=== PATIENT | male | born 1945 | race Caucasian/White ===

== ENCOUNTER 2016-11-18 01:36 | Inpatient (IN) | payer MEDICARE, MEDICAID ==
[2016-11-18] VITALS (8 sets, daily range): BP systolic 120–143; BP diastolic 58–76; PULSE 62–101; RESP 16–22; TEMP 95.9–97.6; O2SAT 93–98
[~2016-11-18] VITALS: Ht 177.8 cm; Wt 195.4 kg
[~2016-11-18 01:36] MED LIST: ASPI325T PO; COZA50TA PO; FLUO20SO3 PO; FURO1TAB93 PO; LANTUSP SQ; METO100T PO; NOVO7030P2 SQ; NYST15T TOP; PRIL40CA PO; PROT40TA PO; SULF1TAB47 PO
[2016-11-18] MEDS ORDERED: CARV25TA PO (01:46)
[2016-11-18] MEDS ORDERED: CLON0.2T PO (01:46)
[2016-11-18] MEDS ORDERED: AMLO5TAB2 PO (01:46)
[2016-11-18] MEDS ORDERED: APIX5TAB PO (01:46)
[2016-11-18] MEDS ORDERED: HYDR50TA15 PO (01:46)
[2016-11-18] MEDS ORDERED: LISI-515 PO (01:46)
[2016-11-18] MEDS ORDERED: GLIP10TA6 PO (01:46)
--- NOTE | 2016-11-18 02:01 | PD ---
HPI Chief Complaint: Fall Time Seen by Provider: 02:01 Travel History International Travel<30 days: No Contact w/Intl Traveler<30days: No Traveled to known affect area: No History of Present Illness HPI 71-year-old male was brought in by EMS with history of a fall and unable to get up and ambulate. Patient says that he was trying to go to the bathroom and his legs gave out. Normally he is not ambulatory. He had gone to [facility] with issues of leg weakness but they have discharged him home. Patient says that he used to have a healthcare aide who has abandoned him. Currently he is unable to take care of himself. Both his lower extremities look to be in terrible shape. Patient has history of lymphedema among other medical comorbidities. [facility] Past Medical History Narrative Medical List of his past medical, surgical, social and family history was reviewed from the nursing note. Arthritis: No Asthma: No Autoimmune Disease: No Blood Disorders: No Anxiety: No Depression: No Heart Rhythm Problems: No Cancer: No Cardiovascular Problems: Yes High Cholesterol: No Chemotherapy: No Chest Pain: No Congestive Heart Failure: Yes COPD: No Cerebrovascular Accident: No Diabetes: Yes Patient Takes Glucophage: Yes Diminished Hearing: No Endocrine: No Gastrointestinal Disorders: No GERD: Yes Glaucoma: No Genitourinary: No Headaches: No Hepatitis: No Hiatal Hernia: No Heparin Induced Thrombocytopen: No Hypertension: Yes Immune Disorder: No Implanted Vascular Access Dvce: No Kidney Stones: No Musculoskeletal: No Neurologic: No Psychiatric: No Reproductive: No Respiratory: No Integumentary: Yes (CELLULITIS LLE) Immunizations Current: Yes Migraines: No Myocardial Infarction: No Radiation Therapy: No Renal Failure: Yes (CHRONIC RENAL INSUFFICIENCY) Seizures: No Sickle Cell Disease: No Sleep Apnea: No Thyroid Disease: No Ulcer: No Tetanus Vaccination: > 5 Years Influenza Vaccination: Yes Past Surgical History Abdominal Surgery: No AICD: No Appendectomy: No Arteriovenous Shunt: No Cardiac Surgery: No Cholecystectomy: No Ear Surgery: No Endocrine Surgery: No Eye Surgery: No Genitourinary Surgery: No Gynecologic Surgery: No Insulin Pump: No Joint Replacement: No Neurologic Surgery: No Oral Surgery: No Pacemaker: No Thoracic Surgery: No Tonsillectomy: Yes Other Surgery: No Social History Alcohol Use: No Tobacco Use: No Substance Use: No Allergies-Medications (Allergen,Severity, Reaction): 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 MRSA Screen POSITIVE-11/19/16 Comments No known drug allergies. Reported Meds & Prescriptions Reported Meds & Active Scripts Active Reported Lasix (Furosemide) 40 Mg Tab 40 Mg PO DAILY Fluoxetine (Fluoxetine HCl) 20 Mg Cap 20 Mg PO DAILY Aspirin 325 Mg Tab 325 Mg PO DAILY Eliquis (Apixaban) 5 Mg Tab 5 Mg PO BID Amlodipine (Amlodipine Besylate) 5 Mg Tab 5 Mg PO BID Hydralazine (Hydralazine HCl) 50 Mg Tab 50 Mg PO BID Take with a meal Glipizide 10 Mg Tab 10 Mg PO BIDAC Take 30 minutes before a meal Lisinopril 20 Mg Tab 20 Mg PO BID Clonidine (Clonidine HCl) 0.2 Mg Tab 0.2 Mg PO BID Carvedilol 25 Mg Tab 25 Mg PO BID Narrative Medication List of his home medications reviewed from the nursing note. Review of Systems Except as stated in HPI: all other systems reviewed are Neg Physical Exam Narrative GENERAL: Awake, alert, morbidly obese, moderate distress SKIN: Focused skin assessment warm/dry. Pale. Disheveled, bilateral lower extremity lymphedema/elephantiasis. Bilateral feet and toes are in poor condition. The left great toe distally show signs of necrosis. Right great toe dorsally has a blood blister HEAD: Atraumatic. Normocephalic. EYES: Pupils equal and round. No scleral icterus. No injection or drainage. ENT: No nasal bleeding or discharge. Mucous membranes pink and moist. NECK: Trachea midline. No JVD. CARDIOVASCULAR: Regular rate and rhythm. No murmur appreciated. RESPIRATORY: No accessory muscle use. Clear to auscultation. Breath sounds equal bilaterally. GASTROINTESTINAL: Abdomen soft, non-tender, nondistended. Hepatic and splenic margins not palpable. MUSCULOSKELETAL: No obvious deformities. No clubbing. No cyanosis. No edema. NEUROLOGICAL: Awake and alert. No obvious cranial nerve deficits. Motor grossly within normal limits. Normal speech. PSYCHIATRIC: Appropriate mood and affect; insight and judgment normal. Data Data Last Documented VS Vital Signs Date Time Temp Pulse Resp B/P Pulse Ox O2 Delivery O2 Flow Rate FiO2 11/18/16 04:49 82 20 120/76 96 Nasal Cannula 2 11/18/16 01:46 97.5 Orders Complete Blood Count With Diff (11/18/16 02:07) Comprehensive Metabolic Panel (11/18/16 02:07) Lactic Acid Sepsis Protocol (11/18/16 02:07) Magnesium (Mg) (11/18/16 02:07) Troponin I (11/18/16 02:07) Urinalysis - C+S If Indicated (11/18/16 02:07) Blood Culture (11/18/16 02:07) Chest, Single Ap (11/18/16 02:07) Blood Glucose (11/18/16 02:07) Ecg Monitoring (11/18/16 02:07) Iv Access Insert/Monitor (11/18/16 02:07) Oximetry (11/18/16 02:07) Oxygen Administration (11/18/16 02:07) Vancomycin Inj (Vancomycin Inj) (11/18/16 02:07) Piperacil-Tazo 4.5 Gm Premix (Zosyn 4.5 (11/18/16 02:07) Urinary Catheter Insert/Apply (11/18/16 05:11) Urine Culture (11/18/16 05:35) Admit Order (Ed Use Only) (11/18/16 06:11) Labs Laboratory Tests Test 11/18/16 11/18/16 11/18/16 11/18/16 01:50 01:55 03:14 05:35 White Blood Count 8.4 TH/MM3 Red Blood Count 3.35 MIL/MM3 Hemoglobin 9.7 GM/DL Hematocrit 28.6 % Mean Corpuscular Volume 85.1 FL Mean Corpuscular Hemoglobin 29.1 PG Mean Corpuscular Hemoglobin 34.1 % Concent Red Cell Distribution Width 16.0 % Platelet Count 226 TH/MM3 Mean Platelet Volume 9.6 FL Neutrophils (%) (Auto) 77.0 % Lymphocytes (%) (Auto) 6.5 % Monocytes (%) (Auto) 10.8 % Eosinophils (%) (Auto) 4.6 % Basophils (%) (Auto) 1.1 % Neutrophils # (Auto) 6.4 TH/MM3 Lymphocytes # (Auto) 0.5 TH/MM3 Monocytes # (Auto) 0.9 TH/MM3 Eosinophils # (Auto) 0.4 TH/MM3 Basophils # (Auto) 0.1 TH/MM3 CBC Comment DIFF FINAL Differential Comment Lactic Acid Level 1.3 mmol/L Sodium Level 143 MEQ/L Potassium Level 4.5 MEQ/L Chloride Level 110 MEQ/L Carbon Dioxide Level 23.9 MEQ/L Anion Gap 9 MEQ/L Blood Urea Nitrogen 57 MG/DL Creatinine 2.93 MG/DL Estimat Glomerular Filtration 21 ML/MIN Rate Random Glucose 164 MG/DL Calcium Level 8.7 MG/DL Magnesium Level 1.9 MG/DL Total Bilirubin 0.7 MG/DL Aspartate Amino Transf 25 U/L (AST/SGOT) Alanine Aminotransferase 28 U/L (ALT/SGPT) Alkaline Phosphatase 68 U/L Troponin I LESS THAN 0.02 NG/ML Total Protein 6.9 GM/DL Albumin 2.7 GM/DL Urine Color YELLOW Urine Turbidity HAZY Urine pH 5.0 Urine Specific [place] 1.015 Urine Protein 30 mg/dL Urine Glucose (UA) NEG mg/dL Urine Ketones NEG mg/dL Urine Occult Blood NEG Urine Nitrite NEG Urine Bilirubin NEG Urine Urobilinogen LESS THAN 2.0 MG/DL Urine Leukocyte Esterase NEG Urine RBC 3 /hpf Urine WBC 1 /hpf Urine Squamous Epithelial 2 /hpf Cells Urine Bacteria FEW /hpf Urine Hyaline Casts 6 /lpf Microscopic Urinalysis Comment CATH-CULTURE IND MDM Medical Decision Making Medical Screen Exam Complete: Yes Emergency Medical Condition: Yes Medical Record Reviewed: Yes Differential Diagnosis Electrolyte abnormalities, UTI Narrative Course 2:43 AM awaiting for the blood test results to come back. CBC is back which shows mild anemia. Chest x-ray report is back which show significant cardiomegaly. 6:10 AM chemistry shows significantly elevated BUN/creatinine. This is the worst it has been compared to his past. Patient will need to be admitted to get a renal consultation since he does have cardiomegaly as well. He will also requires podiatry consultation for his diabetic foot. Procedures EKG Prior to Arrival: No Diagnosis Primary Impression: Acute renal failure Qualified Code: N17.9 - Acute renal failure, unspecified acute renal failure type Additional Impressions: Diabetic foot Inability to ambulate due to multiple joints Admitting Information Admitting Physician Requests: Admit Meaghan Foster MD Nov 18, 2016 02:01
[2016-11-18] MEDS ORDERED: PIPERACIL-TAZO 4.5 GM PREMIX 100 ML IV STA (02:07)
[2016-11-18] MEDS ORDERED: VANCOMYCIN INJ 1,000 MG in SODIUM CHLOR 0.9% 250 ML INJ 250 ML IV STA (02:07)
[2016-11-18 02:37] LABS: AUTOMATED NEUTROPHIL # 6.4 TH/MM3 (1.8-7.7); BASOPHIL # 0.1 TH/MM3 (0-0.2); BASOPHIL % 1.1 % (0.0-2.0); EOSINOPHIL # 0.4 TH/MM3 (0-0.4); EOSINOPHIL % 4.6 % (0.0-4.0); HEMATOCRIT 28.6 % (39.0-51.0); HEMO FLAGS DIFF FINAL; LYMPH % 6.5 % (9.0-44.0); LYMPHOCYTE # 0.5 TH/MM3 (1.0-4.8); MEAN CELL VOLUME 85.1 FL (80.0-100.0); MEAN CORPUSCULAR HEMOGLOBIN 29.1 PG (27.0-34.0); MEAN CORPUSCULAR HGB CONC 34.1 % (32.0-36.0); MONO % 10.8 % (0.0-8.0); PLATELET COUNT 226 TH/MM3 (150-450); RED BLOOD COUNT 3.35 MIL/MM3 (4.50-5.90); WHITE BLOOD COUNT 8.4 TH/MM3 (4.0-11.0)
--- NOTE | 2016-11-18 02:39 | RADRPT ---
EXAM DATE/TIME: 11/18/2016 02:15 [facility] COMPARISON: No previous studies available for comparison. INDICATIONS : Shortness of breath. MEDICAL HISTORY : None. SURGICAL HISTORY : None. ENCOUNTER: Initial ACUITY: 1 day PAIN SCORE: 7/10 LOCATION: Bilateral chest FINDINGS: A single view of the chest demonstrates prominence of pulmonary vasculature suggestive of pulmonary v enous congestion. The heart size is diffusely enlarged. No definite pleural effusions. No focal areas of parenchymal consolidation. The bony structures are grossly intact.. CONCLUSION: Pulmonary venous congestion with moderate diffuse cardiomegaly. Gustavo Grider MD on November 18, 2016 at 2:36 Board Certified Radiologist. This report was verified electronically.
[2016-11-18 04:46] LABS: ALT (GPT) 28 U/L (12-78); ANION GAP 9 MEQ/L (5-15); AST (GOT) 25 U/L (15-37); BICARBONATE 23.9 MEQ/L (21.0-32.0); BLOOD UREA NITROGEN 57 MG/DL (7-18); CHLORIDE 110 MEQ/L (98-107); GLOMERULAR FILTRATION RATE 21 ML/MIN (>89); MAGNESIUM 1.9 MG/DL (1.5-2.5); POTASSIUM 4.5 MEQ/L (3.5-5.1); SODIUM (NA) 143 MEQ/L (136-145)
[2016-11-18 04:50] LABS: ALKALINE PHOSPHATASE 68 U/L (45-117); TOTAL BILIRUBIN ADULT 0.7 MG/DL (0.2-1.0)
[2016-11-18 05:47] LABS: BACTERIA, URINE FEW /hpf; BLOOD, URINE NEG (NEG); COMMENT (UR) CATH-CULTURE IND; CULTURE IF INDICATED CATH CULTURE IND; GLUCOSE,URINE NEG (NEG); HYALINE CAST, URINE 6 /lpf (RARE); KETONE, URINE NEG (NEG); NITRITE,URINE NEG (NEG); SQUAMOUS EPITHELIAL CELL URINE 2 /hpf (0-5); URINE COLOR YELLOW (YELLW/STRAW)
[2016-11-18] MEDS ORDERED: SENNOSIDES 8.6 MG TAB PO PRN (07:00)
[2016-11-18] MEDS ORDERED: BISACODYL 10 MG SUPP RECTAL PRN (07:00)
[2016-11-18] MEDS ORDERED: MORPHINE SULFATE 4 MG/ML INJ IV PUSH ONE (07:00)
[2016-11-18] MEDS ORDERED: ONDANSETRON HCL 4 MG/2 ML VIAL IVP PRN (07:00)
[2016-11-18] MEDS ORDERED: NALOXONE HCL 0.4 MG/ML AMP IV PRN (07:00)
[2016-11-18] MEDS ORDERED: ACETAMINOPHEN 325 MG TAB PO PRN (07:00)
[2016-11-18] MEDS ORDERED: SODIUM CHLORIDE 0.9% FLUSH 10 ML FLUSH IV FLUSH PRN (07:00)
[2016-11-18] MEDS: SODIUM CHLORIDE 0.9% FLUSH 10 ML FLUSH IV FLUSH SCH ×2 (10:30→21:43)
[2016-11-18] MEDS: HEPARIN SODIUM - SQ 10,000 UNITS/ML VIAL SQ SCH ×2 (10:30→21:43)
--- NOTE | 2016-11-18 10:44 | MH ---
cc: RANJEET ADAM MD DATE OF ADMISSION: 11/18/2016 DATE OF 1945 CHIEF COMPLAINT Fall TRAVEL IN THE LAST 30 DAYS None HISTORY OF PRESENT ILLNESS This is an unfortunate 71-year-old white male who is morbidly obese. According to the record, the last time he was weighed, he was a 190 kg which averages out to be around 418 pounds. I am sure this weight waxes and wanes with his fluid overload. The patient has been living in the [facility] with some assistance from home health and a health health care manager, but according to the record, the health health care manager has not showed up to help him in an undisclosed amount of time. The patient is non-ambulatory for the most part. He is unable to care for himself. He fell in his home sometime yesterday and went to [facility] in [facility] with generalized bilateral leg weakness. According to the record and the nurse caring for the patient, the patient had an x-ray on his coccyx area yesterday which showed no fracture. The patient is back here in [facility] due to his overall weakness, lymphedema and unable to care for himself. He is complaining of coccyx pain. He is grunting and moaning with his eyes even at rest with discomfort. He has been seen by the wound care folks and states that his dressings have not been done in three days. The patient has 3+ to 4+ scrotal edema which he is unable to manage. States that he has been urinating okay before this admission and had a bowel movement yesterday. The patient currently has a Downs catheter in place to monitor I's and O's. The patient states that he has no family to assist him. His general hygiene has not been taken care of in an undisclosed amount of time. The patient has a history of lymphedema in his legs bilaterally. MEDICAL HISTORY 1. Cardiovascular disease 2. Lymphedema 3. Lower extremity wounds 4. Congestive heart failure 5. Diabetes type 2 uncontrolled. The patient takes Glucophage. 6. Gastroesophageal reflux disease 7. Hypertension 8. Cellulitis left lower extremities 9. Chronic renal insufficiency Most this is being obtained from the record. PAST MEDICAL HISTORY Tonsillectomy ALLERGIES No known MEDICATIONS Reported: 1. Eliquis 2. Amlodipine 3. Hydralazine 4. Glipizide 5. Lisinopril 6. Clonidine 7. Carvedilol 8. Aspirin 9. Prozac 10. Lasix SOCIAL HISTORY Denies any alcohol, tobacco or illicit drug use. He denies any family and lives alone in some type of apartment. REVIEW OF SYSTEMS A 12-point review was obtained. Limited information due to the patient's pain level. According to the HPI, the patient has a positive note of a recent fall on his coccyx. He has bilateral lymphedema with multiple wounds. The legs are wrapped. Feet and toes are exposed with bruise, cuts and edema, severe debility, genital swelling, morbid obesity, noncompliance. Other systems are negative or unremarkable for now. PHYSICAL EXAM VITAL SIGNS: Temperature is 97.5, pulse is labile between 62 and 96, respirations 20, blood pressure 125/58, O2 sat 96-98 on two liters nasal cannula. PHYSICAL EXAMINATION GENERAL: A morbidly obese white male who looks to be his stated age, awake, alert, in moderate pain. SKIN: Michael, dry, unkempt. Lower extremity lymphedema. Pale mucous membranes. Blisters his lower feet and toes. Left great toe shows some possible necrosis. He does have some opened areas with some serous bloody serous drainage. HEENT: Atraumatic, normocephalic. GRACE. No scleral icterus. No drainage. Mucous membranes are pink and moist. NECK: Obese, short, supple. Trachea is midline. CARDIOVASCULAR: Regular rate and rhythm within normal parameters. Distant heart sounds. RESPIRATORY: Low volumes, some grunting respirations which is labile. Breath sounds are equal bilateral. ABDOMEN: Obtunded, morbidly obese, nontender, nondistended. Bowel sounds are soft, but active. MUSCULOSKELETAL: Lymphedema lower extremities, limited mobility but he can move his toes on command. NEUROLOGIC: He is alert, awake, a fair historian. Speech is weak, but clear. PSYCHIATRIC: Mood and affect show anxiety, judgment is normal. DIAGNOSTIC DATA WBC count 8.4, RBC 3.35, hemoglobin 9.7, hematocrit 28.6, abnormal show neutrophil auto count 77, lymphocytes 6.5, monocytes 10.8, eosinophils 4.6. Chemistry sodium 143, potassium 4.5, chloride 110, carbon dioxide 23.9, amnion gap 9, BUN 57, creatinine 2.93, GFR 21, random glucose 164, lactic acid 1.3, troponin is less than 0.02, albumin is 2.7. Urine is yellow, hazy, pH is 5, specific gravity 1.015, protein 30, glucose ketones, occult blood, nitrites, bilirubin and leukocyte esterase are negative. A few urine bacteria and hyaline cast 6. Cath culture is indicated. IMAGING STUDIES Show a chest x-ray to have pulmonary venous congestion with moderate diffuse cardiomegaly. ASSESSMENT/PLAN 1. Recent fall with possible coccyx injury. 2. Morbid obesity 3. Cellulitis with bilateral lymphedema 4. Severe debility and unable to ambulate. 5. Acute renal failure with chronic kidney disease 6. Diabetes mellitus type 2 uncontrolled. 7. Cardiomegaly 8. History of cardiovascular disease. 9. History of congestive heart failure. 10. Gastroesophageal reflux disease 11. Peripheral vascular disease PLAN Admit inpatient. In the emergency room, the patient received a dose of IV vancomycin and Zosyn. His heart is monitored. ECG monitoring with O2 administration. He received initial labs. Downs catheter was inserted for accurate I&O. Urine culture is pending. DVT prophylaxis with heparin, PUD prophylaxis with Pepcid will be added. P.r.n. medications for bowel regimen. We will consult wound care physician and nurse team for their expert opinion. The patient has uncontrolled lymphedema with bilateral foot wounds. Possible further evaluation of lower extremities from the expert opinion of the wound care team. Pain management with IV morphine. We will get PT to eval and treat and give recommendations. Case management consult for discharge early discharge planning. Currently the patient is a full code, full aggressive care. Briefly discuss his wishes and goals of care with special attention to ventilator management. The patient stated that he did not wish to have any type of ventilator management. This will need to be discussed further with possible palliative care team and treating physicians. We will follow. Dictated by ELOISE Gabriel MD WALTER Mckeon/JENS /9:17 AM /10:43 AM pt is seen & Examined very unkempt/dishevelled morbidly obese WM hx of fall coccygeal fx HTN CKD Ch venous insufficiency/ stasis dermatitis, lymphedema b/l Lower ext Multiple reynolds wounds b/l w possible infection suspected sleep apnea on Eliquis, will change dose d/t CKD d/w leonor see orders will f/u Ranjeet Adam MD Nov 18, 2016 12:14 MTDD
[2016-11-18] MEDS ORDERED: FURO1TAB60 PO (11:50)
[2016-11-18] MEDS ORDERED: FLUO20CA4 PO (11:50)
[2016-11-18] MEDS ORDERED: ASPI325T PO (11:50)
--- NOTE | 2016-11-18 12:14 | HHI.PR ---
Objective Objective Results - Vital Signs Date Time Temp Pulse Resp B/P Pulse Ox O2 Delivery O2 Flow Rate FiO2 11/18/16 07:47 93 Nasal Cannula 2.00 11/18/16 07:01 96 20 125/58 98 Nasal Cannula 2 11/18/16 04:49 82 20 120/76 96 Nasal Cannula 2 11/18/16 02:15 96 Nasal Cannula 2 11/18/16 02:15 20 11/18/16 01:49 16 11/18/16 01:46 97.5 62 18 135/63 96 Result Diagram: 11/18/16 0150 11/18/16 0314 Other Results Laboratory Tests Test 11/18/16 11/18/16 11/18/16 11/18/16 01:50 01:55 03:14 05:35 White Blood Count 8.4 Red Blood Count 3.35 Hemoglobin 9.7 Hematocrit 28.6 Mean Corpuscular Volume 85.1 Mean Corpuscular Hemoglobin 29.1 Mean Corpuscular Hemoglobin 34.1 Concent Red Cell Distribution Width 16.0 Platelet Count 226 Mean Platelet Volume 9.6 Neutrophils (%) (Auto) 77.0 Lymphocytes (%) (Auto) 6.5 Monocytes (%) (Auto) 10.8 Eosinophils (%) (Auto) 4.6 Basophils (%) (Auto) 1.1 Neutrophils # (Auto) 6.4 Lymphocytes # (Auto) 0.5 Monocytes # (Auto) 0.9 Eosinophils # (Auto) 0.4 Basophils # (Auto) 0.1 CBC Comment DIFF FINAL Differential Comment Lactic Acid Level 1.3 Sodium Level 143 Potassium Level 4.5 Chloride Level 110 Carbon Dioxide Level 23.9 Anion Gap 9 Blood Urea Nitrogen 57 Creatinine 2.93 Estimat Glomerular Filtration 21 Rate Random Glucose 164 Calcium Level 8.7 Magnesium Level 1.9 Total Bilirubin 0.7 Aspartate Amino Transf 25 (AST/SGOT) Alanine Aminotransferase 28 (ALT/SGPT) Alkaline Phosphatase 68 Troponin I LESS THAN 0.02 Total Protein 6.9 Albumin 2.7 Urine Color YELLOW Urine Turbidity HAZY Urine pH 5.0 Urine Specific [place] 1.015 Urine Protein 30 Urine Glucose (UA) NEG Urine Ketones NEG Urine Occult Blood NEG Urine Nitrite NEG Urine Bilirubin NEG Urine Urobilinogen LESS THAN 2.0 Urine Leukocyte Esterase NEG Urine RBC 3 Urine WBC 1 Urine Squamous Epithelial 2 Cells Urine Bacteria FEW Urine Hyaline Casts 6 Microscopic Urinalysis Comment CATH-CULTURE IND Date/Time Procedure Status Source Growth 11/18/16 05:35 Urine Culture Received Urine Catheterized Urine Pending 11/18/16 01:55 Aerobic Blood Culture Received Blood Peripheral Pending 11/18/16 01:55 Anaerobic Blood Culture Received Blood Peripheral Pending Physical Exam Physical Exam pt is seen & Examined very unkempt/dishevelled morbidly obese WM hx of fall coccygeal fx HTN CKD Ch venous insufficiency/ stasis dermatitis, lymphedema b/l Lower ext Multiple reynolds wounds b/l w possible infection suspected sleep apnea on Eliquis, will change dose d/t CKD d/w leonor see orders will f/u Marie Adam MD Nov 18, 2016 12:14
--- NOTE | 2016-11-18 12:34 | PD.CONS ---
Consult Service Palliative Care Consult Requested By moon Primary Care Physician Unknown Reason for Consultation a. To assist with evaluation and management of symptoms including:pain b. To assist medical decision maker(s) with: better understanding of current medical conditions; weighing benefits/burdens of medical treatment options; making medical treatment decisions. HPI History of Present Illness 71 year old with a past medical history of morbid obesity, CAD, Lymphedema, lower ext wounds, CHF, DM, GERD, HTN, cellulitis and renal insufficiency. Pt was brought to the ER, after pt fell and unable to get up and ambulate. Pt state he has been trying to get to the bathroom, but legs gave out. He has previous hospitalization for leg weakness. Pt fell yesterday and went to [facility], with generalized bilateral leg weakness, where he had xray on his coccyx done and showed no fracture. In the ER: * T 97.5 Pulse 62; r 18; BP 135/63; pulse ox 96. * Na 143; K 4.5; Cl 110; CO2 23.9; BUN 57; Cr 2.93 * Ua show few urine bacteria, no Nitrite or leukocyte esterase. Culture was indicated and pending. * blood culture pending. * Chest X ray show pulmonary venous congestion and moderate diffuse cardiomegaly. On my visit pt was sleeping, but awaken easily. He knows where he is, oriented to place, person, year, month. He stated that he has pain, all over. He denies dyspnea, or other complaints. He stated he did not really wanted to talk now, but rest. He is amenable for me to come back tomorrow. He did state he wants to be a DNR, no intubation, no cpr/no shock/ compression. He also state "I have no living will" and that he has no one to designate as Health care surrogate. He wants to rest. Function/Cognitive Trajectory Normally is not ambulatory. Use to healthcare aide, but has not been seen. Review of Systems ROS Limitations: Clinical Condition, Uncooperative Constitutional: COMPLAINS OF: Fatigue Cardiovascular: COMPLAINS OF: Lower Extremity Edema Musculoskeletal: COMPLAINS OF: Muscle aches, Stiffness, Back pain Past Family Social History Coded Allergies: No Known Allergies (Verified , 11/18/16) Past Medical History morbid obesity, CAD, Lymphedema, lower ext wounds, CHF, DM, GERD, HTN, cellulitis and renal insufficiency Reported Medications Eliquis amlodipine hydralazine glipizide lisinopril clonidine carvedilol aspirn prozac lasix. Current Medications Medications (Trade) Dose Ordered Sig/Darling Route Start Time Stop Time Status Last Admin (NS Flush) 2 ml UNSCH PRN IV FLUSH 11/18/16 07:00 (NS Flush) 2 ml BID IV FLUSH 11/18/16 09:00 11/18/16 10:30 (Tylenol) 650 mg Q4H PRN PO 11/18/16 07:00 (Zofran Inj) 4 mg Q6H PRN IVP 11/18/16 07:00 (Dulcolax Supp) 10 mg DAILY PRN RECTAL 11/18/16 07:00 (Senokot) 17.2 mg Q12H PRN PO 11/18/16 07:00 (Heparin Inj) 5,000 units Q12HR SQ 11/18/16 09:00 11/18/16 10:30 (Narcan Inj) 0.4 mg UNSCH PRN IV 11/18/16 07:00 (Norvasc) 5 mg BID PO 11/18/16 21:00 UNV (Aspirin) 325 mg DAILY PO 11/19/16 09:00 (Coreg) 25 mg BID PO 11/18/16 21:00 UNV (Catapres) 0.2 mg BID PO 11/18/16 21:00 (PROzac) 20 mg DAILY PO 11/19/16 09:00 UNV (Lasix) 40 mg DAILY PO 11/19/16 09:00 UNV (Glucotrol) 10 mg BIDAC PO 11/18/16 16:00 UNV (Apresoline) 50 mg BID PO 11/18/16 21:00 Substance Use Tobacco:no Alcohol:no Prescription med abuse:no Illicits:no Living Will: Never completed Health Care Surrogate: Never completed Durable Power of Drywall Professional: Never completed Physical Exam Vital Signs Date Time Temp Pulse Resp B/P Pulse Ox O2 Delivery O2 Flow Rate FiO2 11/18/16 07:47 93 Nasal Cannula 2.00 11/18/16 07:01 96 20 125/58 98 Nasal Cannula 2 11/18/16 04:49 82 20 120/76 96 Nasal Cannula 2 11/18/16 02:15 96 Nasal Cannula 2 4/25/17 02:15 20 11/18/16 01:49 16 11/18/16 01:46 97.5 62 18 135/63 96 Exam CONSTITUTIONAL/GENERAL: Obese gentlemen, looks fatiged SKIN: No jaundice. lower ext edema and wounds. HEAD: Atraumatic. Normocephalic. EYES: Pupils equal and round and reactive. Extraocular motions intact. No scleral icterus. No injection or drainage. Fundi not examined. ENT: Hearing grossly normal. Nose without bleeding or purulent drainage. Throat without visible erythema, exudates, masses, or lesions. NECK: Trachea midline. Supple, nontender. No palpable thyroid enlargement or nodularity. CARDIOVASCULAR: Regular rate and rhythm without murmurs, gallops, or rubs. No JVD. Peripheral pulses symmetric. RESPIRATORY/CHEST: Symmetric, unlabored respirations. Clear to auscultation. Breath sounds equal bilaterally. No wheezes, rales, or rhonchi. GASTROINTESTINAL: Abdomen soft, non-tender, distended. No hepato-splenomegaly, or palpable masses. No guarding. Bowel sounds present. GENITOURINARY: Without palpable bladder distension. Downs catheter in place. MUSCULOSKELETAL: Extremities with lymphedema and wounds. LYMPHATICS: lymphedema NEUROLOGICAL: Awake and alert. . Follows commands. Awaken easily.. Moves all extremities. PSYCHIATRIC: No obvious anxiety/depression. no apparent hallucinations or other psychotic thought process. Diagnostic Tests Laboratory Laboratory Tests Test 11/18/16 11/18/16 11/18/16 11/18/16 01:50 01:55 03:14 05:35 White Blood Count 8.4 TH/MM3 (4.0-11.0) Red Blood Count 3.35 MIL/MM3 (4.50-5.90) Hemoglobin 9.7 GM/DL (13.0-17.0) Hematocrit 28.6 % (39.0-51.0) Mean Corpuscular Volume 85.1 FL (80.0-100.0) Mean Corpuscular Hemoglobin 29.1 PG (27.0-34.0) Mean Corpuscular Hemoglobin 34.1 % Concent (32.0-36.0) Red Cell Distribution Width 16.0 % (11.6-17.2) Platelet Count 226 TH/MM3 (150-450) Mean Platelet Volume 9.6 FL (7.0-11.0) Neutrophils (%) (Auto) 77.0 % (16.0-70.0) Lymphocytes (%) (Auto) 6.5 % (9.0-44.0) Monocytes (%) (Auto) 10.8 % (0.0-8.0) Eosinophils (%) (Auto) 4.6 % (0.0-4.0) Basophils (%) (Auto) 1.1 % (0.0-2.0) Neutrophils # (Auto) 6.4 TH/MM3 (1.8-7.7) Lymphocytes # (Auto) 0.5 TH/MM3 (1.0-4.8) Monocytes # (Auto) 0.9 TH/MM3 (0-0.9) Eosinophils # (Auto) 0.4 TH/MM3 (0-0.4) Basophils # (Auto) 0.1 TH/MM3 (0-0.2) CBC Comment DIFF FINAL Differential Comment Lactic Acid Level 1.3 mmol/L (0.4-2.0) Sodium Level 143 MEQ/L (136-145) Potassium Level 4.5 MEQ/L (3.5-5.1) Chloride Level 110 MEQ/L (98-107) Carbon Dioxide Level 23.9 MEQ/L (21.0-32.0) Anion Gap 9 MEQ/L (5-15) Blood Urea Nitrogen 57 MG/DL (7-18) Creatinine 2.93 MG/DL (0.60-1.30) Estimat Glomerular Filtration 21 ML/MIN (>89) Rate Random Glucose 164 MG/DL (74-106) Calcium Level 8.7 MG/DL (8.5-10.1) Magnesium Level 1.9 MG/DL (1.5-2.5) Total Bilirubin 0.7 MG/DL (0.2-1.0) Aspartate Amino Transf 25 U/L (15-37) (AST/SGOT) Alanine Aminotransferase 28 U/L (12-78) (ALT/SGPT) Alkaline Phosphatase 68 U/L (45-117) Troponin I LESS THAN 0.02 NG/ML (0.02-0.05) Total Protein 6.9 GM/DL (6.4-8.2) Albumin 2.7 GM/DL (3.4-5.0) Urine Color YELLOW (YELLW/STRAW) Urine Turbidity HAZY (CLEAR) Urine pH 5.0 (5.0-8.5) Urine Specific [place] 1.015 (1.002-1.035) Urine Protein 30 mg/dL (NEG-TRACE) Urine Glucose (UA) NEG mg/dL (NEG) Urine Ketones NEG mg/dL (NEG) Urine Occult Blood NEG (NEG) Urine Nitrite NEG (NEG) Urine Bilirubin NEG (NEG) Urine Urobilinogen LESS THAN 2.0 MG/DL (LESS THAN 2.0) Urine Leukocyte Esterase NEG (NEG) Urine RBC 3 /hpf (0-3) Urine WBC 1 /hpf (0-5) Urine Squamous Epithelial 2 /hpf (0-5) Cells Urine Bacteria FEW /hpf (NONE) Urine Hyaline Casts 6 /lpf (RARE) Microscopic Urinalysis Comment CATH-CULTURE IND Result Diagram: 11/18/16 0150 11/18/16 0314 Microbiology Microbiology Date/Time Procedure Status Source Growth 11/18/16 01:50 Aerobic Blood Culture Received Blood Peripheral Pending 11/18/16 01:50 Anaerobic Blood Culture Received Blood Peripheral Pending 11/18/16 01:55 Aerobic Blood Culture Received Blood Peripheral Pending 11/18/16 01:55 Anaerobic Blood Culture Received Blood Peripheral Pending 11/18/16 05:35 Urine Culture Received Urine Catheterized Urine Pending Imaging Last Impressions Chest X-Ray 11/18/16 0207 Signed Impressions: Service Date/Time: Friday, November 18, 2016 02:15 - CONCLUSION: Pulmonary venous congestion with moderate diffuse cardiomegaly. Gustavo Grider MD Patient/Family Conference Present at Family Conference: patient Family Conference Time (mins): 20 Family Conference Location: Bedside Issues Discussed: * Palliative care role, purpose, approach * Additional medical, psychosocial, and spiritual history * Patients general health, functional status, and cognitive changes in the months leading up to the current hospitalization * Patient/family understanding of the current medical problems * Patient/family understanding of prognosis * Patients goals of care as best understood from advance directives and/or conversations and/or values * Current medical treatment options and benefits/burdens of those options * Likely scenarios comparing ongoing aggressive care with a transition to comfort measures only * Questions answered to the best of my ability * Palliative care contact information provided Assessment and Plan Disease Oriented Problem List: (1) Inability to ambulate due to multiple joints (2) Acute renal failure (3) Diabetic foot Symptom Scale: (1) Pain 0-10 Scale: Unable to quantify Comment: he wanted to rest Pertinent Non-Medical Issues Psychosocial: Spiritual: Legal: Ethical issues impacting care: Important Contacts Orquidea Joyce (sister [phone]) Prognosis 71. Nilay Joyce. morbid obesity, chronic wound, renal insufficiency, chf, mostly in bed. None of the current diagnosis with records at hand indicate end stage.( not O2 dependent in terms of cardiac, Cr is 2.93). The biggest issue is pt's debility, and lack of ability to care for self, with multiple wounds. If pt social situation is better, this would definitely affect prognosis. Prognosis is guarded, and likely greater than 6 months if social situation improves. Code Status: No Code Plan == code: DNR == capacity- appears to have capacity to make medical decision. == goals: could not review extensivly, pt wanted to rest. On my visit pt was sleeping, but awaken easily. He knows where he is, oriented to place, person, year, month. He stated that he has pain, all over. He denies dyspnea, or other complaints. He stated he did not really wanted to talk now, but rest. He is amenable for me to come back tomorrow. He did state he wants to be a DNR , no intubation, no cpr/no shock/ compression. He also state "I have no living will" and that he has no one to designate as Health care surrogate. He wants to rest. ==pain -multiple wounds. no new med rec. == palliative will f/u hopefully work with pt on health care surrogate, living will. Thank you for the opportunity to participate in the care of Mr. Joyce. Attestation To help prompt me to consider important information that might be impacting today's encounter and assessment, information from prior notes written by myself or my colleagues may have been "brought forward" into today's note. My signature on this note, however, is an attestation that I personally performed the exam, history, and/or decision-making noted today, and, unless otherwise indicated, the interactions with patient, family, and staff as well as the review of records all occurred today. I also attest that the listed assessment and stated plan reflect my best clinical judgment today based on the combination of historical information, prior notes, and today's exam/ interactions. When time spent is documented, it refers only to time spent today by the signer, or if indicated, combined time spent today by collaborating physician/nurse practitioner. Obi Pereyra MD Nov 18, 2016 12:34
[2016-11-18] MEDS: glipiZIDE 10 MG TAB PO SCH (15:58)
[2016-11-18] MEDS: cloNIDine HCL 0.2 MG TAB PO SCH (21:42)
[2016-11-18] MEDS: amLODIPine BESYLATE 5 MG TAB PO SCH (21:42)
[2016-11-18] MEDS: CARVEDILOL 12.5 MG TAB PO SCH (21:42)
[2016-11-18] MEDS: APIXABAN 2.5 MG TABLET PO SCH (21:42)
[2016-11-18] MEDS: hydrALAZINE HCL 50 MG TAB PO SCH (21:42)
[2016-11-19] VITALS (8 sets, daily range): BP systolic 101–130; BP diastolic 53–60; PULSE 78–85; RESP 18–22; TEMP 96.5–98.1; O2SAT 90–95
[2016-11-19] MEDS: glipiZIDE 10 MG TAB PO SCH ×2 (08:46→17:31)
[2016-11-19] MEDS: SODIUM CHLORIDE 0.9% FLUSH 10 ML FLUSH IV FLUSH SCH ×2 (08:47→21:21)
[2016-11-19] MEDS: FLUoxetine HCL 20 MG CAP PO SCH (08:48)
[2016-11-19] MEDS: FUROSEMIDE 40 MG TAB PO SCH (08:48)
[2016-11-19] MEDS: ASPIRIN 325 MG TAB PO SCH (08:48)
[2016-11-19] MEDS: APIXABAN 2.5 MG TABLET PO SCH ×2 (08:48→21:23)
[2016-11-19] MEDS: amLODIPine BESYLATE 5 MG TAB PO SCH ×2 (08:48→21:00)
[2016-11-19] MEDS: cloNIDine HCL 0.2 MG TAB PO SCH ×2 (08:49→21:00)
[2016-11-19] MEDS: hydrALAZINE HCL 50 MG TAB PO SCH ×2 (08:49→21:00)
[2016-11-19] MEDS: CARVEDILOL 12.5 MG TAB PO SCH ×2 (08:49→21:23)
[2016-11-19] MEDS: HEPARIN SODIUM - SQ 10,000 UNITS/ML VIAL SQ SCH ×2 (08:59→21:21)
--- NOTE | 2016-11-19 10:05 | HHI.PR ---
Subjective Remarks Resting in bed Eyes closed No facial grimace Responds to verbal stimuli with short quick answers Objective Objective Results - Vital Signs Date Time Temp Pulse Resp B/P Pulse Ox O2 Delivery O2 Flow Rate FiO2 11/19/16 07:07 96.5 85 22 130/60 95 11/19/16 04:02 96.6 78 18 107/57 93 11/19/16 00:00 97.9 82 22 124/59 92 11/18/16 21:29 96.5 93 22 122/67 95 11/18/16 15:28 95.9 101 18 143/70 94 11/18/16 14:00 97.6 79 16 137/65 96 Nasal Cannula 2 I/O 11/18/16 11/18/16 11/18/16 11/19/16 11/19/16 11/19/16 07:00 15:00 23:00 07:00 15:00 23:00 Intake Total 480 ml Output Total 350 ml 150 ml Balance 130 ml -150 ml Intake Oral 480 ml Output Urine Total 350 ml 150 ml # Bowel Movements 0 0 Result Diagram: 11/18/16 0150 11/18/16 0314 ROS General: Weakness (generalized especially with lower extremities), Other (10 point ROS done, positives noted lymph edema, lower extremities and scrotum, generalized weakness, thirst and also SOB, the systems negative or unremarkable) Pulmonary: SOB (exertional) Skin: Other (lymphedema bilateral lower legs, massive scrotal edema, morbid obesity) Physical Exam Physical Exam PHYSICAL EXAMINATION GENERAL: This is a morbidly obese male who appears to be in no acute distress for now He is drowsy but is responding to verbal stimuli HEAD: Normocephalic without any lesion or mass noted. Facial features appear symmetric. OROPHARYNGEAL: Oropharynx without erythema or edema., Dry NECK: Supple obese. No nuchal rigidity or lymphadenopathy. Trachea midline without deviation. CARDIAC: Regular rhythm, regular rate, S1 and S2 are heard. Distant LUNGS: Diminished to auscultation bilaterally. no wheeze, no rhonchi No use of accessory muscles on inspiration or expiration. ABDOMEN: Morbidly obese, Soft, nontender, Bowel sounds are heard in all four quadrants, soft sounds EXTREMITIES: 4+ edema lower extremities with multiple sores on toes. Skin is thick, johnie, warm lower extremities, small blackened area on great toe NEUROLOGICAL: Patient mood and affect appropriate, speech is clear appears more comfortable today SKIN:Warm, dry, Objective Remarks I'm feeling better today A/P Assessment and Plan 1. Recent fall with possible coccyx injury xray at previous facility stated no fx 2. Morbid obesity got amee bed with specialty actress for his wounds and edema. Much more comfortable. In the emergency room patient expressed the wishes of no Ventilator, and no heroics if he progresses to get worse. Palliative care consult done. Patient denies having any family or friends that could be his decision maker in the event that he cannot make decisions for himself. Blood work in room but again today patient states no friends no family, no confucianism family Patient did make himself a DO NOT RESUSCITATE. Appreciate palliative care's input and assistance. 3. Cellulitis with bilateral lymphedema Wound care consult is still pending. Nurse is calling them this morning. Patient needs evaluation and wrapping for his lymphedema bilateral lower Extremities and scrotal support for his edema. IV antibiotics 4. Severe debility and unable to ambulate Patient is too weak to ambulate, and hasn't walked in some time. Specialty bed and mattress is assisting with his comfort. We'll order physical therapy To eval for any special mobility needs, Downs catheter in to protect skin, accurate I&O 5. Acute renal failure with chronic kidney disease Labs are pending this morning, patient has cardiomegaly and edema, but still requires by mouth Lasix. We'll continue to monitor his chronic disease. 6. Diabetes mellitus type 2 uncontrolled. Accu-Cheks before meals and at bedtime with sliding scale, much improved with controlled dietary habits 7. Cardiomegaly Patient is on by mouth Lasix, no shortness of breath noted today. Conservative treatment 8. History of cardiovascular disease Medical management 9. History of congestive heart failure. Stable for now medical management 10. Gastroesophageal reflux disease Medical management 11. Peripheral vascular disease 12. Debility, severe, Patient has not been ambulated in quite some time. PTT eval for any special mobility treatment needs for patient John management consult done on admission for placement. Currently patient has been unable to care for himself 13. Morbid obesity Encouraged dietary caloric control, heart healthy diet. Patient has good appetite DVT prophylaxis PUD prophylaxis Discharge Planning SNF Discussed With: Nurse, Family (patient), Other (Dr. zambrano, patient seen on his behalf) Racheal Wheeler Nov 19, 2016 10:05
[2016-11-19 10:08] LABS: AUTOMATED NEUTROPHIL # 3.6 TH/MM3 (1.8-7.7); BASOPHIL % 0.6 % (0.0-2.0); EOSINOPHIL # 0.2 TH/MM3 (0-0.4); EOSINOPHIL % 4.8 % (0.0-4.0); HEMATOCRIT 22.3 % (39.0-51.0); HEMO FLAGS DIFF FINAL; LYMPH % 9.6 % (9.0-44.0); LYMPHOCYTE # 0.5 TH/MM3 (1.0-4.8); MEAN CELL VOLUME 86.9 FL (80.0-100.0); MEAN CORPUSCULAR HEMOGLOBIN 28.7 PG (27.0-34.0); PLATELET COUNT 137 TH/MM3 (150-450); RED BLOOD COUNT 2.56 MIL/MM3 (4.50-5.90)
[2016-11-19 10:41] LABS: BICARBONATE 23.8 MEQ/L (21.0-32.0); POTASSIUM 4.6 MEQ/L (3.5-5.1)
--- NOTE | 2016-11-19 12:25 | PD.WOU.CON ---
Patient Intake Chief Complaint Lower extremity venous stasis ulcerations Consult Requested by Dr. Cam Reason for Consult Evaluation and treat venous stasis ulceration of the lower extremity Primary Care Physician Unknown History of Present Illness Patient is a 71-year-old morbidly obese male with chronic lymphedema who is unable to ambulate and fell at home. When he was brought to the hospital as noted he has severe bilateral lower extremity edema and superficial ulcerations of the right leg. 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 Preferred Language to Discuss: Bangladeshi Barriers to Learning: Physical Teaching Method: Audiovisual Vital Signs Date Time Temp Pulse Resp B/P Pulse Ox O2 Delivery O2 Flow Rate FiO2 11/19/16 11:55 97.8 82 22 101/53 90 11/19/16 07:07 96.5 85 22 130/60 95 11/19/16 04:02 96.6 78 18 107/57 93 11/19/16 00:00 97.9 82 22 124/59 92 11/18/16 21:29 96.5 93 22 122/67 95 11/18/16 15:28 95.9 101 18 143/70 94 11/18/16 14:00 97.6 79 16 137/65 96 Nasal Cannula 2 Pain scale used: 0-10 numeric scale Pain score: 1 Medications Current Medications Vancomycin HCl 1000 mg/Sodium Chloride 250 ml @ 250 mls/hr ONCE STAT IV Last administered on 11/18/16 03:05; Start 11/18/16 at 02:07; Stop 11/18/16 at 03:06 ; Status DC Piperacillin Sod/ Tazobactam Sod (Zosyn 4.5 Gm Premix) 100 ml @ 200 mls/hr ONCE STAT IV Last administered on 11/18/16 02:30; Start 11/18/16 at 02:07; Stop 11/18/16 at 02:36; Status DC Sodium Chloride (NS Flush) 2 ml UNSCH PRN IV FLUSH FLUSH AFTER USING IV ACCESS ; Start 11/18/16 at 07:00 Sodium Chloride (NS Flush) 2 ml BID IV FLUSH Last administered on 11/19/16 08: 47; Start 11/18/16 at 09:00 Acetaminophen (Tylenol) 650 mg Q4H PRN PO TEMP > 100.4; Start 11/18/16 at 07:00 Ondansetron HCl (Zofran Inj) 4 mg Q6H PRN IVP NAUSEA OR VOMITING; Start at 07:00 Bisacodyl (Dulcolax Supp) 10 mg DAILY PRN RECTAL CONSTIPATION; Start 11/18/16 at 07:00 Sennosides (Senokot) 17.2 mg Q12H PRN PO CONSTIPATION; Start 11/18/16 at 07:00 Heparin Sodium (Porcine) (Heparin Inj) 5,000 units Q12HR SQ Last administered on 11/19/16 08:59; Start 11/18/16 at 09:00 Naloxone HCl (Narcan Inj) 0.4 mg UNSCH PRN IV SEE LABEL COMMENTS; Start at 07:00 Morphine Sulfate (Morphine Inj) 4 mg ONCE ONCE IV PUSH Last administered on 07:00; Start 11/18/16 at 07:00; Stop 11/18/16 at 07:01; Status DC Amlodipine Besylate (Norvasc) 5 mg BID PO Last administered on 11/19/16 08:48 ; Start 11/18/16 at 21:00 Aspirin (Aspirin) 325 mg DAILY PO Last administered on 11/19/16 08:48; Start 11/19/16 at 09:00 Carvedilol (Coreg) 25 mg BID PO Last administered on 11/19/16 08:49; Start at 21:00 Clonidine (Catapres) 0.2 mg BID PO Last administered on 11/19/16 08:49; Start 11/18/16 at 21:00 Fluoxetine HCl (PROzac) 20 mg DAILY PO Last administered on 11/19/16 08:48; Start 11/19/16 at 09:00 Furosemide (Lasix) 40 mg DAILY PO Last administered on 11/19/16 08:48; Start 11/19/16 at 09:00 Glipizide (Glucotrol) 10 mg BIDAC PO Last administered on 11/19/16 08:46; Start 11/18/16 at 16:00 Hydralazine HCl (Apresoline) 50 mg BID PO Last administered on 11/19/16 08:49 ; Start 11/18/16 at 21:00 Apixaban 2.5 mg 2.5 mg BID PO Last administered on 11/19/16t 08:48; Start 11/18 at 21:00 Ampicillin Sodium/ Sulbactam Sodium 1500 mg/Sodium Chloride 100 ml @ 200 mls/ hr Q6H IV ; Start 11/19/16 at 11:45; Status UNV Vancomycin HCl/ Sodium Chloride (Vancomycin Inj/ NS 250 ml Inj) 265 ml @ 250 mls/hr ONCE ONCE IV ; Start 11/19/16 at 11:45; Stop 11/19/16 at 12:48; Status UNV Past, Family & Social History Past Medical History PFS Reviewed: Yes HEENT: DENIES HX OF: Cataracts, Glaucoma, Recurrent ear infections, Recurrent sinusitis, Other HEENT history Endocrine: REPORTS HX OF: Diabetes mellitus Respiratory: DENIES HX OF: Allergies/hay fever, Asthma, COPD, CPAP use, Sleep apnea, Other respiratory history Cardiovascular: REPORTS HX OF: Coronary artery disease, Heart failure, Hypertension, DENIES HX OF: Abdominal aortic aneurysm, Angina, Atrial fibrillation, Cardiac arrhythmias, Deep venous thrombosis, Heart valve disease, Hyperlipidemia, Myocardial infarction, Peripheral vascular dz, Other CV history Gastrointestinal: REPORTS HX OF: GERD Genitourinary: DENIES HX OF: Chlamydia, Gonorrhea, Hemodialysis, Herpes genitalis, Human papillomavirus, Kidney disease, Kidney failure, Kidney stones, Past UTI, Peritoneal dialysis, Urinary incontinence, Other history Genitourinary - male: DENIES HX OF: Benign prost. hyperplasia, Erectile dysfunction, Prostatitis, Testicular problems, Undescended testicle Musculoskeletal: DENIES HX OF: Fibromyalgia, Fractures, Gout, Osteoarthritis, Osteoporosis, Rheumatoid arthritis, Other musculoskeletal hx Cancer/Hematology: DENIES HX OF: Anemia, Bladder Cancer, Blood cancer, Brain cancer, Breast cancer, Colorectal cancer, Endocrine cancer, Eye cancer, GI cancer, cancer, Kidney cancer, Leukemia, Liver cancer, Lung cancer, Lymphoma , Musculoskeletal cancer, Neurologic cancer, Oral cancer, Skin cancer, Stomach cancer, Thyroid cancer, Other cancer/hematology Cancer - male: DENIES HX OF: Prostate cancer, Testicular cancer Infectious disease: DENIES HX OF: AIDS, Chickenpox, Hepatitis, HIV, Measles, MRSA, Mumps, Polio, Positive PPD, Rheumatic fever, Rubella, Syphilis, Tuberculosis, Vanc-resistant enterococc, Other inf disease history Integumentary: DENIES HX OF: Acne, Eczema, Psoriasis, Other integumentary hx Neurologic: DENIES HX OF: ADHD, Autism, Dementia, Developmental delay, Headaches, Multiple sclerosis, Parkinson disease, Peripheral neuropathy, Restless leg syndrome, Seizures, Stroke, Transient ischemic attack, Other neurologic history Psychiatric: REPORTS HX OF: Depression, DENIES HX OF: Anorexia nervosa, Anxiety, Bipolar disorder, Bulimia, Schizophrenia, Other psychiatric history Genetic/metabolic: DENIES HX OF: Cystic fibrosis, Down syndrome, Other genetic history, Other metabolic history Events: DENIES HX OF: Anaphylaxis, Gunshot wound, Motor vehicle accident, Other events Disabilities: REPORTS HX OF: Other disabilities, DENIES HX OF: Hearing deficit , Vision deficit, Hemiparesis, Paraplegia, Quadriplegia Past Surgical History HEENT: REPORTS HX OF: Tonsillectomy Review of Systems Constitutional: COMPLAINS OF: Recent weight change, Fatigue Cardiovascular: COMPLAINS OF: Heart Disease, Hx CHF / chest pain, Hx hypertension, Swelling legs / ankles Respiratory: DENIES: Frequent colds, Difficulty breathing, Cough (productive?) , Asthma / hay fever, Emphysema, TB Gastrointestinal: COMPLAINS OF: Heartburn, DENIES: Vomiting, Constipation, Diarrhea, Black Stools, Blood in stools, Peptic ulcer, Abdominal pain Genitourinary: COMPLAINS OF: Renal disease Musculoskeletal: COMPLAINS OF: Leg pain (rest or walk), Joint pain/swell/ dysarthr, Deformaties Integumentary: COMPLAINS OF: Rash Neurological: DENIES: CVA/Stroke, Spinal Cord Injury, Seizures, Tremors, Numbness/tingling, Changes in sensation, Difficulty with balance Psychiatric: COMPLAINS OF: Depression/anxiety, DENIES: Change in memory, Insomnia Endocrine: DENIES: Thyroid disease, Thyroid disease, Heat/cold intolerance, Excessive thirst Hematologic/Lymphatic: DENIES: Blood borne disease, Anemia, Blood abnormalities Allergic/Immunologic: DENIES: Rheumatoid Arthritis, Skin/Food/Drug reaction, Lupus, Sickle Cell disease, Scleroderma, Vasculitis Other: DENIES: Chemotherapy, Radiation treatments, Evidence of abuse/neglect Wound Assessment Arrived: N/A Vascular Assessment R Dorsails Pedis: Palpable L Dorsails Pedis: Palpable R Posterior Tibial: Palpable L Posterior Tibial: Palpable Extremities Evaluation: Edema Right, Edema Left Wound Information - Wound One Wound Location: right anterior leg are multiple superficial ulcerations Wound Type: Venous Disease Classification: FT- full thickness Exudate: Moderate Exudate Type: Serosanguineous, Yellow, Purulent Debridement: No Fibrin Amount: Mild Granulation Tissue Color: None Granulation Tissue Texture: N/A Exposed: No exposed bone, muscle, tendon Eschar: No Odor: Yes Periwound Appearance: FINDINGS: Induration Dressings: Maxorb Extra AG Physical Exam General appearance: chronically ill Nutritional status: overweight (morbidly obese) Skin: FINDINGS: induration Hair: normal Chest appearance: normal Respiratory effort: FINDINGS: labored Abdomen: FINDINGS: distention exam deferred: Yes Rectal exam deferred: Yes Edema: Left lower extremity: 4+, pitting, foot, ankle, leg Right lower extremity: 4+, pitting, foot, ankle, leg Cranial nerves II-XII intact: Yes Mental status: other Affect: flat Judgment: normal Lab and Radiology Results Laboratory Laboratory Tests Test 11/18/16 11/19/16 01:50 08:37 White Blood Count 8.4 TH/MM3 5.0 TH/MM3 Red Blood Count 3.35 MIL/MM3 2.56 MIL/MM3 Hemoglobin 9.7 GM/DL 7.3 GM/DL Hematocrit 28.6 % 22.3 % Mean Corpuscular Volume 85.1 FL 86.9 FL Mean Corpuscular Hemoglobin 29.1 PG 28.7 PG Mean Corpuscular Hemoglobin 34.1 % 33.0 % Concent Red Cell Distribution Width 16.0 % 16.0 % Platelet Count 226 TH/MM3 137 TH/MM3 Mean Platelet Volume 9.6 FL 9.5 FL Neutrophils (%) (Auto) 77.0 % 73.0 % Lymphocytes (%) (Auto) 6.5 % 9.6 % Monocytes (%) (Auto) 10.8 % 12.0 % Eosinophils (%) (Auto) 4.6 % 4.8 % Basophils (%) (Auto) 1.1 % 0.6 % Neutrophils # (Auto) 6.4 TH/MM3 3.6 TH/MM3 Lymphocytes # (Auto) 0.5 TH/MM3 0.5 TH/MM3 Monocytes # (Auto) 0.9 TH/MM3 0.6 TH/MM3 Eosinophils # (Auto) 0.4 TH/MM3 0.2 TH/MM3 Basophils # (Auto) 0.1 TH/MM3 0.0 TH/MM3 CBC Comment DIFF FINAL DIFF FINAL Differential Comment Laboratory Tests Test 11/18/16 11/18/16 11/19/16 01:55 03:14 08:37 Lactic Acid Level 1.3 mmol/L Sodium Level 143 MEQ/L 144 MEQ/L Potassium Level 4.5 MEQ/L 4.6 MEQ/L Chloride Level 110 MEQ/L 112 MEQ/L Carbon Dioxide Level 23.9 MEQ/L 23.8 MEQ/L Anion Gap 9 MEQ/L 8 MEQ/L Blood Urea Nitrogen 57 MG/DL 58 MG/DL Creatinine 2.93 MG/DL 2.81 MG/DL Estimat Glomerular Filtration 21 ML/MIN 22 ML/MIN Rate Random Glucose 164 MG/DL 58 MG/DL Calcium Level 8.7 MG/DL 8.1 MG/DL Magnesium Level 1.9 MG/DL Total Bilirubin 0.7 MG/DL Aspartate Amino Transf 25 U/L (AST/SGOT) Alanine Aminotransferase 28 U/L (ALT/SGPT) Alkaline Phosphatase 68 U/L Troponin I LESS THAN 0.02 NG/ML Total Protein 6.9 GM/DL Albumin 2.7 GM/DL Microbiology Date/Time Procedure Status Source Growth 11/18/16 01:50 Aerobic Blood Culture - Preliminary Resulted Blood Peripheral NO GROWTH IN 1 DAY 11/18/16 01:50 Anaerobic Blood Culture - Preliminary Resulted Blood Peripheral NO GROWTH IN 1 DAY 11/18/16 01:55 Aerobic Blood Culture - Preliminary Resulted Blood Peripheral Staph Sp Coagulase Negative 11/18/16 01:55 Anaerobic Blood Culture - Preliminary Resulted Blood Peripheral NO GROWTH IN 1 DAY 11/18/16 05:35 Urine Culture - Preliminary Resulted Urine Catheterized Urine NO GROWTH IN 24 HOURS. Radiology Last Impressions Chest X-Ray 11/18/16 0207 Signed Impressions: Service Date/Time: Friday, November 18, 2016 02:15 - CONCLUSION: Pulmonary venous congestion with moderate diffuse cardiomegaly. Gustavo Grider MD Assessment/Plan Problem List: (1) Acute renal failure Status: Acute (2) Diabetic foot Status: Acute (3) Inability to ambulate due to multiple joints Status: Acute (4) Chronic acquired lymphedema Status: Acute (5) Morbid obesity Status: Acute (6) Chronic venous hypertension w ulceration Status: Acute Additional Plans & Procedures PLAN: Ordered compressive John bandages from toes to knee. Maxorb extra AG dressings to right leg wounds. Change dressings every other day. We'll follow as needed. Problem Qualifiers (1) Acute renal failure: Qualified Code: N17.9 - Acute renal failure, unspecified acute renal failure type (2) Morbid obesity: Qualified Code: E66.01 - Morbid obesity, unspecified obesity type (3) Chronic venous hypertension w ulceration: Qualified Code: I87.313 - Chronic venous hypertension w ulceration, bilateral Zak Bee DPM Nov 19, 2016 12:25
[2016-11-19] MEDS ORDERED: VANCOMYCIN INJ 1,500 MG in SODIUM CHLORID 0.9% 500 ML INJ 500 ML IV ONE (13:00)
[2016-11-19] MEDS: AMPICILLIN-SULBACTAM INJ 1,500 MG in SODIUM CHLORIDE 0.9% INJ 100 ML IV SCH ×2 (13:39→21:19)
--- NOTE | 2016-11-19 14:50 | HHI.HCSW ---
Spring Tester Visit Cognitive Functioning Met with Mr. Joyce, dual visit with Dr. Pereyra. Appropriate in conversation. Able to make needs known. Verbalizes he feels confused at times but able to recall events leading up to hospitalization. . Significant Family/Friend No friends/family at bedside. . Pertinent Social History Parents . 2 sisters locally: Tania Joyce and Orquidea JMehrdad Joyce. Estranged relationship. Denies any other family. . Quality of Life Values/Goals Desires continued aggressive care short of DNR. . Advance Directive Completed community DNR and living will today, 11-19-16. Appointed either one of his sisters as HCS verbalizing he wishes for them to know they do not have to serve in this role but it is ok for them to be contacted should he become incapacitated and unable to make his own medical decisions. Living will is a typical one stating should his attending and a consulting physician agree he has a terminal condition, end-stage condition, or is in a persistent vegetative state, he wishes for life-prolonging measures to be withheld or withdrawn. HCS: Tania Joyce, [facility] known [facility], no contact information-- poss number in google search: [phone]; address [address]. HCS: Orquidea Joyce, last known living in the [facility], no contact information-- poss. number in google search: [phone]; address [address] Mr. Joyce does not want family contacted at this time. . Follow Up Visit Palliative care will continue to follow throughout hospitalization. SW will follow as needed for emotional and social support. Maritza Lord CLUB CAR ATTENDANT, ASSOCIATE QUALITY ENGINEER Nov 19, 2016 14:50
[2016-11-19 15:06] LABS: HEMATOCRIT 23.3 % (39.0-51.0); RETIC % 1.9 % (0.4-3.0); REVIEW FLAG FINAL
[2016-11-19 15:19] LABS: TRANSFERRIN IRON PROFILE 189 MG/DL (200-360)
--- NOTE | 2016-11-19 15:21 | HHI.HCPN ---
Reason for visit a. To assist with evaluation and management of symptoms including:pain b. To assist medical decision maker(s) with: better understanding of current medical conditions; weighing benefits/burdens of medical treatment options; making medical treatment decisions. Subjective/Interval History Pt is alert, guarded at 1st but open to talking. He remembers why he was in the hospital, that he fell. He recall being in [place] hospital last time. He denies dyspnea or pain on my visit. He denies home O2 use. He states he is debilitated and his tourist home keeper, just left and "found a better opportunity." Long discussion about his condition, and goals of care. Palliative Senior Talent Acquisition Specialist Pop present. Pt endorse a DNR, and signed a community DNR. He states he is not at the point where he would not want further hospitalization for his wounds any more. He states he is amenable to placement. He agree to complete a living will. Family/friend interactions none at bedside. Advance Directives Living Will: Copy in medical record Durable Power of Supervisor Gear Repair: Never completed Objective Vital Signs Date Time Temp Pulse Resp B/P Pulse Ox O2 Delivery O2 Flow Rate FiO2 11/19/16 14:50 92 Nasal Cannula 3.00 11/19/16 11:55 97.8 82 22 101/53 90 11/19/16 07:07 96.5 85 22 130/60 95 11/19/16 04:02 96.6 78 18 107/57 93 11/19/16 00:00 97.9 82 22 124/59 92 11/18/16 21:29 96.5 93 22 122/67 95 11/18/16 15:28 95.9 101 18 143/70 94 Intake & Output 11/19/16 11/19/16 07:00 19:00 Intake Total 480 ml Output Total 500 ml Balance -20 ml Intake Oral 480 ml Output Urine Total 500 ml # Bowel Movements 0 Physical Exam CONSTITUTIONAL/GENERAL: Obese gentlemen, looks fatigued, talkative, alert. SKIN: No jaundice. lower ext edema and wounds. HEAD: Atraumatic. Normocephalic. EYES: Pupils equal and round and reactive. Extraocular motions intact. No scleral icterus. No injection or drainage. Fundi not examined. ENT: Hearing grossly normal. Nose without bleeding or purulent drainage. Throat without visible erythema, exudates, masses, or lesions. NECK: Trachea midline. Supple, nontender. No palpable thyroid enlargement or nodularity. CARDIOVASCULAR: Regular rate and rhythm without murmurs, gallops, or rubs. No JVD. Peripheral pulses symmetric. RESPIRATORY/CHEST: Symmetric, unlabored respirations. Clear to auscultation. Breath sounds equal bilaterally. No wheezes, rales, or rhonchi. GASTROINTESTINAL: Abdomen soft, non-tender, distended. No hepato-splenomegaly, or palpable masses. No guarding. Bowel sounds present. Obese abdomen. GENITOURINARY: Without palpable bladder distension. Downs catheter in place. MUSCULOSKELETAL: Extremities with lymphedema and wounds. LYMPHATICS: lymphedema NEUROLOGICAL: Awake and alert. . Follows commands. Awaken easily.. Moves all extremities. PSYCHIATRIC: No obvious anxiety/depression. no apparent hallucinations or other psychotic thought process. Diagnostic Tests Laboratory Laboratory Tests Test 11/18/16 11/18/16 11/18/16 11/18/16 01:50 01:55 03:14 05:35 White Blood Count 8.4 TH/MM3 (4.0-11.0) Red Blood Count 3.35 MIL/MM3 (4.50-5.90) Hemoglobin 9.7 GM/DL (13.0-17.0) Hematocrit 28.6 % (39.0-51.0) Mean Corpuscular Volume 85.1 FL (80.0-100.0) Mean Corpuscular Hemoglobin 29.1 PG (27.0-34.0) Mean Corpuscular Hemoglobin 34.1 % Concent (32.0-36.0) Red Cell Distribution Width 16.0 % (11.6-17.2) Platelet Count 226 TH/MM3 (150-450) Mean Platelet Volume 9.6 FL (7.0-11.0) Neutrophils (%) (Auto) 77.0 % (16.0-70.0) Lymphocytes (%) (Auto) 6.5 % (9.0-44.0) Monocytes (%) (Auto) 10.8 % (0.0-8.0) Eosinophils (%) (Auto) 4.6 % (0.0-4.0) Basophils (%) (Auto) 1.1 % (0.0-2.0) Neutrophils # (Auto) 6.4 TH/MM3 (1.8-7.7) Lymphocytes # (Auto) 0.5 TH/MM3 (1.0-4.8) Monocytes # (Auto) 0.9 TH/MM3 (0-0.9) Eosinophils # (Auto) 0.4 TH/MM3 (0-0.4) Basophils # (Auto) 0.1 TH/MM3 (0-0.2) CBC Comment DIFF FINAL Differential Comment Lactic Acid Level 1.3 mmol/L (0.4-2.0) Sodium Level 143 MEQ/L (136-145) Potassium Level 4.5 MEQ/L (3.5-5.1) Chloride Level 110 MEQ/L (98-107) Carbon Dioxide Level 23.9 MEQ/L (21.0-32.0) Anion Gap 9 MEQ/L (5-15) Blood Urea Nitrogen 57 MG/DL (7-18) Creatinine 2.93 MG/DL (0.60-1.30) Estimat Glomerular Filtration 21 ML/MIN (>89) Rate Random Glucose 164 MG/DL (74-106) Calcium Level 8.7 MG/DL (8.5-10.1) Magnesium Level 1.9 MG/DL (1.5-2.5) Total Bilirubin 0.7 MG/DL (0.2-1.0) Aspartate Amino Transf 25 U/L (15-37) (AST/SGOT) Alanine Aminotransferase 28 U/L (12-78) (ALT/SGPT) Alkaline Phosphatase 68 U/L (45-117) Troponin I LESS THAN 0.02 NG/ML (0.02-0.05) Total Protein 6.9 GM/DL (6.4-8.2) Albumin 2.7 GM/DL (3.4-5.0) Urine Color YELLOW (YELLW/STRAW) Urine Turbidity HAZY (CLEAR) Urine pH 5.0 (5.0-8.5) Urine Specific Raphine 1.015 (1.002-1.035) Urine Protein 30 mg/dL (NEG-TRACE) Urine Glucose (UA) NEG mg/dL (NEG) Urine Ketones NEG mg/dL (NEG) Urine Occult Blood NEG (NEG) Urine Nitrite NEG (NEG) Urine Bilirubin NEG (NEG) Urine Urobilinogen LESS THAN 2.0 MG/DL (LESS THAN 2.0) Urine Leukocyte Esterase NEG (NEG) Urine RBC 3 /hpf (0-3) Urine WBC 1 /hpf (0-5) Urine Squamous Epithelial 2 /hpf (0-5) Cells Urine Bacteria FEW /hpf (NONE) Urine Hyaline Casts 6 /lpf (RARE) Microscopic Urinalysis Comment CATH-CULTURE IND Test 11/19/16 11/19/16 11/19/16 08:37 09:00 14:36 White Blood Count 5.0 TH/MM3 (4.0-11.0) Red Blood Count 2.56 MIL/MM3 (4.50-5.90) Hemoglobin 7.3 GM/DL 7.4 GM/DL (13.0-17.0) (13.0-17.0) Hematocrit 22.3 % 23.3 % (39.0-51.0) (39.0-51.0) Mean Corpuscular Volume 86.9 FL (80.0-100.0) Mean Corpuscular Hemoglobin 28.7 PG (27.0-34.0) Mean Corpuscular Hemoglobin 33.0 % Concent (32.0-36.0) Red Cell Distribution Width 16.0 % (11.6-17.2) Platelet Count 137 TH/MM3 (150-450) Mean Platelet Volume 9.5 FL (7.0-11.0) Neutrophils (%) (Auto) 73.0 % (16.0-70.0) Lymphocytes (%) (Auto) 9.6 % (9.0-44.0) Monocytes (%) (Auto) 12.0 % (0.0-8.0) Eosinophils (%) (Auto) 4.8 % (0.0-4.0) Basophils (%) (Auto) 0.6 % (0.0-2.0) Neutrophils # (Auto) 3.6 TH/MM3 (1.8-7.7) Lymphocytes # (Auto) 0.5 TH/MM3 (1.0-4.8) Monocytes # (Auto) 0.6 TH/MM3 (0-0.9) Eosinophils # (Auto) 0.2 TH/MM3 (0-0.4) Basophils # (Auto) 0.0 TH/MM3 (0-0.2) CBC Comment DIFF FINAL Differential Comment Sodium Level 144 MEQ/L (136-145) Potassium Level 4.6 MEQ/L (3.5-5.1) Chloride Level 112 MEQ/L (98-107) Carbon Dioxide Level 23.8 MEQ/L (21.0-32.0) Anion Gap 8 MEQ/L (5-15) Blood Urea Nitrogen 58 MG/DL (7-18) Creatinine 2.81 MG/DL (0.60-1.30) Estimat Glomerular Filtration 22 ML/MIN (>89) Rate Random Glucose 58 MG/DL (74-106) Calcium Level 8.1 MG/DL (8.5-10.1) Nasal Screen MRSA (PCR) MRSA DETECTED (NOT DETECT) Reticulocyte Count 1.9 % (0.4-3.0) Absolute Reticulocyte Count 51.0 MIL/L (20.0-150.0) Result Diagram: 11/19/16 1436 11/19/16 0837 Microbiology Microbiology Date/Time Procedure Status Source Growth 11/18/16 01:50 Aerobic Blood Culture - Preliminary Resulted Blood Peripheral NO GROWTH IN 1 DAY 11/18/16 01:50 Anaerobic Blood Culture - Preliminary Resulted Blood Peripheral NO GROWTH IN 1 DAY 11/18/16 01:55 Aerobic Blood Culture - Preliminary Resulted Blood Peripheral Staph Sp Coagulase Negative 11/18/16 01:55 Anaerobic Blood Culture - Preliminary Resulted Blood Peripheral NO GROWTH IN 1 DAY 11/18/16 05:35 Urine Culture - Preliminary Resulted Urine Catheterized Urine NO GROWTH IN 24 HOURS. Imaging Last Impressions Chest X-Ray 11/18/16 0207 Signed Impressions: Service Date/Time: Friday, November 18, 2016 02:15 - CONCLUSION: Pulmonary venous congestion with moderate diffuse cardiomegaly. Gustavo Grider MD Assessment and Plan Disease Oriented Problem List: (1) Inability to ambulate due to multiple joints (2) Acute renal failure (3) Diabetic foot Symptom Scale: (1) Pain 0-10 Scale: Unable to quantify Comment: he wanted to rest Pertinent Non-Medical Issues Psychosocial: Spiritual: Legal: Ethical issues impacting care: Important Contacts Orquidea Joyce (sister [phone]) Prognosis 69. Nilay Joyce. morbid obesity, chronic wound, renal insufficiency, chf, mostly in bed. None of the current diagnosis with records at hand indicate end stage.( not O2 dependent in terms of cardiac, Cr is 2.93). The biggest issue is pt's debility, and lack of ability to care for self, with multiple wounds. If pt social situation is better, this would definitely affect prognosis. Prognosis is guarded, and may be greater than 6 months if social situation improves. Code Status: No Code Plan == code: DNR == capacity- appears to have capacity to make medical decision. == goals: Aside from his criteria and prognosis: Long discussion about his condition, and goals of care. Palliative Senior Talent Acquisition Specialist Green present. Pt endorse a DNR, and signed a community DNR. He states he is not at the point where he would not want further hospitalization for his wounds any more, or for his other conditions. Just no ventilator. He states he is amenable to placement. Living will is completed. == palliative will f/u hopefully work with pt on health care surrogate, living will. Time Spent Total Floor Time (mins): 60 Face to Face Time (mins): 45 >50% Counseling/Coord of Care: Yes Attestation To help prompt me to consider important information that might be impacting today's encounter and assessment, information from prior notes written by myself or my colleagues may have been "brought forward" into today's note. My signature on this note, however, is an attestation that I personally performed the exam, history, and/or decision-making noted today, and, unless otherwise indicated, the interactions with patient, family, and staff as well as the review of records all occurred today. I also attest that the listed assessment and stated plan reflect my best clinical judgment today based on the combination of historical information, prior notes, and today's exam/ interactions. When time spent is documented, it refers only to time spent today by the signer, or if indicated, combined time spent today by collaborating physician/nurse practitioner. Obi Pereyra MD Nov 19, 2016 15:21
[2016-11-19 15:22] LABS: FERRITIN 88 NG/ML (26-388)
[2016-11-20] VITALS (7 sets, daily range): BP systolic 102–132; BP diastolic 52–86; PULSE 74–89; RESP 18–24; TEMP 95.3–98.4; O2SAT 90–96
[2016-11-20] MEDS: AMPICILLIN-SULBACTAM INJ 1,500 MG in SODIUM CHLORIDE 0.9% INJ 100 ML IV SCH ×4 (02:32→22:24)
[2016-11-20] MEDS: glipiZIDE 10 MG TAB PO SCH ×2 (05:43→16:00)
[2016-11-20] MEDS: amLODIPine BESYLATE 5 MG TAB PO SCH ×2 (08:16→22:25)
[2016-11-20] MEDS: FUROSEMIDE 40 MG TAB PO SCH (08:16)
[2016-11-20] MEDS: cloNIDine HCL 0.2 MG TAB PO SCH ×2 (08:16→22:25)
[2016-11-20] MEDS: APIXABAN 2.5 MG TABLET PO SCH ×2 (08:16→22:25)
[2016-11-20] MEDS: hydrALAZINE HCL 50 MG TAB PO SCH ×2 (08:16→22:32)
[2016-11-20] MEDS: SODIUM CHLORIDE 0.9% FLUSH 10 ML FLUSH IV FLUSH SCH ×2 (08:17→22:24)
[2016-11-20] MEDS: CARVEDILOL 12.5 MG TAB PO SCH ×2 (08:17→22:25)
[2016-11-20] MEDS: FLUoxetine HCL 20 MG CAP PO SCH (08:17)
[2016-11-20] MEDS: ASPIRIN 325 MG TAB PO SCH (08:17)
[2016-11-20] MEDS: HEPARIN SODIUM - SQ 10,000 UNITS/ML VIAL SQ SCH ×2 (08:18→22:25)
--- NOTE | 2016-11-20 14:25 | HHI.PR ---
Subjective Subjective Remarks has no complaints sleeping okay no cp no sob no fever Review of Systems Constitutional Constitutional Remarks 12 point ROS completed, negative except as noted above Vitals/Results Intake & Output 11/19/16 11/19/16 11/20/16 15:00 23:00 07:00 Intake Total 620 ml Output Total 400 ml Balance 220 ml Intake Oral 620 ml Output Urine Total 400 ml # Bowel Movements 0 Vital Signs Vital Signs Date Time Temp Pulse Resp B/P Pulse Ox O2 Delivery O2 Flow Rate FiO2 11/20/16 12:02 95.3 74 24 110/52 91 11/20/16 09:33 Nasal Cannula 3.00 11/20/16 08:02 96.5 85 22 115/56 90 11/20/16 05:13 98.4 74 20 102/65 92 11/20/16 00:45 97.4 88 20 112/86 96 11/19/16 21:41 94 Nasal Cannula 3.00 11/19/16 20:32 98.1 82 22 102/56 94 11/19/16 15:41 96.8 79 22 105/56 93 11/19/16 14:50 92 Nasal Cannula 3.00 CBC/BMP: 11/19/16 1436 11/19/16 0837 Lab Results Laboratory Tests Test 11/19/16 14:36 Hemoglobin 7.4 GM/DL Hematocrit 23.3 % Reticulocyte Count 1.9 % Absolute Reticulocyte Count 51.0 MIL/L Iron Level 18 MCG/DL Total Iron Binding Capacity 265 MCG/DL Percent Iron Saturation 6.8 % Ferritin 88 NG/ML Physical Exam General General Appearance: No Acute Distress, Sleeping, Obese Eyes Eye Exam: Pupils Equal, Pupils Reactive Ears & Nose Ears & Nose Exam: Nasal Mucosa [place] Throat Throat Exam: Oral Mucosa [place] & Moist Neck Neck Exam: Neck Supple, Trachea Midline Pulmonary Resp Exam: Decreased Bases, Poor Inspiratory Effort Cardiology CV Exam: Regular Gastrointestinal/Abdomen GI Exam: Soft, Non-Tender, Bowel Sounds Present, Non-Distended Genitourinary Remarks NOLEN with clovis urine Musculoskeletal MS Exam: Unable to Ambulate Integumentary Skin Exam: Lesion(s) Extremeties Extremities Exam: Pitting Edema, Dependent Edema Neurologic Neuro Exam: Awake, Oriented, Speech Clear, It Risk And Assurance Senior Manager Equal Psychiatric Psych Exam: Appropriate Responses Assessment/Plan Assessment/Plan Recent fall with possible coccyx injury -xray at previous facility stated no fx -PT for mobility Morbid obesity -on bariatric bed -portion control Cellulitis with bilateral lymphedema, hx PVD -wound care input appreciated -evaluated per Dr. Bee, compressive John bandages from toes to knee and Maxorb extra AG dressings to right leg wounds. Change dressings every other day. -continue antibiotics, follow cultures -continue diuretics -elevate legs Severe debility and unable to ambulate -continue with nolen -PT -assist with mobility -will need placement Acute renal failure with chronic kidney disease -renal function improving slowly -continue with PO Lasix for now, he needs it for leg edema Anemia, HH trending down, no active bleeding -Stool for OB pending -Low iron stores, start PO iron -may need blood transfusion Diabetes mellitus type 2 uncontrolled. -will order Accu-Cheks before meals and at bedtime with sliding scale Cardiomegaly, stable -CXR reviewed -Continue Lasix -Monitor closely CAD, stable -continue home medications Heparin for DVT prophylaxis repeat labs in am CM for dc planning, will need SNF appreciate palliative care input, pt. made himself DNR. He has very little social support continue with supportive care D/W Dr. Adam D/W pt This patient was seen by myself and Dr. Adam, this note is written on his behalf. Patricia Dickens Nov 20, 2016 14:25
[2016-11-20] MEDS ORDERED: GLUCAGON 1 MG/ML VIAL OTHER PRN (14:30)
[2016-11-20] MEDS ORDERED: DEXTROSE 50% IN WATER 50 ML VIAL(D50) IV PUSH PRN (14:30)
[2016-11-20] MEDS: INSULIN ASPART SUPPLEMENTAL SCALE SQ SCH ×2 (16:00→22:25)
[2016-11-20] MEDS: FERROUS FUMARATE 325 MG TAB (106 MG ELEMENTAL IRON) PO SCH (22:25)
[2016-11-21] VITALS (9 sets, daily range): BP systolic 102–147; BP diastolic 55–70; PULSE 76–118; RESP 18–22; TEMP 95.4–97.8; O2SAT 93–95
[2016-11-21] MEDS: AMPICILLIN-SULBACTAM INJ 1,500 MG in SODIUM CHLORIDE 0.9% INJ 100 ML IV SCH ×2 (01:12→05:31)
[2016-11-21] MEDS: glipiZIDE 10 MG TAB PO SCH ×2 (05:30→16:47)
[2016-11-21] MEDS: INSULIN ASPART SUPPLEMENTAL SCALE SQ SCH ×4 (05:34→21:00)
[2016-11-21 07:44] LABS: MEAN CELL VOLUME 87.9 FL (80.0-100.0); MEAN CORPUSCULAR HEMOGLOBIN 28.3 PG (27.0-34.0); MEAN CORPUSCULAR HGB CONC 32.2 % (32.0-36.0); PLATELET COUNT 164 TH/MM3 (150-450); RED BLOOD COUNT 2.62 MIL/MM3 (4.50-5.90); RED CELL DISTRIBUTION WIDTH 15.9 % (11.6-17.2); REVIEW FLAG FINAL
[2016-11-21 08:07] LABS: BICARBONATE 26.4 MEQ/L (21.0-32.0); POTASSIUM 4.7 MEQ/L (3.5-5.1)
[2016-11-21] MEDS: hydrALAZINE HCL 50 MG TAB PO SCH ×2 (08:33→21:01)
[2016-11-21] MEDS: FERROUS FUMARATE 325 MG TAB (106 MG ELEMENTAL IRON) PO SCH ×2 (08:33→21:01)
[2016-11-21] MEDS: FUROSEMIDE 40 MG TAB PO SCH (08:33)
[2016-11-21] MEDS: ASPIRIN 325 MG TAB PO SCH (08:34)
[2016-11-21] MEDS: FLUoxetine HCL 20 MG CAP PO SCH (08:34)
[2016-11-21] MEDS: APIXABAN 2.5 MG TABLET PO SCH ×2 (08:34→21:01)
[2016-11-21] MEDS: amLODIPine BESYLATE 5 MG TAB PO SCH ×2 (08:34→21:01)
[2016-11-21] MEDS: cloNIDine HCL 0.2 MG TAB PO SCH ×2 (08:34→21:01)
[2016-11-21] MEDS: CARVEDILOL 12.5 MG TAB PO SCH ×2 (08:34→21:01)
[2016-11-21] MEDS: HEPARIN SODIUM - SQ 10,000 UNITS/ML VIAL SQ SCH ×2 (08:34→21:00)
[2016-11-21] MEDS: SODIUM CHLORIDE 0.9% FLUSH 10 ML FLUSH IV FLUSH SCH ×2 (08:36→21:02)
[2016-11-21] MEDS ORDERED: AMPICILLIN-SULBACTAM INJ 1,500 MG in SODIUM CHLORIDE 0.9% INJ 100 ML IV SCH (13:00)
[2016-11-21] MEDS ORDERED: MAGNESIUM HYDROXIDE SUSP 30 ML CUP PO PRN (13:15)
--- NOTE | 2016-11-21 13:15 | HHI.PR ---
Subjective Subjective Remarks has no complaints sleeping okay no cp no sob no fever worried that he doesn't have access to checkbook to pay for apartment. DCF agent is supposed to obtain for him has not considered SNFs yet Review of Systems Constitutional Constitutional Remarks 12 point ROS completed, negative except as noted above Vitals/Results Intake & Output 11/20/16 11/20/16 11/21/16 15:00 23:00 07:00 Intake Total 240 ml Output Total 400 ml 400 ml 350 ml Balance -160 ml -400 ml -350 ml Intake Oral 240 ml Output Urine Total 400 ml 400 ml 350 ml # Bowel Movements 0 0 0 Vital Signs Vital Signs Date Time Temp Pulse Resp B/P Pulse Ox O2 Delivery O2 Flow Rate FiO2 11/21/16 11:51 96.6 76 20 102/55 94 11/21/16 08:52 93 Nasal Cannula 4.00 11/21/16 07:45 97.5 77 22 125/59 93 11/21/16 04:00 97.8 85 18 122/68 94 11/21/16 01:15 93 11/21/16 00:29 90 Nasal Cannula 4.00 11/21/16 00:22 97.3 118 18 115/58 94 11/20/16 22:16 94 Nasal Cannula 3.00 11/20/16 19:57 97.1 89 18 132/67 90 11/20/16 15:53 96.2 78 22 108/60 92 CBC/BMP: 11/21/16 0613 11/21/16 0613 Lab Results Laboratory Tests Test 11/21/16 06:13 White Blood Count 4.0 TH/MM3 Red Blood Count 2.62 MIL/MM3 Hemoglobin 7.4 GM/DL Hematocrit 23.0 % Mean Corpuscular Volume 87.9 FL Mean Corpuscular Hemoglobin 28.3 PG Mean Corpuscular Hemoglobin 32.2 % Concent Red Cell Distribution Width 15.9 % Platelet Count 164 TH/MM3 Mean Platelet Volume 9.6 FL Sodium Level 144 MEQ/L Potassium Level 4.7 MEQ/L Chloride Level 112 MEQ/L Carbon Dioxide Level 26.4 MEQ/L Anion Gap 6 MEQ/L Blood Urea Nitrogen 62 MG/DL Creatinine 2.95 MG/DL Estimat Glomerular Filtration 21 ML/MIN Rate Random Glucose 81 MG/DL Calcium Level 8.1 MG/DL Physical Exam General General Appearance: No Acute Distress, Obese Eyes Eye Exam: Pupils Equal, Pupils Reactive Ears & Nose Ears & Nose Exam: Nasal Mucosa [place] Throat Throat Exam: Oral Mucosa [place] & Moist Neck Neck Exam: Neck Supple, Trachea Midline Pulmonary Resp Exam: Decreased Bases, Poor Inspiratory Effort Cardiology CV Exam: Regular Gastrointestinal/Abdomen GI Exam: Soft, Non-Tender, Bowel Sounds Present, Non-Distended Genitourinary Remarks NOLEN with clovis urine Musculoskeletal MS Exam: Unable to Ambulate Integumentary Skin Exam: Lesion(s) Extremeties Extremities Exam: Pitting Edema, Dependent Edema Neurologic Neuro Exam: Awake, Oriented, Speech Clear, Knock Up Assembler Equal Psychiatric Psych Exam: Appropriate Responses Assessment/Plan Assessment/Plan Recent fall with possible coccyx injury -xray at previous facility stated no fx -PT for mobility Morbid obesity -on bariatric bed -portion control Cellulitis with bilateral lymphedema, hx PVD -wound care input appreciated -evaluated per Dr. Bee, compressive John bandages from toes to knee and Maxorb extra AG dressings to right leg wounds. Change dressings every other day. -continue antibiotics, follow cultures -continue diuretics -elevate legs Severe debility and unable to ambulate -continue with nolen -PT -assist with mobility -will need placement-CM to arrange SNF -was able to stand with assist today, per PT did relatively well. Acute renal failure with chronic kidney disease -renal function improving slowly -continue with PO Lasix for now, he needs it for leg edema Anemia, HH trending down, no active bleeding -Stool for OB pending -Low iron stores, continue with PO iron -may need blood transfusion Diabetes mellitus type 2, hypoglycemic down to 62 -Dec. Glyburide to 5 mg po bid -continue with Accu-Cheks before meals and at bedtime with sliding scale Cardiomegaly, stable -CXR reviewed -Continue Lasix -Monitor closely CAD, stable -continue home medications Heparin for DVT prophylaxis CM for dc planning, SNF placement. appreciate palliative care input, pt. made himself DNR. He has very little social support Labs in am D/W Dr. Adam D/W pt This patient was seen by myself and Dr. Adam, this note is written on his behalf. Patricia Dickens Nov 21, 2016 13:15
[2016-11-21] MEDS ORDERED: EPOETIN ALFA 10,000 UNITS/ML VIAL SQ ONE (15:00)
[2016-11-21] MEDS: AMOXICILLIN/CLAVULANATE K 250 MG TAB PO SCH ×2 (15:42→21:01)
[2016-11-21] MEDS: FERROUS SULFATE 325 MG (65 MG ELEMENTAL IRON) TAB PO SCH ×2 (15:42→21:01)
[2016-11-21] MEDS ORDERED: AMOX250T PO (16:04)
[2016-11-21] MEDS ORDERED: HEMO324T PO (16:04)
[2016-11-21] MEDS ORDERED: DOXY100C PO (16:04)
[2016-11-21] MEDS ORDERED: APIX2.5T PO (16:04)
[2016-11-21] MEDS: DOXYCYCLINE HYCLATE 100 MG CAP PO SCH (21:01)
[2016-11-22] VITALS (8 sets, daily range): BP systolic 111–137; BP diastolic 59–70; PULSE 68–89; RESP 20; TEMP 95.3–97.4; O2SAT 91–96
[2016-11-22] MEDS: AMOXICILLIN/CLAVULANATE K 250 MG TAB PO SCH ×3 (05:26→20:54)
[2016-11-22] MEDS: INSULIN ASPART SUPPLEMENTAL SCALE SQ SCH ×4 (06:26→20:48)
[2016-11-22 08:11] LABS: HEMATOCRIT 24.3 % (39.0-51.0); MEAN CELL VOLUME 87.5 FL (80.0-100.0); MEAN CORPUSCULAR HEMOGLOBIN 28.6 PG (27.0-34.0); MEAN CORPUSCULAR HGB CONC 32.7 % (32.0-36.0); PLATELET COUNT 175 TH/MM3 (150-450); RED BLOOD COUNT 2.78 MIL/MM3 (4.50-5.90); RED CELL DISTRIBUTION WIDTH 16.2 % (11.6-17.2); REVIEW FLAG FINAL; WHITE BLOOD COUNT 4.3 TH/MM3 (4.0-11.0)
[2016-11-22 08:30] LABS: BICARBONATE 24.5 MEQ/L (21.0-32.0); POTASSIUM 4.8 MEQ/L (3.5-5.1)
[2016-11-22] MEDS: glipiZIDE 10 MG TAB PO SCH ×2 (08:50→17:25)
[2016-11-22] MEDS: FLUoxetine HCL 20 MG CAP PO SCH (08:51)
[2016-11-22] MEDS: SODIUM CHLORIDE 0.9% FLUSH 10 ML FLUSH IV FLUSH SCH ×2 (08:51→20:44)
[2016-11-22] MEDS: amLODIPine BESYLATE 5 MG TAB PO SCH ×2 (08:51→20:44)
[2016-11-22] MEDS: FUROSEMIDE 40 MG TAB PO SCH (08:51)
[2016-11-22] MEDS: hydrALAZINE HCL 50 MG TAB PO SCH ×2 (08:51→20:43)
[2016-11-22] MEDS: DOXYCYCLINE HYCLATE 100 MG CAP PO SCH ×2 (08:51→20:43)
[2016-11-22] MEDS: CARVEDILOL 12.5 MG TAB PO SCH ×2 (08:52→20:43)
[2016-11-22] MEDS: HEPARIN SODIUM - SQ 10,000 UNITS/ML VIAL SQ SCH ×2 (08:52→20:43)
[2016-11-22] MEDS: ASPIRIN 325 MG TAB PO SCH (08:52)
[2016-11-22] MEDS: cloNIDine HCL 0.2 MG TAB PO SCH ×2 (08:52→20:44)
[2016-11-22] MEDS: FERROUS FUMARATE 325 MG TAB (106 MG ELEMENTAL IRON) PO SCH ×2 (08:52→20:44)
[2016-11-22] MEDS: APIXABAN 2.5 MG TABLET PO SCH ×2 (08:52→20:43)
[2016-11-22] MEDS: FERROUS SULFATE 325 MG (65 MG ELEMENTAL IRON) TAB PO SCH ×2 (08:59→20:43)
--- NOTE | 2016-11-22 12:41 | HHI.PR ---
Subjective Remarks 71yr old male seen and examined today. has no complaints sleeping okay no cp no sob no fever has not considered SNFs yet Objective Objective Results - Vital Signs Date Time Temp Pulse Resp B/P Pulse Ox O2 Delivery O2 Flow Rate FiO2 11/22/16 11:57 96.3 68 20 114/59 11/22/16 11:32 95 Nasal Cannula 3.00 11/22/16 07:32 96.7 76 20 134/66 96 11/22/16 04:00 95.3 78 20 123/65 93 11/22/16 00:00 96.1 78 20 129/66 93 11/21/16 20:00 94 Nasal Cannula 3.00 11/21/16 20:00 95.4 96 20 147/70 94 11/21/16 18:06 94 Nasal Cannula 3.00 11/21/16 16:02 95.6 77 22 118/56 94 I/O 11/21/16 11/21/16 11/21/16 11/22/16 11/22/16 11/22/16 07:00 15:00 23:00 07:00 15:00 23:00 Intake Total 360 ml 240 ml Output Total 350 ml 300 ml 500 ml 0 ml Balance -350 ml 60 ml -260 ml 0 ml Intake Oral 360 ml 240 ml IV Total 0 ml Output Urine Total 350 ml 300 ml 500 ml 0 ml # Bowel Movements 0 0 1 Result Diagram: 11/22/16 0707 11/22/16 0707 Other Results Laboratory Tests Test 11/22/16 07:07 White Blood Count 4.3 Red Blood Count 2.78 Hemoglobin 8.0 Hematocrit 24.3 Mean Corpuscular Volume 87.5 Mean Corpuscular Hemoglobin 28.6 Mean Corpuscular Hemoglobin 32.7 Concent Red Cell Distribution Width 16.2 Platelet Count 175 Mean Platelet Volume 9.3 Sodium Level 143 Potassium Level 4.8 Chloride Level 111 Carbon Dioxide Level 24.5 Anion Gap 8 Blood Urea Nitrogen 61 Creatinine 2.75 Estimat Glomerular Filtration 23 Rate Random Glucose 119 Calcium Level 8.7 Date/Time Procedure Status Source Growth 11/18/16 05:35 Urine Culture - Final Complete Urine Catheterized Urine NO GROWTH IN 48 HOURS. 11/18/16 01:55 Aerobic Blood Culture - Final Resulted Blood Peripheral Staphylococcus Hominis-Hominis 11/18/16 01:55 Anaerobic Blood Culture - Preliminary Resulted Blood Peripheral NO GROWTH IN 4 DAYS 11/18/16 01:50 Aerobic Blood Culture - Preliminary Resulted Blood Peripheral NO GROWTH IN 4 DAYS 11/18/16 01:50 Anaerobic Blood Culture - Preliminary Resulted Blood Peripheral NO GROWTH IN 4 DAYS ROS General: No: Fatigue, Weakness, Other HEENT: No: Sore Throat, Dysphagia, Other Cardiac: No: Chest Pain, Edema, Palpitations, Other Pulmonary: No: Cough, SOB, Wheezing, Other GI: No: Abdominal Pain, BM, Diarrhea, N/V, Other /STRIPPER CUTTER MACHINE: No: Dysuria, Urgency, Other Neuro/MS: No: Lightheaded, Confusion, Other Psych: No: Anxiety, Depression, Other Skin: No: Itching, Rash, Other Physical Exam Physical Exam PHYSICAL EXAMINATION GENERAL: This is a well-developed, well-nourished male who appears to be in no acute distress. He is alert and awake. HEAD: Normocephalic without any lesion or mass noted. . EYES: Perrla. OROPHARYNGEAL: Oropharynx without erythema or edema. MOUTH/THROAT: Tongue midline NECK: Supple. Trachea midline without deviation. CARDIAC: Regular rhythm, regular rate, S1 and S2 are heard. LUNGS: Decreassed bs jayy due to poor inspiratory effort. ABDOMEN: Soft, nontender, no organomegaly or masses. Bowel sounds are heard in all four quadrants. No rebound. No guarding. EXTREMITIES: Pitting edema jayy LE. NEUROLOGICAL: Patient mood and affect appropriate. Cranial nerves II through XII grossly intact. SKIN:Warm and moist PSYCH: Mood and affect appropriate A/P Assessment and Plan Assessment/Plan Recent fall with possible coccyx injury -xray at previous facility stated no fx -PT for mobility Morbid obesity -on bariatric bed -portion control Cellulitis with bilateral lymphedema, hx PVD -wound care input appreciated -evaluated per Dr. Bee, compressive John bandages from toes to knee and Maxorb extra AG dressings to right leg wounds. Change dressings every other day. -continue antibiotics, follow cultures -continue diuretics -elevate legs Severe debility and unable to ambulate -continue with guadalupe -PT -assist with mobility -will need placement- to arrange SNF -was able to stand with assist today, per PT did relatively well. Acute renal failure with chronic kidney disease -renal function improving slowly -continue with PO Lasix for now, he needs it for leg edema Anemia, HH trending down, no active bleeding -Stool for OB pending -Low iron stores, continue with PO iron -may need blood transfusion Diabetes mellitus type 2, hypoglycemic down to 62 -Dec. Glyburide to 5 mg po bid -continue with Accu-Cheks before meals and at bedtime with sliding scale Cardiomegaly, stable -CXR reviewed -Continue Lasix -Monitor closely CAD, stable -continue home medications Heparin for DVT prophylaxis CM for dc planning, SNF placement. appreciate palliative care input, pt. made himself DNR. He has very little social support Labs in am Discussed With: Nurse Daron Ruiz MD Nov 22, 2016 12:41 Daron Ruiz MD Nov 22, 2016 12:41
[2016-11-23] VITALS (10 sets, daily range): BP systolic 140–164; BP diastolic 65–78; PULSE 70–94; RESP 18–20; TEMP 96.7–98.5; O2SAT 91–96
[2016-11-23] MEDS: RESP: ALBUTEROL 2.5 MG/IPRATROPIUM 0.5 MG NEB (PRN) NEB ×2 (04:02→08:43)
[2016-11-23] MEDS: glipiZIDE 10 MG TAB PO SCH ×2 (06:24→17:24)
[2016-11-23] MEDS: AMOXICILLIN/CLAVULANATE K 250 MG TAB PO SCH ×3 (06:24→21:15)
[2016-11-23] MEDS: INSULIN ASPART SUPPLEMENTAL SCALE SQ SCH ×4 (06:25→21:21)
[2016-11-23 07:32] LABS: AUTOMATED NEUTROPHIL # 4.6 TH/MM3 (1.8-7.7); BASOPHIL # 0.1 TH/MM3 (0-0.2); EOSINOPHIL # 0.2 TH/MM3 (0-0.4); EOSINOPHIL % 3.4 % (0.0-4.0); HEMATOCRIT 24.5 % (39.0-51.0); HEMO FLAGS DIFF FINAL; LYMPH % 4.5 % (9.0-44.0); LYMPHOCYTE # 0.3 TH/MM3 (1.0-4.8); MEAN CELL VOLUME 87.7 FL (80.0-100.0); MONO % 9.2 % (0.0-8.0); NEUT % 81.9 % (16.0-70.0); PLATELET COUNT 157 TH/MM3 (150-450); RED BLOOD COUNT 2.79 MIL/MM3 (4.50-5.90); RED CELL DISTRIBUTION WIDTH 16.2 % (11.6-17.2); WHITE BLOOD COUNT 5.6 TH/MM3 (4.0-11.0)
[2016-11-23 07:55] LABS: BICARBONATE 23.2 MEQ/L (21.0-32.0)
--- NOTE | 2016-11-23 08:34 | RADRPT ---
EXAM DATE/TIME: 11/23/2016 07:33 [facility] COMPARISON: CHEST SINGLE AP, November 18, 2016, 2:15. INDICATIONS : Shortness of breath. MEDICAL HISTORY : None. SURGICAL HISTORY : None. ENCOUNTER: Initial ACUITY: 1 day PAIN SCORE: Non-responsive. LOCATION: Bilateral chest FINDINGS: Single AP view of the chest. Prominent central pulmonary vasculature. Symmetric hazy bilateral lower lung zone opacity with obscuration of the right hemidiaphragm. Moderate cardiac silhouette enlargemen t unchanged. No evidence of pneumothorax. No definite pleural effusion. CONCLUSION: Central pulmonary vasculature enlargement and bilateral lower lung opacity suggesting pulmonary edema .. Cardiac silhouette enlargement. Dominik Jimenez MD on November 23, 2016 at 8:31 Board Certified Radiologist. This report was verified electronically.
[2016-11-23] MEDS: cloNIDine HCL 0.2 MG TAB PO SCH ×2 (10:02→21:15)
[2016-11-23] MEDS: DOXYCYCLINE HYCLATE 100 MG CAP PO SCH ×2 (10:02→21:15)
[2016-11-23] MEDS: FERROUS FUMARATE 325 MG TAB (106 MG ELEMENTAL IRON) PO SCH ×2 (10:02→21:16)
[2016-11-23] MEDS: hydrALAZINE HCL 50 MG TAB PO SCH ×2 (10:02→21:15)
[2016-11-23] MEDS: FERROUS SULFATE 325 MG (65 MG ELEMENTAL IRON) TAB PO SCH ×2 (10:02→21:16)
[2016-11-23] MEDS: APIXABAN 2.5 MG TABLET PO SCH ×2 (10:02→21:15)
[2016-11-23] MEDS: SODIUM CHLORIDE 0.9% FLUSH 10 ML FLUSH IV FLUSH SCH ×2 (10:02→21:17)
[2016-11-23] MEDS: FUROSEMIDE 40 MG TAB PO SCH (10:03)
[2016-11-23] MEDS: HEPARIN SODIUM - SQ 10,000 UNITS/ML VIAL SQ SCH ×2 (10:03→21:17)
[2016-11-23] MEDS: CARVEDILOL 12.5 MG TAB PO SCH ×2 (10:03→21:16)
[2016-11-23] MEDS: ASPIRIN 325 MG TAB PO SCH (10:03)
[2016-11-23] MEDS: FLUoxetine HCL 20 MG CAP PO SCH (10:03)
[2016-11-23] MEDS: amLODIPine BESYLATE 5 MG TAB PO SCH ×2 (10:03→21:15)
--- NOTE | 2016-11-23 14:12 | HHI.PR ---
Subjective Remarks 71yr old male seen and examined today. has no complaints sleeping okay no cp no sob no fever has not considered SNFs yet Objective Objective Results - Vital Signs Date Time Temp Pulse Resp B/P Pulse Ox O2 Delivery O2 Flow Rate FiO2 11/23/16 12:11 98.0 86 20 143/71 95 11/23/16 08:44 94 Simple Mask 7.00 11/23/16 07:36 98.5 92 18 146/72 91 11/23/16 04:06 92 Nasal Cannula 5.00 11/23/16 04:00 96.9 94 20 164/78 92 11/23/16 03:46 91 Nasal Cannula 5.00 11/23/16 03:45 91 Nasal Cannula 5.00 Humidified 11/23/16 00:00 98.5 88 20 155/65 93 11/22/16 20:00 97.4 89 20 137/60 94 11/22/16 20:00 Nasal Cannula 3.00 11/22/16 17:58 96 Nasal Cannula 3.00 11/22/16 16:02 95.7 72 20 126/59 91 I/O 11/22/16 11/22/16 11/22/16 11/23/16 11/23/16 11/23/16 07:00 15:00 23:00 07:00 15:00 23:00 Intake Total 240 ml 480 ml 480 ml 360 ml Output Total 500 ml 450 ml 700 ml 1000 ml Balance -260 ml 30 ml -220 ml -640 ml Intake Oral 240 ml 480 ml 480 ml 360 ml IV Total 0 ml Output Urine Total 500 ml 450 ml 700 ml 1000 ml # Bowel Movements 1 0 0 0 Result Diagram: 11/23/1636 11/23/16 0636 Other Results Laboratory Tests Test 11/23/16 06:36 White Blood Count 5.6 Red Blood Count 2.79 Hemoglobin 7.8 Hematocrit 24.5 Mean Corpuscular Volume 87.7 Mean Corpuscular Hemoglobin 28.0 Mean Corpuscular Hemoglobin 32.0 Concent Red Cell Distribution Width 16.2 Platelet Count 157 Mean Platelet Volume 9.3 Neutrophils (%) (Auto) 81.9 Lymphocytes (%) (Auto) 4.5 Monocytes (%) (Auto) 9.2 Eosinophils (%) (Auto) 3.4 Basophils (%) (Auto) 1.0 Neutrophils # (Auto) 4.6 Lymphocytes # (Auto) 0.3 Monocytes # (Auto) 0.5 Eosinophils # (Auto) 0.2 Basophils # (Auto) 0.1 CBC Comment DIFF FINAL Differential Comment Sodium Level 143 Potassium Level 5.0 Chloride Level 113 Carbon Dioxide Level 23.2 Anion Gap 7 Blood Urea Nitrogen 58 Creatinine 2.49 Estimat Glomerular Filtration 26 Rate Random Glucose 172 Calcium Level 8.7 ROS General: No: Fatigue, Weakness, Other HEENT: No: Sore Throat, Dysphagia, Other Cardiac: No: Chest Pain, Edema, Palpitations, Other Pulmonary: No: Cough, SOB, Wheezing, Other GI: No: Abdominal Pain, BM, Diarrhea, N/V, Other /SINGING WAITER OR WAITRESS: No: Dysuria, Urgency, Other Neuro/MS: Other ([place] edema.), No: Lightheaded, Confusion Psych: No: Anxiety, Depression, Other Skin: No: Itching, Rash, Other Physical Exam Physical Exam PHYSICAL EXAMINATION GENERAL: This is a well-developed, well-nourished male who appears to be in no acute distress. He is alert and awake. HEAD: Normocephalic without any lesion or mass noted. . EYES: Perrla. OROPHARYNGEAL: Oropharynx without erythema or edema. MOUTH/THROAT: Tongue midline NECK: Supple. Trachea midline without deviation. CARDIAC: Regular rhythm, regular rate, S1 and S2 are heard. LUNGS: Decreassed bs [place] due to poor inspiratory effort. ABDOMEN: Soft, nontender, no organomegaly or masses. Bowel sounds are heard in all four quadrants. No rebound. No guarding. EXTREMITIES: Pitting edema noble LE. NEUROLOGICAL: Patient mood and affect appropriate. Cranial nerves II through XII grossly intact. SKIN:Warm and moist PSYCH: Mood and affect appropriate A/P Assessment and Plan Assessment/Plan Recent fall with possible coccyx injury -xray at previous facility stated no fx -PT for mobility Morbid obesity -on bariatric bed -portion control Cellulitis with bilateral lymphedema, hx PVD -wound care input appreciated -evaluated per Dr. Bee, compressive John bandages from toes to knee and Maxorb extra AG dressings to right leg wounds. Change dressings every other day. -continue antibiotics, follow cultures -continue diuretics -elevate legs Severe debility and unable to ambulate -continue with guadalupe -PT -assist with mobility -will need placement- to arrange SNF -was able to stand with assist today, per PT did relatively well. Acute renal failure with chronic kidney disease -renal function improving slowly -continue with PO Lasix for now, he needs it for leg edema Anemia, HH trending down, no active bleeding -Stool for OB pending -Low iron stores, continue with PO iron -may need blood transfusion Diabetes mellitus type 2, hypoglycemic down to 62 -Dec. Glyburide to 5 mg po bid -continue with Accu-Cheks before meals and at bedtime with sliding scale Cardiomegaly, stable -CXR reviewed -Continue Lasix -Monitor closely CAD, stable -continue home medications Heparin for DVT prophylaxis CM for dc planning, SNF placement. appreciate palliative care input, pt. made himself DNR. He has very little social support Labs in am Discussed With: Daron Milian MD Nov 23, 2016 14:12
[2016-11-24] VITALS (8 sets, daily range): BP systolic 123–144; BP diastolic 62–80; PULSE 74–84; RESP 20–22; TEMP 95.5–98.3; O2SAT 91–97
[2016-11-24] MEDS: INSULIN ASPART SUPPLEMENTAL SCALE SQ SCH ×4 (06:33→23:07)
[2016-11-24] MEDS: AMOXICILLIN/CLAVULANATE K 250 MG TAB PO SCH ×3 (06:35→23:05)
[2016-11-24] MEDS: SODIUM CHLORIDE 0.9% FLUSH 10 ML FLUSH IV FLUSH SCH ×2 (09:00→23:10)
[2016-11-24] MEDS: DOXYCYCLINE HYCLATE 100 MG CAP PO SCH ×2 (10:06→23:05)
[2016-11-24] MEDS: HEPARIN SODIUM - SQ 10,000 UNITS/ML VIAL SQ SCH ×2 (10:06→23:04)
[2016-11-24] MEDS: ASPIRIN 325 MG TAB PO SCH (10:06)
[2016-11-24] MEDS: FERROUS SULFATE 325 MG (65 MG ELEMENTAL IRON) TAB PO SCH ×2 (10:06→23:06)
[2016-11-24] MEDS: cloNIDine HCL 0.2 MG TAB PO SCH ×2 (10:07→23:06)
[2016-11-24] MEDS: FERROUS FUMARATE 325 MG TAB (106 MG ELEMENTAL IRON) PO SCH ×2 (10:07→23:06)
[2016-11-24] MEDS: amLODIPine BESYLATE 5 MG TAB PO SCH ×2 (10:07→23:05)
[2016-11-24] MEDS: CARVEDILOL 12.5 MG TAB PO SCH ×2 (10:07→23:06)
[2016-11-24] MEDS: FLUoxetine HCL 20 MG CAP PO SCH (10:07)
[2016-11-24] MEDS: FUROSEMIDE 40 MG TAB PO SCH (10:07)
[2016-11-24] MEDS: APIXABAN 2.5 MG TABLET PO SCH ×2 (10:07→23:06)
[2016-11-24] MEDS: hydrALAZINE HCL 50 MG TAB PO SCH ×2 (10:08→23:06)
--- NOTE | 2016-11-24 10:16 | HHI.PR ---
Subjective Remarks Resting in bed responds verbally with brief answers. skin pink edema improving gradual (Racheal Wheeler) Objective Objective Results - Vital Signs Date Time Temp Pulse Resp B/P Pulse Ox O2 Delivery O2 Flow Rate FiO2 11/24/16 08:24 97 Simple Mask 6.00 11/24/16 07:59 96.3 83 22 144/80 95 11/24/16 04:00 96.8 74 20 142/77 95 11/24/16 00:00 96.5 78 20 144/72 96 11/23/16 20:00 96.7 79 20 143/69 96 11/23/16 20:00 Venturi Mask 5.00 11/23/16 18:55 94 Simple Mask 7.00 11/23/16 15:09 97.1 70 20 140/76 94 11/23/16 12:11 98.0 86 20 143/71 95 I/O 11/23/16 11/23/16 11/23/16 11/24/16 11/24/16 11/24/16 07:00 15:00 23:00 07:00 15:00 23:00 Intake Total 360 ml 480 ml 360 ml Output Total 1000 ml 1925 ml 900 ml Balance -640 ml -1445 ml -540 ml Intake Oral 360 ml 480 ml 360 ml Output Urine Total 1000 ml 1925 ml 900 ml # Bowel Movements 0 1 0 (Racheal Wheeler) Result Diagram: 11/23/16 0636 11/23/16 0636 ROS General: Fatigue (2 to morbid obesity), Weakness (improved minimally with PT) Cardiac: Edema Pulmonary: SOB (exertional;) Skin: Other ([facility]) (Racheal Wheeler) Physical Exam Physical Exam PHYSICAL EXAMINATION GENERAL: This is a morbid obese male who appears to be in no acute distress. He is awake, HEAD: Normocephalic without any lesion or mass noted. Facial features appear symmetric. OROPHARYNGEAL: Oropharynx without erythema or edema. NECK: Supple. No nuchal rigidity or lymphadenopathy. Trachea midline without deviation. CARDIAC: Regular rhythm, regular rate, S1 and S2 are heard. distant HS LUNGS: diminished to auscultation bilaterally. ABDOMEN: round obese, nontender, no organomegaly or masses. Bowel sounds active EXTREMITIES: lower extremity edema. extremity warm NEUROLOGICAL: Patient mood and affect appropriate. No focal deficit SKIN:Warm, dry, turgor johnie Objective Remarks Im ok I guess (Racheal Wheeler) A/P Assessment and Plan Recent fall with possible coccyx injury -PT for mobility, debility Morbid obesity -on bariatric bed encouraged diet control as OP Cellulitis with bilateral lymphedema, hx PVD -wound care input appreciated -evaluated per Dr. Bee, compressive John bandages from toes to knee and Maxorb extra AG dressings to right leg wounds. Change dressings every other day. -elevate legs guadalupe -PT -assist with mobility -will need placement-CM working on placement -was able to stand with assist today, per PT Acute renal failure with chronic kidney disease monitor PO Lasix Anemia, probable secondary to chronic disease -Stool for OB pending -Low iron stores, continue with PO iron -may need blood transfusion Diabetes mellitus type 2, continue with Accu-Cheks before meals and at bedtime with sliding scale Cardiomegaly, stable CAD, stable -continue home medications Heparin for DVT prophylaxis CM for dc planning, SNF placement. Stable for transition appreciate palliative care input, pt. made himself DNR. no family according to patient. Discharge Planning SNF Discussed With: Nurse, Family (pt.), Other (dr. adma, seen on his behalf) ( Racheal Wheeler) Assessment and Plan pt is seen & examined d/w PT d/w Racheal d/w PIETER young, pt is turned down by multiple SNFs d/t his morbid obesity , they are not equipped w tools to take care of him Analisa is going to evaluate him today. also suggested Adi to evaluate him cont current tx will f/u (Marie Adam MD) Racheal Wheeler November 24, 2016 10:16 Marie Adam MD November 24, 2016 11:58
[2016-11-24 13:13] LABS: HEMATOCRIT 23.8 % (39.0-51.0); MEAN CELL VOLUME 86.9 FL (80.0-100.0); MEAN CORPUSCULAR HEMOGLOBIN 28.4 PG (27.0-34.0); MEAN CORPUSCULAR HGB CONC 32.7 % (32.0-36.0); PLATELET COUNT 161 TH/MM3 (150-450); RED BLOOD COUNT 2.74 MIL/MM3 (4.50-5.90); RED CELL DISTRIBUTION WIDTH 15.6 % (11.6-17.2); REVIEW FLAG FINAL; WHITE BLOOD COUNT 5.2 TH/MM3 (4.0-11.0)
[2016-11-24 13:32] LABS: BICARBONATE 23.8 MEQ/L (21.0-32.0); POTASSIUM 4.9 MEQ/L (3.5-5.1)
[2016-11-24] MEDS: glipiZIDE 10 MG TAB PO SCH (17:39)
[2016-11-25] VITALS: BP 128/72; PULSE 81; RESP 18; TEMP 96.8; O2SAT 95
[2016-11-25] MEDS: AMOXICILLIN/CLAVULANATE K 250 MG TAB PO SCH ×2 (06:18→12:59)
[2016-11-25] MEDS: glipiZIDE 10 MG TAB PO SCH ×2 (06:19→16:00)
[2016-11-25] MEDS: INSULIN ASPART SUPPLEMENTAL SCALE SQ SCH ×3 (06:21→16:00)
[2016-11-25 06:51] VITALS: BP 173/86; PULSE 80; RESP 20; TEMP 98.3; O2SAT 93
[2016-11-25 08:00] VITALS: BP 140/66; PULSE 74; RESP 18; TEMP 97.5; O2SAT 93
[2016-11-25] MEDS: amLODIPine BESYLATE 5 MG TAB PO SCH (09:00)
[2016-11-25] MEDS: SODIUM CHLORIDE 0.9% FLUSH 10 ML FLUSH IV FLUSH SCH (09:00)
[2016-11-25] MEDS: FERROUS FUMARATE 325 MG TAB (106 MG ELEMENTAL IRON) PO SCH (09:00)
[2016-11-25 10:00] VITALS: O2SAT 94
[2016-11-25] MEDS: FUROSEMIDE 40 MG TAB PO SCH (10:20)
[2016-11-25] MEDS: FERROUS SULFATE 325 MG (65 MG ELEMENTAL IRON) TAB PO SCH (10:20)
[2016-11-25] MEDS: APIXABAN 2.5 MG TABLET PO SCH (10:20)
[2016-11-25] MEDS: DOXYCYCLINE HYCLATE 100 MG CAP PO SCH (10:21)
[2016-11-25] MEDS: ASPIRIN 325 MG TAB PO SCH (10:21)
[2016-11-25] MEDS: hydrALAZINE HCL 50 MG TAB PO SCH (10:21)
[2016-11-25] MEDS: HEPARIN SODIUM - SQ 10,000 UNITS/ML VIAL SQ SCH (10:22)
[2016-11-25] MEDS: FLUoxetine HCL 20 MG CAP PO SCH (10:22)
[2016-11-25] MEDS: CARVEDILOL 12.5 MG TAB PO SCH (10:22)
[2016-11-25] MEDS: cloNIDine HCL 0.2 MG TAB PO SCH (10:22)
[2016-11-25 11:20] LABS: BICARBONATE 28.8 MEQ/L (21.0-32.0); POTASSIUM 4.9 MEQ/L (3.5-5.1)
[2016-11-25 12:07] VITALS: BP 119/66; PULSE 76; RESP 22; TEMP 97.6; O2SAT 92
--- NOTE | 2016-11-25 12:51 | HHI.PR ---
Subjective Remarks Resting in bed 's responds to questions and answers appropriately Lower extremity edema improved Bariatric bed and equipment to assist patient No shortness of breath (Racheal Wheeler) Objective Objective Results - Vital Signs Date Time Temp Pulse Resp B/P Pulse Ox O2 Delivery O2 Flow Rate FiO2 11/25/16 12:07 97.6 76 22 119/66 92 11/25/16 10:00 94 Nasal Cannula 4.00 11/25/16 08:00 97.5 74 18 140/66 93 11/25/16 06:51 98.3 80 20 173/86 93 11/25/16 00:00 96.8 81 18 128/72 95 11/24/16 20:58 94 Simple Mask 6.00 11/24/16 19:30 95.5 84 20 138/62 91 11/24/16 19:00 94 Simple Mask 6.00 11/24/16 15:48 98.3 77 22 123/76 95 I/O 11/24/16 11/24/16 11/24/16 11/25/16 11/25/16 11/25/16 07:00 15:00 23:00 07:00 15:00 23:00 Intake Total 360 ml 720 ml Output Total 900 ml 1200 ml 850 ml Balance -540 ml -480 ml -850 ml Intake Oral 360 ml 720 ml Output Urine Total 900 ml 1200 ml 850 ml # Bowel Movements 0 0 0 (Racheal Wheeler) Result Diagram: 11/24/16 1205 11/25/16 1019 ROS General: Fatigue, Weakness (secondary to comorbidities and weight), Other (10 point ROS done positives noted other systems unremarkable or negative) Cardiac: Edema (lower extremities and trunk) Pulmonary: Cough (occasional), SOB (exertional) Skin: Other (wound care lower extremities) (Racheal Wheeler) Physical Exam Physical Exam PHYSICAL EXAMINATION GENERAL: This is a morbidly obese male who appears to be in no acute distress. He is alert and awake, doses periodically HEAD: Normocephalic without any lesion or mass noted. Facial features appear symmetric. OROPHARYNGEAL: Oropharynx without erythema or edema. NECK: Supple. Obese Trachea midline without shortness of breath CARDIAC: Regular rhythm, regular rate, S1 and S2 are heard. Sounds distant LUNGS: Diminished to auscultation bilaterally. ABDOMEN: Obese Soft, nontender, no organomegaly or masses. Bowel sounds present EXTREMITIES: 2+ edema lower extremities wrapped with John bandages clean dry and intact. NEUROLOGICAL: Speech clear, follows commands, oriented 4 SKIN:Warm and moist, dry thick skin turgor especially on extremities Objective Remarks I'm breathing much better. I'm waiting on physical therapy (Racheal Wheeler) A/P Assessment and Plan Recent fall with possible coccyx injury -PT for mobility, debility, slow but gradual improvement noted in mobility Morbid obesity -on bariatric bed Cellulitis with bilateral lymphedema, hx PVD -wound care input appreciated -evaluated per Dr. Bee, compressive John bandages from toes to knee and Maxorb extra AG dressings to right leg wounds. Change dressings every other day. -elevate legs, improvement with edema, continue plan of care guadalupe, UA culture is pending but no growth. Doubt UTI -PT -assist with mobility -will need placement-CM working on placement, Juni is following patient, case management to follow up today Acute renal failure with chronic kidney disease monitor PO Lasix Anemia, probable secondary to chronic disease Unchanged 7.8 Diabetes mellitus type 2, continue with Accu-Cheks before meals and at bedtime with sliding scale Cardiomegaly, stable CAD, stable -continue home medications Heparin for DVT prophylaxis CM for dc planning, SNF placement. Stable for transition appreciate palliative care input, pt. made himself DNR. no family according to patient. Discharge Planning SNF Discussed With: Nurse, Family (pt.), Other (dr. adam, seen on his behalf) ( Racheal Wheeler) Assessment and Plan pt is seen & examined d/w PT d/w Racheal d/w RN Art d/w SW / finally a local facility is willing to accept him cont current tx medically stable for dc d/c to SNF loose weight see orders see [facility] f/u pcp (Marie Adam MD) Racheal Wheeler November 25, 2016 12:51 Marie Adam MD November 25, 2016 14:28
[2016-11-25] MEDS ORDERED: EPOETIN ALFA 10,000 UNITS/ML VIAL SQ ONE (14:45)
[2016-11-25 15:58] VITALS: BP 125/60; PULSE 80; RESP 22; TEMP 98.1; O2SAT 97
--- NOTE | 2016-11-25 17:05 | HHI.DS ---
Discharge Summary Admission Date Nov 18, 2016 at 06:13 Discharge Date: November 25, 2016 Admitting Diagnosis Acute renal failure, inability to ambulate, diabetic foot Procedures wound care Brief History This was an unfortunate 71-year-old white male who is morbidly obese. According to the record, the last time he was weighed, he was a 190 kg which averages out to be around 418 pounds. The patient had been living in the [facility] with some assistance from home health and a health home health care worker, but according to the record, the health home health care worker had not showed up to help him in an undisclosed amount of time. The patient was non-ambulatory for the most part. He was unable to care for himself. He fell in his home sometime yesterday and went to [facility] in [facility] with generalized bilateral leg weakness. According to the record and the nurse caring for the patient, the patient had an x-ray on his coccyx area yesterday which showed no fracture. The patient was back here in [facility] due to his overall weakness, lymphedema and unable to care for himself. He is complaining of coccyx pain. He is grunting and moaning with his eyes even at rest with discomfort. He had been seen by the wound care folks and stated that his dressings have not been done in three days. The patient has 3+ to 4+ scrotal edema which he is unable to manage. States that he has been urinating okay before this admission and had a bowel movement yesterday. The patient currently had a Nolen catheter in place to monitor I's and O's. The patient stated that he has no family to assist him. His general hygiene has not been taken care of in an undisclosed amount of time. The patient had a history of lymphedema in his legs bilaterally. CBC/BMP: 11/24/16 1205 11/25/16 1019 Significant Findings Laboratory Tests Test 11/23/16 11/24/16 11/25/16 06:36 12:05 10:19 Red Blood Count 2.79 MIL/MM3 2.74 MIL/MM3 (4.50-5.90) (4.50-5.90) Hemoglobin 7.8 GM/DL 7.8 GM/DL (13.0-17.0) (13.0-17.0) Hematocrit 24.5 % 23.8 % (39.0-51.0) (39.0-51.0) Neutrophils (%) (Auto) 81.9 % (16.0-70.0) Lymphocytes (%) (Auto) 4.5 % (9.0-44.0) Monocytes (%) (Auto) 9.2 % (0.0-8.0) Lymphocytes # (Auto) 0.3 TH/MM3 (1.0-4.8) Chloride Level 113 MEQ/L 111 MEQ/L 111 MEQ/L (98-107) (98-107) (98-107) Blood Urea Nitrogen 58 MG/DL (7-18) 53 MG/DL (7-18) 54 MG/DL (7-18) Creatinine 2.49 MG/DL 2.15 MG/DL 2.18 MG/DL (0.60-1.30) (0.60-1.30) (0.60-1.30) Estimat Glomerular Filtration 26 ML/MIN (>89) 31 ML/MIN (>89) 30 ML/MIN (>89) Rate Random Glucose 172 MG/DL 134 MG/DL (74-106) (74-106) Anion Gap 4 MEQ/L (5-15) Imaging Last Impressions Chest X-Ray 11/23/16 0000 Signed Impressions: Service Date/Time: Wednesday, November 23, 2016 07:33 - CONCLUSION: Central pulmonary vasculature enlargement and bilateral lower lung opacity suggesting pulmonary edema.. Cardiac silhouette enlargement. Dominik Jimenez MD PE at Discharge Eye Exam: Pupils Equal, Pupils Reactive Ears & Nose Ears & Nose Exam: Nasal Mucosa [place] Throat Throat Exam: Oral Mucosa [place] & Moist Neck Neck Exam: Neck Supple, Trachea Midline Pulmonary Resp Exam: Decreased Bases, Poor Inspiratory Effort Cardiology CV Exam: Regular Gastrointestinal/Abdomen GI Exam: Soft, Non-Tender, Bowel Sounds Present, Non-Distended Genitourinary Remarks NOLEN with clovis urine Musculoskeletal MS Exam: Unable to Ambulate Integumentary Skin Exam: Lesion(s) Extremeties Extremities Exam: Pitting Edema, Dependent Edema Neurologic Neuro Exam: Awake, Oriented, Speech Clear, Dispensing Operator Equal Psychiatric Psych Exam: Appropriate Responses Hospital Course These diagnosis and assessments were used to treat this patient and his hospital course Recent fall with possible coccyx injury -xray at previous facility stated no fx -PT for mobility, initially started working with patient in the bed to strengthen Morbid obesity -on bariatric bed, during the first 24 hours of his admission. This was the ann to patient becoming comfortable, and controlling the edema and wounds on his body -portion control was educated to patient to give him a possibility for mobility and quality of life. He agreed with the attempt Cellulitis with bilateral lymphedema, hx PVD -wound care input appreciated -evaluated per Dr. Bee, compressive John bandages from toes to knee and Maxorb extra AG dressings to right leg wounds. Change dressings every other day. Patient responded to this treatment regimen very well. Edema was 1-2+ with healing wounds on discharge. -continue antibiotics, follow cultures which were negative -continue diuretics -elevate legs, edema had progressively gotten better throughout the course of his stay Severe debility and unable to ambulate -continue with nolen catheter to protect his skin and lower extremity and scrotal edema. -PT worked with patient threw out hospital course -assist with mobility -will need placement-CM to arrange SNF -was able to stand with assist today, per PT did relatively well. Acute renal failure with chronic kidney disease -renal function improving slowly -continue with PO Lasix for now, he needs it for leg edema Anemia, probably due to chronic disease. Labs were monitored including his hemoglobin and hematocrit throughout the course of stay. patient received no transfusions , HH trending down, no active bleeding -Stool for OB pending -Low iron stores, continue with PO iron Diabetes mellitus type 2, hypoglycemic down to 62 -Dec. Glyburide to 5 mg po bid -continue with Accu-Cheks before meals and at bedtime with sliding scale Cardiomegaly, stable -CXR reviewed, essentially unchanged throughout hospital course -Continue Lasix -Monitor closely CAD, stable -continue home medications Heparin for DVT prophylaxis CM for dc planning, SNF placement. appreciate palliative care input, pt. made himself DNR. He has very little social support Labs were monitored throughout course of stay and abnormals were treated. Discharge planning was initiated on admission, as patient was monitored and treated for his multi comorbidities. It was known that he would need support in the outpatient setting Patient was also followed by Dr. zambrano, pt is seen & examined d/w pt d/w Patricia medically stable for d./c , d/c to SNF when arrangement are made\ d/w SW Pt Condition on Discharge: Stable Discharge Disposition: Discharge to SNF Discharge Instructions DIET: Follow Instructions for: Heart Healthy Diet, Renal Failure Diet Fluid Restrictions: 1600CC/DAY Activities you can perform: Weight Bearing as Sergey Other Activity Instructions: FALL PRECAUTIONS Follow up Referrals: PCP Follow-up - 1 Week Podiatry - 3 Weeks New Medications: Amoxicillin-Clavulanate (Amoxicillin-Clavulanate) 250-125 mg Tab 250 MG PO Q8HR infection #14 TAB Apixaban (Eliquis) 2.5 Mg Tab 2.5 MG PO BID blood thinner #60 TAB Doxycycline Hyclate (Doxycycline Hyclate) 100 Mg Cap 100 MG PO BID infection #14 CAP Ferrous Fumarate (Hemocyte) 324 Mg Tab 325 MG PO Q12HR anemia #60 TAB Continued Medications: Amlodipine (Amlodipine) 5 Mg Tab 5 MG PO BID Blood Pressure Management #30 Ref 0 TAB Aspirin (Aspirin) 325 Mg Tab 325 MG PO DAILY #30 Ref 0 TAB Carvedilol (Carvedilol) 25 Mg Tab 25 MG PO BID #60 Ref 0 TAB Clonidine (Clonidine) 0.2 Mg Tab 0.2 MG PO BID Blood Pressure Management #60 Ref 0 TAB Fluoxetine (Fluoxetine) 20 Mg Cap 20 MG PO DAILY #30 Ref 0 CAP Furosemide (Lasix) 40 Mg Tab 40 MG PO DAILY #30 Ref 0 TAB Glipizide (Glipizide) 10 Mg Tab 10 MG PO BIDAC Take 30 minutes before a meal Blood Sugar Management #60 Ref 0 TAB Hydralazine (Hydralazine) 50 Mg Tab 50 MG PO BID Take with a meal Blood Pressure Management Ref 0 TAB Lisinopril (Lisinopril) 20 Mg Tab 20 MG PO BID #30 Ref 0 TAB Discontinued Medications: Apixaban (Eliquis) 5 Mg Tab 5 MG PO BID Blood Clot Prevention #60 Ref 0 TAB Racheal Wheeler November 25, 2016 17:05
== END 2016-11-25 19:02 | DRG 603 ==
LOC: NEPE 01:36 → NEDA 06:13 → NEDH 11:24 → NEDA 12:37 → N05B 14:54
PROVIDERS: ADMIT Specialist; ATTEND Specialist
DX: L03.115 Cellulitis of right lower limb (principal); N17.9 Acute kidney failure, unspecified; E11.22 Type 2 diabetes mellitus with diabetic chronic kidney disease; I13.0 Hypertensive heart and chronic kidney disease with heart failure and stage 1 through stage 4 chronic kidney disease, or unspecified chronic kidney disease; I50.9 Heart failure, unspecified; E11.65 Type 2 diabetes mellitus with hyperglycemia; E66.01 Morbid (severe) obesity due to excess calories; D63.8 Anemia in other chronic diseases classified elsewhere; S81.801A Unspecified open wound, right lower leg, initial encounter; I25.10 Atherosclerotic heart disease of native coronary artery without angina pectoris; I89.0 Lymphedema, not elsewhere classified; L03.116 Cellulitis of left lower limb; N18.9 Chronic kidney disease, unspecified; I73.9 Peripheral vascular disease, unspecified; I87.2 Venous insufficiency (chronic) (peripheral); K21.9 Gastro-esophageal reflux disease without esophagitis; M53.3 Sacrococcygeal disorders, not elsewhere classified; N50.89 Other specified disorders of the male genital organs; Z66 Do not resuscitate; W19.XXXA Unspecified fall, initial encounter; Y92.009 Unspecified place in unspecified non-institutional (private) residence as the place of occurrence of the external cause
CPT/HCPCS: 51702; 71010; 80048; 80053; 81001; 82728; 82948; 83540; 83550; 83605; 83735; 84484; 85014; 85018; 85025; 85027; 85044; 87040; 87086; 87205; 87641; 94640; 94664; 96365; 96367; J0295; J1644; J1815; J2270; J2543; J3370; J7040; J7050; Q4081

== ENCOUNTER 2017-01-23 17:01 | Inpatient (IN) | payer MEDICARE, MEDICAID ==
[2017-01-23] VITALS (10 sets, daily range): BP systolic 120–128; BP diastolic 58–83; PULSE 70–85; RESP 16–18; TEMP 98.5; O2SAT 92–100
[~2017-01-23] VITALS: Ht 167.6 cm; Wt 183.6 kg
[~2017-01-23 17:01] MED LIST changes: +AMLO5TAB2 PO; +AMOX250T PO; +APIX2.5T PO; +CARV25TA PO; +CLON0.2T PO; -COZA50TA PO; +DOXY100C PO; +FLUO20CA4 PO; -FLUO20SO3 PO; +FURO1TAB60 PO; -FURO1TAB93 PO; +GLIP10TA6 PO; +HEMO324T PO; +HYDR50TA15 PO; -LANTUSP SQ; +LISI-515 PO; -METO100T PO; -NOVO7030P2 SQ; -NYST15T TOP; -PRIL40CA PO; -PROT40TA PO; -SULF1TAB47 PO
--- NOTE | 2017-01-23 17:37 | PD ---
HPI Chief Complaint: Edema Time Seen by Provider: 17:36 Travel History International Travel<30 days: No Contact w/Intl Traveler<30days: No Traveled to known affect area: No History of Present Illness HPI 71-year-old male presents from nursing facility for evaluation of worsening BUN and creatinine. He apparently is being treated for CHF exacerbation at the facility. Nephrology was consulted, but has not been able to see the patient. BUN and creatinine were worse on today's labs and the patient was brought to the hospital. The patient reports shortness of breath that is been ongoing. He denies any new shortness of breath. He states that he will have hip and groin pain, but has not at this time. Patient states that he is also being treated for bilateral lower leg cellulitis. He denies any fevers or chills. He denies any chest pain. No abdominal pain. No nausea, vomiting. He does report intermittent diarrhea and constipation. PFSH Past Medical History Arthritis: No Asthma: No Atrial Fibrillation: Yes Autoimmune Disease: No Blood Disorders: No Anxiety: No Depression: Yes Heart Rhythm Problems: No Cancer: No Cardiovascular Problems: Yes High Cholesterol: No Chemotherapy: No Chest Pain: No Congestive Heart Failure: Yes COPD: No Cerebrovascular Accident: No Diabetes: Yes Patient Takes Glucophage: Yes Diminished Hearing: No Endocrine: No Gastrointestinal Disorders: No GERD: Yes Glaucoma: No Genitourinary: No Headaches: No Hepatitis: No Hiatal Hernia: No Heparin Induced Thrombocytopen: No Hypertension: Yes Immune Disorder: No Implanted Vascular Access Dvce: No Kidney Stones: No Musculoskeletal: No Neurologic: No Psychiatric: No Reproductive: No Respiratory: No Integumentary: Yes (CELLULITIS LLE) Immunizations Current: Yes Migraines: No Myocardial Infarction: No Radiation Therapy: No Renal Failure: Yes (CHRONIC RENAL INSUFFICIENCY) Seizures: No Sickle Cell Disease: No Sleep Apnea: No Thyroid Disease: No Triglycerides - High: Yes Ulcer: No ?: Not Past Surgical History Abdominal Surgery: No AICD: No Appendectomy: No Arteriovenous Shunt: No Cardiac Surgery: No Cholecystectomy: No Ear Surgery: No Endocrine Surgery: No Eye Surgery: No Genitourinary Surgery: No Gynecologic Surgery: No Insulin Pump: No Joint Replacement: No Neurologic Surgery: No Oral Surgery: No Pacemaker: No Thoracic Surgery: No Tonsillectomy: Yes Other Surgery: No Social History Alcohol Use: No Tobacco Use: No Substance Use: No Allergies-Medications (Allergen,Severity, Reaction): 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 - 11/19/16 Reported Meds & Prescriptions Reported Meds & Active Scripts Active Eliquis (Apixaban) 2.5 Mg Tab 2.5 Mg PO BID Reported Nystatin Topical (Nystatin) 1 Powd 1 Appl TOPICAL DIRECTED Tylenol (Acetaminophen) 325 Mg Tab 650 Mg PO Q4H PRN Iron (Ferrous Sulfate) 325 Mg Capsule.er Lidoderm (Lidocaine) 5 % Adh..patch Allergy (Loratadine) 10 Mg Tab Bailey (Hydrocodone-Acetaminophen) 5-325 mg Tab 1 Tab PO Q6H PRN Ambien (Zolpidem Tartrate) 5 Mg Tab 5 Mg PO HS PRN Hydralazine HCl 50 Mg Tablet BID Fluoxetine HCl (Fluoxetine HCl (Pmdd)) 20 Mg Tab Aspirin 325 Mg Tab 325 Mg PO DAILY Amlodipine (Amlodipine Besylate) 5 Mg Tab 5 Mg PO BID Glipizide 10 Mg Tab 10 Mg PO BIDAC Take 30 minutes before a meal Lisinopril 20 Mg Tab 20 Mg PO BID Clonidine (Clonidine HCl) 0.2 Mg Tab 0.2 Mg PO BID Carvedilol 25 Mg Tab 25 Mg PO BID Review of Systems Except as stated in HPI: all other systems reviewed are Neg Physical Exam Narrative GENERAL: Well-nourished, well-developed morbidly obese male patient, afebrile. SKIN: Focused skin assessment warm/dry. HEAD: Normocephalic. Atraumatic. EYES: No scleral icterus. No injection or drainage. NECK: Supple, trachea midline. No JVD or lymphadenopathy. CARDIOVASCULAR: Regular rate and rhythm without murmurs, gallops, or rubs. RESPIRATORY: Breath sounds equal bilaterally. No accessory muscle use. Lungs sounds are diminished throughout. Patient has large body habitus. GASTROINTESTINAL: Abdomen soft, non-tender, nondistended. MUSCULOSKELETAL: No cyanosis, or edema. BACK: Nontender without obvious deformity. No CVA tenderness. Data Data Last Documented VS Vital Signs Date Time Temp Pulse Resp B/P Pulse Ox O2 Delivery O2 Flow Rate FiO2 01/23/17 19:16 83 16 122/59 94 Venturi Mask 6 6/30/17 17:28 98.5 Orders Electrocardiogram (01/23/17 17:33) Complete Blood Count With Diff (01/23/17 17:33) Comprehensive Metabolic Panel (01/23/17 17:33) Magnesium (Mg) (01/23/17 17:33) Ckmb (Isoenzyme) Profile (01/23/17 17:33) Troponin I (01/23/17 17:33) Act Partial Throm Time (Ptt) (01/23/17 17:33) Prothrombin Time / Inr (Pt) (01/23/17 17:33) Urinalysis - C+S If Indicated (01/23/17 17:33) Chest, Single Ap (01/23/17 17:33) Ecg Monitoring (01/23/17 17:33) Iv Access Insert/Monitor (01/23/17 17:33) Oximetry (01/23/17 17:33) Sodium Chloride 0.9% Flush (Ns Flush) (01/23/17 17:45) B-Type Natriuretic Peptide (01/23/17 17:35) Urinary Catheter Insert/Apply (01/23/17 17:37) Furosemide Inj (Lasix Inj) (01/23/17 20:00) Arterial Blood Gas (Abg) (01/23/17 ) Labs Laboratory Tests Test 01/23/17 01/23/17 17:55 18:24 Urine Color YELLOW Urine Turbidity CLEAR Urine pH 5.0 Urine Specific [place] 1.014 Urine Protein TRACE mg/dL Urine Glucose (UA) NEG mg/dL Urine Ketones NEG mg/dL Urine Occult Blood NEG Urine Nitrite NEG Urine Bilirubin NEG Urine Urobilinogen LESS THAN 2.0 MG/DL Urine Leukocyte Esterase NEG Urine Squamous Epithelial 1 /hpf Cells Urine Hyaline Casts 7 /lpf Urine Mucus FEW /lpf Microscopic Urinalysis Comment CULT NOT INDICATED White Blood Count 4.6 TH/MM3 Red Blood Count 2.58 MIL/MM3 Hemoglobin 7.4 GM/DL Hematocrit 23.7 % Mean Corpuscular Volume 91.6 FL Mean Corpuscular Hemoglobin 28.7 PG Mean Corpuscular Hemoglobin 31.3 % Concent Red Cell Distribution Width 16.5 % Platelet Count 135 TH/MM3 Mean Platelet Volume 9.8 FL Neutrophils (%) (Auto) 70.6 % Lymphocytes (%) (Auto) 8.1 % Monocytes (%) (Auto) 11.7 % Eosinophils (%) (Auto) 8.9 % Basophils (%) (Auto) 0.7 % Neutrophils # (Auto) 3.3 TH/MM3 Lymphocytes # (Auto) 0.4 TH/MM3 Monocytes # (Auto) 0.5 TH/MM3 Eosinophils # (Auto) 0.4 TH/MM3 Basophils # (Auto) 0.0 TH/MM3 CBC Comment DIFF FINAL Differential Comment Prothrombin Time 12.6 SEC Prothromb Time International 1.1 RATIO Ratio Activated Partial 33.1 SEC Thromboplast Time Sodium Level 142 MEQ/L Potassium Level 5.3 MEQ/L Chloride Level 113 MEQ/L Carbon Dioxide Level 22.7 MEQ/L Anion Gap 6 MEQ/L Blood Urea Nitrogen 81 MG/DL Creatinine 3.06 MG/DL Estimat Glomerular Filtration 20 ML/MIN Rate Random Glucose 84 MG/DL Calcium Level 8.8 MG/DL Magnesium Level 2.1 MG/DL Total Bilirubin 0.4 MG/DL Aspartate Amino Transf 23 U/L (AST/SGOT) Alanine Aminotransferase 18 U/L (ALT/SGPT) Alkaline Phosphatase 86 U/L Total Creatine Kinase 42 U/L Troponin I LESS THAN 0.02 NG/ML B-Type Natriuretic Peptide 263 PG/ML Total Protein 6.8 GM/DL Albumin 2.9 GM/DL [facility] Medical Decision Making Medical Screen Exam Complete: Yes Emergency Medical Condition: Yes Medical Record Reviewed: Yes Interpretation(s) chest x-ray - CONCLUSION: Probable CHF Differential Diagnosis Chronic renal insufficiency versus acute renal failure versus electrolyte abnormality versus CHF versus CHF exacerbation versus ACS Narrative Course 71-year-old male presents to the emergency department for worsening BUN and creatinine from nursing facility. EKG shows atrial ablation, heart rate 70, no acute ST changes. Patient is on Eliquis with according to report. He states he is unsure if he has history of A. fib and states the retirement is "trying to figure it out". CBC, CMP, magnesium, CK, troponin, BNP, PTT, PTT/INR, UA are ordered and pending. Chest x-ray is ordered and pending. CBC shows anemia with hemoglobin of 7.4, hematocrit 23.7. Last hemoglobin was 7.8 on November 24, 2016. CMP shows hyperkalemia 5.3, BUN 81, creatinine 3.06. Magnesium is 2.1. CK is 42. Troponin is less than 0.02. BNP [-]. PT is 12.6 , INR 1.1, PTT 33.1. UA is negative for infection. Chest x-ray shows probable CHF. Patient was placed on 50% Venturi mask. Patient is given Lasix 40 mg IV. Patient will be placed on bipap and Dr. Lomax, mechanical engineering coop, accepted admission. Diagnosis Primary Impression: Acute renal failure Qualified Code: N17.9 - Acute renal failure, unspecified acute renal failure type Additional Impression: CHF exacerbation Qualified Code: I50.9 - Acute on chronic congestive heart failure, unspecified congestive heart failure type Admitting Information Admitting Physician Requests: Admit Carla Houston Jan 23, 2017 17:37
[2017-01-23] MEDS ORDERED: SODIUM CHLORIDE 0.9% FLUSH 10 ML FLUSH IVF PRN (17:45)
--- NOTE | 2017-01-23 18:12 | RADRPT ---
EXAM DATE/TIME: 01/23/2017 17:55 [facility] COMPARISON: CHEST SINGLE AP, November 18, 2016, 2:15. CHEST SINGLE AP, November 23, 2016, 7:33. INDICATIONS : Shortness of breath. MEDICAL HISTORY : None. SURGICAL HISTORY : None. ENCOUNTER: Initial ACUITY: 1 day PAIN SCORE: 10/10 LOCATION: Bilateral chest FINDINGS: Cardiomegaly with vascular congestion and bilateral perihilar and basilar alveolar opacities, similar to prior. CONCLUSION: Probable CHF Navneet Cevallos MD on January 23, 2017 at 18:08 Board Certified Radiologist. This report was verified electronically.
[2017-01-23 18:40] LABS: AUTOMATED NEUTROPHIL # 3.3 TH/MM3 (1.8-7.7); BASOPHIL % 0.7 % (0.0-2.0); EOSINOPHIL # 0.4 TH/MM3 (0-0.4); EOSINOPHIL % 8.9 % (0.0-4.0); HEMATOCRIT 23.7 % (39.0-51.0); HEMO FLAGS DIFF FINAL; LYMPH % 8.1 % (9.0-44.0); LYMPHOCYTE # 0.4 TH/MM3 (1.0-4.8); MEAN CELL VOLUME 91.6 FL (80.0-100.0); MEAN CORPUSCULAR HEMOGLOBIN 28.7 PG (27.0-34.0); MEAN CORPUSCULAR HGB CONC 31.3 % (32.0-36.0); MONO % 11.7 % (0.0-8.0); NEUT % 70.6 % (16.0-70.0); PLATELET COUNT 135 TH/MM3 (150-450); RED BLOOD COUNT 2.58 MIL/MM3 (4.50-5.90); RED CELL DISTRIBUTION WIDTH 16.5 % (11.6-17.2); WHITE BLOOD COUNT 4.6 TH/MM3 (4.0-11.0)
[2017-01-23 18:48] LABS: APTT (PATIENT) 33.1 SEC (24.3-30.1); INTERNATIONAL NORMALIZED RATIO 1.1 RATIO; PROTHROMBIN TIME - PATIENT 12.6 SEC (9.8-11.6)
[2017-01-23 18:49] LABS: BLOOD, URINE NEG (NEG); COMMENT (UR) CULT NOT INDICATED; CULTURE IF INDICATED CULT NOT INDICATED; GLUCOSE,URINE NEG (NEG); HYALINE CAST, URINE 7 /lpf (RARE); KETONE, URINE NEG (NEG); MUCUS URINE FEW /lpf (OCC); NITRITE,URINE NEG (NEG); SQUAMOUS EPITHELIAL CELL URINE 1 /hpf (0-5); URINE COLOR YELLOW (YELLW/STRAW)
[2017-01-23 19:13] LABS: ANION GAP 6 MEQ/L (5-15); AST (GOT) 23 U/L (15-37); BICARBONATE 22.7 MEQ/L (21.0-32.0); BLOOD UREA NITROGEN 81 MG/DL (7-18); CHLORIDE 113 MEQ/L (98-107); GLOMERULAR FILTRATION RATE 20 ML/MIN (>89); MAGNESIUM 2.1 MG/DL (1.5-2.5); POTASSIUM 5.3 MEQ/L (3.5-5.1); SODIUM (NA) 142 MEQ/L (136-145)
[2017-01-23 19:18] LABS: ALKALINE PHOSPHATASE 86 U/L (45-117); ALT (GPT) 18 U/L (12-78); TOTAL BILIRUBIN ADULT 0.4 MG/DL (0.2-1.0)
[2017-01-23 19:28] LABS: CREATINE KINASE 42 U/L (39-308)
[2017-01-23] MEDS ORDERED: FUROSEMIDE 40 MG/4 ML VIAL IV PUSH ONE (20:00)
[2017-01-23] MEDS ORDERED: TYLE325T PO (20:17)
[2017-01-23] MEDS ORDERED: NYSTPOW TOPICAL (20:17)
[2017-01-23] MEDS ORDERED: NORC5TAB PO (20:17)
[2017-01-23] MEDS ORDERED: FLUO1TAB17 (20:17)
[2017-01-23] MEDS ORDERED: FERR325C (20:17)
[2017-01-23] MEDS ORDERED: HYDR-3800 (20:17)
[2017-01-23] MEDS ORDERED: LIDO5DIS5 (20:17)
[2017-01-23] MEDS ORDERED: AMBI5TAB PO (20:17)
[2017-01-23] MEDS ORDERED: LORA-520 (20:17)
[2017-01-23 20:41] LABS: BLOOD GAS BASE EXCESS -4.5 mmol/L (-2-2); BLOOD GAS CARBOXYHEMOGLOBIN 1.6 % (0-4); BLOOD GAS HCO3 21 mmol/L (22-26); BLOOD GAS METHEMOGLOBIN 0.9 % (0-2); BLOOD GAS O2 HGB SATURATION 88 % (90-100); BLOOD GAS OXYGEN CONTENT 9.2 Vol % (12.0-20.0); BLOOD GAS PCO2 46 mmHg (38-42); BLOOD GAS PO2 63 mmHG (61-120); BLOOD GAS TOTAL HGB 7.4 G/DL (12.0-16.0); TEMP CORR TO 98.6
[2017-01-23 20:42] LABS: CRITICAL VALUE YES; DRAW SITE RT RADIAL; FIO2 50 %; NUMBER OF ARTERIAL PUNCTURES 1; OXYGEN DEVICE Venti Mask; STAT YES; ULNAR PULSE PRESENT
[2017-01-23] MEDS: CARVEDILOL 12.5 MG TAB PO SCH (21:00)
[2017-01-23] MEDS ORDERED: ZOLPIDEM TARTRATE 5 MG TAB PO PRN ×2 (21:00→21:15)
[2017-01-23] MEDS: amLODIPine BESYLATE 5 MG TAB PO SCH (21:00)
[2017-01-23] MEDS: cloNIDine HCL 0.2 MG TAB PO SCH (21:00)
[2017-01-23] MEDS ORDERED: NYSTATIN APPL TOPICAL SCH (21:00)
[2017-01-23] MEDS ORDERED: RESP: ALBUTEROL 2.5 MG/IPRATROPIUM 0.5 MG NEB (PRN) INH (21:15)
[2017-01-23] MEDS ORDERED: MISCELLANEOUS NURSING INFORMATION XX SCH (21:15)
[2017-01-23] MEDS ORDERED: HEPARIN SODIUM - SQ 10,000 UNITS/ML VIAL SQ SCH (21:15)
[2017-01-23] MEDS ORDERED: MAGNESIUM HYDROXIDE SUSP 30 ML CUP PO PRN (21:15)
[2017-01-23] MEDS ORDERED: ONDANSETRON HCL 4 MG/2 ML VIAL IV PRN (21:15)
[2017-01-23] MEDS ORDERED: SODIUM CHLORIDE 0.9% FLUSH 10 ML FLUSH PRN (21:15)
[2017-01-23] MEDS ORDERED: CHLORHEXIDINE GLUCONATE 2 % 1 PACK (2 CLOTHS) TOP PRN (21:15)
[2017-01-23] MEDS ORDERED: LORazepam 2 MG/ML VIAL IV PRN (21:15)
[2017-01-23] MEDS ORDERED: BISACODYL 10 MG SUPP RECTAL PRN (21:15)
[2017-01-23] MEDS ORDERED: SENNOSIDES 8.6 MG TAB PO PRN (21:15)
[2017-01-23] MEDS ORDERED: ACETAMINOPHEN 325 MG TAB PO PRN (21:15)
[2017-01-23] MEDS ORDERED: LACTULOSE SYRUP 20 GM/30 ML CUP PO PRN (21:15)
--- NOTE | 2017-01-23 22:15 | HHI.HP ---
[facility] Service Critical Care Medicine Primary Care Physician Carlos Morse M.D. Admission Diagnosis CHF exacerbation; renal failure Diagnosis: Travel History International Travel<30 Days: No Contact w/Intl Traveler <30 Da: No Traveled to Known Affected Are: No History of Present Illness 71-year-old male and of nursing facility present for an evaluation of worsening BUN and creatinine. He has been treated for CHF exacerbation at the facility. Nephrology was consulted, but has not been able to see the patient. BUN and creatinine were worse on today's labs and the patient was brought to the hospital. The patient reports shortness of breath that is been ongoing for last couple days, he denies any worsening or new onset of shortness of breath, and he is also being treated for bilateral lower leg cellulitis. He denies any fevers or chills. He denies any chest pain. No abdominal pain. No nausea, vomiting. He does report intermittent diarrhea and constipation. The emergency department he was tachypneic an ache and hypoxemia so he was placed on a BiPAP. 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 Past Surgical History Tonsillectomy Reported Medications Reported Meds & Active Scripts Active Eliquis (Apixaban) 2.5 Mg Tab 2.5 Mg PO BID Reported Nystatin Topical (Nystatin) 1 Powd 1 Appl TOPICAL DIRECTED Tylenol (Acetaminophen) 325 Mg Tab 650 Mg PO Q4H PRN Iron (Ferrous Sulfate) 325 Mg Capsule.er Lidoderm (Lidocaine) 5 % Adh..patch Allergy (Loratadine) 10 Mg Tab Malone (Hydrocodone-Acetaminophen) 5-325 mg Tab 1 Tab PO Q6H PRN Ambien (Zolpidem Tartrate) 5 Mg Tab 5 Mg PO HS PRN Hydralazine HCl 50 Mg Tablet BID Fluoxetine HCl (Fluoxetine HCl (Pmdd)) 20 Mg Tab Aspirin 325 Mg Tab 325 Mg PO DAILY Amlodipine (Amlodipine Besylate) 5 Mg Tab 5 Mg PO BID Glipizide 10 Mg Tab 10 Mg PO BIDAC Take 30 minutes before a meal Lisinopril 20 Mg Tab 20 Mg PO BID Clonidine (Clonidine HCl) 0.2 Mg Tab 0.2 Mg PO BID Carvedilol 25 Mg Tab 25 Mg PO BID Active Ordered Medications Current Medications Medications (Trade) Dose Ordered Sig/Darling Route PRN Reason Start Time Stop Time Status Last Admin Dose Admin Sodium Bicarbonate/ Dextrose (Sodium Bicarbonate 8.4% Inj/D5W 1000 ml Inj) 1,150 ml @ 75 mls/hr [id number] IV 01/23/17 22:00 Amlodipine Besylate (Norvasc) 5 mg BID PO 01/23/17 21:00 Apixaban (Eliquis) 2.5 mg BID PO 01/23/17 21:00 Aspirin (Aspirin) 325 mg DAILY PO 01/24/17 09:00 Carvedilol (Coreg) 25 mg BID PO 01/23/17 21:00 Clonidine (Catapres) 0.2 mg BID PO 01/23/17 21:00 Acetaminophen/ Hydrocodone Bitart (Malone 5-325 Mg) 1 tab Q6H PRN PO PAIN 1-5 01/23/17 21:00 Sodium Chloride (NS Flush) 2 ml UNSCH PRN .XX FLUSH AFTER USING IV ACCESS 01/23/17 21:15 Sodium Chloride (NS Flush) 2 ml BID .XX 01/24/17 09:00 Acetaminophen (Tylenol) 650 mg Q6H PRN PO FEVER >101F 01/23/17 21:15 Morphine Sulfate (Morphine Inj) 2 mg Q2H PRN IV PAIN SCALE 6 TO 10 01/23/17 21:15 Famotidine (Pepcid Inj) 10 mg Q12HR IV PUSH 01/24/17 09:00 Lorazepam (Ativan Inj) 2 mg Q4H PRN IV Agitation/Sedation 01/23/17 21:15 Artificial Tears (Tears Naturale Opth Soln) 1 drop TID EACH EYE 01/24/17 09:00 Ondansetron HCl (Zofran Inj) 4 mg Q6H PRN IV NAUSEA OR VOMITING 01/23/17 21:15 Zolpidem Tartrate (Ambien) 5 mg HS PRN PO INSOMNIA 01/23/17 21:15 Miscellaneous Information 1 Q361D XX 01/23/17 21:15 Chlorhexidine Gluconate (Chlorhexidine 2% Cloth) 3 pack Taper DAILY@04 TOP 01/24/17 04:00 01/20/18 03:59 Chlorhexidine Gluconate (Chlorhexidine 2% Cloth) 3 pack UNSCH PRN TOP HYGIENIC CARE 01/23/17 21:15 Senna/Docusate Sodium (Audelia-Colace) 1 tab BID PO 01/24/17 09:00 Magnesium Hydroxide (Milk Of Magnesia Liq) 30 ml Q12H PRN PO MILD - MODERATE CONSTIPATION 01/23/17 21:15 Sennosides (Senokot) 17.2 mg Q12H PRN PO MODERATE - SEVERE CONSTIPATION 01/23/17 21:15 Bisacodyl (Dulcolax Supp) 10 mg DAILY PRN RECTAL SEVERE CONSITIPATION 01/23/17 21:15 Lactulose (Lactulose Liq) 30 ml DAILY PRN PO SEVERE CONSITIPATION 01/23/17 21:15 Family History No history of cancer or premature cardiovascular disease Social History Negative 3 Physical Exam Vital Signs Vital Signs Date Time Temp Pulse Resp B/P Pulse Ox O2 Delivery O2 Flow Rate FiO2 01/23/17 21:41 70 16 120/58 95 BiPAP 01/23/17 20:30 98 BiPAP 01/23/17 20:30 85 18 126/83 98 BiPAP 01/23/17 20:15 97 50 01/23/17 19:20 92 Venturi Mask 50 01/23/17 19:16 83 16 122/59 94 Venturi Mask 6 01/23/17 19:15 94 Venturi Mask 6 01/23/17 19:00 100 Non-Rebreather 15.00 01/23/17 17:36 18 94 Nasal Cannula 5 01/23/17 17:30 77 24 93 Nasal Cannula 5 01/23/17 17:28 98.5 79 18 128/60 93 Room Air Physical Exam GENERAL: Morbidly obese elderly man on facemask BiPAP SKIN: Warm and dry. HEAD: Normocephalic. EYES: No scleral icterus. No injection or drainage. NECK: Supple, trachea midline. No JVD or lymphadenopathy. CARDIOVASCULAR: Regular rate and rhythm without murmurs, gallops, or rubs. RESPIRATORY: Breath sounds equal bilaterally. No accessory muscle use. GASTROINTESTINAL: Abdomen soft, non-tender, nondistended. MUSCULOSKELETAL: No cyanosis, or edema. BACK: Nontender without obvious deformity. No CVA tenderness. EXTREMITIES: Chronic venous static changes on lower extremities chronic lymphedema Laboratory Laboratory Tests Test 01/23/17 01/23/17 01/23/17 17:55 18:24 20:08 Urine Color YELLOW Urine Turbidity CLEAR Urine pH 5.0 Urine Specific [place] 1.014 Urine Protein TRACE Urine Glucose (UA) NEG Urine Ketones NEG Urine Occult Blood NEG Urine Nitrite NEG Urine Bilirubin NEG Urine Urobilinogen LESS THAN 2.0 Urine Leukocyte Esterase NEG Urine Squamous Epithelial 1 Cells Urine Hyaline Casts 7 Urine Mucus FEW Microscopic Urinalysis Comment CULT NOT INDICATED White Blood Count 4.6 Red Blood Count 2.58 Hemoglobin 7.4 Hematocrit 23.7 Mean Corpuscular Volume 91.6 Mean Corpuscular Hemoglobin 28.7 Mean Corpuscular Hemoglobin 31.3 Concent Red Cell Distribution Width 16.5 Platelet Count 135 Mean Platelet Volume 9.8 Neutrophils (%) (Auto) 70.6 Lymphocytes (%) (Auto) 8.1 Monocytes (%) (Auto) 11.7 Eosinophils (%) (Auto) 8.9 Basophils (%) (Auto) 0.7 Neutrophils # (Auto) 3.3 Lymphocytes # (Auto) 0.4 Monocytes # (Auto) 0.5 Eosinophils # (Auto) 0.4 Basophils # (Auto) 0.0 CBC Comment DIFF FINAL Differential Comment Prothrombin Time 12.6 Prothromb Time International 1.1 Ratio Activated Partial 33.1 Thromboplast Time Sodium Level 142 Potassium Level 5.3 Chloride Level 113 Carbon Dioxide Level 22.7 Anion Gap 6 Blood Urea Nitrogen 81 Creatinine 3.06 Estimat Glomerular Filtration 20 Rate Random Glucose 84 Calcium Level 8.8 Magnesium Level 2.1 Total Bilirubin 0.4 Aspartate Amino Transf 23 (AST/SGOT) Alanine Aminotransferase 18 (ALT/SGPT) Alkaline Phosphatase 86 Total Creatine Kinase 42 Troponin I LESS THAN 0.02 B-Type Natriuretic Peptide 263 Total Protein 6.8 Albumin 2.9 Blood Gas Puncture Site RT RADIAL Blood Gas Patient Temperature 98.6 Blood Gas HCO3 21 Blood Gas Base Excess -4.5 Blood Gas Oxygen Saturation 88 Arterial Blood pH 7.28 Arterial Blood Partial 46 Pressure CO2 Arterial Blood Partial 63 Pressure O2 Arterial Blood Oxygen Content 9.2 Arterial Blood 1.6 Carboxyhemoglobin Arterial Blood Methemoglobin 0.9 Blood Gas Hemoglobin 7.4 Oxygen Delivery Device Venti Mask Blood Gas Inspired Oxygen 50 Result Diagram: 01/23/17 1824 01/23/17 1824 Imaging Last 24 hours Impressions Chest X-Ray 01/23/17 1733 Signed Impressions: Service Date/Time: Monday, January 23, 2017 17:55 - CONCLUSION: Probable CHF Navneet Cevallos MD Assessment and Plan Assessment and Plan Acute on chronic kidney injury - overdiuresed??? - Volume depleted - Nephrology consult - Ultrasound of kidneys Metabolic acidosis - Due to above - Sodium bicarbonate IV fluids Congestive heart failure - Coreg - Eliquis? - A. fib??/ - Repeat 2-D echo Respiratory failure - CHF - Obesity hypoventilation syndrome - BiPAP Diabetes mellitus - Hold by mouth meds while in the ICU - Insulin sliding scale Hypertension - Norvasc/Coreg DVT GI prophylaxis - Eliquis/Pepcid Critical Care: The total critical care time was 35 minutes. Time to perform other separately billable procedures was not included in the critical care time. Steve Lomax MD Jan 23, 2017 22:15
[2017-01-23] MEDS: SODIUM BICARBONATE 8.4% INJ 150 MEQ in DEXTROSE 5% IN WATE 1000ML INJ 1,000 ML IV SCH ×2 (22:32)
[2017-01-23] MEDS: MORPHINE SULFATE 4 MG/ML INJ IV PRN (22:58)
[2017-01-23] MEDS ORDERED: GLUCAGON 1 MG/ML VIAL OTHER PRN (23:00)
[2017-01-23] MEDS ORDERED: DEXTROSE 50% IN WATER 50 ML VIAL(D50) IV PRN (23:00)
[2017-01-24] VITALS (19 sets, daily range): BP systolic 111–158; BP diastolic 61–87; PULSE 66–90; RESP 16–25; TEMP 97.7–97.8; O2SAT 96–100
[2017-01-24] MEDS: CHLORHEXIDINE GLUCONATE 2 % 1 PACK (2 CLOTHS) TOP SCH (04:00)
[2017-01-24 06:03] LABS: ANION GAP 8 MEQ/L (5-15); AST (GOT) 16 U/L (15-37); BLOOD UREA NITROGEN 89 MG/DL (7-18); CHLORIDE 113 MEQ/L (98-107); GLOMERULAR FILTRATION RATE 22 ML/MIN (>89); POTASSIUM 5.1 MEQ/L (3.5-5.1); SODIUM (NA) 144 MEQ/L (136-145)
[2017-01-24 06:04] LABS: ALT (GPT) 17 U/L (12-78)
[2017-01-24 06:06] LABS: ALKALINE PHOSPHATASE 75 U/L (45-117); TOTAL BILIRUBIN ADULT 0.4 MG/DL (0.2-1.0)
[2017-01-24 06:07] LABS: AUTOMATED NEUTROPHIL # 2.6 TH/MM3 (1.8-7.7); BASOPHIL % 0.7 % (0.0-2.0); EOSINOPHIL # 0.4 TH/MM3 (0-0.4); EOSINOPHIL % 9.5 % (0.0-4.0); LYMPH % 9.6 % (9.0-44.0); LYMPHOCYTE # 0.4 TH/MM3 (1.0-4.8); MEAN CELL VOLUME 91.4 FL (80.0-100.0); MEAN CORPUSCULAR HEMOGLOBIN 28.5 PG (27.0-34.0); MEAN CORPUSCULAR HGB CONC 31.2 % (32.0-36.0); MONO % 12.5 % (0.0-8.0); NEUT % 67.7 % (16.0-70.0); PLATELET COUNT 122 TH/MM3 (150-450); RED CELL DISTRIBUTION WIDTH 16.4 % (11.6-17.2); WHITE BLOOD COUNT 3.8 TH/MM3 (4.0-11.0)
[2017-01-24] MEDS: INSULIN ASPART SUPPLEMENTAL SCALE SQ SCH ×4 (06:33→20:42)
--- NOTE | 2017-01-24 07:05 | EKG ---
Date Performed: 01/23/2017 Time Performed: 17:29:00 PTAGE: 71 years EKG: ATRIAL FIBRILLATION LOW QRS VOLTAGE IN PRECORDIAL LEADS MODERATE INTRAVENTRICULAR CONDUCTIO N DELAY MINIMAL ST DEPRESSION ABNORMAL RHYTHM ECG NO PREVIOUS TRACING DOCTOR: Jacky Nieves Interpretating Date/Time 01/24/2017 07:03:40
[2017-01-24 07:55] LABS: HEMO FLAGS DIFF FINAL
[2017-01-24 08:00] LABS: HEMATOCRIT 21.9 % (39.0-51.0)
[2017-01-24] MEDS: DOCUSATE SODIUM 50 MG/SENNA 8.6 MG TAB PO SCH ×2 (08:21→20:41)
[2017-01-24] MEDS: ASPIRIN 325 MG TAB PO SCH (08:21)
[2017-01-24] MEDS: FAMOTIDINE 20 MG/2 ML VIAL IV PUSH SCH ×2 (08:22→20:41)
[2017-01-24] MEDS: APIXABAN 2.5 MG TABLET PO SCH ×2 (08:22→20:41)
[2017-01-24] MEDS: ARTIFICIAL TEARS OPTH SOLN 15 ML BTL EACH EYE SCH ×3 (08:23→17:59)
[2017-01-24] MEDS: amLODIPine BESYLATE 5 MG TAB PO SCH ×3 (08:23→20:41)
[2017-01-24] MEDS: CARVEDILOL 12.5 MG TAB PO SCH ×3 (08:23→20:41)
[2017-01-24] MEDS: SODIUM CHLORIDE 0.9% FLUSH 10 ML FLUSH SCH ×2 (08:23→20:41)
[2017-01-24] MEDS: cloNIDine HCL 0.2 MG TAB PO SCH ×3 (08:23→20:41)
[2017-01-24 10:51] LABS: HEMATOCRIT 22.1 % (39.0-51.0); REVIEW FLAG FINAL
--- NOTE | 2017-01-24 13:18 | MB ---
cc: JULIO CUELLO MD DATE OF CONSULTATION: 01/24/2017. REASON FOR CONSULTATION: Acute on chronic renal failure management. HISTORY OF PRESENT ILLNESS: This is a 71-year-old male who lives in a nursing facility. Apparently he was admitted here for worsening creatinine. The patient was previously here in October of this year. At that time he had a creatinine that ranged between 2.1-2.9 corresponding to chronic kidney disease stage IV with a GFR in the 20s. He was not seen with a gasfitter on that visit and the patient was treated for cellulitis and congestive heart failure at that time. He apparently had been discharged with p.o. Lasix dosing. It is unclear what the circumstances were at the skilled nursing; however, potentially the patient was treated for possible dyspnea with diuretics. Per review of the notes here, the patient apparently had shortness of breath for several days as well as being treated for bilateral lower extremity cellulitis. The patient apparently was tachypneic in the emergency room and was initiated on BiPAP. Overnight he was monitored in the ICU on BiPAP, and BiPAP was just taken off. the patient is however unable to give a history at this point as he is extremely somnolent and lethargic and unable to comply with the medical history. His creatinine actually is slightly improved from a level 3.06 on admission down to a level of 2.8. Overnight the patient was treated with IV fluids. He was given D5W with 150 milliequivalents of sodium bicarbonate at 75 cc/hour. He also was given a dose of Lasix 40 mg IV x1 in the emergency room. Over the last 24 hours, he has had 1.4 liters of urine output. The patient is otherwise resting comfortably with no signs of distress; however, he is extremely somnolent and a review of systems cannot be elicited. REVIEW OF SYSTEMS: A review of systems is unable to be obtained as the patient is extremely lethargic at this time. PAST MEDICAL HISTORY: His past medical history includes: 1. Chronic kidney disease, apparently stage IV with baseline creatinine between 2.1 and 2.9 in October of this year corresponding to chronic kidney disease stage IV. The patient reports he has not seen a gasfitter before. 2. History of hypertension. 3. Obesity. 4. Hypoventilation syndrome. 5. Diabetes. 6. Congestive heart failure. 7. Chronic lower extremity lymphedema. 8. Chronic venous stasis dermatitis. 9. Morbid obesity. PAST SURGICAL HISTORY: Includes tonsillectomy MEDICATIONS AT HOME: 1. Eliquis. 2. Nystatin. 3. Tylenol. 4. Iron. 5. Lidoderm. 6. [place]. 7. Ambien. 8. Hydralazine. 9. Fluoxetine. 10. Aspirin. 11. Amlodipine. 12. Glipizide. 13. Lisinopril. 14. Clonidine. 15. Coreg. It is unclear what his diuretic dosing was; however, he had been discharged on Lasix during a previous admission in October. ALLERGIES: NO KNOWN DRUG ALLERGIES. FAMILY HISTORY: Noncontributory. SOCIAL HISTORY: Unknown. PHYSICAL EXAMINATION: VITAL SIGNS: At the time of evaluation, temperature 97.7, pulse 76, blood pressure 135/63, respiratory rate 16, pulse oximetry 96% on 30% FIO2 with BiPAP. GENERAL: Lethargic, obese and in no apparent distress. HEAD, EYES, EARS, NOSE, THROAT: Neck soft supple. CARDIAC: Regular rate and rhythm. PULMONARY: Decreased breath sounds. ABDOMEN: The abdomen is obese, soft. EXTREMITIES: Chronic lymphedema bilaterally with 2 to 3+ edema. LABORATORY FINDINGS: White count of 3.8, hemoglobin 7.2, hematocrit 22.1, platelet count 122,000. Sodium 144, potassium 5.1, chloride 113, bicarb 23, BUN 89, creatinine 2.8, glucose of 92, phosphorus 4.2, magnesium 2.0, albumin 2.5. ASSESSMENT AND PLAN: 1. Acute kidney injury on chronic kidney disease stage IV: The patient has had apparent baseline creatinine between 2.1 and 2.90 in October of this year corresponding to chronic kidney disease stage IV. His creatinine was 3.0 at time of presentation and improved slightly to 2.8. There is a questionable history of possible diuretics given at the nursing facility for possible congestive heart failure. Upon presentation here, the patient was given Lasix in the emergency room and also was ordered on IV fluids overnight with D5W with 150 milliequivalents of sodium bicarbonate at 75 cc/hour. His urinalysis showed hyaline casts, which is suggestive of volume depletion. At this point, it is challenging to ascertain the patient's clinical volume status. He has significant lower extremity edema suggestive of chronic lymphedema changes and I am unclear if there is any significant change in his baseline. He did present with dyspnea and did receive a dose of Lasix with good urine output with 1.4 liters of urine output. However, there is a questionable history of possible over-diuresis prior to his presentation. In addition to this, the patient did receive IV fluids overnight and his creatinine did improve from 3.0 to 2.8. At this point, I believe the patient is near his baseline creatinine level at a level of 2.8. Between the question of over-diuresis versus volume depletion, his lab findings and urine hyaline casts are suggestive of possible volume depletion. Agree with IV fluids as ordered at this point and the patient continues on IV fluids at 75 cc/hour. He is off BiPAP now. I will go ahead and order a chest CT to ascertain for any findings of pulmonary edema. This is likely a challenging balance between adequate diuresis in the setting of congestive heart failure versus over-diuresis causing renal failure; and there may be a cardiorenal component here as well. At this point, continue with gentle IV fluids and continue to monitor clinical status as well as urine output and renal function. Should his creatinine further stabilize tomorrow, may consider to stop IV fluids and may consider re-administering p.o. Lasix; however, continue to monitor volume status and electrolytes at this point. 2. Dyspnea. The patient presented with dyspnea, and was initially on BiPAP overnight, which has been stopped now. He does have a previous history of obesity, hypoventilation syndrome as well as congestive heart failure. He was given a dose of Lasix 40 milligrams IV in the emergency room. At this point, continue to hold further diuretics. Continue with gentle IV fluids and monitor the patient's respiratory status closely. Should he develop any worsening dyspnea, then we can hold the IV fluids and give some diuretics; however, continue with gentle volume repletion at this point and continue to monitor in the intensive care unit. 3. Somnolence. The patient was on BiPAP overnight, possibly somnolent after that. Continue to clinically monitor. 4. Acidosis. The patient was given IV fluids with bicarbonate. His bicarbonate is improving to 23 now. Continue with IV fluids at this point. If his bicarbonate level increases tomorrow, may consider to stop bicarbonate with fluids. 5. Congestive heart failure. The patient has a history of congestive heart failure. A 2-D echocardiogram was ordered. Continue with cardiac medications. 6. Diabetes. Continue to monitor glucose. Glucose is stable at 92 at this time. 7. Hypertension. Blood pressure is stable. Continue to monitor blood pressure. 8. Anemia. The patient has a hemoglobin of 7.2. May consider for transfusion as needed. This may help with further oxygen delivery and perfusion. Continue to monitor with the critical care team. MD LEVI Jamil/CORINNA /12:00 PM /12:55 PM [email or web address]
[2017-01-24] MEDS: SODIUM BICARBONATE 8.4% INJ 150 MEQ in DEXTROSE 5% IN WATE 1000ML INJ 1,000 ML IV SCH ×2 (13:20)
--- NOTE | 2017-01-24 13:47 | ECHRPT ---
Indication: heart failure CONCLUSIONS The left ventricle is not well visualized. The left ventricular systolic function is low normal with an estimated ejection fraction in the rang e of 50- 55%. There was limited left ventricular wall motion assessment due to poor endocardial visualization. The right ventricle was not well visualized. The left atrium was not well visualized. The right atrium is not well visualized. The interatrial septum not well visualized. The aortic root and proximal ascending aorta are not well visualized. The mitral valve is not well visualized. The aortic valve is not well visualized. The tricuspid valve is not well visualized. The pulmonary valve is not well visualized. The inferior vena cava was not well visualized. BP: / HR: Rhythm: MEASUREMENTS (Male / Female) Normal Values Technical Quality:Very technically difficult study ., Poor 2D ECHO LV Diastolic Diameter PLAX 5.2 cm 4.2 - 5.9 / 3.9 - 5.3 cm LV Systolic Diameter PLAX 4.2 cm IVS Diastolic Thickness 1.3 cm 0.6 - 1.0 / 0.6 - 0.9 cm LVPW Diastolic Thickness 1.3 cm 0.6 - 1.0 / 0.6 - 0.9 cm LV Relative Wall Thickness 0.5 RV Internal Dim ED PLAX 3.8 cm M-MODE Aortic Root Diameter MM 3.5 cm LA Systolic Diameter MM 3.6 cm LA Ao Ratio MM 1.0 AV Cusp Separation MM 2.4 cm FINDINGS LEFT VENTRICLE The left ventricle is not well visualized. The left ventricular systolic function is low normal with an estimated ejection fraction in the rang e of 50- 55%. There was limited left ventricular wall motion assessment due to poor endocardial visualization. RIGHT VENTRICLE The right ventricle was not well visualized. LEFT ATRIUM The left atrium was not well visualized. RIGHT ATRIUM The right atrium is not well visualized. ATRIAL SEPTUM The interatrial septum not well visualized. AORTA The aortic root and proximal ascending aorta are not well visualized. MITRAL VALVE The mitral valve is not well visualized. AORTIC VALVE The aortic valve is not well visualized. TRICUSPID VALVE The tricuspid valve is not well visualized. PULMONARY VALVE The pulmonary valve is not well visualized. VESSELS The inferior vena cava was not well visualized. PERICARDIUM No pericardial effusion. Jacky Neives MD (Electronically Signed) Final Date:24 January 2017 13:46
--- NOTE | 2017-01-24 14:41 | HHI.CCPN ---
Subjective Remarks/Hospital Course 71-year-old male and of nursing facility present for an evaluation of worsening BUN and creatinine. He has been treated for CHF exacerbation at the facility. Nephrology was consulted, but has not been able to see the patient. BUN and creatinine were worse on today's labs and the patient was brought to the hospital. The patient reports shortness of breath that is been ongoing for last couple days, he denies any worsening or new onset of shortness of breath, and he is also being treated for bilateral lower leg cellulitis. He denies any fevers or chills. He denies any chest pain. No abdominal pain. No nausea, vomiting. He does report intermittent diarrhea and constipation. The emergency department he was tachypneic an ache and hypoxemia so he was placed on a BiPAP. Subjective: 01/24:The patient continues on BiPAP, O2 sat ranging 95%. No dyspnea noted. ABG pending. Objective Vital Signs Date Time Temp Pulse Resp B/P Pulse Ox O2 Delivery O2 Flow Rate FiO2 01/24/17 13:55 96 45 01/24/17 12:00 71 01/24/17 12:00 97.7 18 137/61 01/24/17 08:17 BiPAP 01/23/17 19:16 6 Intake and Output 01/23/17 01/23/17 01/24/17 08:00 16:00 00:00 Output Total 900 ml Balance -900 ml Result Diagram: 01/24/17 0900 01/24/17 0500 Other Results Laboratory Tests Test 01/23/17 20:08 Blood Gas Puncture Site RT RADIAL Blood Gas Patient Temperature 98.6 Blood Gas HCO3 21 mmol/L (22-26) Blood Gas Base Excess -4.5 mmol/L (-2-2) Blood Gas Oxygen Saturation 88 % (90-100) Arterial Blood pH 7.28 (7.380-7.420) Arterial Blood Partial 46 mmHg (38-42) Pressure CO2 Arterial Blood Partial 63 mmHG Pressure O2 (61-120) Arterial Blood Oxygen Content 9.2 Vol % (12.0-20.0) Arterial Blood 1.6 % (0-4) Carboxyhemoglobin Arterial Blood Methemoglobin 0.9 % (0-2) Blood Gas Hemoglobin 7.4 G/DL (12.0-16.0) Oxygen Delivery Device Venti Mask Blood Gas Inspired Oxygen 50 % Imaging Last 24 hours Impressions Chest X-Ray 01/23/17 7163 Signed Impressions: Service Date/Time: Monday, January 23, 2017 17:55 - CONCLUSION: Probable CHF Navneet Cevallos MD Objective Remarks GENERAL: Morbidly obese elderly man on facemask BiPAP SKIN: Warm and dry. HEAD: Normocephalic. EYES: No scleral icterus. No injection or drainage. NECK: Supple, trachea midline. No JVD or lymphadenopathy. CARDIOVASCULAR: Regular rate and rhythm without murmurs, gallops, or rubs. RESPIRATORY: Breath sounds equal bilaterally. No accessory muscle use. GASTROINTESTINAL: Abdomen soft, non-tender, nondistended. MUSCULOSKELETAL: No cyanosis, or edema. Legs multiple volodymyr wrap and bandages BACK: Nontender without obvious deformity. No CVA tenderness. EXTREMITIES: Chronic venous static changes on lower extremities chronic lymphedema A/P Assessment and Plan Acute on chronic kidney injury - overdiuresed??? - Volume depleted - Nephrology consult - Ultrasound of kidneys Metabolic acidosis - Due to above - Sodium bicarbonate IV fluids Congestive heart failure - Coreg - Eliquis? - A. fib??/ - 01/24 Repeat 2-D echo-EF 5055%, or visualization of windows secondary to body habitus Respiratory failure - CHF - Obesity hypoventilation syndrome - BiPAP Diabetes mellitus - Hold by mouth meds while in the ICU - Insulin sliding scale Hypertension - Norvasc/Coreg DVT GI prophylaxis - Eliquis/Pepcid Critical Care: Level 3 Physician Tiffanie Leon MD Jan 24, 2017 14:41
[2017-01-24 15:09] LABS: BLOOD GAS BASE EXCESS -2.6 mmol/L (-2-2); BLOOD GAS HCO3 23 mmol/L (22-26); BLOOD GAS METHEMOGLOBIN 1.6 % (0-2); BLOOD GAS O2 HGB SATURATION 90 % (90-100); BLOOD GAS OXYGEN CONTENT 8.1 Vol % (12.0-20.0); BLOOD GAS PCO2 44 mmHg (38-42); BLOOD GAS PO2 72 mmHg (61-120); BLOOD GAS TOTAL HGB 6.3 G/DL (12.0-16.0); CRITICAL VALUE YES; OXYGEN DEVICE BIPAP; TEMP CORR TO 98.6
[2017-01-24 15:10] LABS: DRAW SITE LT RADIAL; FIO2 45 %; NUMBER OF ARTERIAL PUNCTURES 1; STAT NO; ULNAR PULSE PRESENT; VENT SETTINGS IPAP15/EPAP8
--- NOTE | 2017-01-24 16:50 | RADRPT ---
EXAM DATE/TIME: 01/24/2017 16:13 [place] COMPARISON: CHEST SINGLE AP, January 23, 2017, 17:55. INDICATIONS : Shortness of breath. RADIATION DOSE: 9.89 CTDIvol (mGy) MEDICAL HISTORY : Gastroesophageal reflux disease. Renal failure. SURGICAL HISTORY : None. ENCOUNTER: Initial ACUITY: 1 day PAIN SCALE: 0/10 LOCATION: Bilateral chest TECHNIQUE: Volumetric scanning of the chest was performed. Using automated exposure control and adjustment of t he mA and/or kV according to patient size, radiation dose was kept as low as reasonably achievable to obtain optimal diagnostic quality images. DICOM format image data is available electronically for r eview and comparison. FINDINGS: There are small bilateral pleural effusions and dependent atelectasis and consolidation in both lungs . Findings appear similar to recent chest radiographs. Heart size is mildly enlarged. No pericardial effusion. No pneumothorax. No acute bony abnormality. No acute findings in the upper abdomen. CONCLUSION: 1. Small bilateral pleural effusions and dependent atelectasis and consolidation in both lungs. No pe ricardial effusion. No pneumothorax. Vishal Woodward MD on January 24, 2017 at 16:44 Board Certified Radiologist. This report was verified electronically.
[2017-01-25] VITALS (17 sets, daily range): BP systolic 138–179; BP diastolic 61–115; PULSE 76–109; RESP 14–25; TEMP 98–98.5; O2SAT 91–98
[2017-01-25] MEDS: CHLORHEXIDINE GLUCONATE 2 % 1 PACK (2 CLOTHS) TOP SCH (04:00)
[2017-01-25] MEDS: SODIUM BICARBONATE 8.4% INJ 150 MEQ in DEXTROSE 5% IN WATE 1000ML INJ 1,000 ML IV SCH ×2 (04:02)
--- NOTE | 2017-01-25 04:47 | RADRPT ---
EXAM DATE/TIME: 01/25/2017 03:50 [place] COMPARISON: CHEST SINGLE AP, January 23, 2017, 17:55. INDICATIONS : Shortness of breath. MEDICAL HISTORY : Gastroesophageal reflux disease. Renal failure, chronic. SURGICAL HISTORY : None. ENCOUNTER: Subsequent ACUITY: 2 days PAIN SCORE: 8/10 LOCATION: Bilateral chest FINDINGS: A single view of the chest demonstrates a cardiac/pericardial silhouette remains enlarged. There is s ome consolidation in the right lower lobe. Upper lungs are relatively clear. Osseous structures are intact. CONCLUSION: Following infiltrate in the right lung base. Heart remains enlarged. Elieser Brush MD on January 25, 2017 at 4:45 Board Certified Radiologist. This report was verified electronically.
[2017-01-25 05:38] LABS: BLOOD GAS BASE EXCESS -1.2 mmol/L (-2-2); BLOOD GAS CARBOXYHEMOGLOBIN 2.2 % (0-4); BLOOD GAS HCO3 23 mmol/L (22-26); BLOOD GAS METHEMOGLOBIN 1.4 % (0-2); BLOOD GAS OXYGEN CONTENT 9.1 Vol % (12.0-20.0); BLOOD GAS PCO2 42 mmHg (38-42); BLOOD GAS PO2 92 mmHg (61-120); BLOOD GAS TOTAL HGB 6.7 G/DL (12.0-16.0); TEMP CORR TO 98.6
[2017-01-25 05:41] LABS: CRITICAL VALUE YES; OXYGEN DEVICE BiPAP; VENT SETTINGS IPAP 15/EPAP 8
[2017-01-25 05:42] LABS: BLOOD GAS O2 HGB SATURATION 94 % (90-100); DRAW SITE RT RADIAL; FIO2 45 %; NUMBER OF ARTERIAL PUNCTURES 1; STAT NO; ULNAR PULSE PRESENT
[2017-01-25] MEDS: INSULIN ASPART SUPPLEMENTAL SCALE SQ SCH ×4 (06:10→20:17)
[2017-01-25 08:42] LABS: BLOOD GAS BASE EXCESS -1.4 mmol/L (-2-2); BLOOD GAS CARBOXYHEMOGLOBIN 1.8 % (0-4); BLOOD GAS HCO3 23 mmol/L (22-26); BLOOD GAS METHEMOGLOBIN 1.4 % (0-2); BLOOD GAS O2 HGB SATURATION 96 % (90-100); BLOOD GAS OXYGEN CONTENT 9.4 Vol % (12.0-20.0); BLOOD GAS PCO2 42 mmHg (38-42); BLOOD GAS PO2 129 mmHg (61-120); BLOOD GAS TOTAL HGB 6.8 G/DL (12.0-16.0); TEMP CORR TO 98.6
[2017-01-25 08:43] LABS: CRITICAL VALUE YES; OXYGEN DEVICE PRBR
[2017-01-25 08:44] LABS: DRAW SITE RT RADIAL; LITER FLOW 10 L/M; NUMBER OF ARTERIAL PUNCTURES 1; STAT NO; ULNAR PULSE PRESENT
[2017-01-25] MEDS: DOCUSATE SODIUM 50 MG/SENNA 8.6 MG TAB PO SCH ×2 (09:00→20:32)
[2017-01-25] MEDS: ARTIFICIAL TEARS OPTH SOLN 15 ML BTL EACH EYE SCH ×3 (09:00→18:00)
[2017-01-25] MEDS ORDERED: LORazepam 2 MG/ML VIAL IV PUSH ONE (09:15)
[2017-01-25 09:47] LABS: MEAN CELL VOLUME 90.6 FL (80.0-100.0); MEAN CORPUSCULAR HEMOGLOBIN 28.8 PG (27.0-34.0); MEAN CORPUSCULAR HGB CONC 31.8 % (32.0-36.0); PLATELET COUNT 140 TH/MM3 (150-450); RED CELL DISTRIBUTION WIDTH 16.1 % (11.6-17.2); WHITE BLOOD COUNT 5.9 TH/MM3 (4.0-11.0)
[2017-01-25 09:54] LABS: HEMATOCRIT 19.9 % (39.0-51.0)
[2017-01-25 09:56] LABS: REVIEW FLAG FINAL
[2017-01-25 10:16] LABS: BICARBONATE 26.2 MEQ/L (21.0-32.0); POTASSIUM 5.1 MEQ/L (3.5-5.1)
[2017-01-25] MEDS: SODIUM CHLORIDE 0.9% FLUSH 10 ML FLUSH SCH ×2 (10:30→20:17)
[2017-01-25] MEDS: CARVEDILOL 12.5 MG TAB PO SCH ×2 (10:31→20:10)
[2017-01-25] MEDS: ASPIRIN 325 MG TAB PO SCH (10:31)
[2017-01-25] MEDS: FAMOTIDINE 20 MG/2 ML VIAL IV PUSH SCH ×2 (10:31→20:17)
[2017-01-25] MEDS: amLODIPine BESYLATE 5 MG TAB PO SCH ×2 (10:31→20:10)
[2017-01-25] MEDS: APIXABAN 2.5 MG TABLET PO SCH ×2 (10:31→20:16)
[2017-01-25] MEDS: cloNIDine HCL 0.2 MG TAB PO SCH ×2 (10:31→20:16)
--- NOTE | 2017-01-25 10:43 | HHI.NPPN ---
Subjective Additional Remarks Awake, on facemask oxygen. Some confusion, but more awake today. Objective Data Data 01/24/17 01/25/17 19:00 07:00 Intake Total 683 ml 1467 ml Output Total 1400 ml 2400 ml Balance -717 ml -933 ml Intake Oral 50 ml 440 ml IV Total 633 ml 1027 ml Output Urine Total 1400 ml 2400 ml # Bowel Movements 0 Vital Signs Date Time Temp Pulse Resp B/P Pulse Ox O2 Delivery O2 Flow Rate FiO2 01/25/17 08:03 92 Partial Rebreather 15.00 01/25/17 07:00 98 Bi-Pap 45 01/25/17 06:00 85 01/25/17 04:22 98 45 01/25/17 04:00 98.2 86 14 179/77 98 01/25/17 04:00 86 01/25/17 02:00 76 01/25/17 01:36 97 45 01/25/17 00:00 98.1 76 25 149/61 93 01/25/17 00:00 76 01/24/17 23:46 96 45 01/24/17 22:17 98 Partial Rebreather 15.00 01/24/17 22:00 79 01/24/17 21:48 98 Non-Rebreather 01/24/17 20:00 97.8 90 23 111/87 98 01/24/17 20:00 90 01/24/17 18:00 89 01/24/17 16:00 77 01/24/17 16:00 97.7 77 25 158/72 97 01/24/17 15:00 66 01/24/17 14:00 70 01/24/17 13:55 96 45 01/24/17 12:00 71 01/24/17 12:00 97.7 71 18 137/61 100 -: 01/25/17 0844 01/25/17 0844 Physical Exam General Appearance: Well Developed, Obese Throat Throat Exam: Oral Mucosa Paint & Moist Neck Neck Exam: Neck Supple Pulmonary Resp Exam: Decreased Bases, Diminished Breath Sounds Cardiology CV Exam: Regular Gastrointestinal/Abdomen GI Exam: Soft, Non-Tender Genitourinary Exam: Clear Urine Integumentary Skin Remarks bilateral chronic lower extremity lymphedema Extremeties Extremities Exam: Moderate Edema Neurologic Neuro Exam: Stuporous Assessment/Plan Problem List: (1) Acute renal failure Plan: 1. Acute kidney injury on chronic kidney disease stage IV: The patient has had apparent baseline creatinine between 2.1 and 2.9 in October of this year corresponding to chronic kidney disease stage IV. Creatinine 3 ->2.8 -> 2.4 on IVFs. JOÃO due to possible overdiuresis at nursing facility for CHF. His urinalysis showed hyaline casts, which is suggestive of volume depletion. Chronic lymphedema and obesity makes volume assessment challenging. CT chest did reveal some small pleural effusions; however no overt CHF. With the history of CHF, there may be a cardiorenal component here as well. It appears that the patient may be near his baseline creatinine. Patient was initially on Bipap, now on facemask oxygen. Good response to IVFs, and respiratory status has remained stable. Will decreased IVFs to 50cc/hour and continue to monitor. If renal function stable tomorrow, may consider to hold IVFs and start gentle diuresis to assist with respiratory status. If any respiratory deterioration later today, may need to give PRN diuretics - discussed with critical care. (2) Obesity hypoventilation syndrome Plan: Continue to follow with critical care, on facemask Oxygen now. Continue to monitor, consider for gentle diuresis once renal function further stabilizes. 5. Congestive heart failure. The patient has a history of congestive heart failure. A 2-D echocardiogram was ordered. Continue with cardiac medications. 6. Diabetes. Continue to monitor glucose. Glucose is stable at 92 at this time. 7. Hypertension. Blood pressure is stable. Continue to monitor blood pressure. 8. Anemia. The patient has a hemoglobin of 7.2. May consider for transfusion as needed. This may help with further oxygen delivery and perfusion. Continue to monitor with the critical care team. (3) CHF exacerbation Plan: Continue cardiac medications, continue to monitor. 55% EF on echo (4) DM (diabetes mellitus) Plan: Continue to monitor glucose. Glucose is stable at this time. (5) Anemia Plan: Plan for transfusion today. Follow with critical care (6) HTN (hypertension) Plan: continue to monitor (7) Acidosis, metabolic Plan: resolved, will stop HCO3 in IVFs Problem Qualifiers (1) Acute renal failure: Qualified Code: N17.9 - Acute renal failure, unspecified acute renal failure type (2) CHF exacerbation: Qualified Code: I50.9 - Acute on chronic congestive heart failure, unspecified congestive heart failure type (3) DM (diabetes mellitus): Qualified Code: E08.22 - Diabetes mellitus due to underlying condition with diabetic chronic kidney disease, unspecified CKD stage, unspecified chcf insulin use status (4) Anemia: Qualified Code: N18.9 - Anemia in chronic kidney disease, unspecified CKD stage Kody Morse MD Jan 25, 2017 10:43
[2017-01-25] MEDS: SODIUM CHLOR 0.9% 1000 ML INJ 1,000 ML IV SCH (11:08)
[2017-01-25 12:08] LABS: AUTOMATED NEUTROPHIL # 4.4 TH/MM3 (1.8-7.7); BASOPHIL # 0.1 TH/MM3 (0-0.2); EOSINOPHIL # 0.4 TH/MM3 (0-0.4); LYMPH % 5.5 % (9.0-44.0); LYMPHOCYTE # 0.3 TH/MM3 (1.0-4.8); MEAN CORPUSCULAR HEMOGLOBIN 28.7 PG (27.0-34.0); MEAN CORPUSCULAR HGB CONC 31.6 % (32.0-36.0); MONO % 8.6 % (0.0-8.0); NEUT % 77.9 % (16.0-70.0); PLATELET COUNT 126 TH/MM3 (150-450); RED BLOOD COUNT 2.06 MIL/MM3 (4.50-5.90); RED CELL DISTRIBUTION WIDTH 16.1 % (11.6-17.2); WHITE BLOOD COUNT 5.6 TH/MM3 (4.0-11.0)
[2017-01-25 12:09] LABS: HEMO FLAGS DIFF FINAL
[2017-01-25 12:12] LABS: HEMATOCRIT 18.7 % (39.0-51.0)
[2017-01-25 12:37] LABS: ALKALINE PHOSPHATASE 68 U/L (45-117); ALT (GPT) 14 U/L (12-78); ANION GAP 2 MEQ/L (5-15); AST (GOT) 14 U/L (15-37); BICARBONATE 29.9 MEQ/L (21.0-32.0); BLOOD UREA NITROGEN 99 MG/DL (7-18); CHLORIDE 115 MEQ/L (98-107); GLOMERULAR FILTRATION RATE 27 ML/MIN (>89); MAGNESIUM 1.8 MG/DL (1.5-2.5); POTASSIUM 5.2 MEQ/L (3.5-5.1); SODIUM (NA) 147 MEQ/L (136-145); TOTAL BILIRUBIN ADULT 0.4 MG/DL (0.2-1.0)
--- NOTE | 2017-01-25 19:39 | HHI.CCPN ---
Subjective Remarks/Hospital Course 71-year-old male and of nursing facility present for an evaluation of worsening BUN and creatinine. He has been treated for CHF exacerbation at the facility. Nephrology was consulted, but has not been able to see the patient. BUN and creatinine were worse on today's labs and the patient was brought to the hospital. The patient reports shortness of breath that is been ongoing for last couple days, he denies any worsening or new onset of shortness of breath, and he is also being treated for bilateral lower leg cellulitis. He denies any fevers or chills. He denies any chest pain. No abdominal pain. No nausea, vomiting. He does report intermittent diarrhea and constipation. The emergency department he was tachypneic an ache and hypoxemia so he was placed on a BiPAP. Subjective: 01/24:The patient continues on BiPAP, O2 sat ranging 95%. No dyspnea noted. ABG pending. 01/25: The patient continues on sodium bicarbonate infusion. Hemoglobin was noted to be 6.3, patient to be transfused today 2 units packed red blood cells. Hemoccult ordered, black tarry stools. Objective Vital Signs Date Time Temp Pulse Resp B/P Pulse Ox O2 Delivery O2 Flow Rate FiO2 01/25/17 16:00 98 01/25/17 16:00 98.2 20 161/77 93 01/25/17 08:03 Partial Rebreather 15.00 01/25/17 07:00 45 Intake and Output 01/24/17 01/24/17 01/25/17 08:00 16:00 00:00 Intake Total 1100 ml 683 ml 774 ml Output Total 545 ml 1400 ml 850 ml Balance 555 ml -717 ml -76 ml Result Diagram: 01/25/17 1154 01/25/17 1154 Other Results Laboratory Tests Test 01/25/17 01/25/17 05:24 08:30 Blood Gas Puncture Site RT RADIAL RT RADIAL Blood Gas Patient Temperature 98.6 98.6 Blood Gas HCO3 23 mmol/L 23 mmol/L (22-26) (22-26) Blood Gas Base Excess -1.2 mmol/L -1.4 mmol/L (-2-2) (-2-2) Blood Gas Oxygen Saturation 94 % (90-100) 96 % (90-100) Arterial Blood pH 7.36 7.36 (7.380-7.420) (7.380-7.420) Arterial Blood Partial 42 mmHg (38-42) 42 mmHg (38-42) Pressure CO2 Arterial Blood Partial 92 mmHg 129 mmHg Pressure O2 (61-120) (61-120) Arterial Blood Oxygen Content 9.1 Vol % 9.4 Vol % (12.0-20.0) (12.0-20.0) Arterial Blood 2.2 % (0-4) 1.8 % (0-4) Carboxyhemoglobin Arterial Blood Methemoglobin 1.4 % (0-2) 1.4 % (0-2) Blood Gas Hemoglobin 6.7 G/DL 6.8 G/DL (12.0-16.0) (12.0-16.0) Oxygen Delivery Device BiPAP PRBR Blood Gas Ventilator Setting IPAP 15/EPAP 8 Blood Gas Inspired Oxygen 45 % Blood Gas Liter Flow 10 L/M Imaging Last 24 hours Impressions Chest X-Ray 01/23/17 0603 Signed Impressions: Service Date/Time: Monday, January 23, 2017 17:55 - CONCLUSION: Probable CHF Navneet Cevallos MD Objective Remarks GENERAL: Morbidly obese elderly man on facemask BiPAP SKIN: Warm and dry. HEAD: Normocephalic. EYES: No scleral icterus. No injection or drainage. NECK: Supple, trachea midline. No JVD or lymphadenopathy. CARDIOVASCULAR: Regular rate and rhythm without murmurs, gallops, or rubs. RESPIRATORY: Breath sounds equal bilaterally. No accessory muscle use. GASTROINTESTINAL: Abdomen soft, non-tender, nondistended. MUSCULOSKELETAL: No cyanosis, or edema. Legs multiple volodymyr wrap and bandages BACK: Nontender without obvious deformity. No CVA tenderness. EXTREMITIES: Chronic venous static changes on lower extremities chronic lymphedema A/P Assessment and Plan Acute on chronic kidney injury - overdiuresed??? - Volume depleted - Nephrology consult - Ultrasound of kidneys Metabolic acidosis - Due to above - Sodium bicarbonate IV fluids @ 50cc/hr Congestive heart failure - Coreg - Eliquis? - A. fib??/ - 01/24 Repeat 2-D echo-EF 5055%, or visualization of windows secondary to body habitus Respiratory failure - CHF - Obesity hypoventilation syndrome - BiPAP Diabetes mellitus - Begin clear liquid diet advance as tolerated - Insulin sliding scale Hypertension - Norvasc/Coreg Anemia -Hemoglobin 6.3, and transfuse 2 units packed red blood cell, obtain posttransfusion CBC DVT GI prophylaxis - Eliquis/Pepcid Critical Care: Level 3 Plan to consult palliative care. Patient states he does not want to be intubate, and an alternate CODE STATUS is at his nursing facility. We will maintain his O2 sat 88-92%. Follow-up with skilled nursing facility and/or/family regarding goals of care and CODE STATUS. Physician Tiffanie Leon MD Jan 25, 2017 19:39
[2017-01-25] MEDS: MORPHINE SULFATE 4 MG/ML INJ IV PRN (20:17)
[2017-01-26] VITALS (22 sets, daily range): BP systolic 132–159; BP diastolic 61–75; PULSE 76–87; RESP 10–22; TEMP 97.6–98.7; O2SAT 90–98
[2017-01-26 01:51] LABS: MEAN CELL VOLUME 90.6 FL (80.0-100.0); MEAN CORPUSCULAR HEMOGLOBIN 29.4 PG (27.0-34.0); MEAN CORPUSCULAR HGB CONC 32.5 % (32.0-36.0); PLATELET COUNT 117 TH/MM3 (150-450); RED CELL DISTRIBUTION WIDTH 15.7 % (11.6-17.2)
[2017-01-26 01:59] LABS: REVIEW FLAG FINAL
[2017-01-26 02:02] LABS: HEMATOCRIT 18.1 % (39.0-51.0)
[2017-01-26] MEDS ORDERED: SODIUM CHLOR 0.9% 250 ML INJ 250 ML IV ONE ×2 (02:45→11:00)
[2017-01-26] MEDS ORDERED: FUROSEMIDE 40 MG/4 ML VIAL IV PUSH ONE ×2 (02:45→11:00)
[2017-01-26] MEDS: CHLORHEXIDINE GLUCONATE 2 % 1 PACK (2 CLOTHS) TOP SCH (03:32)
[2017-01-26] MEDS: INSULIN ASPART SUPPLEMENTAL SCALE SQ SCH ×4 (06:35→20:47)
[2017-01-26] MEDS: SODIUM CHLOR 0.9% 1000 ML INJ 1,000 ML IV SCH (06:35)
[2017-01-26] MEDS: APIXABAN 2.5 MG TABLET PO SCH (08:36)
[2017-01-26] MEDS: ARTIFICIAL TEARS OPTH SOLN 15 ML BTL EACH EYE SCH ×3 (08:37→18:00)
[2017-01-26] MEDS: SODIUM CHLORIDE 0.9% FLUSH 10 ML FLUSH SCH ×2 (08:37→20:15)
[2017-01-26] MEDS: ASPIRIN 325 MG TAB PO SCH (08:37)
[2017-01-26] MEDS: DOCUSATE SODIUM 50 MG/SENNA 8.6 MG TAB PO SCH ×2 (08:37→20:15)
[2017-01-26] MEDS: amLODIPine BESYLATE 5 MG TAB PO SCH ×2 (08:37→20:15)
[2017-01-26] MEDS: FAMOTIDINE 20 MG/2 ML VIAL IV PUSH SCH ×2 (08:37→20:15)
[2017-01-26] MEDS: CARVEDILOL 12.5 MG TAB PO SCH ×2 (08:38→20:15)
[2017-01-26] MEDS: cloNIDine HCL 0.2 MG TAB PO SCH ×2 (08:38→20:15)
--- NOTE | 2017-01-26 10:17 | PD.CONS ---
Consult Service Palliative Care . Consult Requested By Dr. Carrera . Primary Care Physician Carlos Morse M.D. . Reason for Consultation a. To assist with evaluation and management of symptoms including: dyspnea, pain, weakness. b. To assist medical decision maker(s) with: better understanding of current medical conditions; weighing benefits/burdens of medical treatment options; making medical treatment decisions. . HPI History of Present Illness Mr. Joyce is a 71 year old male with past medical history of CHF, diabetes, chronic renal insufficiency, bilateral LE lymphedema and cellulitis, GERD. Patient presented to [facility] emergency department on 01/23/17 for evaluation of worsening shortness of breath with worsening BUN and creatinine. Patient presented to ER tachy Initial evaluation revealed: * WBC 4.6, hemoglobin 7.4, hematocrit 23.7, platelet 135, neutrophil 70.6% * sodium 142, potassium 5.3, chloride 113, carbon dioxide 22.7, BUN 81, creatinine 3.06, GFR 20, glucose 84, magnesium 2.1 * total bilirubin 0.4, AST 23, ALT 18, alkaline phosphatase 86 * total creatine kinase 42, troponin less than 0.02 * BNP 263 * total protein 6.8, albumin 2.9 * PT 12.6, INR 1.1, PTT 33.1 * urinalysis negative * nasal screen MRSA detected * chest x-ray - probable CHF Patient was admitted to ICU on BiPAP. Nephrology, Dr. Morse was consulted for acute on chronic renal failure (Stage IV) management with recommendation to continue medical management and transfusion as needed. Baseline creatinine between 2.1 and 2.[address] chest small bilateral pleural effusions independent atelectasis and consolidation both lungs, no pericardial effusion, no pneumothorax. Echocardiogram EF 50 55%, Limited visualization of ventricles, valves and atria. 01/25/17 Hemoglobin 6.3, 2 units packed red blood cells ordered. Hemoccult positive. GI consult pending. On prior admission patient elected NO CODE, signed [place] do not resuscitate order. Notes indicate patient revoked DNR, coil assembler notes 01/25/17 indicate alternate code status, patient does not want to be intubated. Having difficulty getting patient to definitively answer wishes regarding CODE STATUS will therefore keep FULL CODE status, unless patient clearly answers, will attempt to have discussion again. Palliative care is consulted to assist with further clarification of treatment goals. . Function/Cognitive Trajectory Patient was admitted to [facility] on 11/29/16 after he had frequent falls, prior to falls he was ambulating with walker. On 6 liters oxygen prior to admission. Incontinent. Requires assistance with all ADLs. . Review of Systems Constitutional: COMPLAINS OF: Fatigue, Pain, Generalized weakness Respiratory: COMPLAINS OF: Cough, Shortness of breath Cardiovascular: COMPLAINS OF: Dyspnea on Exertion, Lower Extremity Edema, Orthopnea Gastrointestinal: COMPLAINS OF: Abdominal pain, Bloody stools, Constipation Genitourinary: COMPLAINS OF: Urinary incontinence Musculoskeletal: COMPLAINS OF: Joint pain, Back pain, Decreased range of motion Integumentary: COMPLAINS OF: Abnormal pigmentation (bilateral LE ), Non- healing sores (bilateral LE cellulitis) Hematologic/Lymphatics: COMPLAINS OF: Bruising Neurologic: COMPLAINS OF: Poor Balance Past Family Social History 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 - 11/19/16 Past Medical History Elevated BMI 70.4 CAD Lymphedema LEs Lower ext wounds Cellulitis CHF DM GERD HTN Chronic renal insufficiency Asthma Hiatal hernia Hepatitis . Past Surgical History Tonsillectomy . Reported Medications Reported Meds & Active Scripts Active Eliquis (Apixaban) 2.5 Mg Tab 2.5 Mg PO BID Reported Nystatin Topical (Nystatin) 1 Powd 1 Appl TOPICAL DIRECTED Tylenol (Acetaminophen) 325 Mg Tab 650 Mg PO Q4H PRN Iron (Ferrous Sulfate) 325 Mg Capsule.er Lidoderm (Lidocaine) 5 % Adh..patch Allergy (Loratadine) 10 Mg Tab [place] (Hydrocodone-Acetaminophen) 5-325 mg Tab 1 Tab PO Q6H PRN Ambien (Zolpidem Tartrate) 5 Mg Tab 5 Mg PO HS PRN Hydralazine HCl 50 Mg Tablet BID Fluoxetine HCl (Fluoxetine HCl (Pmdd)) 20 Mg Tab Aspirin 325 Mg Tab 325 Mg PO DAILY Amlodipine (Amlodipine Besylate) 5 Mg Tab 5 Mg PO BID Glipizide 10 Mg Tab 10 Mg PO BIDAC Take 30 minutes before a meal Lisinopril 20 Mg Tab 20 Mg PO BID Clonidine (Clonidine HCl) 0.2 Mg Tab 0.2 Mg PO BID Carvedilol 25 Mg Tab 25 Mg PO BID . Current Medications Medications (Trade) Dose Ordered Sig/Darling Route Start Time Stop Time Status Last Admin (Norvasc) 5 mg BID PO 01/23/17 21:00 01/26/17 08:37 (Eliquis) 2.5 mg BID PO 01/23/17 21:00 01/26/17 08:36 (Aspirin) 325 mg DAILY PO 01/24/17 09:00 01/26/17 08:37 (Coreg) 25 mg BID PO 01/23/17 21:00 01/26/17 08:38 (Catapres) 0.2 mg BID PO 01/23/17 21:00 01/26/17 08:38 ([place] 5-325 Mg) 1 tab Q6H PRN PO 01/23/17 21:00 (NS Flush) 2 ml UNSCH PRN .XX 01/23/17 21:15 (NS Flush) 2 ml BID .XX 01/24/17 09:00 01/26/17 08:37 (Tylenol) 650 mg Q6H PRN PO 01/23/17 21:15 (Morphine Inj) 2 mg Q2H PRN IV 01/23/17 21:15 01/25/17 20:17 (Pepcid Inj) 10 mg Q12HR IV PUSH 01/24/17 09:00 01/26/17 08:37 (Ativan Inj) 2 mg Q4H PRN IV 01/23/17 21:15 (Tears Naturale Opth Soln) 1 drop TID EACH EYE 01/24/17 09:00 01/24/17 13:20 (Zofran Inj) 4 mg Q6H PRN IV 01/23/17 21:15 (Ambien) 5 mg HS PRN PO 01/23/17 21:15 Miscellaneous Information 1 Q361D XX 01/23/17 21:15 (Chlorhexidine 2% Cloth) 3 pack Taper DAILY@04 TOP 01/24/17 04:00 01/20/18 03:59 01/26/17 03:32 (Chlorhexidine 2% Cloth) 3 pack UNSCH PRN TOP 01/23/17 21:15 (Audelia-Colace) 1 tab BID PO 01/24/17 09:00 01/26/17 08:37 (Milk Of Magnesia Liq) 30 ml Q12H PRN PO 01/23/17 21:15 (Senokot) 17.2 mg Q12H PRN PO 01/23/17 21:15 (Dulcolax Supp) 10 mg DAILY PRN RECTAL 01/23/17 21:15 (Lactulose Liq) 30 ml DAILY PRN PO 01/23/17 21:15 (D50w (Vial) Inj) 50 ml UNSCH PRN IV 01/23/17 23:00 Glucagon 1 mg 1 mg UNSCH PRN OTHER 01/23/17 23:00 Sodium Chloride 1,000 ml @ 50 mls/hr Q20H IV 01/25/17 11:00 01/26/17 06:35 (NS 250 ml Inj) 250 ml @ 15 mls/hr ONCE ONCE IV 01/26/17 02:45 01/26/17 19:24 01/26/17 02:45 . Family History Parents . . Substance Use Tobacco: Never smoked. Alcohol: none. Prescription med abuse:none. Illicits:none. . Psychosocial History Single. Disabled. . Spiritual/Cultural Factors Scientologist hlaima. . Living Will: Copy in medical record Health Care Surrogate: Copy in medical record Date completed: 11/19/16 . Health Care Surrogate(s): Designated HCS: Tania Joyce or Orquidea Joyce, sisters. . Documented care wishes: Completed community DNR and living will on 11-19-16. Appointed either one of his sisters as HCS verbalizing he wishes for them to know they do not have to serve in this role but it is ok for them to be contacted should he become incapacitated and unable to make his own medical decisions. Living will is a typical one stating should his attending and a consulting physician agree he has a terminal condition, end-stage condition, or is in a persistent vegetative state, he wishes for life-prolonging measures to be withheld or withdrawn. . Today's verbally stated goals: Desires aggressive care for now, verbalizes he does not want to be just kept alive if in a vegetative state or if he will not improve. Doesn't want to be the "6 million dollar man." . Ethical and Legal Issues Patient appears capacitated, though has some behavioral tendencies, non- committal and difficult to keep engaged in conversations. He has designated Health Care surrogates Tania Joyce OR Orquidea Joyce (sisters). He does not want HCS called until he is unable to make his own decisions. . Physical Exam Vital Signs Date Time Temp Pulse Resp B/P Pulse Ox O2 Delivery O2 Flow Rate FiO2 01/26/17 08:15 96 45 01/26/17 08:00 81 01/26/17 08:00 98.7 81 20 147/63 98 01/26/17 07:00 98 Bi-Pap 45 01/26/17 06:00 87 01/26/17 04:04 98 45 01/26/17 04:00 85 01/26/17 04:00 98.1 85 18 132/63 98 01/26/17 02:00 76 01/26/17 01:09 94 45 01/26/17 00:00 98.6 84 10 136/70 98 01/26/17 00:00 84 01/25/17 22:26 97 45 01/25/17 22:00 91 01/25/17 20:36 19 01/25/17 20:01 94 Nasal Cannula 6.00 01/25/17 20:00 98.5 98 18 169/72 91 01/25/17 20:00 98 01/25/17 19:00 93 Nasal Cannula 6.00 01/25/17 18:00 100 01/25/17 16:00 98 01/25/17 16:00 98.2 98 20 161/77 93 01/25/17 14:00 87 01/25/17 12:00 89 01/25/17 12:00 98.0 89 24 138/61 92 01/25/17 10:00 109 01/25/17 01/26/17 19:00 07:00 Intake Total 720 ml 2120 ml Output Total 1750 ml 3400 ml Balance -1030 ml -1280 ml Intake Oral 720 ml 250 ml IV Total 892 ml Packed Cells 978 ml Output Urine Total 1750 ml 3400 ml # Bowel Movements 3 0 Exam CONSTITUTIONAL/GENERAL: This is an obese patient, in no apparent distress. TUBES/LINES/DRAINS: oxygen via NC, PIV, Downs, specialty air mattress. SKIN: No jaundice, rashes, or lesions. Ecchymoses on upper extremities. Bilateral LE dressings from knees to toes. Skin temperature warm. Not diaphoretic. HEAD: Atraumatic. Normocephalic. EYES: Pupils equal and round and reactive. Extraocular motions intact. No scleral icterus. No injection or drainage. Fundi not examined. ENT: Hearing grossly normal. Nose without bleeding or purulent drainage. Throat without visible erythema, exudates, masses, or lesions. NECK: Trachea midline. CARDIOVASCULAR: Regular rate and rhythm without murmurs, gallops, or rubs. RESPIRATORY/CHEST: Symmetric, unlabored respirations. Clear to auscultation. Breath sounds equal bilaterally. No wheezes, rales, or rhonchi. GASTROINTESTINAL: Abdomen soft, non-tender, nondistended. No guarding. GENITOURINARY: Without palpable bladder distension. Downs catheter in place. MUSCULOSKELETAL: Bilateral LE with edema. Chronic venous stasis changes bilateral LEs. LYMPHATICS: No palpable cervical or supraclavicular adenopathy. NEUROLOGICAL: Awake and alert. Follows commands. Generalized weakness. PSYCHIATRIC: Difficult to keep engaged in conversation. Often speaks with his eyes closed. . Diagnostic Tests Laboratory Laboratory Tests Test 01/23/17 01/23/17 01/23/17 01/24/17 17:55 18:24 20:08 05:00 Urine Color YELLOW (YELLW/STRAW) Urine Turbidity CLEAR (CLEAR) Urine pH 5.0 (5.0-8.5) Urine Specific [place] 1.014 (1.002-1.035) Urine Protein TRACE mg/dL (NEG-TRACE) Urine Glucose (UA) NEG mg/dL (NEG) Urine Ketones NEG mg/dL (NEG) Urine Occult Blood NEG (NEG) Urine Nitrite NEG (NEG) Urine Bilirubin NEG (NEG) Urine Urobilinogen LESS THAN 2.0 MG/DL (LESS THAN 2.0) Urine Leukocyte Esterase NEG (NEG) Urine Squamous Epithelial 1 /hpf (0-5) Cells Urine Hyaline Casts 7 /lpf (RARE) Urine Mucus FEW /lpf (OCC) Microscopic Urinalysis Comment CULT NOT INDICATED White Blood Count 4.6 TH/MM3 3.8 TH/MM3 (4.0-11.0) (4.0-11.0) Red Blood Count 2.58 MIL/MM3 2.40 MIL/MM3 (4.50-5.90) (4.50-5.90) Hemoglobin 7.4 GM/DL 6.8 GM/DL (13.0-17.0) (13.0-17.0) Hematocrit 23.7 % 21.9 % (39.0-51.0) (39.0-51.0) Mean Corpuscular Volume 91.6 FL 91.4 FL (80.0-100.0) (80.0-100.0) Mean Corpuscular Hemoglobin 28.7 PG 28.5 PG (27.0-34.0) (27.0-34.0) Mean Corpuscular Hemoglobin 31.3 % 31.2 % Concent (32.0-36.0) (32.0-36.0) Red Cell Distribution Width 16.5 % 16.4 % (11.6-17.2) (11.6-17.2) Platelet Count 135 TH/MM3 122 TH/MM3 (150-450) (150-450) Mean Platelet Volume 9.8 FL 9.8 FL (7.0-11.0) (7.0-11.0) Neutrophils (%) (Auto) 70.6 % 67.7 % (16.0-70.0) (16.0-70.0) Lymphocytes (%) (Auto) 8.1 % 9.6 % (9.0-44.0) (9.0-44.0) Monocytes (%) (Auto) 11.7 % 12.5 % (0.0-8.0) (0.0-8.0) Eosinophils (%) (Auto) 8.9 % (0.0-4.0) 9.5 % (0.0-4.0) Basophils (%) (Auto) 0.7 % (0.0-2.0) 0.7 % (0.0-2.0) Neutrophils # (Auto) 3.3 TH/MM3 2.6 TH/MM3 (1.8-7.7) (1.8-7.7) Lymphocytes # (Auto) 0.4 TH/MM3 0.4 TH/MM3 (1.0-4.8) (1.0-4.8) Monocytes # (Auto) 0.5 TH/MM3 0.5 TH/MM3 (0-0.9) (0-0.9) Eosinophils # (Auto) 0.4 TH/MM3 0.4 TH/MM3 (0-0.4) (0-0.4) Basophils # (Auto) 0.0 TH/MM3 0.0 TH/MM3 (0-0.2) (0-0.2) CBC Comment DIFF FINAL DIFF FINAL Differential Comment Prothrombin Time 12.6 SEC (9.8-11.6) Prothromb Time International 1.1 RATIO Ratio Activated Partial 33.1 SEC Thromboplast Time (24.3-30.1) Sodium Level 142 MEQ/L 144 MEQ/L (136-145) (136-145) Potassium Level 5.3 MEQ/L 5.1 MEQ/L (3.5-5.1) (3.5-5.1) Chloride Level 113 MEQ/L 113 MEQ/L (98-107) (98-107) Carbon Dioxide Level 22.7 MEQ/L 23.0 MEQ/L (21.0-32.0) (21.0-32.0) Anion Gap 6 MEQ/L (5-15) 8 MEQ/L (5-15) Blood Urea Nitrogen 81 MG/DL (7-18) 89 MG/DL (7-18) Creatinine 3.06 MG/DL 2.85 MG/DL (0.60-1.30) (0.60-1.30) Estimat Glomerular Filtration 20 ML/MIN (>89) 22 ML/MIN (>89) Rate Random Glucose 84 MG/DL 92 MG/DL (74-106) (74-106) Calcium Level 8.8 MG/DL 8.6 MG/DL (8.5-10.1) (8.5-10.1) Magnesium Level 2.1 MG/DL 2.0 MG/DL (1.5-2.5) (1.5-2.5) Total Bilirubin 0.4 MG/DL 0.4 MG/DL (0.2-1.0) (0.2-1.0) Aspartate Amino Transf 23 U/L (15-37) 16 U/L (15-37) (AST/SGOT) Alanine Aminotransferase 18 U/L (12-78) 17 U/L (12-78) (ALT/SGPT) Alkaline Phosphatase 86 U/L (45-117) 75 U/L (45-117) Total Creatine Kinase 42 U/L (39-308) Troponin I LESS THAN 0.02 NG/ML (0.02-0.05) B-Type Natriuretic Peptide 263 PG/ML (0-100) Total Protein 6.8 GM/DL 6.3 GM/DL (6.4-8.2) (6.4-8.2) Albumin 2.9 GM/DL 2.5 GM/DL (3.4-5.0) (3.4-5.0) Blood Gas Puncture Site RT RADIAL Blood Gas Patient Temperature 98.6 Blood Gas HCO3 21 mmol/L (22-26) Blood Gas Base Excess -4.5 mmol/L (-2-2) Blood Gas Oxygen Saturation 88 % (90-100) Arterial Blood pH 7.28 (7.380-7.420) Arterial Blood Partial 46 mmHg (38-42) Pressure CO2 Arterial Blood Partial 63 mmHG Pressure O2 (61-120) Arterial Blood Oxygen Content 9.2 Vol % (12.0-20.0) Arterial Blood 1.6 % (0-4) Carboxyhemoglobin Arterial Blood Methemoglobin 0.9 % (0-2) Blood Gas Hemoglobin 7.4 G/DL (12.0-16.0) Oxygen Delivery Device Venti Mask Blood Gas Inspired Oxygen 50 % Phosphorus Level 4.2 MG/DL (2.5-4.9) Test 01/24/17 01/24/17 01/24/17 01/24/17 08:40 09:00 11:35 15:00 Blood Type A POSITIVE Antibody Screen NEGATIVE Blood Bank Comment Hemoglobin 7.2 GM/DL (13.0-17.0) Hematocrit 22.1 % (39.0-51.0) Nasal Screen MRSA (PCR) MRSA DETECTED (NOT DETECT) Blood Gas Puncture Site LT RADIAL Blood Gas Patient Temperature 98.6 Blood Gas HCO3 23 mmol/L (22-26) Blood Gas Base Excess -2.6 mmol/L (-2-2) Blood Gas Oxygen Saturation 90 % (90-100) Arterial Blood pH 7.33 (7.380-7.420) Arterial Blood Partial 44 mmHg (38-42) Pressure CO2 Arterial Blood Partial 72 mmHg Pressure O2 (61-120) Arterial Blood Oxygen Content 8.1 Vol % (12.0-20.0) Arterial Blood 2.0 % (0-4) Carboxyhemoglobin Arterial Blood Methemoglobin 1.6 % (0-2) Blood Gas Hemoglobin 6.3 G/DL (12.0-16.0) Oxygen Delivery Device BIPAP Blood Gas Ventilator Setting [id number]/[id number] Blood Gas Inspired Oxygen 45 % Test 01/25/17 01/25/17 01/25/17 01/25/17 05:24 08:30 08:44 11:54 Blood Gas Puncture Site RT RADIAL RT RADIAL Blood Gas Patient Temperature 98.6 98.6 Blood Gas HCO3 23 mmol/L 23 mmol/L (22-26) (22-26) Blood Gas Base Excess -1.2 mmol/L -1.4 mmol/L (-2-2) (-2-2) Blood Gas Oxygen Saturation 94 % (90-100) 96 % (90-100) Arterial Blood pH 7.36 7.36 (7.380-7.420) (7.380-7.420) Arterial Blood Partial 42 mmHg (38-42) 42 mmHg (38-42) Pressure CO2 Arterial Blood Partial 92 mmHg 129 mmHg Pressure O2 (61-120) (61-120) Arterial Blood Oxygen Content 9.1 Vol % 9.4 Vol % (12.0-20.0) (12.0-20.0) Arterial Blood 2.2 % (0-4) 1.8 % (0-4) Carboxyhemoglobin Arterial Blood Methemoglobin 1.4 % (0-2) 1.4 % (0-2) Blood Gas Hemoglobin 6.7 G/DL 6.8 G/DL (12.0-16.0) (12.0-16.0) Oxygen Delivery Device BiPAP PRBR Blood Gas Ventilator Setting IPAP 15/EPAP 8 Blood Gas Inspired Oxygen 45 % Blood Gas Liter Flow 10 L/M White Blood Count 5.9 TH/MM3 5.6 TH/MM3 (4.0-11.0) (4.0-11.0) Red Blood Count 2.20 MIL/MM3 2.06 MIL/MM3 (4.50-5.90) (4.50-5.90) Hemoglobin 6.3 GM/DL 5.9 GM/DL (13.0-17.0) (13.0-17.0) Hematocrit 19.9 % 18.7 % (39.0-51.0) (39.0-51.0) Mean Corpuscular Volume 90.6 FL 91.0 FL (80.0-100.0) (80.0-100.0) Mean Corpuscular Hemoglobin 28.8 PG 28.7 PG (27.0-34.0) (27.0-34.0) Mean Corpuscular Hemoglobin 31.8 % 31.6 % Concent (32.0-36.0) (32.0-36.0) Red Cell Distribution Width 16.1 % 16.1 % (11.6-17.2) (11.6-17.2) Platelet Count 140 TH/MM3 126 TH/MM3 (150-450) (150-450) Mean Platelet Volume 9.7 FL 9.5 FL (7.0-11.0) (7.0-11.0) Sodium Level 145 MEQ/L 147 MEQ/L (136-145) (136-145) Potassium Level 5.1 MEQ/L 5.2 MEQ/L (3.5-5.1) (3.5-5.1) Chloride Level 114 MEQ/L 115 MEQ/L (98-107) (98-107) Carbon Dioxide Level 26.2 MEQ/L 29.9 MEQ/L (21.0-32.0) (21.0-32.0) Anion Gap 5 MEQ/L (5-15) 2 MEQ/L (5-15) Blood Urea Nitrogen 104 MG/DL 99 MG/DL (7-18) (7-18) Creatinine 2.41 MG/DL 2.38 MG/DL (0.60-1.30) (0.60-1.30) Estimat Glomerular Filtration 27 ML/MIN (>89) 27 ML/MIN (>89) Rate Random Glucose 135 MG/DL 165 MG/DL (74-106) (74-106) Calcium Level 8.4 MG/DL 8.0 MG/DL (8.5-10.1) (8.5-10.1) Neutrophils (%) (Auto) 77.9 % (16.0-70.0) Lymphocytes (%) (Auto) 5.5 % (9.0-44.0) Monocytes (%) (Auto) 8.6 % (0.0-8.0) Eosinophils (%) (Auto) 7.0 % (0.0-4.0) Basophils (%) (Auto) 1.0 % (0.0-2.0) Neutrophils # (Auto) 4.4 TH/MM3 (1.8-7.7) Lymphocytes # (Auto) 0.3 TH/MM3 (1.0-4.8) Monocytes # (Auto) 0.5 TH/MM3 (0-0.9) Eosinophils # (Auto) 0.4 TH/MM3 (0-0.4) Basophils # (Auto) 0.1 TH/MM3 (0-0.2) CBC Comment DIFF FINAL Differential Comment Phosphorus Level 3.0 MG/DL (2.5-4.9) Magnesium Level 1.8 MG/DL (1.5-2.5) Total Bilirubin 0.4 MG/DL (0.2-1.0) Aspartate Amino Transf 14 U/L (15-37) (AST/SGOT) Alanine Aminotransferase 14 U/L (12-78) (ALT/SGPT) Alkaline Phosphatase 68 U/L (45-117) Total Protein 5.9 GM/DL (6.4-8.2) Albumin 2.3 GM/DL (3.4-5.0) Test 01/25/17 01/25/17 01/26/17 01/26/17 15:08 16:59 01:10 02:47 Blood Type A POSITIVE A POSITIVE A POSITIVE Crossmatch Leukocyte-Reduced Leukocyte-Reduced Red Blood Red Blood Cells Cells Blood Bank Comment White Blood Count 5.0 TH/MM3 (4.0-11.0) Red Blood Count 2.00 MIL/MM3 (4.50-5.90) Hemoglobin 5.9 GM/DL (13.0-17.0) Hematocrit 18.1 % (39.0-51.0) Mean Corpuscular Volume 90.6 FL (80.0-100.0) Mean Corpuscular Hemoglobin 29.4 PG (27.0-34.0) Mean Corpuscular Hemoglobin 32.5 % Concent (32.0-36.0) Red Cell Distribution Width 15.7 % (11.6-17.2) Platelet Count 117 TH/MM3 (150-450) Mean Platelet Volume 9.7 FL (7.0-11.0) Result Diagram: 01/26/17 0110 01/25/17 1154 Microbiology Microbiology Date/Time Procedure Status Source Growth 01/25/17 10:00 Stool Occult Blood ([facility]) - Final Complete Stool Stool HEMOCCULT POSITIVE . Imaging Last Impressions Chest X-Ray 01/25/17 0600 Signed Impressions: Service Date/Time: Wednesday, January 25, 2017 03:50 - CONCLUSION: Following infiltrate in the right lung base. Heart remains enlarged. Elieser Brush MD Chest CT 01/24/17 0000 Signed Impressions: Service Date/Time: Tuesday, January 24, 2017 16:13 - CONCLUSION: 1. Small bilateral pleural effusions and dependent atelectasis and consolidation in both lungs. No pericardial effusion. No pneumothorax. Vishal Woodward MD . Patient/Family Conference Present at Family Conference: Met with patient at bedside. Also present Maritza Bailey LCSW. . Family Conference Time (mins): 45 Family Conference Location: Bedside Issues Discussed: * Palliative care role, purpose, approach * Additional medical, psychosocial, and spiritual history * Patients general health, functional status, and cognitive changes in the months leading up to the current hospitalization * Patient/family understanding of the current medical problems * Patient/family understanding of prognosis * Patients goals of care as best understood from advance directives and/or conversations and/or values * Current medical treatment options and benefits/burdens of those options * Likely scenarios comparing ongoing aggressive care with a transition to comfort measures only * Questions answered to the best of my ability * Palliative care contact information provided Assessment and Plan Disease Oriented Problem List: (1) Obesity hypoventilation syndrome (2) CHF exacerbation (3) DM (diabetes mellitus) (4) Acidosis, metabolic (5) HTN (hypertension) (6) Anemia (7) Acute renal failure (8) Chronic venous hypertension w ulceration (9) Morbid obesity (10) Chronic acquired lymphedema Symptom Scale: (1) Pain (2) Weakness (3) Dyspnea Pertinent Non-Medical Issues Psychosocial: Has 2 sisters. Spiritual:Scientologist Halima. Legal: Patient appears capacitated, though has some behavioral tendencies, non- committal and difficult to keep engaged in conversations. He has designated Health Care surrogates Tania Joyce OR Orquidea Joyce (sisters). He does not want HCS called until he is unable to make his own decisions. Ethical issues impacting care: No known concerns at this time. . Important Contacts * HCS: Orquidea Joyce: [phone] * HCS: Tania Joyce, last known [facility] [address], no contact information-- poss number in google search: [phone]; address [address] [facility]. . Prognosis Patient is a 71 year old male admitted with respiratory failure requiring intermittent BiPAP, active GI bleed - Eliquis on hold, acute on chronic renal failure and overall general debility, his overall prognosis is poor. He is high risk for further decline or setbacks given multiple comorbidities. . Code Status: Full Code Plan * Patient appears capacitated, though has some behavioral tendencies, non- committal and difficult to keep engaged in conversations. He has designated Health Care surrogates Tania Joyce OR Orquidea Isiah (sisters). He does not want HCS called until he is unable to make his own decisions. * FULL CODE * Palliative care met with patient/ family: He verbalizes frustration regarding hospitalization and decline. He does not remember signing DNR. He is difficult to keep engaged in conversation regarding goals of care and CODE status. He does not want me to call his sisters to give update unless he is unable to speak for himself. Desires aggressive care for now, verbalizes he does not want to be just kept alive if in a vegetative state or if he will not improve. Doesn' t want to be the "6 million dollar man." He agrees to continued palliative care visits. Hopefully, I can continue to build trust in an effort to clearly clarify goals. * Discussed with Dr. Bailey. * SYMPTOMS: Pain: reports generalized discomfort all over, mostly in his left toes due to LE cellulitis and lymphedema. Has PRN Morphine available. Dyspnea: currently on oxygen via NC, intermittently on BiPAP. * Palliative care number provided. * Palliative care will continue to follow throughout hospital course to assist with symptom management and clarification of goals as needed. . Thank you for the opportunity to participate in the care of Mr. Joyce. Attestation To help prompt me to consider important information that might be impacting today's encounter and assessment, information from prior notes written by myself or my colleagues may have been "brought forward" into today's note. My signature on this note, however, is an attestation that I personally performed the exam, history, and/or decision-making noted today, and, unless otherwise indicated, the interactions with patient, family, and staff as well as the review of records all occurred today. I also attest that the listed assessment and stated plan reflect my best clinical judgment today based on the combination of historical information, prior notes, and today's exam/ interactions. When time spent is documented, it refers only to time spent today by the signer, or if indicated, combined time spent today by collaborating physician/nurse practitioner. Estela Diallo Jan 26, 2017 10:17
[2017-01-26 10:41] LABS: AUTOMATED NEUTROPHIL # 4.6 TH/MM3 (1.8-7.7); BASOPHIL % 0.7 % (0.0-2.0); EOSINOPHIL # 0.4 TH/MM3 (0-0.4); EOSINOPHIL % 6.7 % (0.0-4.0); LYMPH % 7.2 % (9.0-44.0); LYMPHOCYTE # 0.4 TH/MM3 (1.0-4.8); MEAN CELL VOLUME 87.8 FL (80.0-100.0); MEAN CORPUSCULAR HEMOGLOBIN 28.6 PG (27.0-34.0); MEAN CORPUSCULAR HGB CONC 32.5 % (32.0-36.0); MONO % 8.4 % (0.0-8.0); PLATELET COUNT 112 TH/MM3 (150-450); RED CELL DISTRIBUTION WIDTH 17.9 % (11.6-17.2); WHITE BLOOD COUNT 5.9 TH/MM3 (4.0-11.0)
[2017-01-26 10:47] LABS: HEMO FLAGS DIFF FINAL
[2017-01-26] MEDS: PANTOPRAZOLE SODIUM 40 MG VIAL IV PUSH SCH ×2 (11:16→22:33)
--- NOTE | 2017-01-26 11:34 | HHI.CCPN ---
Subjective Remarks/Hospital Course 71-year-old male and of nursing facility present for an evaluation of worsening BUN and creatinine. He has been treated for CHF exacerbation at the facility. Nephrology was consulted, but has not been able to see the patient. BUN and creatinine were worse on today's labs and the patient was brought to the hospital. The patient reports shortness of breath that is been ongoing for last couple days, he denies any worsening or new onset of shortness of breath, and he is also being treated for bilateral lower leg cellulitis. He denies any fevers or chills. He denies any chest pain. No abdominal pain. No nausea, vomiting. He does report intermittent diarrhea and constipation. The emergency department he was tachypneic an ache and hypoxemia so he was placed on a BiPAP. Subjective: 01/24:The patient continues on BiPAP, O2 sat ranging 95%. No dyspnea noted. ABG pending. 01/25: The patient continues on sodium bicarbonate infusion. Hemoglobin was noted to be 6.3, patient to be transfused today 2 units packed red blood cells. Hemoccult ordered, black tarry stools. 01/26: required 4 units prbc overnight. still with multiple melanotic stools overnight. palliative consulted today. Objective Vital Signs Date Time Temp Pulse Resp B/P Pulse Ox O2 Delivery O2 Flow Rate FiO2 01/26/17 10:00 79 01/26/17 08:15 96 45 01/26/17 08:00 98.7 20 147/63 01/26/17 07:00 Bi-Pap 01/25/17 20:01 6.00 Intake and Output 01/25/17 01/25/17 01/26/17 08:00 16:00 00:00 Intake Total 693 ml 360 ml 1746 ml Output Total 1550 ml 1750 ml 1650 ml Balance -857 ml -1390 ml 96 ml Result Diagram: 01/26/17 1029 01/25/17 1154 Other Results Microbiology Date/Time Procedure Status Source Growth 01/25/17 10:00 Stool Occult Blood ([facility]) - Final Complete Stool Stool HEMOCCULT POSITIVE Imaging Last 24 hours Impressions Chest X-Ray 01/23/17 1733 Signed Impressions: Service Date/Time: Monday, January 23, 2017 17:55 - CONCLUSION: Probable CHF Navneet Cevallos MD Objective Remarks GENERAL: Morbidly obese elderly man on nc o2. SKIN: Warm and dry. HEAD: Normocephalic. EYES: No scleral icterus. No injection or drainage. NECK: trachea midline. JVD unable to be assessed due to body habitus. CARDIOVASCULAR: normal rate, regular rhythm. RESPIRATORY: unlabored. equal chest rise. No accessory muscle use. GASTROINTESTINAL: Abdomen soft, non-tender, nondistended. MUSCULOSKELETAL: No cyanosis, or edema. Legs multiple volodymyr wrap and bandages EXTREMITIES: Chronic venous static changes on lower extremities chronic lymphedema A/P Assessment and Plan Assessment: 71yM with multiple acute on chronic medical problems. not doing well at baseline, and unlikely to overall improve in his functional status. agree with palliative care consult. will actively address GI bleed today. Active GI bleed - hold Eliquis. - start iv bid ppi - consult GI - hemoccult + - trend H&H Acute on chronic kidney injury - Nephrology consult - Ultrasound of kidneys- no hydro - improving. - likely getting volume overloaded with high volume transfusion requirements. lasix 40mg iv x 1. Metabolic acidosis- improved. - Due to above - s/p bicarb infusion. Congestive heart failure with preserved EF - Coreg - hold eliquis given gi bleeding. - 01/24 Repeat 2-D echo-EF 5055%, or visualization of windows secondary to body habitus Acute hypercarbic and hypoxic respiratory failure- slowly improving - CHF - Obesity hypoventilation syndrome - BiPAP Diabetes mellitus - Begin clear liquid diet advance as tolerated - Insulin sliding scale Hypertension - Norvasc/Coreg Anemia secondary to acute blood loss from GI bleeding- worsening. -s/p 4 units prbc overnight. still not > 7 gm/dL today. 1 unit prbc. trend H&H. DVT GI prophylaxis - hold Eliquis/Pepcid dispo: remain in the ICU. agree with palliative. Uriel Bailey MD Jan 26, 2017 11:34
--- NOTE | 2017-01-26 13:40 | PD.CONS ---
HPI History of Present Illness This is a 71 year old male with a history of chronic kidney diesease, who was sent from a local nursing facility for evaluation of worsening BUN and creatinine. In the ER, he was found to have tachypneic and required BIPAP. He was admitted to the ICU unit for acute on chronic kidney disease, metabolic acidosis, respiratory failure, congestive heart failure, anemia, diabetes, bilateral lower leg chronic venous stasis dermatitis, and hypertension. He as also found to have anemia on admission with 6.3/19.9. He was transfused 4 units of PRBC and his HH remained low at 6.8/21.0. The nurse reports that he had 3 melanotic stools overnight. GI has been consulted for further evaluation of anemia with melanotic stools. The patient is on Eliquis and this was discontinued this morning. He is not sure why he was started on this, but believes that his health worker told him that he had an irregular heartbeat. He denies any nausea, vomiting, reflux, heartburn (does have a history of GERD in the chart), diarrhea, or hematochezia. He does have a long history of constipation, stating that he is constipated probably 3-4 days out of the week. He does not take anything for this and then will eventually move his bowels on his own. Sometimes he will have a few loose stools after passing hard bowel movements. He has not noticed any blood in his stool or having dark bowel movements. The nurse reports that she was told overnight that he had 3 black tarry stools, but that he has not had any this shift. The patient denies any hx of prior GI bleeding or peptic ulcer disease. He does not recall if he has ever had an EGD. He did have a colonoscopy 15-20 years ago and reports that he does not plan on having another one. PFSH Past Medical History CAD Lymphedema bilateral lower extremities Cellulitis BLE CHF DM GERD HTN Chronic renal insufficiency Asthma Hiatal hernia Constipation ? Atrial fibrillation Past Surgical History Tonsillectomy Colonoscopy 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 - 11/19/16 Medications Allergies Coded Allergies Type Severity Reaction Last Updated Verified *MDRO Multi-Drug Resistant Organism Adverse Reaction Unknown 11/20/16 Yes Active Scripts Medications Dose Route/Sig Days Date Category Dose Instructions Nystatin Topical (Nystatin) 1 Powd 1 Appl TOPICAL DIRECTED 01/23/17 Reported Tylenol (Acetaminophen) 325 Mg Tab 650 Mg PO Q4H PRN 01/23/17 Reported Iron (Ferrous Sulfate) 325 Mg Capsule.er 01/23/17 Reported Lidoderm (Lidocaine) 5 % Adh..patch 01/23/17 Reported Allergy (Loratadine) 10 Mg Tab 01/23/17 Reported [place] (Hydrocodone-Acetaminophen) 5-325 mg Tab 1 Tab PO Q6H PRN 01/23/17 Reported Ambien (Zolpidem Tartrate) 5 Mg Tab 5 Mg PO HS PRN 01/23/17 Reported Hydralazine HCl 50 Mg Tablet BID 01/23/17 Reported Fluoxetine HCl (Fluoxetine HCl (Pmdd)) 20 Mg Tab 01/23/17 Reported Eliquis (Apixaban) 2.5 Mg Tab 2.5 Mg PO BID 11/21/16 Rx Aspirin 325 Mg Tab 325 Mg PO DAILY 11/18/16 Reported Amlodipine (Amlodipine Besylate) 5 Mg Tab 5 Mg PO BID 11/18/16 Reported Glipizide 10 Mg Tab 10 Mg PO BIDAC 11/18/16 Reported Take 30 minutes before a meal Lisinopril 20 Mg Tab 20 Mg PO BID 11/18/16 Reported Clonidine (Clonidine HCl) 0.2 Mg Tab 0.2 Mg PO BID 11/18/16 Reported Carvedilol 25 Mg Tab 25 Mg PO BID 11/18/16 Reported Family History Mom from bone cancer Father from bladder cancer Social History No tobacco use. No ETOH use. No illicit drug use. Review of Systems Constitutional: COMPLAINS OF: Fatigue, DENIES: Fever, Chills Respiratory: COMPLAINS OF: Cough, Wheezing, Shortness of breath Cardiovascular: COMPLAINS OF: Lower Extremity Edema, DENIES: Chest pain Gastrointestinal: COMPLAINS OF: Black stools, Constipation, DENIES: Abdominal pain, Bloody stools, Diarrhea, Nausea, Vomiting, Swelling of Abdomen, Heartburn , Hematemesis Musculoskeletal: COMPLAINS OF: Joint pain Integumentary: COMPLAINS OF: Abnormal pigmentation Hematologic/lymphatic: DENIES: Bruising Neurologic: DENIES: Headache Psychiatric: DENIES: Confusion GI Exam Vitals I&O Vital Signs Date Time Temp Pulse Resp B/P Pulse Ox O2 Delivery O2 Flow Rate FiO2 01/26/17 12:00 78 01/26/17 12:00 97.6 78 16 140/67 94 01/26/17 11:43 97.7 76 16 143/63 94 01/26/17 11:25 98.0 78 17 137/61 95 01/26/17 10:00 79 01/26/17 08:15 96 45 01/26/17 08:00 81 01/26/17 08:00 98.7 81 20 147/63 98 01/26/17 07:00 98 Bi-Pap 45 01/26/17 06:00 87 01/26/17 04:04 98 45 01/26/17 04:00 85 01/26/17 04:00 98.1 85 18 132/63 98 01/26/17 02:00 76 01/26/17 01:09 94 45 01/26/17 00:00 98.6 84 10 136/70 98 01/26/17 00:00 84 01/25/17 22:26 97 45 01/25/17 22:00 91 01/25/17 20:36 19 01/25/17 20:01 94 Nasal Cannula 6.00 01/25/17 20:00 98.5 98 18 169/72 91 01/25/17 20:00 98 01/25/17 19:00 93 Nasal Cannula 6.00 01/25/17 18:00 100 01/25/17 16:00 98 01/25/17 16:00 98.2 98 20 161/77 93 01/25/17 14:00 87 I/O 01/25/17 01/25/17 01/25/17 01/26/17 01/26/17 01/26/17 07:00 15:00 23:00 07:00 15:00 23:00 Intake Total 693 ml 360 ml 1746 ml 734 ml Output Total 1550 ml 1750 ml 1650 ml 1750 ml Balance -857 ml -1390 ml 96 ml -1016 ml Intake Oral 200 ml 360 ml 560 ml 50 ml IV Total 493 ml 578 ml 314 ml Packed Cells 608 ml 370 ml Output Urine Total 1550 ml 1750 ml 1650 ml 1750 ml # Bowel Movements 0 2 1 0 Imaging Last Impressions Chest X-Ray 01/25/17 0600 Signed Impressions: Service Date/Time: Wednesday, January 25, 2017 03:50 - CONCLUSION: Following infiltrate in the right lung base. Heart remains enlarged. Elieser Brush MD Chest CT 01/24/17 0000 Signed Impressions: Service Date/Time: Tuesday, January 24, 2017 16:13 - CONCLUSION: 1. Small bilateral pleural effusions and dependent atelectasis and consolidation in both lungs. No pericardial effusion. No pneumothorax. Vishal Woodward MD Laboratory Test 01/25/17 01/25/17 01/26/17 01/26/17 15:08 16:59 01:10 02:47 Blood Type A POSITIVE A POSITIVE A POSITIVE Crossmatch Leukocyte-Reduced Leukocyte-Reduced Red Blood Red Blood Cells Cells Blood Bank Comment White Blood Count 5.0 TH/MM3 Red Blood Count 2.00 MIL/MM3 Hemoglobin 5.9 GM/DL Hematocrit 18.1 % Mean Corpuscular Volume 90.6 FL Mean Corpuscular Hemoglobin 29.4 PG Mean Corpuscular Hemoglobin 32.5 % Concent Red Cell Distribution Width 15.7 % Platelet Count 117 TH/MM3 Mean Platelet Volume 9.7 FL Test 01/26/17 01/26/17 10:29 10:48 White Blood Count 5.9 TH/MM3 Red Blood Count 2.40 MIL/MM3 Hemoglobin 6.8 GM/DL Hematocrit 21.0 % Mean Corpuscular Volume 87.8 FL Mean Corpuscular Hemoglobin 28.6 PG Mean Corpuscular Hemoglobin 32.5 % Concent Red Cell Distribution Width 17.9 % Platelet Count 112 TH/MM3 Mean Platelet Volume 9.4 FL Neutrophils (%) (Auto) 77.0 % Lymphocytes (%) (Auto) 7.2 % Monocytes (%) (Auto) 8.4 % Eosinophils (%) (Auto) 6.7 % Basophils (%) (Auto) 0.7 % Neutrophils # (Auto) 4.6 TH/MM3 Lymphocytes # (Auto) 0.4 TH/MM3 Monocytes # (Auto) 0.5 TH/MM3 Eosinophils # (Auto) 0.4 TH/MM3 Basophils # (Auto) 0.0 TH/MM3 CBC Comment DIFF FINAL Differential Comment Blood Type A POSITIVE Crossmatch Leukocyte-Reduced Red Blood Cells Blood Bank Comment Date/Time Procedure Status Source Growth 01/25/17 10:00 Stool Occult Blood ([facility]) - Final Complete Stool Stool HEMOCCULT POSITIVE Physical Examination HEENT: Normocephalic; atraumatic CHEST: Resp. even/unlabored, diminished bases CARDIAC: RRR ABDOMEN: Soft, obese, nondistended, nontender; no hepatosplenomegaly; bowel sounds are present in all four quadrants. EXTREMITIES: BLE edema. SKIN: Drsg to BLE STREET AND BUILDING DECORATOR: No focal deficits; lethargic and oriented times three. Assessment and Plan Plan ASSESSMENT: - Upper GIB with melena. - Acute anemia secondary to blood loss, likely on underlying chronic anemia secondary to CKD. - Acute on chronic kidney disease with electrolyte abnormalities. - Respiratory failure secondary to CHF, hyperventilation. - DM, HTN, BLE chronic venous stasis dermatitis per primary. PLAN: - Heart healthy diet - Cont. Protonix 40mg IV BID - Agree with blood transfusion - Monitor HH - Transfuse as necessary - Hold Eliquis - EGD when medically stable. D/W CCM, was on Bipap earlier today, not stable at this time for endoscopy - Notify GI of active bleeding - Supportive care - Further recommendations to follow based on results of above - Pt seen and examined by Dr. Hale and myself and this note is written on his behalf Lexi Reddy Jan 26, 2017 13:40
[2017-01-26 16:03] LABS: HEMATOCRIT 21.3 % (39.0-51.0); REVIEW FLAG FINAL
--- NOTE | 2017-01-26 16:18 | HHI.NPPN ---
Subjective Additional Remarks Awake, on face mask oxygen. Objective Data Data 01/25/17 01/26/17 19:00 07:00 Intake Total 720 ml 2120 ml Output Total 1750 ml 3400 ml Balance -1030 ml -1280 ml Intake Oral 720 ml 250 ml IV Total 892 ml Packed Cells 978 ml Output Urine Total 1750 ml 3400 ml # Bowel Movements 3 0 Vital Signs Date Time Temp Pulse Resp B/P Pulse Ox O2 Delivery O2 Flow Rate FiO2 01/26/17 16:00 80 01/26/17 16:00 97.9 80 20 153/68 94 01/26/17 14:00 97.9 79 20 150/63 96 01/26/17 14:00 79 01/26/17 12:00 78 01/26/17 12:00 97.6 78 16 140/67 94 01/26/17 11:43 97.7 76 16 143/63 94 01/26/17 11:25 98.0 78 17 137/61 95 01/26/17 10:00 79 01/26/17 08:15 96 45 01/26/17 08:00 81 01/26/17 08:00 98.7 81 20 147/63 98 01/26/17 07:00 98 Bi-Pap 45 01/26/17 06:00 87 01/26/17 04:04 98 45 01/26/17 04:00 85 01/26/17 04:00 98.1 85 18 132/63 98 01/26/17 02:00 76 01/26/17 01:09 94 45 01/26/17 00:00 98.6 84 10 136/70 98 01/26/17 00:00 84 01/25/17 22:26 97 45 01/25/17 22:00 91 01/25/17 20:36 19 01/25/17 20:01 94 Nasal Cannula 6.00 01/25/17 20:00 98.5 98 18 169/72 91 01/25/17 20:00 98 01/25/17 19:00 93 Nasal Cannula 6.00 01/25/17 18:00 100 -: 01/26/17 1529 01/25/17 1154 Physical Exam General Appearance: Well Developed, Obese Throat Throat Exam: Oral Mucosa [place] & Moist Neck Neck Exam: Neck Supple Pulmonary Resp Exam: Decreased Bases, Diminished Breath Sounds Cardiology CV Exam: Regular Gastrointestinal/Abdomen GI Exam: Soft, Non-Tender Genitourinary Exam: Clear Urine Extremeties Extremities Exam: Moderate Edema Neurologic Neuro Exam: Stuporous Assessment/Plan Problem List: (1) Acute renal failure Plan: 1. Acute kidney injury on chronic kidney disease stage IV: The patient has had apparent baseline creatinine between 2.1 and 2.9 in October of this year corresponding to chronic kidney disease stage IV. Creatinine 3 ->2.8 -> 2.4 -> 2.3 on IVFs. JOÃO due to possible overdiuresis at nursing facility for CHF. His urinalysis showed hyaline casts, which is suggestive of volume depletion. Chronic lymphedema and obesity makes volume assessment challenging. CT chest did reveal some small pleural effusions; however no overt CHF. With the history of CHF, there may be a cardiorenal component here as well. Received Lasix and follow BMP (2) Obesity hypoventilation syndrome Plan: Continue to follow with critical care, on facemask Oxygen now. Continue to monitor, consider for gentle diuresis once renal function further stabilizes. 5. Congestive heart failure. The patient has a history of congestive heart failure. A 2-D echocardiogram was ordered. Continue with cardiac medications. 6. Diabetes. Continue to monitor glucose. Glucose is stable at 92 at this time. 7. Hypertension. Blood pressure is stable. Continue to monitor blood pressure. 8. Anemia. The patient has a hemoglobin of 7.2. May consider for transfusion as needed. This may help with further oxygen delivery and perfusion. Continue to monitor with the critical care team. (3) CHF exacerbation Plan: Continue cardiac medications, continue to monitor. 55% EF on echo (4) DM (diabetes mellitus) Plan: Continue to monitor glucose. Glucose is stable at this time. (5) Anemia Plan: Plan for transfusion today. Follow with critical care (6) HTN (hypertension) Plan: continue to monitor (7) Acidosis, metabolic Plan: resolved, will stop HCO3 in IVFs Problem Qualifiers (1) Acute renal failure: Qualified Code: N17.9 - Acute renal failure, unspecified acute renal failure type (2) CHF exacerbation: Qualified Code: I50.9 - Acute on chronic congestive heart failure, unspecified congestive heart failure type (3) DM (diabetes mellitus): Qualified Code: E08.22 - Diabetes mellitus due to underlying condition with diabetic chronic kidney disease, unspecified CKD stage, unspecified senior care insulin use status (4) Anemia: Qualified Code: N18.9 - Anemia in chronic kidney disease, unspecified CKD stage Tara Jones MD Jan 26, 2017 16:18
[2017-01-26] MEDS: OXYBUTYNIN CHLORIDE 5 MG TAB PO SCH (20:15)
[2017-01-26 22:17] LABS: HEMATOCRIT 24.7 % (39.0-51.0); REVIEW FLAG FINAL
[2017-01-27] VITALS (26 sets, daily range): BP systolic 111–161; BP diastolic 56–69; PULSE 71–82; RESP 13–26; TEMP 94.5–98; O2SAT 90–97
[2017-01-27] MEDS: MORPHINE SULFATE 4 MG/ML INJ IV PRN ×2 (01:17→20:43)
[2017-01-27] MEDS: CHLORHEXIDINE GLUCONATE 2 % 1 PACK (2 CLOTHS) TOP SCH (04:00)
[2017-01-27 06:21] LABS: MEAN CELL VOLUME 87.8 FL (80.0-100.0); MEAN CORPUSCULAR HEMOGLOBIN 28.5 PG (27.0-34.0); MEAN CORPUSCULAR HGB CONC 32.5 % (32.0-36.0); PLATELET COUNT 110 TH/MM3 (150-450); RED BLOOD COUNT 2.38 MIL/MM3 (4.50-5.90); RED CELL DISTRIBUTION WIDTH 17.4 % (11.6-17.2); WHITE BLOOD COUNT 5.2 TH/MM3 (4.0-11.0)
[2017-01-27 06:28] LABS: REVIEW FLAG FINAL
[2017-01-27 06:32] LABS: HEMATOCRIT 20.9 % (39.0-51.0)
[2017-01-27 06:47] LABS: BICARBONATE 29.6 MEQ/L (21.0-32.0); POTASSIUM 4.9 MEQ/L (3.5-5.1)
[2017-01-27] MEDS: OXYBUTYNIN CHLORIDE 5 MG TAB PO SCH ×3 (06:53→21:47)
[2017-01-27] MEDS: INSULIN ASPART SUPPLEMENTAL SCALE SQ SCH ×5 (06:54→21:48)
[2017-01-27] MEDS: SODIUM CHLORIDE 0.9% FLUSH 10 ML FLUSH SCH ×2 (08:45→21:39)
[2017-01-27] MEDS: FAMOTIDINE 20 MG/2 ML VIAL IV PUSH SCH (08:45)
[2017-01-27] MEDS: ARTIFICIAL TEARS OPTH SOLN 15 ML BTL EACH EYE SCH ×3 (08:45→18:00)
[2017-01-27] MEDS: cloNIDine HCL 0.2 MG TAB PO SCH ×2 (08:46→21:38)
[2017-01-27] MEDS: amLODIPine BESYLATE 5 MG TAB PO SCH ×2 (08:46→21:40)
[2017-01-27] MEDS: CARVEDILOL 12.5 MG TAB PO SCH ×2 (08:46→21:39)
[2017-01-27] MEDS: ASPIRIN 325 MG TAB PO SCH (08:46)
[2017-01-27] MEDS: DOCUSATE SODIUM 50 MG/SENNA 8.6 MG TAB PO SCH ×2 (08:47→21:40)
--- NOTE | 2017-01-27 10:20 | HHI.GIFU ---
Subjective Remarks Resting in bed. No nausea/vomiting/abdominal pain. Per nurse, no melanotic stools yesterday or today. Had drop in Hgb. When I saw him, he had just had 1/ 2 bagel at 0900. Objective Vitals I&O Vital Signs Date Time Temp Pulse Resp B/P Pulse Ox O2 Delivery O2 Flow Rate FiO2 01/27/17 09:56 98.0 78 22 150/56 90 01/27/17 07:49 95 Nasal Cannula 6.00 01/27/17 07:30 95 Nasal Cannula 6.00 01/27/17 07:00 96 Bi-Pap 45 01/27/17 06:00 79 01/27/17 04:40 94 45 01/27/17 04:00 97.4 78 22 120/58 95 01/27/17 04:00 78 01/27/17 02:00 78 01/27/17 01:52 97 45 01/27/17 01:22 24 01/27/17 00:00 97.2 81 24 150/68 96 01/27/17 00:00 81 01/26/17 23:12 95 45 01/26/17 22:00 83 01/26/17 20:00 98.0 78 22 145/63 90 01/26/17 20:00 78 01/26/17 19:36 95 Nasal Cannula 6.00 01/26/17 19:00 97 Nasal Cannula 6.00 01/26/17 18:00 87 01/26/17 17:46 98.3 85 22 159/73 97 01/26/17 17:42 98.0 84 22 149/75 96 01/26/17 16:00 80 01/26/17 16:00 97.9 80 20 153/68 94 01/26/17 14:00 97.9 79 20 150/63 96 01/26/17 14:00 79 01/26/17 12:00 78 01/26/17 12:00 97.6 78 16 140/67 94 01/26/17 11:43 97.7 76 16 143/63 94 01/26/17 11:25 98.0 78 17 137/61 95 I/O 01/26/17 01/26/17 01/26/17 01/27/17 01/27/17 01/27/17 07:00 15:00 23:00 07:00 15:00 23:00 Intake Total 734 ml 1308 ml 1383 ml 100 ml Output Total 1750 ml 2905 ml 950 ml Balance -1016 ml -1597 ml 433 ml 100 ml Intake Oral 50 ml 480 ml 100 ml 100 ml IV Total 314 ml 225 ml 1283 ml 0 ml Packed Cells 370 ml 603 ml Output Urine Total 1750 ml 2905 ml 950 ml # Voids 5 2 # Bowel Movements 0 0 0 Laboratory Laboratory Tests Test 01/26/17 01/26/17 01/26/17 01/26/17 10:29 10:48 15:29 16:57 White Blood Count 5.9 Red Blood Count 2.40 Hemoglobin 6.8 7.2 Hematocrit 21.0 21.3 Mean Corpuscular Volume 87.8 Mean Corpuscular Hemoglobin 28.6 Mean Corpuscular Hemoglobin 32.5 Concent Red Cell Distribution Width 17.9 Platelet Count 112 Mean Platelet Volume 9.4 Neutrophils (%) (Auto) 77.0 Lymphocytes (%) (Auto) 7.2 Monocytes (%) (Auto) 8.4 Eosinophils (%) (Auto) 6.7 Basophils (%) (Auto) 0.7 Neutrophils # (Auto) 4.6 Lymphocytes # (Auto) 0.4 Monocytes # (Auto) 0.5 Eosinophils # (Auto) 0.4 Basophils # (Auto) 0.0 CBC Comment DIFF FINAL Differential Comment Blood Type A POSITIVE A POSITIVE Crossmatch Leukocyte-Reduced Leukocyte-Reduced Red Blood Red Blood Cells Cells Blood Bank Comment Test 01/26/17 01/27/17 01/27/17 21:43 05:54 08:16 Hemoglobin 8.0 6.8 Hematocrit 24.7 20.9 White Blood Count 5.2 Red Blood Count 2.38 Mean Corpuscular Volume 87.8 Mean Corpuscular Hemoglobin 28.5 Mean Corpuscular Hemoglobin 32.5 Concent Red Cell Distribution Width 17.4 Platelet Count 110 Mean Platelet Volume 9.5 Sodium Level 151 Potassium Level 4.9 Chloride Level 117 Carbon Dioxide Level 29.6 Anion Gap 4 Blood Urea Nitrogen 104 Creatinine 2.30 Estimat Glomerular Filtration 28 Rate Random Glucose 142 Calcium Level 8.1 Blood Type A POSITIVE Antibody Screen NEGATIVE Crossmatch Leukocyte-Reduced Red Blood Cells Blood Bank Comment Date/Time Procedure Status Source Growth 01/25/17 10:00 Stool Occult Blood ([facility]) - Final Complete Stool Stool HEMOCCULT POSITIVE Imaging Last Impressions Chest X-Ray 01/25/17 0600 Signed Impressions: Service Date/Time: Wednesday, January 25, 2017 03:50 - CONCLUSION: Following infiltrate in the right lung base. Heart remains enlarged. Elieser Brush MD Chest CT 01/24/17 0000 Signed Impressions: Service Date/Time: Tuesday, January 24, 2017 16:13 - CONCLUSION: 1. Small bilateral pleural effusions and dependent atelectasis and consolidation in both lungs. No pericardial effusion. No pneumothorax. Vishal Woodward MD Physical Exam HEENT: Normocephalic; atraumatic; no jaundice. CHEST: Resp even/unlabored on 2L via n/c. Diminished breath sounds. CARDIAC: RRR ABDOMEN: Soft, morbidly obesity, nondistended, nontender; no hepatosplenomegaly ; bowel sounds are present in all four quadrants. EXTREMITIES: Generlized edema. SKIN: BLE volodymyr wrap drsg d/i BOARD CERTIFIED FAMILY PHYSICIAN: No focal deficits; lethargic and oriented times three. Assessment and Plan Plan ASSESSMENT: - Upper GIB with melena. Pt had melanotic stool early 01/26 (shift superintendent caustic cresylate reported 3 episodes) but has not had any further bleeding. HH was 7.4/23.7 on admission and dropped 6.8/21.9 on 01/24. S/P 7 units of PRBC. HH 6.8/ 20.9. Getting transfused today. Now on N/C. When I saw him at 9am, he had just had 1/2 bagel. He was made NPO. He will need EGD, timing to be determined. If active bleeding or significant drop in Hgb, this will be done later in the day. If it remains stable and no active bleeding, this can be planned for tomorrow. PPI with BID dosing. Check HH one hour after transfusion and instructed nurse to call with results. - Acute anemia secondary to blood loss, likely on underlying chronic anemia secondary to CKD. S/P 7 units of PRBC. HH 6.8/20.9. Getting transfused today. Check HH one hour after transfusion and instructed nurse to call with results. - Acute on chronic kidney disease with electrolyte abnormalities. Creat. 2.30. - Respiratory failure secondary to CHF, hyperventilation. Now on N/C. - Hyponatremia, DM, HTN, BLE chronic venous stasis dermatitis per primary. PLAN: - NPO - Agree with transfusion - H/H one hour after transfusion- call with results - Protonix 40mg IV BID - Hold Eliquis - Notify GI of active bleeding - Supportive care - He will need EGD, timing to be determined. If active bleeding or significant drop in Hgb, this will be done later in the day. If it remains stable and no active bleeding, this can be planned for tomorrow. - Further recommendations to follow based on results of above - Pt seen and examined by Dr. Hale and myself and this note is written on his behalf Lexi Reddy Jan 27, 2017 10:20
--- NOTE | 2017-01-27 11:21 | HHI.CCPN ---
Subjective Remarks/Hospital Course 71-year-old male and of nursing facility present for an evaluation of worsening BUN and creatinine. He has been treated for CHF exacerbation at the facility. Nephrology was consulted, but has not been able to see the patient. BUN and creatinine were worse on today's labs and the patient was brought to the hospital. The patient reports shortness of breath that is been ongoing for last couple days, he denies any worsening or new onset of shortness of breath, and he is also being treated for bilateral lower leg cellulitis. He denies any fevers or chills. He denies any chest pain. No abdominal pain. No nausea, vomiting. He does report intermittent diarrhea and constipation. The emergency department he was tachypneic an ache and hypoxemia so he was placed on a BiPAP. Subjective: 01/24:The patient continues on BiPAP, O2 sat ranging 95%. No dyspnea noted. ABG pending. 01/25: The patient continues on sodium bicarbonate infusion. Hemoglobin was noted to be 6.3, patient to be transfused today 2 units packed red blood cells. Hemoccult ordered, black tarry stools. 01/26: required 4 units prbc overnight. still with multiple melanotic stools overnight. palliative consulted today. 01/27: continues to have ongoing GI bleeding and transfusion requirement. GI consulted yesterday. patient currently NPO and possible EGD today. Objective Vital Signs Date Time Temp Pulse Resp B/P Pulse Ox O2 Delivery O2 Flow Rate FiO2 01/27/17 10:10 97.6 77 21 139/61 92 01/27/17 07:49 Nasal Cannula 6.00 01/27/17 07:00 45 Intake and Output 01/26/17 01/26/17 01/27/17 08:00 16:00 00:00 Intake Total 734 ml 1308 ml 1383 ml Output Total 1750 ml 3455 ml 400 ml Balance -1016 ml -2147 ml 983 ml Result Diagram: 01/27/17 0554 01/27/17 0554 Other Results Microbiology Date/Time Procedure Status Source Growth 01/25/17 10:00 Stool Occult Blood ([facility]) - Final Complete Stool Stool HEMOCCULT POSITIVE Imaging Last 24 hours Impressions Chest X-Ray 01/23/17 9543 Signed Impressions: Service Date/Time: Monday, January 23, 2017 17:55 - CONCLUSION: Probable CHF Navneet Cevallos MD Objective Remarks GENERAL: Morbidly obese elderly man on nc o2. SKIN: Warm and dry. HEAD: Normocephalic. EYES: No scleral icterus. No injection or drainage. NECK: trachea midline. JVD unable to be assessed due to body habitus. CARDIOVASCULAR: normal rate, regular rhythm. RESPIRATORY: unlabored. equal chest rise. No accessory muscle use. GASTROINTESTINAL: Abdomen soft, non-tender, nondistended. MUSCULOSKELETAL: No cyanosis, or edema. Legs multiple volodymyr wrap and bandages EXTREMITIES: Chronic venous static changes on lower extremities chronic lymphedema A/P Assessment and Plan Assessment: 71yM with multiple acute on chronic medical problems. not doing well at baseline, and unlikely to overall improve in his functional status. agree with palliative care consult. GI bleeding is ongoing. will continue transfusion today. will hold on diuresis. possible EGD today. Active GI bleed - hold Eliquis. - continue iv bid ppi - GI following - hemoccult + - trend H&H Acute on chronic kidney injury - Nephrology consult - Ultrasound of kidneys- no hydro - improving. - hold off on further diuresis for now. Metabolic acidosis- improved. - Due to above - s/p bicarb infusion. Congestive heart failure with preserved EF - Coreg - hold eliquis given gi bleeding. - 01/24 Repeat 2-D echo-EF 5055%, or visualization of windows secondary to body habitus Acute hypercarbic and hypoxic respiratory failure- slowly improving - CHF - Obesity hypoventilation syndrome - BiPAP Diabetes mellitus - Begin clear liquid diet advance as tolerated - Insulin sliding scale Hypertension - Norvasc/Coreg Anemia secondary to acute blood loss from GI bleeding- worsening. -continue to transfuse for goal hgb > 7. trend H&H. DVT GI prophylaxis - hold Eliquis/iv bid ppi. dispo: remain in the ICU. agree with palliative. Uriel Bailey MD Jan 27, 2017 11:21
[2017-01-27] MEDS: PANTOPRAZOLE SODIUM 40 MG VIAL IV PUSH SCH (12:16)
--- NOTE | 2017-01-27 13:37 | HHI.NPPN ---
Subjective Additional Remarks Awake, on oxygen. Objective Data Data 01/26/17 01/27/17 19:00 07:00 Intake Total 1308 ml 1483 ml Output Total 3455 ml 400 ml Balance -2147 ml 1083 ml Intake Oral 480 ml 200 ml IV Total 225 ml 1283 ml Packed Cells 603 ml Output Urine Total 3455 ml 400 ml # Voids 3 4 # Bowel Movements 0 Vital Signs Date Time Temp Pulse Resp B/P Pulse Ox O2 Delivery O2 Flow Rate FiO2 01/27/17 12:05 97.6 71 17 111/56 93 01/27/17 12:00 97.6 71 17 111/56 93 01/27/17 12:00 71 01/27/17 10:10 97.6 77 21 139/61 92 01/27/17 10:00 79 01/27/17 09:56 98.0 78 22 150/56 90 01/27/17 08:00 79 01/27/17 08:00 97.6 79 20 128/60 94 01/27/17 07:49 95 Nasal Cannula 6.00 01/27/17 07:30 95 Nasal Cannula 6.00 01/27/17 07:00 96 Bi-Pap 45 01/27/17 06:00 79 01/27/17 04:40 94 45 01/27/17 04:00 97.4 78 22 120/58 95 01/27/17 04:00 78 01/27/17 02:00 78 01/27/17 01:52 97 45 01/27/17 01:22 24 01/27/17 00:00 97.2 81 24 150/68 96 01/27/17 00:00 81 01/26/17 23:12 95 45 01/26/17 22:00 83 01/26/17 20:00 98.0 78 22 145/63 90 01/26/17 20:00 78 01/26/17 19:36 95 Nasal Cannula 6.00 01/26/17 19:00 97 Nasal Cannula 6.00 01/26/17 18:00 87 01/26/17 17:46 98.3 85 22 159/73 97 01/26/17 17:42 98.0 84 22 149/75 96 01/26/17 16:00 80 01/26/17 16:00 97.9 80 20 153/68 94 01/26/17 14:00 97.9 79 20 150/63 96 01/26/17 14:00 79 -: 01/27/17 0554 01/27/17 0554 Physical Exam General Appearance: Well Developed, Obese Throat Throat Exam: Oral Mucosa Ages & Moist Neck Neck Exam: Neck Supple Pulmonary Resp Exam: Decreased Bases, Diminished Breath Sounds Cardiology CV Exam: Regular Gastrointestinal/Abdomen GI Exam: Soft, Non-Tender Genitourinary Exam: Clear Urine Extremeties Extremities Exam: Moderate Edema Neurologic Neuro Exam: Stuporous Assessment/Plan Problem List: (1) Acute renal failure Plan: 1. Acute kidney injury on chronic kidney disease stage IV: The patient has had apparent baseline creatinine between 2.1 and 2.9 in October of this year corresponding to chronic kidney disease stage IV. Creatinine 3 ->2.8 -> 2.4 -> 2.3 --. 2.3 received PRBC Na [address] Vicente to follow JOÃO due to possible Diuresis GI bleeding GI eval EGD planned (2) Obesity hypoventilation syndrome Plan: Continue to follow with critical care, on facemask Oxygen now. Continue to monitor, consider for gentle diuresis once renal function further stabilizes. 5. Congestive heart failure. The patient has a history of congestive heart failure. A 2-D echocardiogram was ordered. Continue with cardiac medications. 6. Diabetes. Continue to monitor glucose. Glucose is stable at 92 at this time. 7. Hypertension. Blood pressure is stable. Continue to monitor blood pressure. 8. Anemia. The patient has a hemoglobin of 7.2. May consider for transfusion as needed. This may help with further oxygen delivery and perfusion. Continue to monitor with the critical care team. (3) CHF exacerbation Plan: Continue cardiac medications, continue to monitor. 55% EF on echo (4) DM (diabetes mellitus) Plan: Continue to monitor glucose. Glucose is stable at this time. (5) HTN (hypertension) Plan: continue to monitor Problem Qualifiers (1) Acute renal failure: Qualified Code: N17.9 - Acute renal failure, unspecified acute renal failure type (2) CHF exacerbation: Qualified Code: I50.9 - Acute on chronic congestive heart failure, unspecified congestive heart failure type (3) DM (diabetes mellitus): Qualified Code: E08.22 - Diabetes mellitus due to underlying condition with diabetic chronic kidney disease, unspecified CKD stage, unspecified buttermilk drier operator insulin use status Robert,Sajid MD Jan 27, 2017 13:37
[2017-01-27 13:49] LABS: INTERNATIONAL NORMALIZED RATIO 1.1 RATIO; PROTHROMBIN TIME - PATIENT 12.2 SEC (9.8-11.6)
--- NOTE | 2017-01-27 14:19 | HHI.HCPN ---
Reason for visit a. To assist with evaluation and management of symptoms including: dyspnea, pain, weakness. b. To assist medical decision maker(s) with: better understanding of current medical conditions; weighing benefits/burdens of medical treatment options; making medical treatment decisions. . Subjective/Interval History Patient seen and examined in ICU. Discussed with nurse. Patient awakens easily to voice. He denies pain or shortness of breath today. He is anxious to have EGD so he can eat and drink again, remains NPO for procedure at this time. Attempted to provide medical update, he seems preoccupied with wanting to know when he will have EGD. He also wants me to empty his perineal drainage bag, requested nurse to assist. Patient does not want to engage in goals of care discussion today. Afebrile. Vital signs stable today. Hemoglobin 6.8, hematocrit 20.9. Creatinine stable at 2.30. . Family/friend interactions Does not want his family called until he is unable to communicate/ speak for himself. . Advance Directives Living Will: Copy in medical record Health Care Surrogate: Copy in medical record Advance Directive Specifics Date completed: 11/19/16 . Health Care Surrogate(s): Designated HCS: Tania Joyce or Orquidea Joyce, sisters. . Documented care wishes: Completed community DNR and living will on 11-19-16. Appointed either one of his sisters as HCS verbalizing he wishes for them to know they do not have to serve in this role but it is ok for them to be contacted should he become incapacitated and unable to make his own medical decisions. Living will is a typical one stating should his attending and a consulting physician agree he has a terminal condition, end-stage condition, or is in a persistent vegetative state, he wishes for life-prolonging measures to be withheld or withdrawn. . Significant change in goals: FULL CODE. Goals remain aggressive at this time. . Objective Vital Signs Date Time Temp Pulse Resp B/P Pulse Ox O2 Delivery O2 Flow Rate FiO2 01/27/17 12:05 97.6 71 17 111/56 93 01/27/17 12:00 97.6 71 17 111/56 93 01/27/17 12:00 71 01/27/17 10:10 97.6 77 21 139/61 92 01/27/17 10:00 79 01/27/17 09:56 98.0 78 22 150/56 90 01/27/17 08:00 79 01/27/17 08:00 97.6 79 20 128/60 94 01/27/17 07:49 95 Nasal Cannula 6.00 01/27/17 07:30 95 Nasal Cannula 6.00 01/27/17 07:00 96 Bi-Pap 45 01/27/17 06:00 79 01/27/17 04:40 94 45 01/27/17 04:00 97.4 78 22 120/58 95 01/27/17 04:00 78 01/27/17 02:00 78 01/27/17 01:52 97 45 01/27/17 01:22 24 01/27/17 00:00 97.2 81 24 150/68 96 01/27/17 00:00 81 01/26/17 23:12 95 45 01/26/17 22:00 83 01/26/17 20:00 98.0 78 22 145/63 90 01/26/17 20:00 78 01/26/17 19:36 95 Nasal Cannula 6.00 01/26/17 19:00 97 Nasal Cannula 6.00 01/26/17 18:00 87 01/26/17 17:46 98.3 85 22 159/73 97 01/26/17 17:42 98.0 84 22 149/75 96 01/26/17 16:00 80 01/26/17 16:00 97.9 80 20 153/68 94 Intake & Output 01/27/17 01/27/17 07:00 19:00 Intake Total 1483 ml Output Total 400 ml Balance 1083 ml Intake Oral 200 ml IV Total 1283 ml Output Urine Total 400 ml # Voids 4 # Bowel Movements 0 Physical Exam CONSTITUTIONAL/GENERAL: This is an obese patient, in no apparent distress. TUBES/LINES/DRAINS: oxygen via NC, PIV, perineal drainage collection bag, specialty air mattress. SKIN: No jaundice, rashes, or lesions. Ecchymoses on upper extremities. Bilateral LE dressings from knees to toes. Skin temperature warm. Not diaphoretic. EYES: Pupils equal and round and reactive. Extraocular motions intact. No scleral icterus. No injection or drainage. Fundi not examined. CARDIOVASCULAR: Regular rate and rhythm without murmurs, gallops, or rubs. RESPIRATORY/CHEST: Symmetric, unlabored respirations. Clear to auscultation. Distant breath sounds. GASTROINTESTINAL: Abdomen soft, non-tender, nondistended, protuberant. GENITOURINARY: Without palpable bladder distension. perineal drainage collection bag. MUSCULOSKELETAL: Bilateral LE with edema. Chronic venous stasis changes bilateral LEs. NEUROLOGICAL: Awake and alert. Follows commands. Generalized weakness. PSYCHIATRIC: Difficult to keep engaged in conversation. Often speaks with his eyes closed. . Diagnostic Tests Laboratory Laboratory Tests Test 01/24/17 01/25/17 01/25/17 01/25/17 15:00 05:24 08:30 08:44 Blood Gas Puncture Site LT RADIAL RT RADIAL RT RADIAL Blood Gas Patient Temperature 98.6 98.6 98.6 Blood Gas HCO3 23 mmol/L 23 mmol/L 23 mmol/L (22-26) (22-26) (22-26) Blood Gas Base Excess -2.6 mmol/L -1.2 mmol/L -1.4 mmol/L (-2-2) (-2-2) (-2-2) Blood Gas Oxygen Saturation 90 % (90-100) 94 % (90-100) 96 % (90-100) Arterial Blood pH 7.33 7.36 7.36 (7.380-7.420) (7.380-7.420) (7.380-7.420) Arterial Blood Partial 44 mmHg (38-42) 42 mmHg (38-42) 42 mmHg (38-42) Pressure CO2 Arterial Blood Partial 72 mmHg 92 mmHg 129 mmHg Pressure O2 (61-120) (61-120) (61-120) Arterial Blood Oxygen Content 8.1 Vol % 9.1 Vol % 9.4 Vol % (12.0-20.0) (12.0-20.0) (12.0-20.0) Arterial Blood 2.0 % (0-4) 2.2 % (0-4) 1.8 % (0-4) Carboxyhemoglobin Arterial Blood Methemoglobin 1.6 % (0-2) 1.4 % (0-2) 1.4 % (0-2) Blood Gas Hemoglobin 6.3 G/DL 6.7 G/DL 6.8 G/DL (12.0-16.0) (12.0-16.0) (12.0-16.0) Oxygen Delivery Device BIPAP BiPAP PRBR Blood Gas Ventilator Setting [id number]/[id number] IPAP 15/EPAP 8 Blood Gas Inspired Oxygen 45 % 45 % Blood Gas Liter Flow 10 L/M White Blood Count 5.9 TH/MM3 (4.0-11.0) Red Blood Count 2.20 MIL/MM3 (4.50-5.90) Hemoglobin 6.3 GM/DL (13.0-17.0) Hematocrit 19.9 % (39.0-51.0) Mean Corpuscular Volume 90.6 FL (80.0-100.0) Mean Corpuscular Hemoglobin 28.8 PG (27.0-34.0) Mean Corpuscular Hemoglobin 31.8 % Concent (32.0-36.0) Red Cell Distribution Width 16.1 % (11.6-17.2) Platelet Count 140 TH/MM3 (150-450) Mean Platelet Volume 9.7 FL (7.0-11.0) Sodium Level 145 MEQ/L (136-145) Potassium Level 5.1 MEQ/L (3.5-5.1) Chloride Level 114 MEQ/L (98-107) Carbon Dioxide Level 26.2 MEQ/L (21.0-32.0) Anion Gap 5 MEQ/L (5-15) Blood Urea Nitrogen 104 MG/DL (7-18) Creatinine 2.41 MG/DL (0.60-1.30) Estimat Glomerular Filtration 27 ML/MIN (>89) Rate Random Glucose 135 MG/DL (74-106) Calcium Level 8.4 MG/DL (8.5-10.1) Test 01/25/17 01/25/17 01/25/17 01/26/17 11:54 15:08 16:59 01:10 White Blood Count 5.6 TH/MM3 5.0 TH/MM3 (4.0-11.0) (4.0-11.0) Red Blood Count 2.06 MIL/MM3 2.00 MIL/MM3 (4.50-5.90) (4.50-5.90) Hemoglobin 5.9 GM/DL 5.9 GM/DL (13.0-17.0) (13.0-17.0) Hematocrit 18.7 % 18.1 % (39.0-51.0) (39.0-51.0) Mean Corpuscular Volume 91.0 FL 90.6 FL (80.0-100.0) (80.0-100.0) Mean Corpuscular Hemoglobin 28.7 PG 29.4 PG (27.0-34.0) (27.0-34.0) Mean Corpuscular Hemoglobin 31.6 % 32.5 % Concent (32.0-36.0) (32.0-36.0) Red Cell Distribution Width 16.1 % 15.7 % (11.6-17.2) (11.6-17.2) Platelet Count 126 TH/MM3 117 TH/MM3 (150-450) (150-450) Mean Platelet Volume 9.5 FL 9.7 FL (7.0-11.0) (7.0-11.0) Neutrophils (%) (Auto) 77.9 % (16.0-70.0) Lymphocytes (%) (Auto) 5.5 % (9.0-44.0) Monocytes (%) (Auto) 8.6 % (0.0-8.0) Eosinophils (%) (Auto) 7.0 % (0.0-4.0) Basophils (%) (Auto) 1.0 % (0.0-2.0) Neutrophils # (Auto) 4.4 TH/MM3 (1.8-7.7) Lymphocytes # (Auto) 0.3 TH/MM3 (1.0-4.8) Monocytes # (Auto) 0.5 TH/MM3 (0-0.9) Eosinophils # (Auto) 0.4 TH/MM3 (0-0.4) Basophils # (Auto) 0.1 TH/MM3 (0-0.2) CBC Comment DIFF FINAL Differential Comment Sodium Level 147 MEQ/L (136-145) Potassium Level 5.2 MEQ/L (3.5-5.1) Chloride Level 115 MEQ/L (98-107) Carbon Dioxide Level 29.9 MEQ/L (21.0-32.0) Anion Gap 2 MEQ/L (5-15) Blood Urea Nitrogen 99 MG/DL (7-18) Creatinine 2.38 MG/DL (0.60-1.30) Estimat Glomerular Filtration 27 ML/MIN (>89) Rate Random Glucose 165 MG/DL (74-106) Calcium Level 8.0 MG/DL (8.5-10.1) Phosphorus Level 3.0 MG/DL (2.5-4.9) Magnesium Level 1.8 MG/DL (1.5-2.5) Total Bilirubin 0.4 MG/DL (0.2-1.0) Aspartate Amino Transf 14 U/L (15-37) (AST/SGOT) Alanine Aminotransferase 14 U/L (12-78) (ALT/SGPT) Alkaline Phosphatase 68 U/L (45-117) Total Protein 5.9 GM/DL (6.4-8.2) Albumin 2.3 GM/DL (3.4-5.0) Blood Type A POSITIVE A POSITIVE Crossmatch Leukocyte-Reduced Red Blood Cells Blood Bank Comment Test 01/26/17 01/26/17 01/26/17 01/26/17 02:47 10:29 10:48 15:29 Blood Type A POSITIVE A POSITIVE Crossmatch Leukocyte-Reduced Leukocyte-Reduced Red Blood Red Blood Cells Cells Blood Bank Comment White Blood Count 5.9 TH/MM3 (4.0-11.0) Red Blood Count 2.40 MIL/MM3 (4.50-5.90) Hemoglobin 6.8 GM/DL 7.2 GM/DL (13.0-17.0) (13.0-17.0) Hematocrit 21.0 % 21.3 % (39.0-51.0) (39.0-51.0) Mean Corpuscular Volume 87.8 FL (80.0-100.0) Mean Corpuscular Hemoglobin 28.6 PG (27.0-34.0) Mean Corpuscular Hemoglobin 32.5 % Concent (32.0-36.0) Red Cell Distribution Width 17.9 % (11.6-17.2) Platelet Count 112 TH/MM3 (150-450) Mean Platelet Volume 9.4 FL (7.0-11.0) Neutrophils (%) (Auto) 77.0 % (16.0-70.0) Lymphocytes (%) (Auto) 7.2 % (9.0-44.0) Monocytes (%) (Auto) 8.4 % (0.0-8.0) Eosinophils (%) (Auto) 6.7 % (0.0-4.0) Basophils (%) (Auto) 0.7 % (0.0-2.0) Neutrophils # (Auto) 4.6 TH/MM3 (1.8-7.7) Lymphocytes # (Auto) 0.4 TH/MM3 (1.0-4.8) Monocytes # (Auto) 0.5 TH/MM3 (0-0.9) Eosinophils # (Auto) 0.4 TH/MM3 (0-0.4) Basophils # (Auto) 0.0 TH/MM3 (0-0.2) CBC Comment DIFF FINAL Differential Comment Test 01/26/17 01/26/17 01/27/17 01/27/17 16:57 21:43 05:54 08:16 Blood Type A POSITIVE A POSITIVE Crossmatch Leukocyte-Reduced Leukocyte-Reduced Red Blood Red Blood Cells Cells Blood Bank Comment Hemoglobin 8.0 GM/DL 6.8 GM/DL (13.0-17.0) (13.0-17.0) Hematocrit 24.7 % 20.9 % (39.0-51.0) (39.0-51.0) White Blood Count 5.2 TH/MM3 (4.0-11.0) Red Blood Count 2.38 MIL/MM3 (4.50-5.90) Mean Corpuscular Volume 87.8 FL (80.0-100.0) Mean Corpuscular Hemoglobin 28.5 PG (27.0-34.0) Mean Corpuscular Hemoglobin 32.5 % Concent (32.0-36.0) Red Cell Distribution Width 17.4 % (11.6-17.2) Platelet Count 110 TH/MM3 (150-450) Mean Platelet Volume 9.5 FL (7.0-11.0) Sodium Level 151 MEQ/L (136-145) Potassium Level 4.9 MEQ/L (3.5-5.1) Chloride Level 117 MEQ/L (98-107) Carbon Dioxide Level 29.6 MEQ/L (21.0-32.0) Anion Gap 4 MEQ/L (5-15) Blood Urea Nitrogen 104 MG/DL (7-18) Creatinine 2.30 MG/DL (0.60-1.30) Estimat Glomerular Filtration 28 ML/MIN (>89) Rate Random Glucose 142 MG/DL (74-106) Calcium Level 8.1 MG/DL (8.5-10.1) Antibody Screen NEGATIVE Test 01/27/17 13:18 Prothrombin Time 12.2 SEC (9.8-11.6) Prothromb Time International 1.1 RATIO Ratio Activated Partial 30.0 SEC Thromboplast Time (24.3-30.1) Result Diagram: 01/27/17 0554 01/27/17 0554 Microbiology Microbiology Date/Time Procedure Status Source Growth 01/25/17 10:00 Stool Occult Blood ([facility]) - Final Complete Stool Stool HEMOCCULT POSITIVE . Imaging Last Impressions Chest X-Ray 01/25/17 0600 Signed Impressions: Service Date/Time: Wednesday, January 25, 2017 03:50 - CONCLUSION: Following infiltrate in the right lung base. Heart remains enlarged. Elieser Brush MD Chest CT 01/24/17 0000 Signed Impressions: Service Date/Time: Tuesday, January 24, 2017 16:13 - CONCLUSION: 1. Small bilateral pleural effusions and dependent atelectasis and consolidation in both lungs. No pericardial effusion. No pneumothorax. Vishal Woodward MD . Assessment and Plan Disease Oriented Problem List: (1) Obesity hypoventilation syndrome (2) CHF exacerbation (3) DM (diabetes mellitus) (4) Acidosis, metabolic (5) HTN (hypertension) (6) Anemia (7) Acute renal failure (8) Chronic venous hypertension w ulceration (9) Morbid obesity (10) Chronic acquired lymphedema Symptom Scale: (1) Pain 0-10 Scale: 0 (2) Weakness 0-10 Scale: Unable to quantify (3) Dyspnea 0-10 Scale: 0 Pertinent Non-Medical Issues Psychosocial: Has 2 sisters. Spiritual:M[employer]on [employer]. Legal: Patient appears capacitated, though has some behavioral tendencies, non- committal and difficult to keep engaged in conversations. He has designated Health Care surrogates Tania Joyce OR Orquidea Joyce (sisters). He does not want HCS called until he is unable to make his own decisions. Ethical issues impacting care: No known concerns at this time. . Important Contacts * HCS: Orquidea Joyce: [phone] * HCS: Tania Joyce, last known living at [facility], no contact information-- poss number in google search: [phone]; address [address] [facility]. . Prognosis Patient is a 71 year old male admitted with respiratory failure requiring intermittent BiPAP, active GI bleed - Eliquis on hold, acute on chronic renal failure and overall general debility, his overall prognosis is poor. He is high risk for further decline or setbacks given multiple comorbidities. . Code Status: Full Code Plan * Patient appears capacitated, though has some behavioral tendencies, non- committal and difficult to keep engaged in conversations. He has designated Health Care surrogates Tania Bentonff OR Orquidea Joyce (sisters). He does not want HCS called until he is unable to make his own decisions. * FULL CODE * 01/26/17 - Palliative care met with patient/ family: He verbalizes frustration regarding hospitalization and decline. He does not remember signing DNR. He is difficult to keep engaged in conversation regarding goals of care and CODE status. He does not want me to call his sisters to give update unless he is unable to speak for himself. Desires aggressive care for now, verbalizes he does not want to be just kept alive if in a vegetative state or if he will not improve. Doesn't want to be the "6 million dollar man." He agrees to continued palliative care visits. Hopefully, I can continue to build trust in an effort to clearly clarify goals. * 01/27/17 - Patient does not want to engage in goals of care discussion today. * SYMPTOMS: Pain: reports generalized discomfort all over, mostly in his left toes due to LE cellulitis and lymphedema. Has PRN Morphine available. Dyspnea: currently on oxygen via NC, intermittently on BiPAP. No new medication recommendations at this time. * Palliative care will continue to follow throughout hospital course to assist with symptom management and clarification of goals as needed. . Attestation To help prompt me to consider important information that might be impacting today's encounter and assessment, information from prior notes written by myself or my colleagues may have been "brought forward" into today's note. My signature on this note, however, is an attestation that I personally performed the exam, history, and/or decision-making noted today, and, unless otherwise indicated, the interactions with patient, family, and staff as well as the review of records all occurred today. I also attest that the listed assessment and stated plan reflect my best clinical judgment today based on the combination of historical information, prior notes, and today's exam/ interactions. When time spent is documented, it refers only to time spent today by the signer, or if indicated, combined time spent today by collaborating physician/nurse practitioner. Estela Diallo Jan 27, 2017 14:19
[2017-01-27 14:37] LABS: REVIEW FLAG FINAL
[2017-01-27 14:40] LABS: HEMATOCRIT 20.9 % (39.0-51.0)
[2017-01-27] MEDS: PANTOPRAZOLE INJ 80 MG in SODIUM CHLORIDE 0.9% INJ 100 ML IV SCH (16:08)
[2017-01-27] MEDS ORDERED: PANTOPRAZOLE INJ 80 MG in SODIUM CHLORIDE 0.9% INJ 35 ML IV ONE (16:15)
[2017-01-27 20:24] LABS: HEMATOCRIT 24.9 % (39.0-51.0); REVIEW FLAG FINAL
[2017-01-27] MEDS ORDERED: FAMOTIDINE 20 MG TAB PO SCH (21:00)
[2017-01-27] MEDS: FAMOTIDINE 20 MG TAB PO SCH (21:38)
[2017-01-28] VITALS (24 sets, daily range): BP systolic 102–153; BP diastolic 55–79; PULSE 73–93; RESP 14–25; TEMP 97.5–98.8; O2SAT 85–100
[2017-01-28] MEDS: PANTOPRAZOLE INJ 80 MG in SODIUM CHLORIDE 0.9% INJ 100 ML IV SCH ×3 (01:52→12:30)
[2017-01-28] MEDS: CHLORHEXIDINE GLUCONATE 2 % 1 PACK (2 CLOTHS) TOP SCH (04:00)
[2017-01-28] MEDS: OXYBUTYNIN CHLORIDE 5 MG TAB PO SCH ×3 (05:44→19:48)
[2017-01-28] MEDS: INSULIN ASPART SUPPLEMENTAL SCALE SQ SCH ×4 (05:54→19:57)
[2017-01-28 06:20] LABS: HEMATOCRIT 24.1 % (39.0-51.0); MEAN CELL VOLUME 88.4 FL (80.0-100.0); MEAN CORPUSCULAR HEMOGLOBIN 29.2 PG (27.0-34.0); PLATELET COUNT 132 TH/MM3 (150-450); RED BLOOD COUNT 2.72 MIL/MM3 (4.50-5.90); RED CELL DISTRIBUTION WIDTH 16.6 % (11.6-17.2); REVIEW FLAG FINAL; WHITE BLOOD COUNT 7.2 TH/MM3 (4.0-11.0)
[2017-01-28 06:51] LABS: BICARBONATE 31.3 MEQ/L (21.0-32.0); POTASSIUM 5.2 MEQ/L (3.5-5.1)
[2017-01-28] MEDS: DOCUSATE SODIUM 50 MG/SENNA 8.6 MG TAB PO SCH ×2 (09:00→19:48)
[2017-01-28] MEDS: ARTIFICIAL TEARS OPTH SOLN 15 ML BTL EACH EYE SCH ×3 (09:23→17:37)
[2017-01-28] MEDS: CARVEDILOL 12.5 MG TAB PO SCH ×2 (09:23→19:58)
[2017-01-28] MEDS: FAMOTIDINE 20 MG TAB PO SCH ×2 (09:24→19:48)
[2017-01-28] MEDS: cloNIDine HCL 0.2 MG TAB PO SCH ×2 (09:24→19:48)
[2017-01-28] MEDS: amLODIPine BESYLATE 5 MG TAB PO SCH ×2 (09:24→19:48)
[2017-01-28] MEDS: SODIUM CHLORIDE 0.9% FLUSH 10 ML FLUSH SCH ×2 (09:25→19:49)
[2017-01-28] MEDS: SODIUM CHLOR 0.45% 1000 ML INJ 1,000 ML IV SCH (09:30)
--- NOTE | 2017-01-28 11:07 | HHI.NPPN ---
Subjective General Problems: Edema Renal Failure: Chronic, Acute Interval History He is awake. Renal function is stable. On protonix gtt. (Chetna Davis) Review of Systems General Constitutional: Fatigue (Chetna Davis) Objective Data Data 01/27/17 01/28/17 19:00 07:00 Intake Total 769 ml 768 ml Output Total 480 ml 2370 ml Balance 289 ml -1602 ml Intake Oral 120 ml 600 ml IV Total 168 ml Packed Cells 649 ml Output Urine Total 480 ml 2370 ml # Voids 3 # Bowel Movements 0 Vital Signs Date Time Temp Pulse Resp B/P Pulse Ox O2 Delivery O2 Flow Rate FiO2 01/28/17 08:47 94 Nasal Cannula 5.00 01/28/17 06:00 80 01/28/17 06:00 79 19 124/61 90 01/28/17 05:15 97 Nasal Cannula 5.00 01/28/17 05:00 80 21 130/69 90 01/28/17 04:00 98.3 74 19 131/65 96 01/28/17 04:00 74 01/28/17 04:00 74 15 131/65 96 01/28/17 03:59 94 40 01/28/17 03:00 73 18 125/66 92 01/28/17 02:00 75 01/28/17 02:00 92 40 01/28/17 02:00 75 14 125/65 91 01/28/17 01:00 76 17 129/63 93 01/28/17 00:00 79 01/28/17 00:00 79 15 153/67 100 01/28/17 00:00 97.7 79 16 153/64 100 01/28/17 00:00 79 15 153/67 100 01/27/17 23:00 77 18 116/56 92 01/27/17 22:30 92 40 01/27/17 22:30 89 Bi-Pap 40 01/27/17 22:00 82 01/27/17 22:00 82 13 138/69 96 01/27/17 21:30 Bi-Pap 35 01/27/17 21:20 94 35 01/27/17 21:00 80 15 136/66 95 01/27/17 20:48 16 01/27/17 20:29 94 Nasal Cannula 6.00 01/27/17 20:11 80 26 161/67 92 01/27/17 20:00 97.5 78 16 161/67 94 01/27/17 20:00 94 Nasal Cannula 6.00 01/27/17 20:00 78 01/27/17 20:00 78 21 94 01/27/17 18:00 74 01/27/17 16:08 97.4 75 17 134/65 97 01/27/17 16:00 73 01/27/17 16:00 97.5 73 16 119/56 96 01/27/17 15:52 97.5 74 17 131/61 95 01/27/17 14:00 72 01/27/17 12:05 97.6 71 17 111/56 93 01/27/17 12:00 97.6 71 17 111/56 93 01/27/17 12:00 71 (Chetna Davis) -: 01/28/17 0554 01/28/17 0544 Drip Comment protonix (Chetna Davis) Physical Exam General Appearance: Well Developed, Comfortable, Obese (Chetna Davis) Throat Throat Exam: Oral Mucosa [place] & Moist (Chetna Davis) Neck Neck Exam: Neck Supple (Chetna Davis) Pulmonary Resp Exam: No Distress, Decreased Bases, Diminished Breath Sounds (Chetna Davis) Cardiology CV Exam: Regular (Chetna Davis) Gastrointestinal/Abdomen GI Exam: Soft, Non-Tender, Bowel Sounds Present (Chetna Davis) Genitourinary Exam: Clear Urine (Chetna Davis) Musculoskeletal MS Exam: Normal Gait (Chetna Davis) Extremeties Extremities Exam: Pedal Pulses Palpable, Moderate Edema Extremeties Remarks lymphedema, chronic skin changes (Chetna Davis) Neurologic Neuro Exam: Alert, Awake, Moving All Extremities (Chetna Davis) Psychiatric Psych Exam: Appropriate Responses (Chetna Davis) Assessment/Plan Discussed Condition With: Patient Assessment Summary: JOÃO/Acute Renal Failure Problem List: (1) Acute renal failure Plan: Renal function is stable he has underlying CKD IV, baseline creatinine from this past October of 2.1-2.9. Disproportionate BUN may be due to GI bleed he is non oliguric, has condom catheter K 5.2, recheck tomorrow avoid nephrotoxic substances NPO for EGD today, continue IVF (1/2 NS) until diet advances (2) CHF exacerbation Plan: monitor fluid volume status, EF 55% on Echo Continue coreg resume diuretics when clinically appropriate (3) Obesity hypoventilation syndrome Plan: on nasal cannula Oxygen Continue to monitor pulmonary status consider for gentle diuresis once renal function further stabilizes. (4) DM (diabetes mellitus) Plan: Monitor blood glucose, continue insulin as needed (5) HTN (hypertension) Plan: continue present medications follow blood pressure (6) Anemia Plan: has been given multiple units PRBC Due to endoscopy, GI following on Protonix infusion (Chetna Davis) Plan patient was seen and examined. Hypernatremia is noted. On 1/2NS. Renal function is slightly better. (Lisandro Vicente MD) Problem Qualifiers (1) Acute renal failure: Qualified Code: N17.9 - Acute renal failure, unspecified acute renal failure type (2) CHF exacerbation: Qualified Code: I50.9 - Acute on chronic congestive heart failure, unspecified congestive heart failure type (3) DM (diabetes mellitus): Qualified Code: E08.22 - Diabetes mellitus due to underlying condition with diabetic chronic kidney disease, unspecified CKD stage, unspecified [facility] insulin use status (4) Anemia: Qualified Code: N18.9 - Anemia in chronic kidney disease, unspecified CKD stage Chetna Davis Jan 28, 2017 11:07 Lisandro Vicente MD Jan 28, 2017 17:31
[2017-01-28] MEDS ORDERED: ONDANSETRON HCL 4 MG/2 ML VIAL IV PUSH ONE (12:00)
[2017-01-28] MEDS ORDERED: SUGAMMADEX SODIUM 200 MG/2 ML VIAL IV PUSH ONE ×2 (12:43)
[2017-01-28] MEDS ORDERED: EPINEPHrine HCL (1:10,000) 1 MG/10 ML SYRINGE OTHER ONE (13:15)
[2017-01-28] MEDS ORDERED: PROPOFOL 200 MG/20 ML AMP IV PUSH ONE (13:38)
--- NOTE | 2017-01-28 13:41 | HHI.GIFU ---
Subjective Remarks Immediate postop note: EGD with control of bleeding with biopsy Indication: GIB with melena Meds: GET in OR position: supine Findings: Esophagus normal Stomach: chronic gastritis. Biopsy taken Duodenum: blood and clots in bulb. Active bleeding in post bulbar duodenum posteriorly. There was a clot present with active bleeding. No tumor, possible small ulcer. Injected 5cc epi 1:10,000 with reduction of bleeding. Bipolar cautery applied. OOZing continued. Single clip placed in excellent position with cessation of the bleeding. Recheck afte 3 minutes showed no further bleeding. Objective Vitals I&O Vital Signs Date Time Temp Pulse Resp B/P Pulse Ox O2 Delivery O2 Flow Rate FiO2 01/28/17 08:47 94 Nasal Cannula 5.00 01/28/17 06:00 80 01/28/17 06:00 79 19 124/61 90 01/28/17 05:15 97 Nasal Cannula 5.00 01/28/17 05:00 80 21 130/69 90 01/28/17 04:00 98.3 74 19 131/65 96 01/28/17 04:00 74 01/28/17 04:00 74 15 131/65 96 01/28/17 03:59 94 40 01/28/17 03:00 73 18 125/66 92 01/28/17 02:00 75 01/28/17 02:00 92 40 01/28/17 02:00 75 14 125/65 91 01/28/17 01:00 76 17 129/63 93 01/28/17 00:00 79 01/28/17 00:00 79 15 153/67 100 01/28/17 00:00 97.7 79 16 153/64 100 01/28/17 00:00 79 15 153/67 100 01/27/17 23:00 77 18 116/56 92 01/27/17 22:30 92 40 01/27/17 22:30 89 Bi-Pap 40 01/27/17 22:00 82 01/27/17 22:00 82 13 138/69 96 01/27/17 21:30 Bi-Pap 35 01/27/17 21:20 94 35 01/27/17 21:00 80 15 136/66 95 01/27/17 20:48 16 01/27/17 20:29 94 Nasal Cannula 6.00 01/27/17 20:11 80 26 161/67 92 01/27/17 20:00 97.5 78 16 161/67 94 01/27/17 20:00 94 Nasal Cannula 6.00 01/27/17 20:00 78 01/27/17 20:00 78 21 94 01/27/17 18:00 74 01/27/17 16:08 97.4 75 17 134/65 97 01/27/17 16:00 73 01/27/17 16:00 97.5 73 16 119/56 96 01/27/17 15:52 97.5 74 17 131/61 95 01/27/17 14:00 72 I/O 01/27/17 01/27/17 01/27/17 01/28/17 01/28/17 01/28/17 07:00 15:00 23:00 07:00 15:00 23:00 Intake Total 100 ml 444 ml 892 ml 201 ml Output Total 480 ml 1150 ml 1220 ml Balance 100 ml -36 ml -258 ml -1019 ml Intake Oral 100 ml 120 ml 480 ml 120 ml IV Total 0 ml 87 ml 81 ml Packed Cells 324 ml 325 ml Output Urine Total 480 ml 1150 ml 1220 ml # Voids 2 3 # Bowel Movements 0 0 0 Laboratory Laboratory Tests Test 01/27/17 01/27/17 01/28/17 01/28/17 15:02 19:34 05:44 05:54 Crossmatch Leukocyte-Reduced Red Blood Cells Blood Bank Comment Hemoglobin 8.4 8.0 Hematocrit 24.9 24.1 Sodium Level 153 Potassium Level 5.2 Chloride Level 118 Carbon Dioxide Level 31.3 Anion Gap 4 Blood Urea Nitrogen 101 Creatinine 2.25 Estimat Glomerular Filtration 29 Rate Random Glucose 146 Calcium Level 8.1 White Blood Count 7.2 Red Blood Count 2.72 Mean Corpuscular Volume 88.4 Mean Corpuscular Hemoglobin 29.2 Mean Corpuscular Hemoglobin 33.0 Concent Red Cell Distribution Width 16.6 Platelet Count 132 Mean Platelet Volume 10.3 Date/Time Procedure Status Source Growth 01/25/17 10:00 Stool Occult Blood (WILMAN) - Final Complete Stool Stool HEMOCCULT POSITIVE Physical Exam HEENT: Normocephalic; atraumatic; no jaundice. CHEST: Resp even/unlabored on 2L via n/c. Diminished breath sounds. CARDIAC: RRR ABDOMEN: Soft, morbidly obesity, nondistended, nontender; no hepatosplenomegaly ; bowel sounds are present in all four quadrants. EXTREMITIES: Generlized edema. SKIN: BLE volodymyr wrap drsg d/i [employer]: No focal deficits; lethargic and oriented times three. Assessment and Plan Plan ASSESSMENT: - Upper GIB with melena. 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 HH was 7.4/23.7 on admission and dropped 6.8/21.9 on 01/24. S/P 7 units of PRBC. HH 6.8/ 20.9. Getting transfused today. Now on N/C. When I saw him at 9am, he had just had 1/2 bagel. He was made NPO. He will need EGD, timing to be determined. If active bleeding or significant drop in Hgb, this will be done later in the day. If it remains stable and no active bleeding, this can be planned for tomorrow. PPI with BID dosing. Check HH one hour after transfusion and instructed nurse to call with results. - Acute anemia secondary to blood loss, likely on underlying chronic anemia secondary to CKD. S/P 7 units of PRBC. HH 6.8/20.9. Getting transfused today. Check HH one hour after transfusion and instructed nurse to call with results. - Acute on chronic kidney disease with electrolyte abnormalities. Creat. 2.30. - Respiratory failure secondary to CHF, hyperventilation. Now on N/C. - Hyponatremia, DM, HTN, BLE chronic venous stasis dermatitis per primary. - EGD with control of bleeding and biopsy taken. The bleeding was from the post bulbar duodenum posteriorly. Adherent clot actively bleeding. Injected with epi, cautery applied and clip applied. Bleeding stopped at conclusion. PLAN: - Clear liquids today. - Continue the protonix drip for 24 hours. Continue octreotide drip for 12 hours. - H/H one hour after transfusion- call with results - Continue to Hold Eliquis - If bleeding recurs, will need IR to control with angiography - Supportive care Huy Hale MD Jan 28, 2017 13:41
[2017-01-28] MEDS ORDERED: DO NOT ADM ANY ANTICOAGULANT DRUGS PRN (14:08)
[2017-01-28] MEDS ORDERED: *RESP: ALBUTEROL 2.5 MG/3 ML NEB (PRN) PERIprocedural Use ONLY NEB ONE (14:28)
--- NOTE | 2017-01-28 14:42 | HHI.CCPN ---
Subjective Remarks/Hospital Course 71-year-old male and of nursing facility present for an evaluation of worsening BUN and creatinine. He has been treated for CHF exacerbation at the facility. Nephrology was consulted, but has not been able to see the patient. BUN and creatinine were worse on today's labs and the patient was brought to the hospital. The patient reports shortness of breath that is been ongoing for last couple days, he denies any worsening or new onset of shortness of breath, and he is also being treated for bilateral lower leg cellulitis. He denies any fevers or chills. He denies any chest pain. No abdominal pain. No nausea, vomiting. He does report intermittent diarrhea and constipation. The emergency department he was tachypneic an ache and hypoxemia so he was placed on a BiPAP. Subjective: 01/24:The patient continues on BiPAP, O2 sat ranging 95%. No dyspnea noted. ABG pending. 01/25: The patient continues on sodium bicarbonate infusion. Hemoglobin was noted to be 6.3, patient to be transfused today 2 units packed red blood cells. Hemoccult ordered, black tarry stools. 01/26: required 4 units prbc overnight. still with multiple melanotic stools overnight. palliative consulted today. 01/27: continues to have ongoing GI bleeding and transfusion requirement. GI consulted yesterday. patient currently NPO and possible EGD today. 01/28: continues to have transfusion requirement. plan for EGD today. otherwise Cr stable. ongoing palliative conversations. Objective Vital Signs Date Time Temp Pulse Resp B/P Pulse Ox O2 Delivery O2 Flow Rate FiO2 01/28/17 14:30 87 19 127/58 91 Simple Mask 10 01/28/17 14:08 98.8 01/28/17 03:59 40 Intake and Output 01/27/17 01/27/17 01/27/17 07:59 15:59 23:59 Intake Total 100 ml 444 ml 892 ml Output Total 480 ml 1150 ml Balance 100 ml -36 ml -258 ml Result Diagram: 01/28/17 0554 01/28/17 0544 Imaging Last 24 hours Impressions Chest X-Ray 01/23/17 9160 Signed Impressions: Service Date/Time: Monday, January 23, 2017 17:55 - CONCLUSION: Probable CHF Navneet Cevallos MD Objective Remarks GENERAL: Morbidly obese elderly man on nc o2. SKIN: Warm and dry. HEAD: Normocephalic. EYES: No scleral icterus. No injection or drainage. NECK: trachea midline. JVD unable to be assessed due to body habitus. CARDIOVASCULAR: normal rate, regular rhythm. RESPIRATORY: unlabored. equal chest rise. No accessory muscle use. GASTROINTESTINAL: Abdomen soft, non-tender, nondistended. MUSCULOSKELETAL: No cyanosis, or edema. Legs multiple volodymyr wrap and bandages EXTREMITIES: Chronic venous static changes on lower extremities chronic lymphedema A/P Assessment and Plan Assessment: 71yM with multiple acute on chronic medical problems. not doing well at baseline, and unlikely to overall improve in his functional status. agree with palliative care consult. GI bleeding is ongoing. will continue transfusion today. will hold on diuresis. EGD today. continue to trend H&H. must remain in ICU for high risk of declining and hemodynamic instability with active GI bleed. Active GI bleed - hold Eliquis. - continue iv bid ppi - GI following - hemoccult + - trend H&H Acute on chronic kidney injury - Nephrology consult - Ultrasound of kidneys- no hydro - improving. - hold off on further diuresis for now. Metabolic acidosis- improved. - Due to above - s/p bicarb infusion. Congestive heart failure with preserved EF - Coreg - hold eliquis given gi bleeding. - 01/24 Repeat 2-D echo-EF 5055%, or visualization of windows secondary to body habitus Acute hypercarbic and hypoxic respiratory failure- slowly improving - CHF - Obesity hypoventilation syndrome - BiPAP Diabetes mellitus - Begin clear liquid diet advance as tolerated - Insulin sliding scale Hypertension - Norvasc/Coreg Anemia secondary to acute blood loss from GI bleeding- worsening. -continue to transfuse for goal hgb > 7. trend H&H. DVT GI prophylaxis - hold Eliquis/iv bid ppi. dispo: remain in the ICU. agree with palliative. Uriel Bailey MD Jan 28, 2017 14:42
[2017-01-29] VITALS (16 sets, daily range): BP systolic 97–121; BP diastolic 53–61; PULSE 74–82; RESP 16–22; TEMP 98.2–98.8; O2SAT 86–99
[2017-01-29] MEDS: CHLORHEXIDINE GLUCONATE 2 % 1 PACK (2 CLOTHS) TOP SCH (04:00)
[2017-01-29 05:17] LABS: MEAN CELL VOLUME 91.4 FL (80.0-100.0); MEAN CORPUSCULAR HEMOGLOBIN 29.4 PG (27.0-34.0); MEAN CORPUSCULAR HGB CONC 32.1 % (32.0-36.0); PLATELET COUNT 118 TH/MM3 (150-450); RED BLOOD COUNT 2.41 MIL/MM3 (4.50-5.90); RED CELL DISTRIBUTION WIDTH 16.9 % (11.6-17.2); REVIEW FLAG FINAL; WHITE BLOOD COUNT 9.1 TH/MM3 (4.0-11.0)
[2017-01-29] MEDS: OXYBUTYNIN CHLORIDE 5 MG TAB PO SCH ×3 (05:36→20:58)
[2017-01-29] MEDS: PANTOPRAZOLE INJ 80 MG in SODIUM CHLORIDE 0.9% INJ 100 ML IV SCH ×2 (05:37→18:14)
[2017-01-29] MEDS: SODIUM CHLOR 0.45% 1000 ML INJ 1,000 ML IV SCH (05:37)
[2017-01-29] MEDS: INSULIN ASPART SUPPLEMENTAL SCALE SQ SCH ×3 (05:39→22:47)
[2017-01-29 05:45] LABS: BICARBONATE 28.7 MEQ/L (21.0-32.0)
[2017-01-29] MEDS ORDERED: RESP: ALBUTEROL 2.5 MG/IPRATROPIUM 0.5 MG NEB (PRN) NEB (07:15)
--- NOTE | 2017-01-29 07:22 | HHI.CCPN ---
Subjective Remarks/Hospital Course 71-year-old male and of nursing facility present for an evaluation of worsening BUN and creatinine. He has been treated for CHF exacerbation at the facility. Nephrology was consulted, but has not been able to see the patient. BUN and creatinine were worse on today's labs and the patient was brought to the hospital. The patient reports shortness of breath that is been ongoing for last couple days, he denies any worsening or new onset of shortness of breath, and he is also being treated for bilateral lower leg cellulitis. He denies any fevers or chills. He denies any chest pain. No abdominal pain. No nausea, vomiting. He does report intermittent diarrhea and constipation. The emergency department he was tachypneic an ache and hypoxemia so he was placed on a BiPAP. Subjective: 01/24:The patient continues on BiPAP, O2 sat ranging 95%. No dyspnea noted. ABG pending. 01/25: The patient continues on sodium bicarbonate infusion. Hemoglobin was noted to be 6.3, patient to be transfused today 2 units packed red blood cells. Hemoccult ordered, black tarry stools. 01/26: required 4 units prbc overnight. still with multiple melanotic stools overnight. palliative consulted today. 01/27: continues to have ongoing GI bleeding and transfusion requirement. GI consulted yesterday. patient currently NPO and possible EGD today. 01/28: continues to have transfusion requirement. plan for EGD today. otherwise Cr stable. ongoing palliative conversations. 01/29 No events ovenright. s/p EGD yesterday which showed chronic gastritis, duodenal ulcer s/p epi injection. clipped and cauterized. Hgb 7.1 this morning. Patient is on Protonix drip. Afebrile. Objective Vital Signs Date Time Temp Pulse Resp B/P Pulse Ox O2 Delivery O2 Flow Rate FiO2 01/29/17 06:00 78 01/29/17 04:12 90 40 01/29/17 04:00 98.6 20 97/53 01/28/17 19:40 BiPAP 01/28/17 14:30 10 Intake and Output 01/28/17 01/28/17 01/29/17 08:00 16:00 00:00 Intake Total 201 ml 848 ml 751 ml Output Total 1220 ml 1810 ml 1000 ml Balance -1019 ml -962 ml -249 ml Result Diagram: 01/29/17 0446 01/29/17 0446 Other Results Laboratory Tests Test 01/29/17 04:46 White Blood Count 9.1 TH/MM3 Red Blood Count 2.41 MIL/MM3 Hemoglobin 7.1 GM/DL Hematocrit 22.0 % Mean Corpuscular Volume 91.4 FL Mean Corpuscular Hemoglobin 29.4 PG Mean Corpuscular Hemoglobin 32.1 % Concent Red Cell Distribution Width 16.9 % Platelet Count 118 TH/MM3 Mean Platelet Volume 10.3 FL Sodium Level 150 MEQ/L Potassium Level 5.0 MEQ/L Chloride Level 115 MEQ/L Carbon Dioxide Level 28.7 MEQ/L Anion Gap 6 MEQ/L Blood Urea Nitrogen 94 MG/DL Creatinine 2.40 MG/DL Estimat Glomerular Filtration 27 ML/MIN Rate Random Glucose 174 MG/DL Calcium Level 8.2 MG/DL Phosphorus Level 3.5 MG/DL Imaging Last Impressions Chest X-Ray 01/25/17 0600 Signed Impressions: Service Date/Time: Wednesday, January 25, 2017 03:50 - CONCLUSION: Following infiltrate in the right lung base. Heart remains enlarged. Elieser Brush MD Chest CT 01/24/17 0000 Signed Impressions: Service Date/Time: Tuesday, January 24, 2017 16:13 - CONCLUSION: 1. Small bilateral pleural effusions and dependent atelectasis and consolidation in both lungs. No pericardial effusion. No pneumothorax. Vishal Woodward MD Objective Remarks GENERAL: Morbidly obese elderly man lying in bed in NAD SKIN: Warm and dry. HEAD: Normocephalic. EYES: No scleral icterus. No injection or drainage. NECK: trachea midline. JVD unable to be assessed due to body habitus. CARDIOVASCULAR: normal rate, regular rhythm. RESPIRATORY: unlabored. equal chest rise. No accessory muscle use. GASTROINTESTINAL: Abdomen soft, non-tender, nondistended. MUSCULOSKELETAL: No cyanosis, or edema. Legs multiple volodymyr wrap and bandages EXTREMITIES: Chronic venous static changes on lower extremities chronic lymphedema A/P Assessment and Plan 1) Resp Insuff 2) GI bleed 3)Anemia 2nd acute blood loss 4)Acute on chronic kidney injury 5)Congestive heart failure with preserved EF 6)Obesity hypoventilation syndrome 7) DM 8)Hypertension 9)Hypernatremia Neuro: Awake and alert Pulm: Continue with oxygen keep sat >92% Bronchodilators NIPPV PRN for resp distress CV: Monitor HR and BP keep MAP>65mmHg Echo 01/24 showed EF: 50-55%. On Coreg 25mg BID, Norvasc 5mg BID, Clonidine 0.2mg BID : Monitor renal function, I/O's, avoid nephrotoxins Cr: 2.4 from 2.25, UOP: 3300ml in 24 hrs, Renal is following Check renal US. On 1/2NS@50ml/hr, monitor sodium level. GI: On Clear liquid diet, s/p EGD which showed chronic gastritis, Duodenal ulcer s/p Epi injection, clipped and cauterized. On Protonix drip. d/c Pepcid Heme: Monitor CBC, transfuse 1unit PRBC for Hgb 7.1. Check H/H post transfusion ID: Place on abx ( Zosyn) Monitor for signs of infections ( Fever, WBC) check sputum cx, CXR showed RLL consolidation, atelectasis vs mild consolidation left lung base Endo: SSI with accuchecks GI prophylaxis- On Protonix drip DVT prophylaxis- SCD, chemical AC prophylaxis contraindicated in setting of GI bleed Palliative care is following PT eval and treat Level 3 Cortney Aguilar MD Jan 29, 2017 07:22
--- NOTE | 2017-01-29 07:49 | MR ---
cc: HUY HALE MD,JEFFREY ROBERTSON DATE OF PROCEDURE 01/28/2017 PROCEDURE Esophagogastroduodenoscopy with control of bleeding with biopsy. INDICATION GI bleed with melena. REQUESTING PHYSICIAN Referred by Dr. Lomax. PROCEDURE After adequate sedation was achieved, the patient was placed in the supine position in the operating room. General endotracheal anesthesia was administered. The patient remained in the supine position for the procedure. After adequate sedation was achieved, the Pentax video gastroscope was inserted in the oropharynx and advanced down through the esophagus into the stomach. There was some blood present in the stomach; it appeared fairly fresh. The scope was advanced down through the stomach and into the duodenum. In the duodenum there was copious amount of bright red blood and a few clots. This was irrigated as well as possible and suctioned clear as possible. This revealed an adherent clot with active bleeding in the post bulbar duodenum posteriorly. This area was injected with epinephrine 1:10,000 and a total of 5 cc were injected. This resulted in a reduction in the amount of bleeding and the field was somewhat clear. The bipolar cautery device was then advanced into position and several bursts at a level of 20 were administered. The clot was removed. There was still ongoing oozing at that time and decision was made to place a clip over the bleeding vessel. This was applied and in excellent position and the bleeding stopped. The scope was then withdrawn and the other part of the exam was conducted. The scope was retroflexed in the fundus and cardia. The gastric surfaces were washed carefully and there were no other sites of bleeding. A single biopsy was taken from the gastric antrum to evaluate for H. pylori and gastritis. The scope was then reinserted to the duodenum and the site was seen to be still clear and there was no oozing or bleeding. The scope was then withdrawn out the mouth and the procedure was terminated. He tolerated the procedure well and was returned to the recovery room in serious condition. FINDINGS 1. The esophagus appeared normal. 2. In the stomach there was chronic gastritis and a biopsy was taken. Prior to irrigation and aspiration there was some fresh blood in the stomach but no ulcers or erosions were seen. 3. The duodenum had much blood and clots in the bulb and in the postbulbar duodenum. This was aspirated and irrigated to reveal an actively bleeding lesion in the postbulbar duodenum posteriorly. There was a clot present that was adherent and there was active bleeding. There was no tumor. There could be possibly a small ulceration present there or it could be a Dieulafoy lesion. This was injected with 5 cc of epinephrine 1:10,000 with a reduction of bleeding. Bipolar cautery was applied resulting in some residual bruising. A single endoscopic clip was placed in excellent position with cessation of the bleeding. A recheck after 3 minutes showed that the bleeding had stopped. IMPRESSION 1. GI bleeding from a lesion at the postbulbar duodenum in the posterior position. The bleeding appears to have been controlled. 2. Chronic gastritis, rule out H pylori. 3. Patient previously was taking Eliquis. RECOMMENDATIONS 1. The patient should not take Eliquis until the lesion has healed, probably 1 week. 2. The patient should remain on a Protonix drip for another 24 hours. 3. He should remain on octreotide drip for another 12 hours and then it may be discontinued. 4. He should remain on proton pump inhibitor for the next 3-4 months. 5. Await the biopsy result. 6. Huy Hale MD [facility]/KRISSY /3:25 PM /7:36 AM MTDD
--- NOTE | 2017-01-29 08:45 | RADRPT ---
EXAM DATE/TIME: 01/29/2017 07:30 [facility] COMPARISON: CHEST SINGLE AP, January 25, 2017, 3:50. INDICATIONS : Short of breath. MEDICAL HISTORY : Gastroesophageal reflux disease. Renal failure, chronic. SURGICAL HISTORY : None. ENCOUNTER: Subsequent ACUITY: 1 week PAIN SCORE: 3/10 LOCATION: Bilateral chest FINDINGS: Portable AP views of the chest demonstrate cardiac silhouette size at the upper limits for normal. Radha ngs are underinflated. There is patchy airspace consolidation in the right lower lung zone atelectasi s versus mild consolidation at the left lung base. No pleural effusion or pneumothorax is identified. Bones demonstrate no acute finding. CONCLUSION: Stable chest x-ray with airspace consolidation in the right lower lung zone and atelectasis versus mi ld consolidation at the left lung base. Navneet English MD on January 29, 2017 at 8:41 Board Certified Radiologist. This report was verified electronically.
[2017-01-29] MEDS: ARTIFICIAL TEARS OPTH SOLN 15 ML BTL EACH EYE SCH ×3 (09:00→18:14)
[2017-01-29] MEDS: amLODIPine BESYLATE 5 MG TAB PO SCH ×2 (09:00→20:58)
[2017-01-29] MEDS: cloNIDine HCL 0.2 MG TAB PO SCH ×2 (09:00→20:57)
[2017-01-29] MEDS: CARVEDILOL 12.5 MG TAB PO SCH ×2 (09:13→20:58)
[2017-01-29] MEDS: DOCUSATE SODIUM 50 MG/SENNA 8.6 MG TAB PO SCH ×2 (09:13→20:58)
[2017-01-29] MEDS: SODIUM CHLORIDE 0.9% FLUSH 10 ML FLUSH SCH ×2 (09:14→20:57)
--- NOTE | 2017-01-29 10:38 | RADRPT ---
EXAM DATE/TIME: 01/29/2017 09:50 [place] COMPARISON: No previous studies available for comparison. INDICATIONS : Acute renal failure. MEDICAL HISTORY : Congestive heart failure. Hypertension. Gastroesophageal reflux disease. Dizziness. Numbness. Coronar y artery disease. Hyperlipidemia. Atrial fibrillation. Dyspnea. Wheezing. Abdominal pain. Renal failu re. MRSA. Diabetes. Incontincence. SURGICAL HISTORY : Tonsillectomy. ENCOUNTER: Initial ACUITY: 1 week PAIN SCORE: 4/10 LOCATION: Bilateral flank MEASUREMENTS: RIGHT KIDNEY: 10.6 x 6.2 x 5.7 cm LEFT KIDNEY: 11.2 x 5.6 x 6.9 cm FINDINGS: RIGHT KIDNEY: Renal cortex is normal in thickness and echotexture. No hydronephrosis, stone, or mass. LEFT KIDNEY: Renal cortex is normal in thickness and echotexture. No hydronephrosis, stone, or mass. BLADDER: Not visualized and most likely decompressed. Limited visualization due anterior bandage CONCLUSION: No evidence of hydronephrosis. Gustavo Grider MD on January 29, 2017 at 10:32 Board Certified Radiologist. This report was verified electronically.
--- NOTE | 2017-01-29 11:18 | HHI.HCPN ---
Reason for visit a. To assist with evaluation and management of symptoms including: dyspnea, pain, weakness. b. To assist medical decision maker(s) with: better understanding of current medical conditions; weighing benefits/burdens of medical treatment options; making medical treatment decisions. . Subjective/Interval History Patient seen and examined in ICU. Discussed with nurse. Patient awake and alert. He underwent EGD on 01/28/17 was found to have gastritis and duodenal ulcer s/p cauterization. Patient was open to conversation today, medical update provided. He elects NO CODE, he clearly does not want to be intubated, kept alive by machines. He does not want chest compressions, shock or ACLS. He denies pain today. Oxygen saturation 80s during my visit, he denies shortness of breath. On oxygen via NC. Afebrile. BP 97/53. Hemoglobin 7.1 today , getting transfused during my visit. Creatinine increased to 2.4. Renal ultrasound no evidence of hydronephrosis. Sodium 150. Stool sent for occult blood again today, large bloody BM. Chest xray stable with airspace consolidation in the right LL and atelectasis vs mild consolidation in the left lung base. In review of GI notes, having melanotic stool with drop in Hgb, but creat 2.40. Will d/w with IR, but doubt he will be able to have angiogram/embolization with impaired kidney function. . Family/friend interactions He does not want family contacted unless he is unable to speak for himself. . Advance Directives Living Will: Copy in medical record Health Care Surrogate: Copy in medical record Advance Directive Specifics Date completed: 11/19/16 . Health Care Surrogate(s): Designated HCS: Tania Joyce or Orquidea Joyce, sisters. . Documented care wishes: Completed community DNR and living will on 11-19-16. Appointed either one of his sisters as HCS verbalizing he wishes for them to know they do not have to serve in this role but it is ok for them to be contacted should he become incapacitated and unable to make his own medical decisions. Living will is a typical one stating should his attending and a consulting physician agree he has a terminal condition, end-stage condition, or is in a persistent vegetative state, he wishes for life-prolonging measures to be withheld or withdrawn. . Significant change in goals: NO CODE (DNR/DNI). Desires continued aggressive care short of NO CODE for now. . Objective Vital Signs Date Time Temp Pulse Resp B/P Pulse Ox O2 Delivery O2 Flow Rate FiO2 01/29/17 06:00 78 01/29/17 04:12 90 40 01/29/17 04:00 79 01/29/17 04:00 98.6 79 20 97/53 89 01/29/17 02:00 78 01/29/17 01:08 91 40 01/29/17 00:00 98.7 77 16 103/54 89 01/29/17 00:00 79 01/28/17 22:29 93 40 01/28/17 22:00 76 01/28/17 20:00 98.8 79 17 113/62 96 01/28/17 20:00 79 01/28/17 19:40 94 BiPAP 40 01/28/17 19:40 94 40 01/28/17 19:00 97 Bi-Pap 65 01/28/17 18:00 82 01/28/17 17:00 80 17 102/55 97 01/28/17 16:00 97.5 80 16 102/59 95 01/28/17 16:00 80 01/28/17 15:00 82 01/28/17 15:00 86 Bi-Pap 65 01/28/17 15:00 93 85 01/28/17 14:30 98.7 87 19 127/58 91 Simple Mask 10 01/28/17 14:15 85 15 129/60 90 Simple Mask 10 01/28/17 14:08 98.8 90 16 121/61 80 Nasal Cannula 6 01/28/17 12:12 84 25 115/64 94 01/28/17 12:00 82 01/28/17 12:00 98.5 82 20 113/57 92 Intake & Output 01/29/17 01/29/17 07:00 19:00 Intake Total 2297 ml Output Total 1500 ml Balance 797 ml Intake Oral 1415 ml IV Total 882 ml Output Urine Total 1500 ml # Bowel Movements 0 Physical Exam CONSTITUTIONAL/GENERAL: This is an obese patient, in no apparent distress. TUBES/LINES/DRAINS: oxygen via NC, PIV, perineal drainage collection bag, specialty air mattress. SKIN: No jaundice, rashes, or lesions. Ecchymoses on upper extremities. Bilateral LE dressings from knees to toes. Skin temperature warm. Not diaphoretic. EYES: Pupils equal and round and reactive. Extraocular motions intact. No scleral icterus. No injection or drainage. Fundi not examined. CARDIOVASCULAR: Regular rate and rhythm without murmurs, gallops, or rubs. RESPIRATORY/CHEST: Symmetric, unlabored respirations. Clear to auscultation. Distant breath sounds. GASTROINTESTINAL: Abdomen soft, non-tender, nondistended, protuberant. GENITOURINARY: Without palpable bladder distension. perineal drainage collection bag. MUSCULOSKELETAL: Bilateral LE with edema. Chronic venous stasis changes bilateral LEs. NEUROLOGICAL: Awake and alert. Follows commands. Generalized weakness. PSYCHIATRIC: Difficult to keep engaged in conversation. Often speaks with his eyes closed. . Diagnostic Tests Laboratory Laboratory Tests Test 01/26/17 01/26/17 01/26/17 01/27/17 15:29 16:57 21:43 05:54 Hemoglobin 7.2 GM/DL 8.0 GM/DL 6.8 GM/DL (13.0-17.0) (13.0-17.0) (13.0-17.0) Hematocrit 21.3 % 24.7 % 20.9 % (39.0-51.0) (39.0-51.0) (39.0-51.0) Blood Type A POSITIVE Crossmatch Leukocyte-Reduced Red Blood Cells Blood Bank Comment White Blood Count 5.2 TH/MM3 (4.0-11.0) Red Blood Count 2.38 MIL/MM3 (4.50-5.90) Mean Corpuscular Volume 87.8 FL (80.0-100.0) Mean Corpuscular Hemoglobin 28.5 PG (27.0-34.0) Mean Corpuscular Hemoglobin 32.5 % Concent (32.0-36.0) Red Cell Distribution Width 17.4 % (11.6-17.2) Platelet Count 110 TH/MM3 (150-450) Mean Platelet Volume 9.5 FL (7.0-11.0) Sodium Level 151 MEQ/L (136-145) Potassium Level 4.9 MEQ/L (3.5-5.1) Chloride Level 117 MEQ/L (98-107) Carbon Dioxide Level 29.6 MEQ/L (21.0-32.0) Anion Gap 4 MEQ/L (5-15) Blood Urea Nitrogen 104 MG/DL (7-18) Creatinine 2.30 MG/DL (0.60-1.30) Estimat Glomerular Filtration 28 ML/MIN (>89) Rate Random Glucose 142 MG/DL (74-106) Calcium Level 8.1 MG/DL (8.5-10.1) Test 01/27/17 01/27/17 01/27/17 01/27/17 08:16 13:18 15:02 19:34 Blood Type A POSITIVE Antibody Screen NEGATIVE Crossmatch Leukocyte-Reduced Leukocyte-Reduced Red Blood Red Blood Cells Cells Blood Bank Comment Hemoglobin 7.0 GM/DL 8.4 GM/DL (13.0-17.0) (13.0-17.0) Hematocrit 20.9 % 24.9 % (39.0-51.0) (39.0-51.0) Prothrombin Time 12.2 SEC (9.8-11.6) Prothromb Time International 1.1 RATIO Ratio Activated Partial 30.0 SEC Thromboplast Time (24.3-30.1) Test 01/28/17 01/28/17 01/29/17 01/29/17 05:44 05:54 04:46 07:18 Sodium Level 153 MEQ/L 150 MEQ/L (136-145) (136-145) Potassium Level 5.2 MEQ/L 5.0 MEQ/L (3.5-5.1) (3.5-5.1) Chloride Level 118 MEQ/L 115 MEQ/L (98-107) (98-107) Carbon Dioxide Level 31.3 MEQ/L 28.7 MEQ/L (21.0-32.0) (21.0-32.0) Anion Gap 4 MEQ/L (5-15) 6 MEQ/L (5-15) Blood Urea Nitrogen 101 MG/DL 94 MG/DL (7-18) (7-18) Creatinine 2.25 MG/DL 2.40 MG/DL (0.60-1.30) (0.60-1.30) Estimat Glomerular Filtration 29 ML/MIN (>89) 27 ML/MIN (>89) Rate Random Glucose 146 MG/DL 174 MG/DL (74-106) (74-106) Calcium Level 8.1 MG/DL 8.2 MG/DL (8.5-10.1) (8.5-10.1) White Blood Count 7.2 TH/MM3 9.1 TH/MM3 (4.0-11.0) (4.0-11.0) Red Blood Count 2.72 MIL/MM3 2.41 MIL/MM3 (4.50-5.90) (4.50-5.90) Hemoglobin 8.0 GM/DL 7.1 GM/DL (13.0-17.0) (13.0-17.0) Hematocrit 24.1 % 22.0 % (39.0-51.0) (39.0-51.0) Mean Corpuscular Volume 88.4 FL 91.4 FL (80.0-100.0) (80.0-100.0) Mean Corpuscular Hemoglobin 29.2 PG 29.4 PG (27.0-34.0) (27.0-34.0) Mean Corpuscular Hemoglobin 33.0 % 32.1 % Concent (32.0-36.0) (32.0-36.0) Red Cell Distribution Width 16.6 % 16.9 % (11.6-17.2) (11.6-17.2) Platelet Count 132 TH/MM3 118 TH/MM3 (150-450) (150-450) Mean Platelet Volume 10.3 FL 10.3 FL (7.0-11.0) (7.0-11.0) Phosphorus Level 3.5 MG/DL (2.5-4.9) Blood Type A POSITIVE Crossmatch Leukocyte-Reduced Red Blood Cells Blood Bank Comment Result Diagram: 01/29/17 0446 01/29/17 0446 Microbiology Microbiology Date/Time Procedure Status Source Growth 01/29/17 11:20 Stool Occult Blood ([facility]) Received Stool Stool Pending 01/25/17 10:00 Stool Occult Blood ([facility]) - Final Complete Stool Stool HEMOCCULT POSITIVE Imaging Last Impressions Renal Ultrasound 01/29/17 0000 Signed Impressions: Service Date/Time: January 09:50 - CONCLUSION: No evidence of hydronephrosis. Gustavo Grider MD Chest X-Ray 01/29/17 0000 Signed Impressions: Service Date/Time: January 07:30 - CONCLUSION: Stable chest x-ray with airspace consolidation in the right lower lung zone and atelectasis versus mild consolidation at the left lung base. Navneet English MD Chest CT 01/24/17 0000 Signed Impressions: Service Date/Time: Tuesday, January 24, 2017 16:13 - CONCLUSION: 1. Small bilateral pleural effusions and dependent atelectasis and consolidation in both lungs. No pericardial effusion. No pneumothorax. Vishal Woodward MD Procedures * 01/28/17 - EGD - + gastritis and duodenal ulcer s/p cauterization. Pathology pending. . Assessment and Plan Disease Oriented Problem List: (1) Obesity hypoventilation syndrome (2) CHF exacerbation (3) DM (diabetes mellitus) (4) Acidosis, metabolic (5) HTN (hypertension) (6) Anemia (7) Acute renal failure (8) Chronic venous hypertension w ulceration (9) Morbid obesity (10) Chronic acquired lymphedema Symptom Scale: (1) Pain 0-10 Scale: 0 (2) Weakness 0-10 Scale: Unable to quantify (3) Dyspnea 0-10 Scale: 0 Pertinent Non-Medical Issues Psychosocial: Has 2 sisters. Spiritual:[employer]. Legal: Patient appears capacitated, though has some behavioral tendencies, non- committal and difficult to keep engaged in conversations. He has designated Health Care surrogates Tania Joyce OR Orquidea Joyce (sisters). He does not want HCS called until he is unable to make his own decisions. Ethical issues impacting care: No known concerns at this time. . Important Contacts * HCS: Orquidea Joyce: [phone] * HCS: Tania Joyce, last known [facility] [address], no contact information-- poss number in google search: [phone]; address [address] [facility]. . Prognosis Patient is a 71 year old male admitted with respiratory failure requiring intermittent BiPAP, active GI bleed - Eliquis on hold, acute on chronic renal failure and overall general debility, his overall prognosis is poor. He is high risk for further decline or setbacks given multiple comorbidities. . Code Status: No Code Plan * Patient appears capacitated, though has some behavioral tendencies, non- committal and difficult to keep engaged in conversations. He has designated Health Care surrogates Tania Joyce OR Orquidea Joyce (sisters). He does not want HCS called until he is unable to make his own decisions. * NO CODE * 01/29/17 - Patient verbalizes frustration that he is not getting better. He told nurse earlier that he does not want cardiac resuscitation or intubation. He confirms this with me today, elects NO CODE (DNR/DNI). Medical update provided. He is more open to conversation today. he agrees to talk more tomorrow about status and goals of care. * SYMPTOMS: Pain: reports generalized discomfort all over, mostly in his left toes due to LE cellulitis and lymphedema. Has PRN Morphine available. Dyspnea: currently on oxygen via NC, intermittently on BiPAP. No new medication recommendations at this time. * Palliative care will continue to follow throughout hospital course to assist with symptom management and clarification of goals as needed. . Attestation To help prompt me to consider important information that might be impacting today's encounter and assessment, information from prior notes written by myself or my colleagues may have been "brought forward" into today's note. My signature on this note, however, is an attestation that I personally performed the exam, history, and/or decision-making noted today, and, unless otherwise indicated, the interactions with patient, family, and staff as well as the review of records all occurred today. I also attest that the listed assessment and stated plan reflect my best clinical judgment today based on the combination of historical information, prior notes, and today's exam/ interactions. When time spent is documented, it refers only to time spent today by the signer, or if indicated, combined time spent today by collaborating physician/nurse practitioner. Estela Diallo Jan 29, 2017 11:18
--- NOTE | 2017-01-29 11:42 | HHI.NPPN ---
Subjective General Problems: Edema Renal Failure: Chronic, Acute Interval History He is receiving blood transfusion, having bedside US. EGD yesterday with acute bleeding that required cauterization. (Chetna Davis) Review of Systems General Constitutional: Fatigue (Chetna Davis) Objective Data Data 01/28/17 01/29/17 19:00 07:00 Intake Total 848 ml 2297 ml Output Total 1810 ml 1500 ml Balance -962 ml 797 ml Intake Oral 20 ml 1415 ml IV Total 528 ml 882 ml Other 300 ml Output Urine Total 1800 ml 1500 ml Estimated Blood Loss 10 ml # Bowel Movements 0 0 Vital Signs Date Time Temp Pulse Resp B/P Pulse Ox O2 Delivery O2 Flow Rate FiO2 01/29/17 06:00 78 01/29/17 04:12 90 40 01/29/17 04:00 79 01/29/17 04:00 98.6 79 20 97/53 89 01/29/17 02:00 78 01/29/17 01:08 91 40 01/29/17 00:00 98.7 77 16 103/54 89 01/29/17 00:00 79 01/28/17 22:29 93 40 01/28/17 22:00 76 01/28/17 20:00 98.8 79 17 113/62 96 01/28/17 20:00 79 01/28/17 19:40 94 BiPAP 40 01/28/17 19:40 94 40 01/28/17 19:00 97 Bi-Pap 65 01/28/17 18:00 82 01/28/17 17:00 80 17 102/55 97 01/28/17 16:00 97.5 80 16 102/59 95 01/28/17 16:00 80 01/28/17 15:00 82 01/28/17 15:00 86 Bi-Pap 65 01/28/17 15:00 93 85 01/28/17 14:30 98.7 87 19 127/58 91 Simple Mask 10 01/28/17 14:15 85 15 129/60 90 Simple Mask 10 01/28/17 14:08 98.8 90 16 121/61 80 Nasal Cannula 6 01/28/17 12:12 84 25 115/64 94 01/28/17 12:00 82 01/28/17 12:00 98.5 82 20 113/57 92 (Chetna Davis) -: 01/29/17 0446 01/29/17 0446 Imaging Last 72 hours Impressions Renal Ultrasound 01/29/17 0000 Signed Impressions: Service Date/Time: January 09:50 - CONCLUSION: No evidence of hydronephrosis. Gustavo Grider MD Chest X-Ray 01/29/17 0000 Signed Impressions: Service Date/Time: January 07:30 - CONCLUSION: Stable chest x-ray with airspace consolidation in the right lower lung zone and atelectasis versus mild consolidation at the left lung base. Navneet English MD Drip Comment protonix , octreotide (Chetna Davis) Physical Exam General Appearance: Well Developed, Comfortable, Obese (Chetna Davis) Throat Throat Exam: Oral Mucosa [place] & Moist (Chetna Davis) Neck Neck Exam: Neck Supple (Chetna Davis) Pulmonary Resp Exam: No Distress, Decreased Bases, Diminished Breath Sounds (Chetna Davis) Cardiology CV Exam: Regular (Chetna Davis) Gastrointestinal/Abdomen GI Exam: Soft, Non-Tender, Bowel Sounds Present (Chetna Davis) Genitourinary Exam: Clear Urine (Chetna Davis) Musculoskeletal MS Exam: Normal Gait (Chetna Davis) Extremeties Extremities Exam: Pedal Pulses Palpable, Moderate Edema Extremeties Remarks lymphedema, chronic skin changes (Chetna Davis) Neurologic Neuro Exam: Alert, Awake, Moving All Extremities (Chetna Davis) Psychiatric Psych Exam: Appropriate Responses (Chetna Davis) Assessment/Plan Discussed Condition With: Patient Assessment Summary: JOÃO/Acute Renal Failure Problem List: (1) Acute renal failure Plan: Renal function slightly worse tdoay he has underlying CKD IV, baseline creatinine from this past October of 2.1-2.9. Disproportionate BUN likely due to GI bleed he is non oliguric, has condom catheter K normalized avoid nephrotoxic substances continue IVF, 1/2 NS @ 50 (2) CHF exacerbation Plan: monitor fluid volume status, EF 55% on Echo Continue coreg resume diuretics when clinically appropriate (3) Obesity hypoventilation syndrome Plan: on nasal cannula Oxygen Continue to monitor pulmonary status consider for gentle diuresis once renal function further stabilizes. (4) DM (diabetes mellitus) Plan: Monitor blood glucose, continue insulin as needed (5) HTN (hypertension) Plan: continue present medications follow blood pressure (6) Anemia Plan: receiving PRBC today s/p cauterization of duodenal bleed yesterday GI following on Protonix infusion and octreotide resume Eliquis in one week (Chetna Davis) Plan patient was seen and examined. Agree with above assessment and plan. (Lisandro Vicente MD) Problem Qualifiers (1) Acute renal failure: Qualified Code: N17.9 - Acute renal failure, unspecified acute renal failure type (2) CHF exacerbation: Qualified Code: I50.9 - Acute on chronic congestive heart failure, unspecified congestive heart failure type (3) DM (diabetes mellitus): Qualified Code: E08.22 - Diabetes mellitus due to underlying condition with diabetic chronic kidney disease, unspecified CKD stage, unspecified exterminator helper insulin use status (4) Anemia: Qualified Code: N18.9 - Anemia in chronic kidney disease, unspecified CKD stage Chetna Davis Jan 29, 2017 11:42 Lisandro Vicente MD Jan 30, 2017 15:29
[2017-01-29] MEDS: RESP: ALBUTEROL 2.5 MG/IPRATROPIUM 0.5 MG NEB (SCH) NEB ×4 (12:00→23:45)
--- NOTE | 2017-01-29 13:06 | HHI.GIFU ---
Subjective Remarks Resting in bed. Nurse reports that he has had melanotic stool today. HH dropped to 7.1 and he is getting transfused. Palliative care is following and he is a DNR. Objective Vitals I&O Vital Signs Date Time Temp Pulse Resp B/P Pulse Ox O2 Delivery O2 Flow Rate FiO2 01/29/17 06:00 78 01/29/17 04:12 90 40 01/29/17 04:00 79 01/29/17 04:00 98.6 79 20 97/53 89 01/29/17 02:00 78 01/29/17 01:08 91 40 01/29/17 00:00 98.7 77 16 103/54 89 01/29/17 00:00 79 01/28/17 22:29 93 40 01/28/17 22:00 76 01/28/17 20:00 98.8 79 17 113/62 96 01/28/17 20:00 79 01/28/17 19:40 94 BiPAP 40 01/28/17 19:40 94 40 01/28/17 19:00 97 Bi-Pap 65 01/28/17 18:00 82 01/28/17 17:00 80 17 102/55 97 01/28/17 16:00 97.5 80 16 102/59 95 01/28/17 16:00 80 01/28/17 15:00 82 01/28/17 15:00 86 Bi-Pap 65 01/28/17 15:00 93 85 01/28/17 14:30 98.7 87 19 127/58 91 Simple Mask 10 01/28/17 14:15 85 15 129/60 90 Simple Mask 10 01/28/17 14:08 98.8 90 16 121/61 80 Nasal Cannula 6 I/O 01/28/17 01/28/17 01/28/17 01/29/17 01/29/17 01/29/17 07:00 15:00 23:00 07:00 15:00 23:00 Intake Total 201 ml 848 ml 751 ml 1546 ml Output Total 1220 ml 1810 ml 1000 ml 500 ml Balance -1019 ml -962 ml -249 ml 1046 ml Intake Oral 120 ml 20 ml 350 ml 1065 ml IV Total 81 ml 528 ml 401 ml 481 ml Other 300 ml Output Urine Total 1220 ml 1800 ml 1000 ml 500 ml Estimated Blood Loss 10 ml # Bowel Movements 0 0 0 0 Laboratory Laboratory Tests Test 01/29/17 01/29/17 04:46 07:18 White Blood Count 9.1 Red Blood Count 2.41 Hemoglobin 7.1 Hematocrit 22.0 Mean Corpuscular Volume 91.4 Mean Corpuscular Hemoglobin 29.4 Mean Corpuscular Hemoglobin 32.1 Concent Red Cell Distribution Width 16.9 Platelet Count 118 Mean Platelet Volume 10.3 Sodium Level 150 Potassium Level 5.0 Chloride Level 115 Carbon Dioxide Level 28.7 Anion Gap 6 Blood Urea Nitrogen 94 Creatinine 2.40 Estimat Glomerular Filtration 27 Rate Random Glucose 174 Calcium Level 8.2 Phosphorus Level 3.5 Blood Type A POSITIVE Crossmatch Leukocyte-Reduced Red Blood Cells Blood Bank Comment Date/Time Procedure Status Source Growth 01/29/17 11:20 Stool Occult Blood ([facility]) Received Stool Stool Pending 01/25/17 10:00 Stool Occult Blood ([facility]) - Final Complete Stool Stool HEMOCCULT POSITIVE Imaging Last Impressions Renal Ultrasound 01/29/17 0000 Signed Impressions: Service Date/Time: January 09:50 - CONCLUSION: No evidence of hydronephrosis. Gustavo Grider MD Chest X-Ray 01/29/17 0000 Signed Impressions: Service Date/Time: January 07:30 - CONCLUSION: Stable chest x-ray with airspace consolidation in the right lower lung zone and atelectasis versus mild consolidation at the left lung base. Navneet English MD Chest CT 01/24/17 0000 Signed Impressions: Service Date/Time: Tuesday, January 24, 2017 16:13 - CONCLUSION: 1. Small bilateral pleural effusions and dependent atelectasis and consolidation in both lungs. No pericardial effusion. No pneumothorax. Vishal Woodward MD Physical Exam HEENT: Normocephalic; atraumatic; no jaundice. CHEST: Resp even/unlabored on 2L via n/c. Diminished breath sounds. CARDIAC: RRR ABDOMEN: Soft, morbidly obesity, nondistended, nontender; no hepatosplenomegaly ; bowel sounds are present in all four quadrants. EXTREMITIES: Generlized edema. SKIN: BLE volodymyr wrap drsg d/i CANAL STRUCTURE OPERATOR: No focal deficits; lethargic and oriented times three. Assessment and Plan Plan ASSESSMENT: - Upper GIB with melena. S/P EGD with control of bleeding (01/28/17)-----> GI bleeding from a lesion at the postbulbar duodenum in the posterior position, s/p injection with 5 cc epinephrine 1:10,000, bipolar cautery, single endoscopic clip placed, recheck 3 minutes showed that the bleeding has stopped, chronic gastritis, r/o h. pylori. Protonix gtt, s/p octreotide gtt. Plan was to hold Eliquis one week. Pt has had several melanotic stools today and HH dropped to 7.1/22.0. Will d/w IR, but his renal function is 2.40, so I doubt he will be able to have angiogram at this time. - Acute anemia secondary to blood loss. EGD as above. S/P 9 units PRBC. Protonix gtt. - Acute on chronic kidney disease with electrolyte abnormalities. Renal Ultrasound (01/29/17)----> No evidence of hydronephrosis. Creat. 2.40. - Respiratory failure secondary to CHF, hyperventilation. Now on N/C. - Hyponatremia, DM, HTN, BLE chronic venous stasis dermatitis per primary. PLAN: - Clear liquids - Cont. Protonix Gtt - Agree with transfusion - Monitor HH q6h - Transfuse as necessary - Pt having melanotic stool with drop in Hgb, but creat 2.40. Will d/w with IR , but doubt he will be able to have angiogram/embolization with impaired kidney function. - CBC, BMP in am - Supportive care - Further recommendations to follow based on results of above - Pt seen and examined by Dr. Hale and myself and this note is written on his behalf Lexi Reddy Jan 29, 2017 13:06
[2017-01-29 15:12] LABS: HEMATOCRIT 21.6 % (39.0-51.0); REVIEW FLAG FINAL
[2017-01-29] MEDS: PIPERACIL-TAZO 4.5 GM PREMIX 100 ML IV SCH ×2 (16:25→20:57)
[2017-01-30] VITALS (22 sets, daily range): BP systolic 110–135; BP diastolic 56–72; PULSE 71–119; RESP 15–29; TEMP 97.6–99; O2SAT 85–98
[2017-01-30 00:26] LABS: HEMATOCRIT 23.8 % (39.0-51.0); REVIEW FLAG FINAL
[2017-01-30] MEDS: CHLORHEXIDINE GLUCONATE 2 % 1 PACK (2 CLOTHS) TOP SCH (02:26)
[2017-01-30] MEDS: PIPERACIL-TAZO 4.5 GM PREMIX 100 ML IV SCH ×2 (02:26→07:47)
[2017-01-30] MEDS: SODIUM CHLOR 0.45% 1000 ML INJ 1,000 ML IV SCH (02:26)
[2017-01-30] MEDS: RESP: ALBUTEROL 2.5 MG/IPRATROPIUM 0.5 MG NEB (SCH) NEB ×6 (03:25→23:50)
[2017-01-30] MEDS: INSULIN ASPART SUPPLEMENTAL SCALE SQ SCH ×4 (05:00→22:33)
[2017-01-30] MEDS: PANTOPRAZOLE INJ 80 MG in SODIUM CHLORIDE 0.9% INJ 100 ML IV SCH ×3 (05:08→22:33)
[2017-01-30 06:00] LABS: BASOPHIL % 0.2 % (0.0-2.0); EOSINOPHIL # 0.5 TH/MM3 (0-0.4); EOSINOPHIL % 7.3 % (0.0-4.0); HEMO FLAGS DIFF FINAL; LYMPH % 7.5 % (9.0-44.0); LYMPHOCYTE # 0.5 TH/MM3 (1.0-4.8); MEAN CELL VOLUME 88.7 FL (80.0-100.0); MEAN CORPUSCULAR HEMOGLOBIN 28.5 PG (27.0-34.0); MEAN CORPUSCULAR HGB CONC 32.1 % (32.0-36.0); MONO % 7.3 % (0.0-8.0); NEUT % 77.7 % (16.0-70.0); PLATELET COUNT 101 TH/MM3 (150-450); RED BLOOD COUNT 2.59 MIL/MM3 (4.50-5.90); RED CELL DISTRIBUTION WIDTH 18.6 % (11.6-17.2); WHITE BLOOD COUNT 6.5 TH/MM3 (4.0-11.0)
[2017-01-30] MEDS: OXYBUTYNIN CHLORIDE 5 MG TAB PO SCH ×3 (06:00→22:33)
[2017-01-30 06:25] LABS: BICARBONATE 28.4 MEQ/L (21.0-32.0); MAGNESIUM 1.6 MG/DL (1.5-2.5); POTASSIUM 4.6 MEQ/L (3.5-5.1)
[2017-01-30] MEDS: DOCUSATE SODIUM 50 MG/SENNA 8.6 MG TAB PO SCH ×2 (07:45→20:37)
[2017-01-30] MEDS: CARVEDILOL 12.5 MG TAB PO SCH ×2 (07:45→20:37)
[2017-01-30] MEDS: amLODIPine BESYLATE 5 MG TAB PO SCH ×2 (07:45→20:37)
[2017-01-30] MEDS: cloNIDine HCL 0.2 MG TAB PO SCH ×2 (07:45→20:37)
[2017-01-30] MEDS: SODIUM CHLORIDE 0.9% FLUSH 10 ML FLUSH SCH ×2 (07:46→20:37)
[2017-01-30] MEDS: ARTIFICIAL TEARS OPTH SOLN 15 ML BTL EACH EYE SCH ×3 (07:46→17:07)
[2017-01-30 08:43] LABS: HEMATOCRIT 23.8 % (39.0-51.0); REVIEW FLAG FINAL
[2017-01-30] MEDS ORDERED: ALBUTEROL SULFATE 90 MCG/ACT HFA 18 GM INHALER INH ONE (08:53)
--- NOTE | 2017-01-30 09:35 | HHI.GIFU ---
Subjective Remarks Immediate postop note: EGD with control of bleeding with endoscopic clips and bipolar gold probe. 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 Bipolar cautery ablation Duodenum: previous clip in place, with bright red clot/poss vessel. Two additional clips placed. Post bulbar duodenum posteriorly No active bleeding seen. Objective Vitals I&O Vital Signs Date Time Temp Pulse Resp B/P Pulse Ox O2 Delivery O2 Flow Rate FiO2 01/30/17 07:20 93 Nasal Cannula 5.00 01/30/17 06:00 71 01/30/17 04:01 97 40 01/30/17 04:00 74 01/30/17 04:00 98.3 74 15 119/67 98 01/30/17 02:00 71 01/30/17 01:57 95 40 01/30/17 00:00 98.5 74 16 114/61 97 01/30/17 00:00 74 01/29/17 23:57 93 Bi-Pap 65 01/29/17 23:51 99 40 01/29/17 22:00 75 01/29/17 20:08 94 Nasal Cannula 5.00 01/29/17 20:00 78 01/29/17 20:00 98.3 78 20 112/61 91 01/29/17 19:00 88 Nasal Cannula 6.00 01/29/17 18:00 77 01/29/17 16:00 74 01/29/17 16:00 98.2 74 17 121/56 93 01/29/17 14:00 77 01/29/17 12:00 79 01/29/17 12:00 98.8 79 22 104/59 90 01/29/17 10:00 81 I/O 01/29/17 01/29/17 01/29/17 01/30/17 01/30/17 01/30/17 07:00 15:00 23:00 07:00 15:00 23:00 Intake Total 1546 ml 1610 ml 1180 ml 506 ml Output Total 500 ml 600 ml 500 ml 400 ml Balance 1046 ml 1010 ml 680 ml 106 ml Intake Oral 1065 ml 720 ml 500 ml IV Total 481 ml 890 ml 330 ml 506 ml Packed Cells 350 ml Output Urine Total 500 ml 600 ml 500 ml 400 ml # Bowel Movements 0 1 0 0 Laboratory Laboratory Tests Test 01/29/17 01/29/17 01/29/17 01/30/17 14:47 18:29 23:44 05:25 Hemoglobin 7.1 7.9 7.4 Hematocrit 21.6 23.8 23.0 Blood Type A POSITIVE Crossmatch Leukocyte-Reduced Red Blood Cells Blood Bank Comment White Blood Count 6.5 Red Blood Count 2.59 Mean Corpuscular Volume 88.7 Mean Corpuscular Hemoglobin 28.5 Mean Corpuscular Hemoglobin 32.1 Concent Red Cell Distribution Width 18.6 Platelet Count 101 Mean Platelet Volume 10.1 Neutrophils (%) (Auto) 77.7 Lymphocytes (%) (Auto) 7.5 Monocytes (%) (Auto) 7.3 Eosinophils (%) (Auto) 7.3 Basophils (%) (Auto) 0.2 Neutrophils # (Auto) 5.0 Lymphocytes # (Auto) 0.5 Monocytes # (Auto) 0.5 Eosinophils # (Auto) 0.5 Basophils # (Auto) 0.0 CBC Comment DIFF FINAL Differential Comment Sodium Level 144 Potassium Level 4.6 Chloride Level 111 Carbon Dioxide Level 28.4 Anion Gap 5 Blood Urea Nitrogen 86 Creatinine 2.65 Estimat Glomerular Filtration 24 Rate Random Glucose 140 Calcium Level 7.9 Phosphorus Level 3.9 Magnesium Level 1.6 Test 01/30/17 08:16 Hemoglobin 7.6 Hematocrit 23.8 Date/Time Procedure Status Source Growth 01/29/17 11:20 Stool Occult Blood ([facility]) - Final Complete Stool Stool HEMOCCULT POSITIVE Physical Exam HEENT: Normocephalic; atraumatic; no jaundice. CHEST: Resp even/unlabored on 2L via n/c. Diminished breath sounds. CARDIAC: RRR ABDOMEN: Soft, morbidly obesity, nondistended, nontender; no hepatosplenomegaly ; bowel sounds are present in all four quadrants. EXTREMITIES: Generlized edema. SKIN: BLE volodymyr wrap drsg d/i STUDY MANAGER: No focal deficits; lethargic and oriented times three. Assessment and Plan Plan ASSESSMENT: - Upper GIB with melena. S/P EGD with control of bleeding (01/28/17)-----> GI bleeding from a lesion at the postbulbar duodenum in the posterior position, s/p injection with 5 cc epinephrine 1:10,000, bipolar cautery, single endoscopic clip placed, recheck 3 minutes showed that the bleeding has stopped, chronic gastritis, r/o h. pylori. Protonix gtt, s/p octreotide gtt. Plan was to hold Eliquis one week. Pt has had several melanotic stools today and HH dropped to 7.1/22.0. Will d/w IR, but his renal function is 2.40, so I doubt he will be able to have angiogram at this time. - Acute anemia secondary to blood loss. EGD as above. S/P 9 units PRBC. Protonix gtt. - Acute on chronic kidney disease with electrolyte abnormalities. Renal Ultrasound (01/29/17)----> No evidence of hydronephrosis. Creat. 2.40. - Respiratory failure secondary to CHF, hyperventilation. Now on N/C. - Hyponatremia, DM, HTN, BLE chronic venous stasis dermatitis per primary. - 01/30 repeat EGD for additional evidence of bleeding. Two lesions seen. Previously clipped lesion has erythematous bloody spot/clot two additional clips placed. Post bulbar duodenum posterior. Also AVM seen anterior antrum. Bipolar cautery ablation. PLAN: - Clear liquids - Cont. Protonix Gtt - Agree with transfusion - Monitor HH q6h - Transfuse as necessary - CBC, BMP in am - Supportive care - for rebleed, angiography probably is best therapy, directed at area of the clips. Huy Hale MD Jan 30, 2017 09:35
[2017-01-30] MEDS ORDERED: DO NOT ADM ANY ANTICOAGULANT DRUGS PRN (09:52)
[2017-01-30] MEDS ORDERED: PROPOFOL 200 MG/20 ML AMP IV ONE (10:26)
[2017-01-30] MEDS ORDERED: ePHEDrine/NS 25 MG/5 ML SYR IV ONE (12:00)
[2017-01-30] MEDS ORDERED: ONDANSETRON HCL 4 MG/2 ML VIAL IV PUSH ONE (12:00)
--- NOTE | 2017-01-30 12:00 | HHI.HCPN ---
Reason for visit a. To assist with evaluation and management of symptoms including: dyspnea, pain, weakness. b. To assist medical decision maker(s) with: better understanding of current medical conditions; weighing benefits/burdens of medical treatment options; making medical treatment decisions. . Subjective/Interval History Patient seen and examined in ICU. Discussed with nurse and Dr. Bailey. Patient awake and alert. He is agitated regarding not being able to eat. He underwent EGD this morning with Dr. Hale for continued bleeding and persistent anemia despite prior EGD (with clipping and cautery) and transfusions. EGD today revealed AVM on anterior gastric wall with bipolar cautery ablation, duodenum with previous clip in place with bright red clot/poss vessel, 2 additional clips placed. May consider angiography if bleeding persists or worsens, uncertain if this will be able to be done with elevated creatinine. Patient does not really want to engage in conversation. He wants popsicle or something before lunch as he has not eaten since yesterday. He requests LLE dressing be loosened as he has pain in toes. Able to move toes, skin warm, able to put my fingers between dressing and foot. Nurse notified of patient requests. He denies shortness of breath. Oxygen saturation 95, on oxygen via NC 5 LPM via simple mask. Afebrile. BP 135/65. Hemoglobin 7.6 today. Creatinine continues to increase, now 2.65. Sodium 144. No new imaging. . Family/friend interactions Patient does not want family contacted unless he is unable to speak for himself. . Advance Directives Living Will: Copy in medical record Health Care Surrogate: Copy in medical record Advance Directive Specifics Date completed: 11/19/16 . Health Care Surrogate(s): Designated HCS: Tania Joyce or Orquidea Joyce, sisters. . Documented care wishes: Completed community DNR and living will on 11-19-16. Appointed either one of his sisters as HCS verbalizing he wishes for them to know they do not have to serve in this role but it is ok for them to be contacted should he become incapacitated and unable to make his own medical decisions. Living will is a typical one stating should his attending and a consulting physician agree he has a terminal condition, end-stage condition, or is in a persistent vegetative state, he wishes for life-prolonging measures to be withheld or withdrawn. . Significant change in goals: NO CODE. Patient does not want to engage in conversation today. . Objective Vital Signs Date Time Temp Pulse Resp B/P Pulse Ox O2 Delivery O2 Flow Rate FiO2 01/30/17 08:00 80 01/30/17 08:00 98.0 80 17 135/65 95 01/30/17 07:20 93 Nasal Cannula 5.00 01/30/17 07:00 95 Nasal Cannula 6.00 01/30/17 06:00 71 01/30/17 04:01 97 40 01/30/17 04:00 74 01/30/17 04:00 98.3 74 15 119/67 98 01/30/17 02:00 71 01/30/17 01:57 95 40 01/30/17 00:00 98.5 74 16 114/61 97 01/30/17 00:00 74 01/29/17 23:57 93 Bi-Pap 65 01/29/17 23:51 99 40 01/29/17 22:00 75 01/29/17 20:08 94 Nasal Cannula 5.00 01/29/17 20:00 78 01/29/17 20:00 98.3 78 20 112/61 91 01/29/17 19:00 88 Nasal Cannula 6.00 01/29/17 18:00 77 01/29/17 16:00 74 01/29/17 16:00 98.2 74 17 121/56 93 01/29/17 14:00 77 01/29/17 12:00 79 01/29/17 12:00 98.8 79 22 104/59 90 Intake & Output 01/30/17 01/30/17 07:00 19:00 Intake Total 1686 ml Output Total 900 ml Balance 786 ml Intake Oral 500 ml IV Total 836 ml Packed Cells 350 ml Output Urine Total 900 ml # Bowel Movements 0 Physical Exam CONSTITUTIONAL/GENERAL: This is an obese patient, in no apparent distress. TUBES/LINES/DRAINS: oxygen via simple mask, PIVs, perineal drainage collection bag, specialty air mattress. SKIN: No jaundice, rashes, or lesions. Ecchymoses on upper extremities. Bilateral LE dressings from knees to toes. Skin temperature warm. Not diaphoretic. EYES: Pupils equal and round and reactive. Extraocular motions intact. No scleral icterus. No injection or drainage. Fundi not examined. CARDIOVASCULAR: Regular rate and rhythm without murmurs, gallops, or rubs. RESPIRATORY/CHEST: Symmetric, unlabored respirations. Clear to auscultation. Distant breath sounds. GASTROINTESTINAL: Abdomen soft, non-tender, nondistended, protuberant. GENITOURINARY: Without palpable bladder distension. perineal drainage collection bag. MUSCULOSKELETAL: Bilateral LE with edema. Chronic venous stasis changes bilateral LEs. NEUROLOGICAL: Awake and alert. Follows commands. Generalized weakness. PSYCHIATRIC: Difficult to keep engaged in conversation. . Diagnostic Tests Laboratory Laboratory Tests Test 01/27/17 01/27/17 01/27/17 01/28/17 13:18 15:02 19:34 05:44 Hemoglobin 7.0 GM/DL 8.4 GM/DL (13.0-17.0) (13.0-17.0) Hematocrit 20.9 % 24.9 % (39.0-51.0) (39.0-51.0) Prothrombin Time 12.2 SEC (9.8-11.6) Prothromb Time International 1.1 RATIO Ratio Activated Partial 30.0 SEC Thromboplast Time (24.3-30.1) Crossmatch Leukocyte-Reduced Red Blood Cells Blood Bank Comment Sodium Level 153 MEQ/L (136-145) Potassium Level 5.2 MEQ/L (3.5-5.1) Chloride Level 118 MEQ/L (98-107) Carbon Dioxide Level 31.3 MEQ/L (21.0-32.0) Anion Gap 4 MEQ/L (5-15) Blood Urea Nitrogen 101 MG/DL (7-18) Creatinine 2.25 MG/DL (0.60-1.30) Estimat Glomerular Filtration 29 ML/MIN (>89) Rate Random Glucose 146 MG/DL (74-106) Calcium Level 8.1 MG/DL (8.5-10.1) Test 01/28/17 01/29/17 01/29/17 01/29/17 05:54 04:46 07:18 14:47 White Blood Count 7.2 TH/MM3 9.1 TH/MM3 (4.0-11.0) (4.0-11.0) Red Blood Count 2.72 MIL/MM3 2.41 MIL/MM3 (4.50-5.90) (4.50-5.90) Hemoglobin 8.0 GM/DL 7.1 GM/DL 7.1 GM/DL (13.0-17.0) (13.0-17.0) (13.0-17.0) Hematocrit 24.1 % 22.0 % 21.6 % (39.0-51.0) (39.0-51.0) (39.0-51.0) Mean Corpuscular Volume 88.4 FL 91.4 FL (80.0-100.0) (80.0-100.0) Mean Corpuscular Hemoglobin 29.2 PG 29.4 PG (27.0-34.0) (27.0-34.0) Mean Corpuscular Hemoglobin 33.0 % 32.1 % Concent (32.0-36.0) (32.0-36.0) Red Cell Distribution Width 16.6 % 16.9 % (11.6-17.2) (11.6-17.2) Platelet Count 132 TH/MM3 118 TH/MM3 (150-450) (150-450) Mean Platelet Volume 10.3 FL 10.3 FL (7.0-11.0) (7.0-11.0) Sodium Level 150 MEQ/L (136-145) Potassium Level 5.0 MEQ/L (3.5-5.1) Chloride Level 115 MEQ/L (98-107) Carbon Dioxide Level 28.7 MEQ/L (21.0-32.0) Anion Gap 6 MEQ/L (5-15) Blood Urea Nitrogen 94 MG/DL (7-18) Creatinine 2.40 MG/DL (0.60-1.30) Estimat Glomerular Filtration 27 ML/MIN (>89) Rate Random Glucose 174 MG/DL (74-106) Calcium Level 8.2 MG/DL (8.5-10.1) Phosphorus Level 3.5 MG/DL (2.5-4.9) Blood Type A POSITIVE Crossmatch Leukocyte-Reduced Red Blood Cells Blood Bank Comment Test 01/29/17 01/29/17 01/30/17 01/30/17 18:29 23:44 05:25 08:16 Blood Type A POSITIVE Crossmatch Leukocyte-Reduced Red Blood Cells Blood Bank Comment Hemoglobin 7.9 GM/DL 7.4 GM/DL 7.6 GM/DL (13.0-17.0) (13.0-17.0) (13.0-17.0) Hematocrit 23.8 % 23.0 % 23.8 % (39.0-51.0) (39.0-51.0) (39.0-51.0) White Blood Count 6.5 TH/MM3 (4.0-11.0) Red Blood Count 2.59 MIL/MM3 (4.50-5.90) Mean Corpuscular Volume 88.7 FL (80.0-100.0) Mean Corpuscular Hemoglobin 28.5 PG (27.0-34.0) Mean Corpuscular Hemoglobin 32.1 % Concent (32.0-36.0) Red Cell Distribution Width 18.6 % (11.6-17.2) Platelet Count 101 TH/MM3 (150-450) Mean Platelet Volume 10.1 FL (7.0-11.0) Neutrophils (%) (Auto) 77.7 % (16.0-70.0) Lymphocytes (%) (Auto) 7.5 % (9.0-44.0) Monocytes (%) (Auto) 7.3 % (0.0-8.0) Eosinophils (%) (Auto) 7.3 % (0.0-4.0) Basophils (%) (Auto) 0.2 % (0.0-2.0) Neutrophils # (Auto) 5.0 TH/MM3 (1.8-7.7) Lymphocytes # (Auto) 0.5 TH/MM3 (1.0-4.8) Monocytes # (Auto) 0.5 TH/MM3 (0-0.9) Eosinophils # (Auto) 0.5 TH/MM3 (0-0.4) Basophils # (Auto) 0.0 TH/MM3 (0-0.2) CBC Comment DIFF FINAL Differential Comment Sodium Level 144 MEQ/L (136-145) Potassium Level 4.6 MEQ/L (3.5-5.1) Chloride Level 111 MEQ/L (98-107) Carbon Dioxide Level 28.4 MEQ/L (21.0-32.0) Anion Gap 5 MEQ/L (5-15) Blood Urea Nitrogen 86 MG/DL (7-18) Creatinine 2.65 MG/DL (0.60-1.30) Estimat Glomerular Filtration 24 ML/MIN (>89) Rate Random Glucose 140 MG/DL (74-106) Calcium Level 7.9 MG/DL (8.5-10.1) Phosphorus Level 3.9 MG/DL (2.5-4.9) Magnesium Level 1.6 MG/DL (1.5-2.5) Result Diagram: 01/30/17 0816 01/30/17 0525 Microbiology Microbiology Date/Time Procedure Status Source Growth 01/29/17 11:20 Stool Occult Blood ([facility]) - Final Complete Stool Stool HEMOCCULT POSITIVE . Imaging Last Impressions Renal Ultrasound 01/29/17 0000 Signed Impressions: Service Date/Time: January 09:50 - CONCLUSION: No evidence of hydronephrosis. Gustavo Grider MD Chest X-Ray 01/29/17 0000 Signed Impressions: Service Date/Time: January 07:30 - CONCLUSION: Stable chest x-ray with airspace consolidation in the right lower lung zone and atelectasis versus mild consolidation at the left lung base. Navneet English MD Chest CT 01/24/17 0000 Signed Impressions: Service Date/Time: Tuesday, January 24, 2017 16:13 - CONCLUSION: 1. Small bilateral pleural effusions and dependent atelectasis and consolidation in both lungs. No pericardial effusion. No pneumothorax. Vishal Woodward MD . Procedures * 01/30/17 - EGD - revealed AVM on anterior gastric wall with bipolar cautery ablation, duodenum with previous clip in place with bright red clot/poss vessel , 2 additional clips placed. * 01/28/17 - EGD - + gastritis and duodenal ulcer s/p cauterization. Pathology reactive gastropathy, no H. Pylori. . Assessment and Plan Disease Oriented Problem List: (1) Obesity hypoventilation syndrome (2) CHF exacerbation (3) DM (diabetes mellitus) (4) Acidosis, metabolic (5) HTN (hypertension) (6) Anemia (7) Acute renal failure (8) Chronic venous hypertension w ulceration (9) Morbid obesity (10) Chronic acquired lymphedema Symptom Scale: (1) Pain 0-10 Scale: 2 (toes on left) (2) Weakness 0-10 Scale: Unable to quantify (3) Dyspnea 0-10 Scale: 0 Pertinent Non-Medical Issues Psychosocial: Has 2 sisters. Spiritual:[employer]. Legal: Patient appears capacitated, though has some behavioral tendencies, non- committal and difficult to keep engaged in conversations. He has designated Health Care surrogates Tania Joyce OR Orquidea Joyce (sisters). He does not want HCS called until he is unable to make his own decisions. Ethical issues impacting care: No known concerns at this time. . Important Contacts * HCS: Orquidea J. Isiah: [phone] * HCS: Tania Joyce, last known [address] [facility] [address] [facility] [address], no contact information-- poss number in google search: [phone]; address [address] [facility]. . Prognosis Patient is a 71 year old male admitted with respiratory failure requiring intermittent BiPAP, active GI bleed - Eliquis on hold, acute on chronic renal failure and overall general debility, his overall prognosis is poor. He is high risk for further decline or setbacks given multiple comorbidities. . Code Status: No Code Plan * Patient appears capacitated, though has some behavioral tendencies, non- committal and difficult to keep engaged in conversations. He has designated Health Care surrogates Tnaia Joyce OR Orquidea Joyce (sisters). He does not want HCS called until he is unable to make his own decisions. * NO CODE * 01/30/17 - Patient verbalizes frustration that he is not getting better. Does not want to engage in goals of care discussion. * SYMPTOMS: Pain: reports generalized discomfort all over, mostly in his left toes due to LE cellulitis and lymphedema. Has PRN Morphine available. Dyspnea: currently on oxygen via NC, intermittently on BiPAP. No new medication recommendations at this time. * Palliative care will continue to follow throughout hospital course to assist with symptom management and clarification of goals as needed. . Attestation To help prompt me to consider important information that might be impacting today's encounter and assessment, information from prior notes written by myself or my colleagues may have been "brought forward" into today's note. My signature on this note, however, is an attestation that I personally performed the exam, history, and/or decision-making noted today, and, unless otherwise indicated, the interactions with patient, family, and staff as well as the review of records all occurred today. I also attest that the listed assessment and stated plan reflect my best clinical judgment today based on the combination of historical information, prior notes, and today's exam/ interactions. When time spent is documented, it refers only to time spent today by the signer, or if indicated, combined time spent today by collaborating physician/nurse practitioner. Estela Diallo Jan 30, 2017 12:00
--- NOTE | 2017-01-30 13:02 | HHI.NPPN ---
Subjective General Problems: Edema Renal Failure: Chronic, Acute Interval History He is awake, reporting hunger and thirst. Creatinine is slightly worse today. ( Chetna Davis) Review of Systems General Constitutional: Fatigue (Chetna Davis) Objective Data Data 01/29/17 01/30/17 19:00 07:00 Intake Total 1610 ml 1686 ml Output Total 600 ml 900 ml Balance 1010 ml 786 ml Intake Oral 720 ml 500 ml IV Total 890 ml 836 ml Packed Cells 350 ml Output Urine Total 600 ml 900 ml # Bowel Movements 1 0 Vital Signs Date Time Temp Pulse Resp B/P Pulse Ox O2 Delivery O2 Flow Rate FiO2 01/30/17 12:00 97.6 86 17 118/66 90 01/30/17 12:00 86 01/30/17 10:20 98.0 88 15 114/58 96 01/30/17 09:50 97.9 87 15 115/58 95 01/30/17 08:00 80 01/30/17 08:00 98.0 80 17 135/65 95 01/30/17 07:20 93 Nasal Cannula 5.00 01/30/17 07:00 95 Nasal Cannula 6.00 01/30/17 06:00 71 01/30/17 04:01 97 40 01/30/17 04:00 74 01/30/17 04:00 98.3 74 15 119/67 98 01/30/17 02:00 71 01/30/17 01:57 95 40 01/30/17 00:00 98.5 74 16 114/61 97 01/30/17 00:00 74 01/29/17 23:57 93 Bi-Pap 65 01/29/17 23:51 99 40 01/29/17 22:00 75 01/29/17 20:08 94 Nasal Cannula 5.00 01/29/17 20:00 78 01/29/17 20:00 98.3 78 20 112/61 91 01/29/17 19:00 88 Nasal Cannula 6.00 01/29/17 18:00 77 01/29/17 16:00 74 01/29/17 16:00 98.2 74 17 121/56 93 01/29/17 14:00 77 (Chetna Davis) -: 01/30/17 0816 01/30/17 0525 Imaging Last 72 hours Impressions Renal Ultrasound 01/29/17 0000 Signed Impressions: Service Date/Time: January 09:50 - CONCLUSION: No evidence of hydronephrosis. Gustavo Grider MD Chest X-Ray 01/29/17 0000 Signed Impressions: Service Date/Time: January 07:30 - CONCLUSION: Stable chest x-ray with airspace consolidation in the right lower lung zone and atelectasis versus mild consolidation at the left lung base. Navneet English MD Drip Comment protonix (Chetna Davis B. [employer]) Physical Exam General Appearance: Well Developed, Comfortable, Obese (Chetna Davis [employer]. [employer]) Throat Throat Exam: Oral Mucosa Eagar & Moist (Gil Davison B. [employer]) Neck Neck Exam: Neck Supple (Gil Davison [employer]. [employer]) Pulmonary Resp Exam: Clear Bilaterally, No Distress, Decreased Bases, Diminished Breath Sounds (Chetna Davis [employer]. [employer]) Cardiology CV Exam: Regular (Chetna Davis [employer]. [employer]) Gastrointestinal/Abdomen GI Exam: Soft, Non-Tender, Bowel Sounds Present (Chetna Davis [employer]. [employer]) Genitourinary Exam: Clear Urine (Chetna Davis [employer]. [employer]) Musculoskeletal MS Exam: Normal Gait (Gil Davison [employer]. [employer]) Extremeties Extremities Exam: Pedal Pulses Palpable, Moderate Edema Extremeties Remarks lymphedema, chronic skin changes (Chetna Davis [employer]. [employer]) Neurologic Neuro Exam: Alert, Awake, Moving All Extremities (Chetna Davis [employer]. [employer]) Psychiatric Psych Exam: Appropriate Responses (Chetna Davis BMehrdad [employer]) Assessment/Plan Discussed Condition With: Patient Assessment Summary: JOÃO/Acute Renal Failure Problem List: (1) Acute renal failure Plan: Renal function is worse he has underlying CKD IV, baseline creatinine from this past October of 2.1-2.9. previously had disproportionate BUN likely due to GI bleed he is non oliguric, monitor output he has increased edema, fluid overload, give a dose of Bumex and monitor avoid nephrotoxic substances on clear liquid diet, stop IVF daily renal panel (2) CHF exacerbation Plan: monitor fluid volume status, EF 55% on Echo Continue coreg begin cautious diuresis (3) Obesity hypoventilation syndrome Plan: on nasal cannula Oxygen Continue to monitor pulmonary status (4) DM (diabetes mellitus) Plan: Monitor blood glucose, continue insulin as needed (5) HTN (hypertension) Plan: continue present medications follow blood pressure (6) Anemia Plan: Hb low but stable, s/p multiple PRBC transfusion s/p cauterization of duodenal bleed 01/28 GI following, may need repeat endoscopy on Protonix infusion resume Eliquis in one week (Chetna Davis) Plan patient was seen and examined. GFR may be at baseline. Monitor fluid and electrolytes. Hypernatremia has improved. Using Diuril is preferable for diuresis. (Lisandro Vicente MD) Problem Qualifiers (1) Acute renal failure: Qualified Code: N17.9 - Acute renal failure, unspecified acute renal failure type (2) CHF exacerbation: Qualified Code: I50.9 - Acute on chronic congestive heart failure, unspecified congestive heart failure type (3) DM (diabetes mellitus): Qualified Code: E08.22 - Diabetes mellitus due to underlying condition with diabetic chronic kidney disease, unspecified CKD stage, unspecified long-term insulin use status (4) Anemia: Qualified Code: N18.9 - Anemia in chronic kidney disease, unspecified CKD stage Chetna Davis Jan 30, 2017 13:02 Lisandro Vicente MD Jan 30, 2017 15:38
[2017-01-30] MEDS ORDERED: BUMETANIDE INJ 1 MG/4 ML VIAL IV PUSH ONE (13:15)
--- NOTE | 2017-01-30 16:00 | HHI.CCPN ---
Subjective Remarks/Hospital Course 71-year-old male and of nursing facility present for an evaluation of worsening BUN and creatinine. He has been treated for CHF exacerbation at the facility. Nephrology was consulted, but has not been able to see the patient. BUN and creatinine were worse on today's labs and the patient was brought to the hospital. The patient reports shortness of breath that is been ongoing for last couple days, he denies any worsening or new onset of shortness of breath, and he is also being treated for bilateral lower leg cellulitis. He denies any fevers or chills. He denies any chest pain. No abdominal pain. No nausea, vomiting. He does report intermittent diarrhea and constipation. The emergency department he was tachypneic an ache and hypoxemia so he was placed on a BiPAP. Subjective: 01/24:The patient continues on BiPAP, O2 sat ranging 95%. No dyspnea noted. ABG pending. 01/25: The patient continues on sodium bicarbonate infusion. Hemoglobin was noted to be 6.3, patient to be transfused today 2 units packed red blood cells. Hemoccult ordered, black tarry stools. 01/26: required 4 units prbc overnight. still with multiple melanotic stools overnight. palliative consulted today. 01/27: continues to have ongoing GI bleeding and transfusion requirement. GI consulted yesterday. patient currently NPO and possible EGD today. 01/28: continues to have transfusion requirement. plan for EGD today. otherwise Cr stable. ongoing palliative conversations. 01/29 No events overnight. s/p EGD yesterday which showed chronic gastritis, duodenal ulcer s/p epi injection. clipped and cauterized. Hgb 7.1 this morning. Patient is on Protonix drip. Afebrile. 01/30: repeat EGD today with ulcers and additional clips placed. hgb stable. patient without complaints. Cr slightly worse. Objective Vital Signs Date Time Temp Pulse Resp B/P Pulse Ox O2 Delivery O2 Flow Rate FiO2 01/30/17 12:00 97.6 86 17 118/66 90 01/30/17 07:20 Nasal Cannula 5.00 01/30/17 04:01 40 Intake and Output 01/29/17 01/29/17 01/29/17 07:59 15:59 23:59 Intake Total 1546 ml 1610 ml 1180 ml Output Total 500 ml 600 ml 500 ml Balance 1046 ml 1010 ml 680 ml Result Diagram: 01/30/17 0816 01/30/17 0525 Other Results Microbiology Date/Time Procedure Status Source Growth 01/29/17 11:20 Stool Occult Blood ([facility]) - Final Complete Stool Stool HEMOCCULT POSITIVE Imaging Last Impressions Chest X-Ray 01/25/17 0600 Signed Impressions: Service Date/Time: Wednesday, January 25, 2017 03:50 - CONCLUSION: Following infiltrate in the right lung base. Heart remains enlarged. Elieser Brush MD Chest CT 01/24/17 0000 Signed Impressions: Service Date/Time: Tuesday, January 24, 2017 16:13 - CONCLUSION: 1. Small bilateral pleural effusions and dependent atelectasis and consolidation in both lungs. No pericardial effusion. No pneumothorax. Vishal Woodward MD Objective Remarks GENERAL: Morbidly obese elderly man lying in bed in NAD SKIN: Warm and dry. HEAD: Normocephalic. EYES: No scleral icterus. No injection or drainage. NECK: trachea midline. JVD unable to be assessed due to body habitus. CARDIOVASCULAR: normal rate, regular rhythm. RESPIRATORY: unlabored. equal chest rise. No accessory muscle use. GASTROINTESTINAL: Abdomen soft, non-tender, nondistended. MUSCULOSKELETAL: No cyanosis, or edema. Legs multiple volodymyr wrap and bandages EXTREMITIES: Chronic venous static changes on lower extremities chronic lymphedema A/P Assessment and Plan 1) Resp Insufficiency- improving. 2) GI bleed- active and ongoing. 3)Anemia 2ndary to acute blood loss 4)Acute on chronic kidney injury, unknown CKD class at baseline. 5)Congestive heart failure with preserved EF 6)Obesity hypoventilation syndrome 7) DM 8)Hypertension 9)Hypernatremia Neuro: Awake and alert Pulm: Continue with oxygen keep sat >92% Bronchodilators NIPPV PRN for resp distress CV: Monitor HR and BP keep MAP>65mmHg Echo 01/24 showed EF: 50-55%. On Coreg 25mg BID, Norvasc 5mg BID, Clonidine 0.2mg BID : Monitor renal function, I/O's, avoid nephrotoxins Cr: continues to be elevated, uptrending. renal following. GI: On Clear liquid diet, s/p EGD which showed chronic gastritis, Duodenal ulcer s/p Epi injection, clipped and cauterized. On Protonix drip. Heme: Monitor CBC, serial H&H. transfuse for hgb < 7. ID: continue abx (Zosyn), f/u cultures. will de-escalate if negative cx at 48h. check sputum cx, CXR showed RLL consolidation, atelectasis vs mild consolidation left lung base Endo: SSI with accuchecks GI prophylaxis- On Protonix drip DVT prophylaxis- SCD, chemical AC prophylaxis contraindicated in setting of GI bleed Palliative care is following PT eval and treat Uriel Bailey MD Jan 30, 2017 16:00
[2017-01-30] MEDS: PIPERACIL-TAZO 3.375 GM PREMIX 50 ML IV SCH ×2 (16:29→20:37)
--- NOTE | 2017-01-30 23:01 | MR ---
cc: HUY HALE MD,JEFFREY ROBERTSON DATE 01/30/2017 PROCEDURE Esophagogastroduodenoscopy with controlled bleeding with endoscopic clips and with bipolar Gold probe INDICATION GI bleed REFERRED BY Dr. Lomax PROCEDURE IN DETAIL After informed consent was obtained, the patient was placed in the supine position in the operating room. He was given general endotracheal anesthesia. After adequate sedation was achieved, the Pentax video gastroscope was inserted in the oropharynx advanced to the esophagus, stomach and duodenum. In the duodenum, there was a lesion identified. It was the previously clipped spot in the postbulbar duodenum posteriorly. The clip was still in place, but there was a bright red clot or a possible vessel adjacent to it. Two additional endoscopic clips were placed at that spot with apparently effective closure of that site. The scope was then withdrawn back into the stomach and there was an AVM that was brightly erythematous. This was ablated using bipolar cautery device. The scope was then retroflexed in the fundus and cardia scope was then straightened and pulled through the esophagus and the procedure was terminated. He tolerated the procedure well and was returned to recovery area in good condition. FINDINGS 1. The esophagus was normal. 2. In the stomach, there was an AVM on the anterior gastric wall in the antrum. This was ablated using bipolar cautery. 3. In the duodenum, the previously treated site still had a clip in place with the bright red clot or possible vessel there. Two additional clips were placed with apparently good effect. This was located in the postbulbar duodenum posteriorly. No active bleeding was seen. IMPRESSION 1. Recurrent bleeding from the previous site in the postbulbar duodenum 2. 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 The patient should continue to be followed closely 2. Clear liquid diet. 3. Continue Protonix drip. 4. If rebleed occurs angiography therapy should be directed at the area with the clips, probably the posterior gastroduodenal artery area. Huy Hale MD [facility]/ /9:43 AM /10:43 PM
[2017-01-31] VITALS (24 sets, daily range): BP systolic 109–142; BP diastolic 65–82; PULSE 63–102; RESP 12–27; TEMP 97.3–98.9; O2SAT 79–98
[2017-01-31] MEDS: RESP: ALBUTEROL 2.5 MG/IPRATROPIUM 0.5 MG NEB (SCH) NEB ×6 (03:12→23:55)
[2017-01-31] MEDS: PIPERACIL-TAZO 3.375 GM PREMIX 50 ML IV SCH ×3 (03:51→13:46)
[2017-01-31] MEDS: CHLORHEXIDINE GLUCONATE 2 % 1 PACK (2 CLOTHS) TOP SCH (03:52)
[2017-01-31 04:29] LABS: HEMATOCRIT 23.9 % (39.0-51.0); MEAN CELL VOLUME 88.9 FL (80.0-100.0); MEAN CORPUSCULAR HEMOGLOBIN 28.7 PG (27.0-34.0); MEAN CORPUSCULAR HGB CONC 32.3 % (32.0-36.0); PLATELET COUNT 103 TH/MM3 (150-450); RED BLOOD COUNT 2.69 MIL/MM3 (4.50-5.90); RED CELL DISTRIBUTION WIDTH 17.9 % (11.6-17.2); REVIEW FLAG FINAL; WHITE BLOOD COUNT 6.6 TH/MM3 (4.0-11.0)
[2017-01-31 04:46] LABS: BICARBONATE 25.8 MEQ/L (21.0-32.0); POTASSIUM 4.8 MEQ/L (3.5-5.1)
[2017-01-31] MEDS: INSULIN ASPART SUPPLEMENTAL SCALE SQ SCH ×3 (05:22→16:43)
[2017-01-31] MEDS: OXYBUTYNIN CHLORIDE 5 MG TAB PO SCH ×3 (05:23→21:29)
[2017-01-31] MEDS: SODIUM CHLORIDE 0.9% FLUSH 10 ML FLUSH SCH ×2 (09:00→21:29)
[2017-01-31] MEDS: PANTOPRAZOLE INJ 80 MG in SODIUM CHLORIDE 0.9% INJ 100 ML IV SCH ×2 (09:16→21:11)
[2017-01-31] MEDS: CARVEDILOL 12.5 MG TAB PO SCH ×2 (09:16→21:29)
[2017-01-31] MEDS: DOCUSATE SODIUM 50 MG/SENNA 8.6 MG TAB PO SCH ×2 (09:16→21:29)
[2017-01-31] MEDS: cloNIDine HCL 0.2 MG TAB PO SCH ×2 (09:16→21:29)
[2017-01-31] MEDS: ARTIFICIAL TEARS OPTH SOLN 15 ML BTL EACH EYE SCH ×3 (09:16→18:00)
[2017-01-31] MEDS: amLODIPine BESYLATE 5 MG TAB PO SCH ×2 (09:16→21:29)
--- NOTE | 2017-01-31 09:33 | HHI.CCPN ---
Subjective Remarks/Hospital Course 71-year-old male and of nursing facility present for an evaluation of worsening BUN and creatinine. He has been treated for CHF exacerbation at the facility. Nephrology was consulted, but has not been able to see the patient. BUN and creatinine were worse on today's labs and the patient was brought to the hospital. The patient reports shortness of breath that is been ongoing for last couple days, he denies any worsening or new onset of shortness of breath, and he is also being treated for bilateral lower leg cellulitis. He denies any fevers or chills. He denies any chest pain. No abdominal pain. No nausea, vomiting. He does report intermittent diarrhea and constipation. The emergency department he was tachypneic an ache and hypoxemia so he was placed on a BiPAP. Subjective: 01/24:The patient continues on BiPAP, O2 sat ranging 95%. No dyspnea noted. ABG pending. 01/25: The patient continues on sodium bicarbonate infusion. Hemoglobin was noted to be 6.3, patient to be transfused today 2 units packed red blood cells. Hemoccult ordered, black tarry stools. 01/26: required 4 units prbc overnight. still with multiple melanotic stools overnight. palliative consulted today. 01/27: continues to have ongoing GI bleeding and transfusion requirement. GI consulted yesterday. patient currently NPO and possible EGD today. 01/28: continues to have transfusion requirement. plan for EGD today. otherwise Cr stable. ongoing palliative conversations. 01/29 No events overnight. s/p EGD yesterday which showed chronic gastritis, duodenal ulcer s/p epi injection. clipped and cauterized. Hgb 7.1 this morning. Patient is on Protonix drip. Afebrile. 01/30: repeat EGD today with ulcers and additional clips placed. hgb stable. patient without complaints. Cr slightly worse. 01/31: remains hemodynamically stable. hgb stable x 24h without blood products. renal function stable, although his JOÃO on CRF persists. continues to use nightly BiPAP. denies complaints this morning, and even smiled during breakfast. Objective Vital Signs Date Time Temp Pulse Resp B/P Pulse Ox O2 Delivery O2 Flow Rate FiO2 01/31/17 08:59 89 Nasal Cannula 5.00 01/31/17 07:00 45 01/31/17 06:00 73 01/31/17 04:00 98.9 13 140/69 Intake and Output 01/30/17 01/30/17 01/31/17 08:00 16:00 00:00 Intake Total 506 ml 987 ml 664 ml Output Total 400 ml 850 ml 1900 ml Balance 106 ml 137 ml -1236 ml Result Diagram: 01/31/17 0348 01/31/17 0348 Other Results Microbiology Date/Time Procedure Status Source Growth 01/29/17 11:20 Stool Occult Blood ([facility]) - Final Complete Stool Stool HEMOCCULT POSITIVE Imaging Last Impressions Chest X-Ray 01/25/17 0600 Signed Impressions: Service Date/Time: Wednesday, January 25, 2017 03:50 - CONCLUSION: Following infiltrate in the right lung base. Heart remains enlarged. Elieser Brush MD Chest CT 01/24/17 0000 Signed Impressions: Service Date/Time: Tuesday, January 24, 2017 16:13 - CONCLUSION: 1. Small bilateral pleural effusions and dependent atelectasis and consolidation in both lungs. No pericardial effusion. No pneumothorax. Vishal Woodward MD Objective Remarks GENERAL: Morbidly obese elderly man lying in bed in NAD SKIN: Warm and dry. HEAD: Normocephalic. EYES: No scleral icterus. No injection or drainage. NECK: trachea midline. JVD unable to be assessed due to body habitus. CARDIOVASCULAR: normal rate, regular rhythm. RESPIRATORY: unlabored. equal chest rise. No accessory muscle use. GASTROINTESTINAL: Abdomen soft, non-tender, nondistended. MUSCULOSKELETAL: No cyanosis, or edema. Legs multiple volodymyr wrap and bandages EXTREMITIES: Chronic venous static changes on lower extremities chronic lymphedema A/P Assessment and Plan 1) Resp Insufficiency- improving. 2) GI bleed- now appears controlled. 3)Anemia 2ndary to acute blood loss 4)Acute on chronic kidney injury, unknown CKD class at baseline. 5)Congestive heart failure with preserved EF 6)Obesity hypoventilation syndrome 7) DM 8)Hypertension 9)Hypernatremia Neuro: Awake and alert Pulm: Continue with oxygen keep sat >92% Bronchodilators BiPAP as needed. encourage nightly BiPAP use. CV: Monitor HR and BP keep MAP>65mmHg Echo 01/24 showed EF: 50-55%. On Coreg 25mg BID, Norvasc 5mg BID, Clonidine 0.2mg BID : Monitor renal function, I/O's, avoid nephrotoxins Cr: continues to be elevated, stable but persistent. renal following. would recommend continued diuresis. GI: On Clear liquid diet, s/p EGD which showed chronic gastritis, Duodenal ulcer s/p Epi injection, clipped and cauterized. On Protonix drip. Heme: Monitor CBC, serial H&H. transfuse for hgb < 7. ID: continue abx (Zosyn), f/u cultures. will de-escalate if negative cx at 48h. started 01/29. sputum expectoration difficult to obtain. patient afebrile. will d/ c abx and monitor for fever or wbc elevation. initially started for possible consolidation in right lung base, but also confounded with severe morbid obesity , atelectasis, and volume overload. Endo: SSI with accuchecks GI prophylaxis- On Protonix drip DVT prophylaxis- SCD, chemical AC prophylaxis contraindicated in setting of GI bleed Palliative care is following PT eval and treat Dispo: will transfer to step-down unit. consult hospitalist service for ongoing medical management. Uriel Bailey MD Jan 31, 2017 09:33
--- NOTE | 2017-01-31 10:31 | HHI.NPPN ---
Subjective General Problems: Edema Renal Failure: Chronic, Acute Interval History patient is comfortable. Non oliguric. Renal function is stable. Review of Systems General Constitutional: Fatigue Objective Data Data 01/30/17 01/31/17 18:59 06:59 Intake Total 1037 ml 1228 ml Output Total 850 ml 3000 ml Balance 187 ml -1772 ml Intake Oral 500 ml 960 ml IV Total 537 ml 268 ml Output Urine Total 850 ml 3000 ml # Bowel Movements 0 0 Vital Signs Date Time Temp Pulse Resp B/P Pulse Ox O2 Delivery O2 Flow Rate FiO2 01/31/17 10:00 70 01/31/17 10:00 70 18 133/70 92 01/31/17 09:00 74 12 136/79 98 01/31/17 08:59 89 Nasal Cannula 5.00 01/31/17 08:00 98.6 81 20 127/65 92 01/31/17 08:00 81 01/31/17 07:01 68 15 127/66 94 01/31/17 07:00 92 Bi-Pap 45 01/31/17 07:00 68 16 95 01/31/17 06:00 73 01/31/17 04:00 98.9 75 13 140/69 94 01/31/17 04:00 75 01/31/17 03:15 95 45 01/31/17 02:00 76 01/31/17 00:00 80 01/31/17 00:00 98.7 80 18 135/66 92 01/30/17 23:51 94 Simple Mask 8.00 01/30/17 23:33 99 Bi-Pap 65 01/30/17 22:00 84 01/30/17 21:27 92 40 01/30/17 20:00 99.0 92 17 127/72 91 01/30/17 20:00 92 01/30/17 19:00 91 Nasal Cannula 6.00 01/30/17 18:00 119 01/30/17 18:00 119 29 85 01/30/17 17:00 92 18 132/67 92 01/30/17 16:00 89 01/30/17 16:00 98.6 89 20 124/65 87 01/30/17 15:00 91 19 124/66 90 01/30/17 14:00 92 01/30/17 14:00 92 17 132/61 93 7/7/17 13:00 88 18 133/66 89 01/30/17 12:00 97.6 86 17 118/66 90 01/30/17 12:00 86 01/30/17 11:00 90 20 115/60 91 -: 01/31/17 0348 01/31/17 0348 Drip Comment protonix Physical Exam General Appearance: Well Developed, Comfortable, Obese Throat Throat Exam: Oral Mucosa [place] & Moist Neck Neck Exam: Neck Supple Pulmonary Resp Exam: Clear Bilaterally, No Distress, Decreased Bases, Diminished Breath Sounds Cardiology CV Exam: Regular Gastrointestinal/Abdomen GI Exam: Soft, Non-Tender, Bowel Sounds Present Genitourinary Exam: Clear Urine Extremeties Extremities Exam: Pedal Pulses Palpable Extremeties Remarks chronic edema, likely lymphedema. Neurologic Neuro Exam: Alert, Awake, Moving All Extremities Psychiatric Psych Exam: Appropriate Responses Assessment/Plan Discussed Condition With: Patient Assessment Summary: JOÃO/Acute Renal Failure Problem List: (1) Acute renal failure Plan: Renal function is stable. he has underlying CKD IV, baseline creatinine from this past October of 2.1-2.9. previously had disproportionate BUN likely due to GI bleed he is non oliguric, monitor output. Avoid nephrotoxic agents. (2) CHF exacerbation Plan: monitor fluid volume status, EF 55% on Echo Continue Coreg. (3) Obesity hypoventilation syndrome Plan: on nasal cannula Oxygen Continue to monitor pulmonary status (4) DM (diabetes mellitus) Plan: Monitor blood glucose, continue insulin as needed (5) HTN (hypertension) Plan: continue present medications follow blood pressure (6) Anemia Plan: Hb low but stable, s/p multiple PRBC transfusion s/p cauterization of duodenal bleed 01/28, repeat EGD on 01/30. GI following. If he bleeds again, he may need IR consult for embolization of the bleeding artery. on Protonix infusion Apixaban suspended. Problem Qualifiers (1) Acute renal failure: Qualified Code: N17.9 - Acute renal failure, unspecified acute renal failure type (2) CHF exacerbation: Qualified Code: I50.9 - Acute on chronic congestive heart failure, unspecified congestive heart failure type (3) DM (diabetes mellitus): Qualified Code: E08.22 - Diabetes mellitus due to underlying condition with diabetic chronic kidney disease, unspecified CKD stage, unspecified assisted insulin use status (4) Anemia: Qualified Code: N18.9 - Anemia in chronic kidney disease, unspecified CKD stage Lisandro Vicente MD Jan 31, 2017 10:31
--- NOTE | 2017-01-31 15:12 | HHI.GIFU ---
Subjective Remarks Patient resting in bed, denies abd pain, nausea, vomiting, abd pain or melena ( Fermin Goel) Objective Vitals I&O Vital Signs Date Time Temp Pulse Resp B/P Pulse Ox O2 Delivery O2 Flow Rate FiO2 01/31/17 14:00 65 01/31/17 12:00 97.8 68 19 142/72 91 01/31/17 12:00 68 01/31/17 11:00 102 22 109/71 85 01/31/17 10:00 70 01/31/17 10:00 70 18 133/70 92 01/31/17 09:00 74 12 136/79 98 01/31/17 08:59 89 Nasal Cannula 5.00 01/31/17 08:00 98.6 81 20 127/65 92 01/31/17 08:00 81 01/31/17 07:01 68 15 127/66 94 01/31/17 07:00 92 Bi-Pap 45 01/31/17 07:00 68 16 95 01/31/17 06:00 73 01/31/17 04:00 98.9 75 13 140/69 94 01/31/17 04:00 75 01/31/17 03:15 95 45 01/31/17 02:00 76 01/31/17 00:00 80 01/31/17 00:00 98.7 80 18 135/66 92 01/30/17 23:51 94 Simple Mask 8.00 01/30/17 23:33 99 Bi-Pap 65 01/30/17 22:00 84 01/30/17 21:27 92 40 01/30/17 20:00 99.0 92 17 127/72 91 01/30/17 20:00 92 01/30/17 19:00 91 Nasal Cannula 6.00 01/30/17 18:00 119 01/30/17 18:00 119 29 85 01/30/17 17:00 92 18 132/67 92 01/30/17 16:00 89 01/30/17 16:00 98.6 89 20 124/65 87 I/O 01/30/17 01/30/17 01/30/17 01/31/17 01/31/17 01/31/17 07:00 15:00 23:00 07:00 15:00 23:00 Intake Total 506 ml 987 ml 664 ml 614 ml 867 ml Output Total 400 ml 850 ml 1900 ml 1100 ml 1250 ml Balance 106 ml 137 ml -1236 ml -486 ml -383 ml Intake Oral 500 ml 480 ml 480 ml 720 ml IV Total 506 ml 487 ml 184 ml 134 ml 147 ml Output Urine Total 400 ml 850 ml 1900 ml 1100 ml 1250 ml # Bowel Movements 0 0 0 0 0 Laboratory Laboratory Tests Test 01/31/17 03:48 White Blood Count 6.6 Red Blood Count 2.69 Hemoglobin 7.7 Hematocrit 23.9 Mean Corpuscular Volume 88.9 Mean Corpuscular Hemoglobin 28.7 Mean Corpuscular Hemoglobin 32.3 Concent Red Cell Distribution Width 17.9 Platelet Count 103 Mean Platelet Volume 10.2 Sodium Level 141 Potassium Level 4.8 Chloride Level 108 Carbon Dioxide Level 25.8 Anion Gap 7 Blood Urea Nitrogen 78 Creatinine 2.65 Estimat Glomerular Filtration 24 Rate Random Glucose 236 Calcium Level 8.1 Date/Time Procedure Status Source Growth 01/29/17 11:20 Stool Occult Blood ([facility]) - Final Complete Stool Stool HEMOCCULT POSITIVE Imaging Last Impressions Renal Ultrasound 01/29/17 0000 Signed Impressions: Service Date/Time: January 09:50 - CONCLUSION: No evidence of hydronephrosis. Gustavo Grider MD Chest X-Ray 01/29/17 0000 Signed Impressions: Service Date/Time: January 07:30 - CONCLUSION: Stable chest x-ray with airspace consolidation in the right lower lung zone and atelectasis versus mild consolidation at the left lung base. Navneet English MD Chest CT 01/24/17 0000 Signed Impressions: Service Date/Time: Tuesday, January 24, 2017 16:13 - CONCLUSION: 1. Small bilateral pleural effusions and dependent atelectasis and consolidation in both lungs. No pericardial effusion. No pneumothorax. Vishal Woodward MD Physical Exam HEENT: Normocephalic; atraumatic; no jaundice. CHEST: Resp even/unlabored Diminished breath sounds. CARDIAC: RRR ABDOMEN: Soft, morbidly obesity, nondistended, nontender; no hepatosplenomegaly ; bowel sounds are present in all four quadrants. EXTREMITIES: Generlized edema. SKIN: BLE volodymyr wrap drsg d/i HYPERBARIC TECHNOLOGIST: No focal deficits; alert and oriented times three. (Fermin Goel) Assessment and Plan Plan ASSESSMENT: - Upper GIB with melena. S/P EGD with control of bleeding (01/28/17)-----> GI bleeding from a lesion at the postbulbar duodenum in the posterior position, s/p injection with 5 cc epinephrine 1:10,000, bipolar cautery, single endoscopic clip placed, recheck 3 minutes showed that the bleeding has stopped, chronic gastritis, r/o h. pylori. Protonix gtt, s/p octreotide gtt. Plan was to hold Eliquis one week. Pt has had several melanotic stools today and HH dropped to 7.1/22.0. Will d/w IR, but his renal function is 2.40, so I doubt he will be able to have angiogram at this time. - Acute anemia secondary to blood loss. EGD as above. S/P 9 units PRBC. Protonix gtt. - Acute on chronic kidney disease with electrolyte abnormalities. Renal Ultrasound (01/29/17)----> No evidence of hydronephrosis. Creat. 2.40. - Respiratory failure secondary to CHF, hyperventilation. Now on N/C. - Hyponatremia, DM, HTN, BLE chronic venous stasis dermatitis per primary. - 01/30 repeat EGD for additional evidence of bleeding. Two lesions seen. Previously clipped lesion has erythematous bloody spot/clot two additional clips placed. Post bulbar duodenum posterior. Also AVM seen anterior antrum. Bipolar cautery ablation. 01-31-17 S/p EGD on (01/30/17) as above, no melena reported today, hh stable PLAN: - Full liquids diet, if no signs of bleeding, can advance diet - Cont. Protonix Gtt - Monitor hh - Transfuse as necessary - CBC, BMP in am - Supportive care - angiography for rebleed - Patient seen and examined by Dr. Hernandez and myself (Fermin Goel) Fermin Goel Jan 31, 2017 15:12 Josseline Hernandez MD Jan 31, 2017 18:18
--- NOTE | 2017-01-31 18:17 | MB ---
cc: NU NICHOLS MD DATE OF CONSULTATION: 01/31/2017. REASON FOR CONSULTATION: Medical management. TRAVEL IN THE LAST THIRTY DAYS: None. HISTORY OF PRESENT ILLNESS: This is a pleasant 71-year-old morbidly obese white male who was admitted on 01/23/2017 for worsening of his BUN and creatinine. He also had been treated for CHF exacerbation at a local facility and also required extensive wound care for bilateral lower leg cellulitis and lymphedema. On admission, the patient denies any chills, fever, chest pain. The patient does have periods of shortness of breath and also struggles with comorbidity of hypoventilation syndrome, congestive heart failure exacerbation, diabetes, metabolic acidosis and other comorbidities. He was initially placed in the intensive care unit and monitored with the sponge hooker as well as GI and nephrology. He has now stabilized. We were asked per Dr. Lord to continue his medical management. The patient during this admission has been transfused for a low hemoglobin on 01/25 and 01/26. He has had some ongoing GI bleeding and has been followed and medically managed per the GI Team. His acute on chronic renal failure has been managed per the nephrology team. They continue to monitor his fluid status as well as his renal failure. PAST MEDICAL HISTORY: According to the patient and the medical record: 1. He has history of atrial fibrillation. 2. Cardiovascular disease. 3. Hyperlipidemia. 4. Congestive heart failure. 5. Gastroesophageal reflux disease (GERD). 6. Chronic renal insufficiency. 7. Lower extremity cellulitis with lymphedema. 8. Morbid obesity. 9. Dyspnea. 10. Generalized weakness and fatigue. 11. Hypoventilation syndrome. 12. CHF exacerbation. 13. Diabetes mellitus. 14. Hypertension with diabetic complications and diabetic retinopathy. 15. Chronic pain. PAST SURGICAL HISTORY: Tonsillectomy. ALLERGIES: MULTIDRUG-RESISTANT ORGANISMS. MRSA OF THE LEG IN 2004. HE WAS POSITIVE ON HIS SCREEN ON 11/19/2016. ACTIVE REPORTED MEDICATIONS ON ADMISSION: 1. Eliquis. 2. Nystatin. 3. Tylenol. 4. Iron. 5. Lidocaine patch for pain management. 6. Hydralazine. 7. Prozac. 8. Aspirin. 9. Amlodipine. 10. Glipizide. 11. Lisinopril. 12. Clonidine. 13. Coreg. SOCIAL HISTORY: The patient was up until recently living alone but after his last admission [facility]. No alcohol, no tobacco, no illicit drug use. The patient is single. REVIEW OF SYSTEMS: A twelve-point review was obtained and positives noted are his weakness and general debility, atrial fibrillation, some constipation and bowel regimen, renal failure, anemia, dyspnea. Other systems negative or unremarkable. PHYSICAL EXAMINATION: VITAL SIGNS: Temperature is 97.8, pulse 68, respirations labile between 18 and 22, 02 sat 91% currently on five liters nasal cannula and does use BiPAP every 4 hours and PRN. Blood pressure 142/72. GENERAL: A morbidly obese white male looks to be his stated age resting in the bed, head of bed elevated 90 degrees. The patient is alert, oriented, cooperative and answers simple questions and is a fairly good historian. SKIN: Pale, johnie. Very dry. Increased thick turgor noted in his abdominal and groin areas, which extends down into his lower extremities bilaterally. HEAD, EYES, EARS, NOSE, THROAT: Atraumatic, normocephalic. Pupils equal, round and reactive to light and accommodation. His mucous membranes were dry. NECK: The neck is thick, supple. HEART: Heart sounds S1-S2 irregular rate and rhythm. Distant heart sounds. LUNGS: Sounds are distant with low volumes but no wheezes, no rhonchi, decreased breath sounds mid to lower bases bilateral. ABDOMEN: His abdomen is round, soft, morbidly obese. Positive for gas. Bowel sounds are soft. MUSCULOSKELETAL: Moves his extremities with purpose. He does have generalized weakness especially in his lower extremities. No obvious deformities but his legs are currently labs wrapped but show no drainage 4+ edema noted. NEUROLOGIC: He is awake, alert, responsive. Speech is clear. PSYCHIATRIC: Mood and affect are appropriate. PLAN: Our plan is: 1. Continue monitoring his medical management. 2. We appreciate the consult from the sponge hooker. 3. Currently the patient is being maintained on a full liquid diet. 4. He will be transitioned out of the intensive care setting. 5. He will continue his IV antibiotics. 6. Vital signs will be q. 4 and as warranted. 7. Will continue DuoNeb monitoring his labs. 8. His code status is currently a DNR. NO CODE. This is the patient's current request. He does have two sisters who are alive but his wishes are for them not to be involved in his decision-making. His code status according to the palliative care record was for his family only to be contacted when he could not speak for himself. We respect his wishes and will continue to support him in his medical care. 9. GI will continue to follow him and monitor any GI bleeds or any symptoms or abnormal labs. 10. Physical therapy was consulted and is currently treating on 01/29/2017. 11. DVT prophylaxis. 12. Peptic ulcer disease prophylaxis. 13. Will continue Accu-Cheks and supplemental sliding scale. 14. Protonix has been IV. We will transition that to p.o. 15. Will continue all other medications, which include his pain management. 16. The patient will continue his routine BiPAP orders q.4 and/or PRN as needed. 17. The patient does need to be continued on telemetry. He is currently in atrial fibrillation. 18. Today during my assessment, a 9-beat run of tachycardia was noted; it was irregular, wide Q-R-S complex. The patient was unaware he had any type of change in his rhythm status. We will continue to monitor for any further dysrhythmias. Thank you very much for this consult. We will continue to follow. Dictated by ELOISE Gabriel. MD HELADIO Santos/CORINNA /4:53 PM /5:52 PM seen, examined by myself, Dr Nichols, today 01/31/17 Discussed with patient Discussed with nurse 71-year-old morbidly obese gentleman admitted with acute kidney injury and heart failure Also gastrointestinal bleeding, history of diabetes, currently on BiPAP, CODE STATUS DO NOT RESUSCITATE, We will be glad to take over service, Thank you for this consultation Discussed with mid level provider The exam, history, and the medical decision-making described in the above note were completed with the assistance of the mid-level provider. I reviewed the findings presented. I attest that I had a [id number] encounter with the patient on the same day, and personally performed and documented my assessment and findings in the medical record. DEION
[2017-02-01] VITALS (16 sets, daily range): BP systolic 98–136; BP diastolic 62–82; PULSE 58–80; RESP 16–21; TEMP 97.5–101.2; O2SAT 90–97
[2017-02-01] MEDS: INSULIN ASPART SUPPLEMENTAL SCALE SQ SCH ×4 (00:17→18:39)
[2017-02-01] MEDS: RESP: ALBUTEROL 2.5 MG/IPRATROPIUM 0.5 MG NEB (SCH) NEB ×5 (03:28→20:47)
[2017-02-01] MEDS: CHLORHEXIDINE GLUCONATE 2 % 1 PACK (2 CLOTHS) TOP SCH (04:00)
[2017-02-01 04:30] LABS: HEMATOCRIT 23.8 % (39.0-51.0); MEAN CELL VOLUME 87.7 FL (80.0-100.0); MEAN CORPUSCULAR HEMOGLOBIN 29.4 PG (27.0-34.0); MEAN CORPUSCULAR HGB CONC 33.5 % (32.0-36.0); PLATELET COUNT 133 TH/MM3 (150-450); RED BLOOD COUNT 2.71 MIL/MM3 (4.50-5.90); RED CELL DISTRIBUTION WIDTH 17.7 % (11.6-17.2); REVIEW FLAG FINAL; WHITE BLOOD COUNT 6.3 TH/MM3 (4.0-11.0)
[2017-02-01 05:02] LABS: POTASSIUM 4.3 MEQ/L (3.5-5.1)
[2017-02-01] MEDS: PANTOPRAZOLE INJ 80 MG in SODIUM CHLORIDE 0.9% INJ 100 ML IV SCH (06:07)
[2017-02-01] MEDS: OXYBUTYNIN CHLORIDE 5 MG TAB PO SCH ×2 (06:09→14:11)
--- NOTE | 2017-02-01 08:59 | HHI.NPPN ---
Subjective General Problems: Edema Renal Failure: Chronic, Acute Interval History Excellent urine output. Renal function is improving. Hemoglobin is stable. Review of Systems General Constitutional: Fatigue Objective Data Data 01/31/17 02/01/17 19:00 07:00 Intake Total 867 ml 730 ml Output Total 1250 ml 1950 ml Balance -383 ml -1220 ml Intake Oral 720 ml 480 ml IV Total 147 ml 250 ml Output Urine Total 1250 ml 1950 ml # Bowel Movements 0 Vital Signs Date Time Temp Pulse Resp B/P Pulse Ox O2 Delivery O2 Flow Rate FiO2 02/01/17 08:20 90 Nasal Cannula 6.00 02/01/17 06:00 69 02/01/17 04:24 94 40 02/01/17 04:00 101.2 67 21 133/72 97 02/01/17 04:00 67 02/01/17 02:00 58 02/01/17 00:00 73 02/01/17 00:00 97.5 65 21 136/82 91 01/31/17 22:15 94 45 01/31/17 22:00 63 01/31/17 20:00 97.3 73 18 136/82 91 01/31/17 20:00 73 01/31/17 19:13 92 45 01/31/17 19:00 90 Bi-Pap 45 01/31/17 18:00 64 01/31/17 18:00 64 16 139/71 97 01/31/17 17:00 71 15 138/69 83 01/31/17 16:00 98.3 70 19 128/68 79 01/31/17 16:00 70 01/31/17 15:01 72 23 135/71 86 01/31/17 15:00 67 27 91 01/31/17 14:00 65 01/31/17 14:00 65 17 127/70 94 01/31/17 13:00 68 17 130/71 94 01/31/17 12:00 97.8 68 19 142/72 91 01/31/17 12:00 68 01/31/17 11:00 102 22 109/71 85 01/31/17 10:00 70 01/31/17 10:00 70 18 133/70 92 01/31/17 09:00 74 12 136/79 98 01/31/17 08:59 89 Nasal Cannula 5.00 -: 02/01/17 0409 02/01/17 040 Drip Comment protonix Physical Exam General Appearance: Well Developed, Comfortable, Obese Throat Throat Exam: Oral Mucosa [place] & Moist Neck Neck Exam: Neck Supple Pulmonary Resp Exam: Clear Bilaterally, No Distress, Decreased Bases, Diminished Breath Sounds Cardiology CV Exam: Regular Gastrointestinal/Abdomen GI Exam: Soft, Non-Tender, Bowel Sounds Present Genitourinary Exam: Clear Urine Extremeties Extremities Exam: Pedal Pulses Palpable Extremeties Remarks chronic edema, likely lymphedema. Neurologic Neuro Exam: Alert, Awake, Moving All Extremities Psychiatric Psych Exam: Appropriate Responses Assessment/Plan Discussed Condition With: Patient Assessment Summary: JOÃO/Acute Renal Failure Problem List: (1) Acute renal failure Plan: Renal function is stable. he has underlying CKD IV, baseline creatinine from this past October of 2.1-2.9. he is non oliguric, monitor output. Avoid nephrotoxic agents. (2) CHF exacerbation Plan: monitor fluid volume status, EF 55% on Echo On Coreg. (3) Obesity hypoventilation syndrome Plan: on nasal cannula Oxygen Continue to monitor pulmonary status (4) DM (diabetes mellitus) Plan: Monitor blood glucose, continue insulin as needed (5) HTN (hypertension) Plan: continue present medications follow blood pressure (6) Anemia Plan: Hb low but stable, s/p multiple PRBC transfusion s/p cauterization of duodenal bleed 01/28, repeat EGD on 01/30. GI following. If he bleeds again, he may need IR consult for embolization of the bleeding artery. on Protonix infusion Apixaban suspended. Aspirin has been suspended as well. Problem Qualifiers (1) Acute renal failure: Qualified Code: N17.9 - Acute renal failure, unspecified acute renal failure type (2) CHF exacerbation: Qualified Code: I50.9 - Acute on chronic congestive heart failure, unspecified congestive heart failure type (3) DM (diabetes mellitus): Qualified Code: E08.22 - Diabetes mellitus due to underlying condition with diabetic chronic kidney disease, unspecified CKD stage, unspecified correction insulin use status (4) Anemia: Qualified Code: N18.9 - Anemia in chronic kidney disease, unspecified CKD stage Lisandro Vicente MD Feb 01, 2017 08:59
[2017-02-01] MEDS: SODIUM CHLORIDE 0.9% FLUSH 10 ML FLUSH SCH (09:00)
[2017-02-01] MEDS: DOCUSATE SODIUM 50 MG/SENNA 8.6 MG TAB PO SCH (09:15)
[2017-02-01] MEDS: CARVEDILOL 12.5 MG TAB PO SCH (09:15)
[2017-02-01] MEDS: cloNIDine HCL 0.2 MG TAB PO SCH (09:15)
[2017-02-01] MEDS: ARTIFICIAL TEARS OPTH SOLN 15 ML BTL EACH EYE SCH ×3 (09:26→18:00)
[2017-02-01] MEDS: amLODIPine BESYLATE 5 MG TAB PO SCH (09:26)
--- NOTE | 2017-02-01 14:18 | HHI.GIFU ---
Subjective Remarks Pt had one large dark BM today. No complaints of abdominal pain. Tolerating full liquids, wants his diet advanced. Objective Vitals I&O Vital Signs Date Time Temp Pulse Resp B/P Pulse Ox O2 Delivery O2 Flow Rate FiO2 02/01/17 12:00 65 02/01/17 10:00 65 02/01/17 08:20 90 Nasal Cannula 6.00 02/01/17 08:00 65 02/01/17 08:00 98.6 72 16 129/68 96 02/01/17 07:00 Simple Mask 10.00 02/01/17 06:00 69 02/01/17 04:24 94 40 02/01/17 04:00 101.2 67 21 133/72 97 02/01/17 04:00 67 02/01/17 02:00 58 02/01/17 00:00 73 02/01/17 00:00 97.5 65 21 136/82 91 01/31/17 22:15 94 45 01/31/17 22:00 63 01/31/17 20:00 97.3 73 18 136/82 91 01/31/17 20:00 73 01/31/17 19:13 92 45 01/31/17 19:00 90 Bi-Pap 45 01/31/17 18:00 64 01/31/17 18:00 64 16 139/71 97 01/31/17 17:00 71 15 138/69 83 01/31/17 16:00 98.3 70 19 128/68 79 01/31/17 16:00 70 01/31/17 15:01 72 23 135/71 86 01/31/17 15:00 67 27 91 I/O 01/31/17 01/31/17 01/31/17 02/01/17 02/01/17 02/01/17 07:00 15:00 23:00 07:00 15:00 23:00 Intake Total 614 ml 867 ml 354 ml 376 ml Output Total 1100 ml 1250 ml 600 ml 1350 ml Balance -486 ml -383 ml -246 ml -974 ml Intake Oral 480 ml 720 ml 240 ml 240 ml IV Total 134 ml 147 ml 114 ml 136 ml Output Urine Total 1100 ml 1250 ml 600 ml 1350 ml # Bowel Movements 0 0 Laboratory Laboratory Tests Test 02/01/17 04:09 White Blood Count 6.3 Red Blood Count 2.71 Hemoglobin 8.0 Hematocrit 23.8 Mean Corpuscular Volume 87.7 Mean Corpuscular Hemoglobin 29.4 Mean Corpuscular Hemoglobin 33.5 Concent Red Cell Distribution Width 17.7 Platelet Count 133 Mean Platelet Volume 10.2 Sodium Level 139 Potassium Level 4.3 Chloride Level 105 Carbon Dioxide Level 26.0 Anion Gap 8 Blood Urea Nitrogen 71 Creatinine 2.54 Estimat Glomerular Filtration 25 Rate Random Glucose 180 Calcium Level 8.3 Date/Time Procedure Status Source Growth 01/29/17 11:20 Stool Occult Blood ([facility]) - Final Complete Stool Stool HEMOCCULT POSITIVE Imaging Last Impressions Renal Ultrasound 01/29/17 0000 Signed Impressions: Service Date/Time: January 09:50 - CONCLUSION: No evidence of hydronephrosis. Gustavo Grider MD Chest X-Ray 01/29/17 0000 Signed Impressions: Service Date/Time: January 07:30 - CONCLUSION: Stable chest x-ray with airspace consolidation in the right lower lung zone and atelectasis versus mild consolidation at the left lung base. Navneet English MD Chest CT 01/24/17 0000 Signed Impressions: Service Date/Time: Tuesday, January 24, 2017 16:13 - CONCLUSION: 1. Small bilateral pleural effusions and dependent atelectasis and consolidation in both lungs. No pericardial effusion. No pneumothorax. Vishal Woodward MD Physical Exam HEENT: Normocephalic; atraumatic; no jaundice. CHEST: Resp even/unlabored Diminished breath sounds. CARDIAC: RRR ABDOMEN: Soft, morbidly obesity, nondistended, nontender; no hepatosplenomegaly ; bowel sounds are present in all four quadrants. EXTREMITIES: Generlized edema. SKIN: BLE volodymyr wrap drsg d/i HALF SECTION IRONER: No focal deficits; alert and oriented times three. Assessment and Plan Plan ASSESSMENT: - Upper GIB with melena. S/P EGD with control of bleeding (01/28/17)-----> GI bleeding from a lesion at the postbulbar duodenum in the posterior position, s/p injection with 5 cc epinephrine 1:10,000, bipolar cautery, single endoscopic clip placed, recheck 3 minutes showed that the bleeding has stopped, chronic gastritis, r/o h. pylori. Protonix gtt, s/p octreotide gtt. Plan was to hold Eliquis one week. 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 Two additional clips were placed with apparently good effect. This was located in the postbulbar duodenum posteriorly. No active bleeding was seen. H/H currently stable at 8.0/23.8 - Acute anemia secondary to blood loss. EGD as above. S/P 10 units PRBC. Protonix gtt. - Acute on chronic kidney disease with electrolyte abnormalities. Renal Ultrasound (01/29/17)----> No evidence of hydronephrosis. Creat. 2.54. - Respiratory failure secondary to CHF, hyperventilation. Now on N/C. - Hyponatremia, DM, HTN, BLE chronic venous stasis dermatitis per primary. PLAN: - Full liquid diet. If H/H stable tomorrow advance to soft diet. - Pt is on Protonix Gtt, change to Protonix 40mg IV BID - Monitor H/H - Transfuse as necessary - CBC, BMP in am - Supportive care - Angiography for rebleed - Patient seen and examined by myself and Dr. Hernandez and this note was written on her behalf. Candi Mckeon Feb 01, 2017 14:18
--- NOTE | 2017-02-01 14:46 | HHI.PR ---
Subjective Interval History Alert, verbal with short sentences, denies complaints at rest, on facemask Review of Systems Constitutional Constitutional Remarks As detailed above, severe general weakness, bedridden status, 10 systems reviewed and otherwise negative, Vitals/Results Intake & Output 01/31/17 01/31/17 02/01/17 15:00 23:00 07:00 Intake Total 867 ml 354 ml 376 ml Output Total 1250 ml 600 ml 1350 ml Balance -383 ml -246 ml -974 ml Intake Oral 720 ml 240 ml 240 ml IV Total 147 ml 114 ml 136 ml Output Urine Total 1250 ml 600 ml 1350 ml # Bowel Movements 0 Vital Signs Vital Signs Date Time Temp Pulse Resp B/P Pulse Ox O2 Delivery O2 Flow Rate FiO2 02/01/17 14:00 65 02/01/17 14:00 98.0 78 16 98/62 96 02/01/17 12:00 65 02/01/17 10:00 65 02/01/17 08:20 90 Nasal Cannula 6.00 02/01/17 08:00 65 02/01/17 08:00 98.6 72 16 129/68 96 02/01/17 07:00 Simple Mask 10.00 02/01/17 06:00 69 02/01/17 04:24 94 40 02/01/17 04:00 101.2 67 21 133/72 97 02/01/17 04:00 67 02/01/17 02:00 58 02/01/17 00:00 73 02/01/17 00:00 97.5 65 21 136/82 91 01/31/17 22:15 94 45 01/31/17 22:00 63 01/31/17 20:00 97.3 73 18 136/82 91 01/31/17 20:00 73 01/31/17 19:13 92 45 01/31/17 19:00 90 Bi-Pap 45 01/31/17 18:00 64 01/31/17 18:00 64 16 139/71 97 01/31/17 17:00 71 15 138/69 83 01/31/17 16:00 98.3 70 19 128/68 79 01/31/17 16:00 70 01/31/17 15:01 72 23 135/71 86 01/31/17 15:00 67 27 91 CBC/BMP: 02/01/17 0409 02/01/17 0409 Lab Results Laboratory Tests Test 02/01/17 04:09 White Blood Count 6.3 TH/MM3 Red Blood Count 2.71 MIL/MM3 Hemoglobin 8.0 GM/DL Hematocrit 23.8 % Mean Corpuscular Volume 87.7 FL Mean Corpuscular Hemoglobin 29.4 PG Mean Corpuscular Hemoglobin 33.5 % Concent Red Cell Distribution Width 17.7 % Platelet Count 133 TH/MM3 Mean Platelet Volume 10.2 FL Sodium Level 139 MEQ/L Potassium Level 4.3 MEQ/L Chloride Level 105 MEQ/L Carbon Dioxide Level 26.0 MEQ/L Anion Gap 8 MEQ/L Blood Urea Nitrogen 71 MG/DL Creatinine 2.54 MG/DL Estimat Glomerular Filtration 25 ML/MIN Rate Random Glucose 180 MG/DL Calcium Level 8.3 MG/DL Physical Exam General General Appearance: Well Developed, Comfortable, Obese Throat Throat Exam: Oral Mucosa [place] & Moist Neck Neck Exam: Neck Supple Pulmonary Resp Exam: Clear Bilaterally, No Distress, Decreased Bases, Diminished Breath Sounds Cardiology CV Exam: Regular Gastrointestinal/Abdomen GI Exam: Soft, Non-Tender, Bowel Sounds Present Genitourinary Exam: Clear Urine Extremeties Extremities Exam: Pitting Edema, Dependent Edema Neurologic Neuro Exam: Alert, Awake, Moving All Extremities Psychiatric Psych Exam: Appropriate Responses Assessment/Plan Assessment/Plan Assessment Respiratory failure, on facemask oxygen, initially on BiPAP Hypoxemia Acute on chronic kidney disease Morbid obesity Heart failure with preserved function Gastrointestinal bleeding, controlled at this time Status post upper endoscopy this admission, gastric ulcer clipped Status post transfusion this admission Bedridden status Deconditioning History of diabetes, hypertension, obesity Management Supplemental oxygen Diuresis as tolerated John wraps for the lower extremities Nephrology following Follow electrolyte levels and replace as needed Follow renal indices Follow hemoglobin DVT prophylaxis DNR CODE STATUS Discussed with patient Discussed with nurse 35 minutes spent Rosalina Sibley MD Feb 01, 2017 14:46
[2017-02-02] VITALS (18 sets, daily range): BP systolic 126–139; BP diastolic 67–78; PULSE 65–100; RESP 16–22; TEMP 97.4–99.1; O2SAT 92–97
[2017-02-02] MEDS: cloNIDine HCL 0.2 MG TAB PO SCH ×3 (00:29→21:14)
[2017-02-02] MEDS: amLODIPine BESYLATE 5 MG TAB PO SCH ×3 (00:31→21:14)
[2017-02-02] MEDS: CARVEDILOL 12.5 MG TAB PO SCH ×3 (00:31→21:14)
[2017-02-02] MEDS: INSULIN ASPART SUPPLEMENTAL SCALE SQ SCH ×4 (00:31→21:28)
[2017-02-02] MEDS: OXYBUTYNIN CHLORIDE 5 MG TAB PO SCH ×3 (00:31→21:14)
[2017-02-02] MEDS: RESP: ALBUTEROL 2.5 MG/IPRATROPIUM 0.5 MG NEB (SCH) NEB ×2 (04:24)
[2017-02-02 05:34] LABS: HEMATOCRIT 23.1 % (39.0-51.0); MEAN CELL VOLUME 87.9 FL (80.0-100.0); MEAN CORPUSCULAR HEMOGLOBIN 29.2 PG (27.0-34.0); MEAN CORPUSCULAR HGB CONC 33.2 % (32.0-36.0); PLATELET COUNT 137 TH/MM3 (150-450); RED BLOOD COUNT 2.63 MIL/MM3 (4.50-5.90); RED CELL DISTRIBUTION WIDTH 18.1 % (11.6-17.2); REVIEW FLAG FINAL
[2017-02-02 05:56] LABS: POTASSIUM 4.2 MEQ/L (3.5-5.1)
[2017-02-02] MEDS: DOCUSATE SODIUM 50 MG/SENNA 8.6 MG TAB PO SCH ×2 (09:00→21:00)
[2017-02-02] MEDS: PANTOPRAZOLE SODIUM 40 MG VIAL IV PUSH SCH ×2 (09:00→21:13)
[2017-02-02] MEDS: SODIUM CHLORIDE 0.9% FLUSH 10 ML FLUSH SCH ×2 (09:00→21:15)
[2017-02-02] MEDS: ARTIFICIAL TEARS OPTH SOLN 15 ML BTL EACH EYE SCH ×3 (09:00→17:34)
--- NOTE | 2017-02-02 10:50 | HHI.NPPN ---
Subjective General Problems: Edema, Hypertension, Obesity Renal Failure: Chronic, Acute Interval History He is awake, alert, reporting hunger. Renal function is better. Has fluid retention. (Chetna Davis) Review of Systems General Constitutional: Fatigue (Chetna Davis) Cardiovascular Cardiac: Edema, ROWAN (Chetna Davis) Objective Data Data 02/01/17 02/02/17 19:00 07:00 Intake Total 711 ml 559 ml Output Total 1000 ml 1900 ml Balance -289 ml -1341 ml Intake Oral 560 ml 389 ml IV Total 151 ml 170 ml Output Urine Total 1000 ml 1900 ml # Bowel Movements 1 2 Vital Signs Date Time Temp Pulse Resp B/P Pulse Ox O2 Delivery O2 Flow Rate FiO2 02/02/17 10:00 65 02/02/17 08:11 93 Simple Mask 8.00 02/02/17 08:00 65 02/02/17 08:00 97.4 78 16 136/78 95 02/02/17 07:00 Simple Mask 10.00 02/02/17 06:00 72 02/02/17 04:00 98.4 72 18 126/67 95 02/02/17 04:00 72 02/02/17 02:00 74 02/02/17 01:51 94 Nasal Cannula 5.00 02/02/17 00:00 99.1 79 18 135/76 97 02/02/17 00:00 79 02/02/17 00:00 79 02/01/17 22:21 95 45 02/01/17 22:00 80 02/01/17 20:50 96 Simple Mask 8.00 02/01/17 20:00 99.1 80 18 132/71 96 02/01/17 20:00 75 02/01/17 20:00 Nasal Cannula 6.00 40 02/01/17 18:00 98.0 79 20 115/79 96 02/01/17 18:00 65 02/01/17 16:00 65 02/01/17 14:00 65 02/01/17 14:00 98.0 78 16 98/62 96 02/01/17 12:00 65 (Chetna Davis) -: 02/02/17 0520 02/02/17 0520 Imaging Last Impressions Renal Ultrasound 01/29/17 0000 Signed Impressions: Service Date/Time: January 09:50 - CONCLUSION: No evidence of hydronephrosis. Gustavo Grider MD Chest X-Ray 01/29/17 0000 Signed Impressions: Service Date/Time: January 07:30 - CONCLUSION: Stable chest x-ray with airspace consolidation in the right lower lung zone and atelectasis versus mild consolidation at the left lung base. Navneet English MD Chest CT 01/24/17 0000 Signed Impressions: Service Date/Time: Tuesday, January 24, 2017 16:13 - CONCLUSION: 1. Small bilateral pleural effusions and dependent atelectasis and consolidation in both lungs. No pericardial effusion. No pneumothorax. Vishal Woodward MD (Chetna Davis B. COMPUTER FORENSIC EXAMINER) Physical Exam General Appearance: Well Developed, Comfortable, Obese (Chetna Davis B. COMPUTER FORENSIC EXAMINER) Throat Throat Exam: Oral Mucosa [place] & Moist (Chetna Davis B. COMPUTER FORENSIC EXAMINER) Neck Neck Exam: Neck Supple (Chetna Davis B. COMPUTER FORENSIC EXAMINER) Pulmonary Resp Exam: Clear Bilaterally, No Distress, Decreased Bases, Diminished Breath Sounds (Gil Davison B. COMPUTER FORENSIC EXAMINER) Cardiology CV Exam: Regular (Chetna Davis B. COMPUTER FORENSIC EXAMINER) Gastrointestinal/Abdomen GI Exam: Soft, Non-Tender, Bowel Sounds Present (Chetna Davis B. COMPUTER FORENSIC EXAMINER) Genitourinary Exam: Clear Urine (Chetna Davis B. COMPUTER FORENSIC EXAMINER) Extremeties Extremities Exam: Pitting Edema, Dependent Edema Extremeties Remarks upper extremity edema present lymphedema, chronic skin changes (Chetna Davis B. COMPUTER FORENSIC EXAMINER) Neurologic Neuro Exam: Alert, Awake, Oriented, Speech Clear, Moving All Extremities ( Chetna Davis B. COMPUTER FORENSIC EXAMINER) Psychiatric Psych Exam: Appropriate Responses (Chetna Davis BMehrdad COMPUTER FORENSIC EXAMINER) VTE Prophylaxis Device: SCDs (Chetna Davis B. COMPUTER FORENSIC EXAMINER) Assessment/Plan Discussed Condition With: Patient Assessment Summary: JOÃO/Acute Renal Failure, Fluid/Volume Overload, Hypertension, Diabetes Mellitus Problem List: (1) Acute renal failure Plan: Renal function has improved. he has underlying CKD IV, baseline creatinine from this past October of 2.1-2.9. he is non oliguric, continue to monitor Avoid IVF, begin bumex 2 mg po daily Avoid nephrotoxic agents. (2) CHF exacerbation Plan: monitor fluid volume status, EF 55% on Echo On Coreg. Diuresis as above. Fluid gain may be related to multiple blood transfusions (3) Obesity hypoventilation syndrome Plan: on nasal cannula Oxygen Continue to monitor pulmonary status (4) DM (diabetes mellitus) Plan: Monitor blood glucose, continue insulin as needed goal 140-180 mg/dL (5) HTN (hypertension) Plan: continue present medications follow blood pressure (6) Anemia Plan: due to GI bleeding Hb dropped slightly he has received 10 units PRBC s/p cauterization of duodenal bleed 01/28, repeat EGD on 01/30. GI following. If he bleeds again, he may need IR consult for embolization of the bleeding artery. Protonix changed to PO Apixaban and ASA have been suspended. (Chetna Davis) Plan patient was seen and examined. Agree with above assessment and plan. Start diuretic cautiously. (Lisandro Vicente MD) Problem Qualifiers (1) Acute renal failure: Qualified Code: N17.9 - Acute renal failure, unspecified acute renal failure type (2) CHF exacerbation: Qualified Code: I50.9 - Acute on chronic congestive heart failure, unspecified congestive heart failure type (3) DM (diabetes mellitus): Qualified Code: E08.22 - Diabetes mellitus due to underlying condition with diabetic chronic kidney disease, unspecified CKD stage, unspecified correction insulin use status (4) Anemia: Qualified Code: N18.9 - Anemia in chronic kidney disease, unspecified CKD stage Chetna Davis Feb 02, 2017 10:50 Lisandro Vicente MD Feb 02, 2017 20:24
[2017-02-02] MEDS: BUMETANIDE 1 MG TAB PO SCH (12:13)
--- NOTE | 2017-02-02 13:07 | HHI.GIFU ---
Subjective Remarks Resting in bed. Requesting diet be advanced. Denies any n/v. No abdominal pain. Nurse reports small amount of dark stool. Objective Vitals I&O Vital Signs Date Time Temp Pulse Resp B/P Pulse Ox O2 Delivery O2 Flow Rate FiO2 02/02/17 12:00 65 02/02/17 10:00 65 02/02/17 08:11 93 Simple Mask 8.00 02/02/17 08:00 65 02/02/17 08:00 97.4 78 16 136/78 95 02/02/17 07:00 Simple Mask 10.00 02/02/17 06:00 72 02/02/17 04:00 98.4 72 18 126/67 95 02/02/17 04:00 72 02/02/17 02:00 74 02/02/17 01:51 94 Nasal Cannula 5.00 02/02/17 00:00 99.1 79 18 135/76 97 02/02/17 00:00 79 02/02/17 00:00 79 02/01/17 22:21 95 45 02/01/17 22:00 80 02/01/17 20:50 96 Simple Mask 8.00 02/01/17 20:00 99.1 80 18 132/71 96 02/01/17 20:00 75 02/01/17 20:00 Nasal Cannula 6.00 40 02/01/17 18:00 98.0 79 20 115/79 96 02/01/17 18:00 65 02/01/17 16:00 65 02/01/17 14:00 65 02/01/17 14:00 98.0 78 16 98/62 96 I/O 02/01/17 02/01/17 02/01/17 02/02/17 02/02/17 02/02/17 07:00 15:00 23:00 07:00 15:00 23:00 Intake Total 376 ml 711 ml 370 ml 189 ml Output Total 1350 ml 1000 ml 950 ml 950 ml Balance -974 ml -289 ml -580 ml -761 ml Intake Oral 240 ml 560 ml 300 ml 89 ml IV Total 136 ml 151 ml 70 ml 100 ml Output Urine Total 1350 ml 1000 ml 950 ml 950 ml # Bowel Movements 1 2 0 Laboratory Laboratory Tests Test 02/02/17 05:20 White Blood Count 5.0 Red Blood Count 2.63 Hemoglobin 7.7 Hematocrit 23.1 Mean Corpuscular Volume 87.9 Mean Corpuscular Hemoglobin 29.2 Mean Corpuscular Hemoglobin 33.2 Concent Red Cell Distribution Width 18.1 Platelet Count 137 Mean Platelet Volume 10.0 Sodium Level 142 Potassium Level 4.2 Chloride Level 108 Carbon Dioxide Level 29.0 Anion Gap 5 Blood Urea Nitrogen 66 Creatinine 2.42 Estimat Glomerular Filtration 27 Rate Random Glucose 148 Calcium Level 8.2 Date/Time Procedure Status Source Growth 01/29/17 11:20 Stool Occult Blood ([facility]) - Final Complete Stool Stool HEMOCCULT POSITIVE Imaging Last Impressions Renal Ultrasound 01/29/17 0000 Signed Impressions: Service Date/Time: January 09:50 - CONCLUSION: No evidence of hydronephrosis. Gustavo Grider MD Chest X-Ray 01/29/17 0000 Signed Impressions: Service Date/Time: January 07:30 - CONCLUSION: Stable chest x-ray with airspace consolidation in the right lower lung zone and atelectasis versus mild consolidation at the left lung base. Navneet English MD Chest CT 01/24/17 0000 Signed Impressions: Service Date/Time: Tuesday, January 24, 2017 16:13 - CONCLUSION: 1. Small bilateral pleural effusions and dependent atelectasis and consolidation in both lungs. No pericardial effusion. No pneumothorax. Vishal Woodward MD Physical Exam HEENT: Normocephalic; atraumatic; no jaundice. CHEST: Resp even/unlabored Diminished breath sounds. CARDIAC: RRR ABDOMEN: Soft, morbidly obesity, nondistended, nontender; no hepatosplenomegaly ; bowel sounds are present in all four quadrants. EXTREMITIES: Generlized edema. SKIN: BLE volodymyr wrap drsg d/i HYDRO PNEUMATIC TESTER: No focal deficits; alert and oriented times three. Assessment and Plan Plan ASSESSMENT: - Upper GIB with melena. S/P EGD with control of bleeding (01/28/17)-----> GI bleeding from a lesion at the postbulbar duodenum in the posterior position, s/p injection with 5 cc epinephrine 1:10,000, bipolar cautery, single endoscopic clip placed, recheck 3 minutes showed that the bleeding has stopped, chronic gastritis, r/o h. pylori. Protonix gtt, s/p octreotide gtt. Plan was to hold Eliquis one week. 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 Two additional clips were placed with apparently good effect. This was located in the postbulbar duodenum posteriorly. No active bleeding was seen. H/H currently stable at 7./23.1. No n/v. No abdominal pain. Nurse reports small amount of dark stool. Pt requesting diet be advanced. - Acute anemia secondary to blood loss. EGD as above. S/P 10 units PRBC. Protonix with BID dosing. - Acute on chronic kidney disease with electrolyte abnormalities. Renal Ultrasound (01/29/17)----> No evidence of hydronephrosis. Creat. 2.42 - Respiratory failure secondary to CHF, hyperventilation. Now on N/C. - Hyponatremia, DM, HTN, BLE chronic venous stasis dermatitis per primary. PLAN: - Heart healthy, diabetic soft diet - Protonix 40mg IV BID - Monitor H/H - Transfuse as necessary - CBC, BMP in am - Supportive care - Further recommendations to follow based on results of above - Patient seen and examined by myself and Dr. Hale and this note was written on his behalf. Lexi Reddy Feb 02, 2017 13:07
--- NOTE | 2017-02-02 15:50 | HHI.PR ---
Subjective Interval History Alert, verbal, on facemask at This Time BiPAP at night Denies pain Has generalized weakness He stated that he normally walks 10-20 feet prior to this illness, little over 2 weeks ago Review of Systems Constitutional Constitutional Remarks As detailed above, severe general weakness, , 10 systems reviewed and otherwise negative, Vitals/Results Intake & Output 02/01/17 02/01/17 02/02/17 15:00 23:00 07:00 Intake Total 711 ml 370 ml 189 ml Output Total 1000 ml 950 ml 950 ml Balance -289 ml -580 ml -761 ml Intake Oral 560 ml 300 ml 89 ml IV Total 151 ml 70 ml 100 ml Output Urine Total 1000 ml 950 ml 950 ml # Bowel Movements 1 2 0 Vital Signs Vital Signs Date Time Temp Pulse Resp B/P Pulse Ox O2 Delivery O2 Flow Rate FiO2 02/02/17 14:00 65 02/02/17 12:00 98.0 84 20 139/72 92 02/02/17 12:00 65 02/02/17 10:00 65 02/02/17 08:11 93 Simple Mask 8.00 02/02/17 08:00 65 02/02/17 08:00 97.4 78 16 136/78 95 02/02/17 07:00 Simple Mask 10.00 02/02/17 06:00 72 02/02/17 04:00 98.4 72 18 126/67 95 02/02/17 04:00 72 02/02/17 02:00 74 02/02/17 01:51 94 Nasal Cannula 5.00 02/02/17 00:00 99.1 79 18 135/76 97 02/02/17 00:00 79 02/02/17 00:00 79 02/01/17 22:21 95 45 02/01/17 22:00 80 02/01/17 20:50 96 Simple Mask 8.00 02/01/17 20:00 99.1 80 18 132/71 96 02/01/17 20:00 75 02/01/17 20:00 Nasal Cannula 6.00 40 02/01/17 18:00 98.0 79 20 115/79 96 02/01/17 18:00 65 02/01/17 16:00 65 CBC/BMP: 02/02/17 0520 02/02/17 0520 Lab Results Laboratory Tests Test 02/02/17 05:20 White Blood Count 5.0 TH/MM3 Red Blood Count 2.63 MIL/MM3 Hemoglobin 7.7 GM/DL Hematocrit 23.1 % Mean Corpuscular Volume 87.9 FL Mean Corpuscular Hemoglobin 29.2 PG Mean Corpuscular Hemoglobin 33.2 % Concent Red Cell Distribution Width 18.1 % Platelet Count 137 TH/MM3 Mean Platelet Volume 10.0 FL Sodium Level 142 MEQ/L Potassium Level 4.2 MEQ/L Chloride Level 108 MEQ/L Carbon Dioxide Level 29.0 MEQ/L Anion Gap 5 MEQ/L Blood Urea Nitrogen 66 MG/DL Creatinine 2.42 MG/DL Estimat Glomerular Filtration 27 ML/MIN Rate Random Glucose 148 MG/DL Calcium Level 8.2 MG/DL Physical Exam General General Appearance: Well Developed, Comfortable, Obese Throat Throat Exam: Oral Mucosa Bledsoe & Moist Neck Neck Exam: Neck Supple Pulmonary Resp Exam: Clear Bilaterally, No Distress, Decreased Bases, Diminished Breath Sounds Cardiology CV Exam: Regular Gastrointestinal/Abdomen GI Exam: Soft, Non-Tender, Bowel Sounds Present Genitourinary Exam: Clear Urine Extremeties Extremities Exam: Pitting Edema, Dependent Edema Extremeties Remarks Massive lymphedema in both lower extremities Neurologic Neuro Exam: Alert, Awake, Oriented, Speech Clear, Moving All Extremities Psychiatric Psych Exam: Appropriate Responses VTE Prophylaxis VTE Prophylaxis Device: SCDs Assessment/Plan Assessment/Plan Assessment Respiratory failure, on facemask oxygen, on BiPAP at night Hypoxemia Acute on chronic kidney disease Morbid obesity Anemia Heart failure with preserved function Gastrointestinal bleeding, controlled at this time Status post upper endoscopy this admission, gastric ulcer clipped Status post transfusion this admission Bedridden status Deconditioning History of diabetes, hypertension, obesity Management Supplemental oxygen Diuresis as tolerated John wraps for the lower extremities, consult podiatry Advance diet Nephrology following Follow electrolyte levels and replace as needed Follow renal indices Follow hemoglobin DVT prophylaxis DNR CODE STATUS Discussed with patient Discussed with nurse 35 minutes spent Rosalina Sibley MD Feb 02, 2017 15:50
--- NOTE | 2017-02-02 16:44 | HHI.HCPN ---
Reason for visit a. To assist with evaluation and management of symptoms including: dyspnea, weakness. b. To assist medical decision maker(s) with: better understanding of current medical conditions; weighing benefits/burdens of medical treatment options; making medical treatment decisions. . Subjective/Interval History Patient seen and examined in ICU. Patient is awake and alert. He denies pain or dyspnea during my visit. He has not been taking any PRN meds for pain or dyspnea , last dose PRN Morphine was 01/27/17. He reports he had a "panic attack" earlier today because he felt like he was going to fall from the bed when specialty mattress was moving. He reports it doesn't happen often. Discussed use of meds PRN anxiety, he reports "I don't like to take medication." He declines need for medication adjustments. He is uncertain if he has had any bleeding. He reports 3 loose stools today. Notes indicate no active bleeding today. Hemoglobin 7.7. Creatinine stable at 2.42. No new imaging. Vital signs stable. Patient again verbalizes concern regarding bilateral LE lymphedema, ordered wound care consult for further recommendations for care/ dressing needs. He verbalizes appreciation. He is asking of "real food." Advised diet has previously been ordered by GI. . Family/friend interactions Patient does not want family contacted unless he loses capacity to make his own decisions. . Advance Directives Living Will: Copy in medical record Health Care Surrogate: Copy in medical record Advance Directive Specifics Date completed: 11/19/16 . Health Care Surrogate(s): Designated HCS: Tania Joyce or Orquidea Joyce, sisters. . Documented care wishes: Completed community DNR and living will on 11-19-16. Appointed either one of his sisters as HCS verbalizing he wishes for them to know they do not have to serve in this role but it is ok for them to be contacted should he become incapacitated and unable to make his own medical decisions. Living will is a typical one stating should his attending and a consulting physician agree he has a terminal condition, end-stage condition, or is in a persistent vegetative state, he wishes for life-prolonging measures to be withheld or withdrawn. . Significant change in goals: NO CODE (DNR/DNI). Goals remain aggressive short of DNR/DNI at this time. . Objective Vital Signs Date Time Temp Pulse Resp B/P Pulse Ox O2 Delivery O2 Flow Rate FiO2 02/02/17 16:40 98.4 100 22 138/76 94 02/02/17 14:00 65 02/02/17 12:00 98.0 84 20 139/72 92 02/02/17 12:00 65 02/02/17 10:00 65 02/02/17 08:11 93 Simple Mask 8.00 02/02/17 08:00 65 02/02/17 08:00 97.4 78 16 136/78 95 02/02/17 07:00 Simple Mask 10.00 02/02/17 06:00 72 02/02/17 04:00 98.4 72 18 126/67 95 02/02/17 04:00 72 02/02/17 02:00 74 02/02/17 01:51 94 Nasal Cannula 5.00 02/02/17 00:00 99.1 79 18 135/76 97 02/02/17 00:00 79 02/02/17 00:00 79 02/01/17 22:21 95 45 02/01/17 22:00 80 02/01/17 20:50 96 Simple Mask 8.00 02/01/17 20:00 99.1 80 18 132/71 96 02/01/17 20:00 75 02/01/17 20:00 Nasal Cannula 6.00 40 02/01/17 18:00 98.0 79 20 115/79 96 02/01/17 18:00 65 Intake & Output 02/02/17 02/02/17 07:00 19:00 Intake Total 559 ml 613 ml Output Total 1900 ml 1400 ml Balance -1341 ml -787 ml Intake Oral 389 ml 560 ml IV Total 170 ml 53 ml Output Urine Total 1900 ml 1400 ml # Bowel Movements 2 3 Physical Exam CONSTITUTIONAL/GENERAL: This is an obese patient, in no apparent distress. TUBES/LINES/DRAINS: oxygen via simple mask, PIVs, perineal drainage collection bag, specialty air mattress. SKIN: No jaundice, rashes, or lesions. Ecchymoses on upper extremities. Bilateral LE dressings from knees to toes. Skin temperature warm. Not diaphoretic. EYES: Pupils equal and round and reactive. Extraocular motions intact. No scleral icterus. No injection or drainage. Fundi not examined. CARDIOVASCULAR: Regular rate and rhythm. RESPIRATORY/CHEST: Symmetric, unlabored respirations. Clear to auscultation. Distant breath sounds. GASTROINTESTINAL: Abdomen soft, non-tender, nondistended, protuberant. GENITOURINARY: Without palpable bladder distension. perineal drainage collection bag. MUSCULOSKELETAL: Bilateral LE with edema. Chronic venous stasis changes bilateral LEs. NEUROLOGICAL: Awake and alert. Follows commands. Generalized weakness. PSYCHIATRIC: Pleasant. . Diagnostic Tests Laboratory Laboratory Tests Test 01/31/17 02/01/17 02/02/17 03:48 04:09 05:20 White Blood Count 6.6 TH/MM3 6.3 TH/MM3 5.0 TH/MM3 (4.0-11.0) (4.0-11.0) (4.0-11.0) Red Blood Count 2.69 MIL/MM3 2.71 MIL/MM3 2.63 MIL/MM3 (4.50-5.90) (4.50-5.90) (4.50-5.90) Hemoglobin 7.7 GM/DL 8.0 GM/DL 7.7 GM/DL (13.0-17.0) (13.0-17.0) (13.0-17.0) Hematocrit 23.9 % 23.8 % 23.1 % (39.0-51.0) (39.0-51.0) (39.0-51.0) Mean Corpuscular Volume 88.9 FL 87.7 FL 87.9 FL (80.0-100.0) (80.0-100.0) (80.0-100.0) Mean Corpuscular Hemoglobin 28.7 PG 29.4 PG 29.2 PG (27.0-34.0) (27.0-34.0) (27.0-34.0) Mean Corpuscular Hemoglobin 32.3 % 33.5 % 33.2 % Concent (32.0-36.0) (32.0-36.0) (32.0-36.0) Red Cell Distribution Width 17.9 % 17.7 % 18.1 % (11.6-17.2) (11.6-17.2) (11.6-17.2) Platelet Count 103 TH/MM3 133 TH/MM3 137 TH/MM3 (150-450) (150-450) (150-450) Mean Platelet Volume 10.2 FL 10.2 FL 10.0 FL (7.0-11.0) (7.0-11.0) (7.0-11.0) Sodium Level 141 MEQ/L 139 MEQ/L 142 MEQ/L (136-145) (136-145) (136-145) Potassium Level 4.8 MEQ/L 4.3 MEQ/L 4.2 MEQ/L (3.5-5.1) (3.5-5.1) (3.5-5.1) Chloride Level 108 MEQ/L 105 MEQ/L 108 MEQ/L (98-107) (98-107) (98-107) Carbon Dioxide Level 25.8 MEQ/L 26.0 MEQ/L 29.0 MEQ/L (21.0-32.0) (21.0-32.0) (21.0-32.0) Anion Gap 7 MEQ/L (5-15) 8 MEQ/L (5-15) 5 MEQ/L (5-15) Blood Urea Nitrogen 78 MG/DL (7-18) 71 MG/DL (7-18) 66 MG/DL (7-18) Creatinine 2.65 MG/DL 2.54 MG/DL 2.42 MG/DL (0.60-1.30) (0.60-1.30) (0.60-1.30) Estimat Glomerular Filtration 24 ML/MIN (>89) 25 ML/MIN (>89) 27 ML/MIN (>89) Rate Random Glucose 236 MG/DL 180 MG/DL 148 MG/DL (74-106) (74-106) (74-106) Calcium Level 8.1 MG/DL 8.3 MG/DL 8.2 MG/DL (8.5-10.1) (8.5-10.1) (8.5-10.1) Result Diagram: 02/02/17 0520 02/02/17 0520 Microbiology Microbiology Date/Time Procedure Status Source Growth 01/29/17 11:20 Stool Occult Blood ([facility]) - Final Complete Stool Stool HEMOCCULT POSITIVE Imaging Last Impressions Renal Ultrasound 01/29/17 0000 Signed Impressions: Service Date/Time: January 09:50 - CONCLUSION: No evidence of hydronephrosis. Gustavo Grider MD Chest X-Ray 01/29/17 0000 Signed Impressions: Service Date/Time: January 07:30 - CONCLUSION: Stable chest x-ray with airspace consolidation in the right lower lung zone and atelectasis versus mild consolidation at the left lung base. Navneet English MD Chest CT 01/24/17 0000 Signed Impressions: Service Date/Time: Tuesday, January 24, 2017 16:13 - CONCLUSION: 1. Small bilateral pleural effusions and dependent atelectasis and consolidation in both lungs. No pericardial effusion. No pneumothorax. Vishal Woodward MD Procedures * 01/30/17 - EGD - revealed AVM on anterior gastric wall with bipolar cautery ablation, duodenum with previous clip in place with bright red clot/poss vessel , 2 additional clips placed. * 01/28/17 - EGD - + gastritis and duodenal ulcer s/p cauterization. Pathology reactive gastropathy, no H. Pylori. . Assessment and Plan Disease Oriented Problem List: (1) Obesity hypoventilation syndrome (2) CHF exacerbation (3) DM (diabetes mellitus) (4) Acidosis, metabolic (5) HTN (hypertension) (6) Anemia (7) Acute renal failure (8) Chronic venous hypertension w ulceration (9) Morbid obesity (10) Chronic acquired lymphedema Symptom Scale: (1) Pain 0-10 Scale: 0 (2) Weakness 0-10 Scale: Unable to quantify (3) Dyspnea 0-10 Scale: 0 Pertinent Non-Medical Issues Psychosocial: Has 2 sisters. Spiritual:[employer]. Legal: Patient appears capacitated, though has some behavioral tendencies, non- committal and difficult to keep engaged in conversations. He has designated Health Care surrogates Tania Joyce OR Orquidea Joyce (sisters). He does not want HCS called until he is unable to make his own decisions. Ethical issues impacting care: No known concerns at this time. . Important Contacts * [facility]: Orquidea Joyce: [phone] * HCS: Tania Joyce, last known [facility] [address] [facility], no contact information-- poss number in google search: [phone]; address [address] . Prognosis Patient is a 71 year old male admitted with respiratory failure requiring intermittent BiPAP, active GI bleed - Eliquis on hold, acute on chronic renal failure and overall general debility, his overall prognosis is poor. He is high risk for further decline or setbacks given multiple comorbidities. . Code Status: No Code Plan * Patient appears capacitated, though has some behavioral tendencies, non- committal and difficult to keep engaged in conversations. He has designated Health Care surrogates Tania Joyce OR Orquidea Joyce (sisters). He does not want HCS called until he is unable to make his own decisions. * NO CODE (DNR/DNI) * 02/02/17 - Patient desires continued aggressive care short of NO CODE (DNR/DNI) . * SYMPTOMS: Pain: reports generalized discomfort all over, mostly in his left toes due to LE cellulitis and lymphedema. Has PRN Morphine available, none since 01/27/17. Dyspnea: currently on oxygen via NC, intermittently on BiPAP. No new medication recommendations at this time. * Palliative care will continue to follow throughout hospital course to assist with symptom management and clarification of goals as needed. . Attestation To help prompt me to consider important information that might be impacting today's encounter and assessment, information from prior notes written by myself or my colleagues may have been "brought forward" into today's note. My signature on this note, however, is an attestation that I personally performed the exam, history, and/or decision-making noted today, and, unless otherwise indicated, the interactions with patient, family, and staff as well as the review of records all occurred today. I also attest that the listed assessment and stated plan reflect my best clinical judgment today based on the combination of historical information, prior notes, and today's exam/ interactions. When time spent is documented, it refers only to time spent today by the signer, or if indicated, combined time spent today by collaborating physician/nurse practitioner. Estela Diallo Feb 02, 2017 16:44
[2017-02-02] MEDS: ACETAMINOPHEN/HYDROcodone 325 MG/5 MG TAB PO PRN (17:27)
--- NOTE | 2017-02-02 18:04 | PD.CONS ---
History of Present Illness Service Podiatry Consult Requested By Dr Gonzalez Reason for Consult Bilateral lymphedema, possible wounds Primary Care Physician Carlos Morse M.D. Diagnoses: History of Present Illness Patient relates long history of chronic wounds and edema to bilateral lower extremities. He was going to a therapist who specializes in management of lymphedema and having wraps/massage. His last visit was 2 weeks ago and he says the bandages have been in place since then and he has no idea if there are any wounds present. Past Family Social History Allergies: 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 - 11/19/16 Past Medical History 1. Chronic kidney disease, apparently stage IV with baseline creatinine between 2.1 and 2.9 in October of this year corresponding to chronic kidney disease stage IV 2. History of hypertension 3. Obesity 4. Hypoventilation syndrome 5. Diabetes 6. Congestive heart failure 7. Chronic lower extremity lymphedema 8. Chronic venous stasis dermatitis 9. Morbid obesity Past Surgical History Tonsillectomy Reported Medications 1. Eliquis. 2. Nystatin. 3. Tylenol. 4. Iron. 5. Lidoderm. 6. [place]. 7. Ambien. 8. Hydralazine. 9. Fluoxetine. 10. Aspirin. 11. Amlodipine. 12. Glipizide. 13. Lisinopril. 14. Clonidine. 15. Coreg. Active Ordered Medications Current Medications Medications (Trade) Dose Ordered Sig/Darling Route Start Time Stop Time Status Last Admin (Norvasc) 5 mg BID PO 01/23/17 21:00 02/02/17 08:07 (Eliquis) 2.5 mg BID PO 01/23/17 21:00 Hold 01/26/17 08:36 (Aspirin) 325 mg DAILY PO 01/24/17 09:00 Hold 01/27/17 08:46 (Coreg) 25 mg BID PO 01/23/17 21:00 02/02/17 08:07 (Catapres) 0.2 mg BID PO 01/23/17 21:00 02/02/17 08:07 ([place] 5-325 Mg) 1 tab Q6H PRN PO 01/23/17 21:00 02/02/17 17:27 (NS Flush) 2 ml UNSCH PRN .XX 01/23/17 21:15 (NS Flush) 2 ml BID .XX 01/24/17 09:00 01/31/17 21:29 (Tylenol) 650 mg Q6H PRN PO 01/23/17 21:15 (Morphine Inj) 2 mg Q2H PRN IV 01/23/17 21:15 01/27/17 20:43 (Tears Naturale Opth Soln) 1 drop TID EACH EYE 01/24/17 09:00 02/01/17 14:11 (Zofran Inj) 4 mg Q6H PRN IV 01/23/17 21:15 Miscellaneous Information 1 Q361D XX 01/23/17 21:15 (Chlorhexidine 2% Cloth) Taper DAILY@04 TOP 01/24/17 04:00 01/20/18 03:59 02/01/17 04:00 (Chlorhexidine 2% Cloth) 3 pack UNSCH PRN TOP 01/23/17 21:15 (Audelia-Colace) 1 tab BID PO 01/24/17 09:00 02/01/17 09:15 (Milk Of Magnesia Liq) 30 ml Q12H PRN PO 01/23/17 21:15 (Senokot) 17.2 mg Q12H PRN PO 01/23/17 21:15 (Dulcolax Supp) 10 mg DAILY PRN RECTAL 01/23/17 21:15 (Lactulose Liq) 30 ml DAILY PRN PO 01/23/17 21:15 (D50w (Vial) Inj) 50 ml UNSCH PRN IV 01/23/17 23:00 (Glucagon Inj) 1 mg UNSCH PRN OTHER 01/23/17 23:00 (Ditropan) 5 mg Q8HR PO 01/26/17 22:00 02/02/17 14:00 (NovoLOG SUPPLEMENTAL SCALE) 1 Q6H SQ 01/29/17 11:00 02/02/17 17:32 (Protonix Inj) 40 mg Q12HR IV PUSH 02/01/17 21:00 02/02/17 09:00 (Bumetanide) 2 mg DAILY PO 02/02/17 11:00 02/02/17 12:13 Family History nc Social History denies Physical Exam Vital Signs Vital Signs Date Time Temp Pulse Resp B/P Pulse Ox O2 Delivery O2 Flow Rate FiO2 02/02/17 16:40 98.4 100 22 138/76 94 02/02/17 14:00 65 02/02/17 12:00 98.0 84 20 139/72 92 02/02/17 12:00 65 02/02/17 10:00 65 02/02/17 08:11 93 Simple Mask 8.00 02/02/17 08:00 65 02/02/17 08:00 97.4 78 16 136/78 95 02/02/17 07:00 Simple Mask 10.00 02/02/17 06:00 72 02/02/17 04:00 98.4 72 18 126/67 95 02/02/17 04:00 72 02/02/17 02:00 74 02/02/17 01:51 94 Nasal Cannula 5.00 02/02/17 00:00 99.1 79 18 135/76 97 02/02/17 00:00 79 02/02/17 00:00 79 02/01/17 22:21 95 45 02/01/17 22:00 80 02/01/17 20:50 96 Simple Mask 8.00 02/01/17 20:00 99.1 80 18 132/71 96 02/01/17 20:00 75 02/01/17 20:00 Nasal Cannula 6.00 40 02/01/17 18:00 98.0 79 20 115/79 96 02/01/17 18:00 65 Physical Exam Morbidly obese. Wraps with multilayer compression bilateral lower extremities to just below knee. toenails thickened. Skin temperature warm to warm. Chronic skin changes noted. There is a full- thickness wound approx 1.5cm x 1cm and 0.2cm depth, 50/50 fibrogranular base R anterior reynolds. There is healed wound posterior L calf area. No sign of infection present. Laboratory Laboratory Tests Test 02/02/17 05:20 White Blood Count 5.0 Red Blood Count 2.63 Hemoglobin 7.7 Hematocrit 23.1 Mean Corpuscular Volume 87.9 Mean Corpuscular Hemoglobin 29.2 Mean Corpuscular Hemoglobin 33.2 Concent Red Cell Distribution Width 18.1 Platelet Count 137 Mean Platelet Volume 10.0 Sodium Level 142 Potassium Level 4.2 Chloride Level 108 Carbon Dioxide Level 29.0 Anion Gap 5 Blood Urea Nitrogen 66 Creatinine 2.42 Estimat Glomerular Filtration 27 Rate Random Glucose 148 Calcium Level 8.2 Date/Time Procedure Status Source Growth 01/29/17 11:20 Stool Occult Blood ([facility]ILMAN) - Final Complete Stool Stool HEMOCCULT POSITIVE Result Diagram: 02/02/17 0520 02/02/17 05 Imaging Last Impressions Renal Ultrasound 01/29/17 0000 Signed Impressions: Service Date/Time: January 09:50 - CONCLUSION: No evidence of hydronephrosis. Gustavo Grider MD Chest X-Ray 01/29/17 0000 Signed Impressions: Service Date/Time: January 07:30 - CONCLUSION: Stable chest x-ray with airspace consolidation in the right lower lung zone and atelectasis versus mild consolidation at the left lung base. Navneet English MD Chest CT 01/24/17 0000 Signed Impressions: Service Date/Time: Tuesday, January 24, 2017 16:13 - CONCLUSION: 1. Small bilateral pleural effusions and dependent atelectasis and consolidation in both lungs. No pericardial effusion. No pneumothorax. Vishal Woodward MD Assessment and Plan Assessment and Plan Lymphedema with wound R leg Continue multilayer compression bandages bilateral lower extremities. Ordered wound care nurse to apply multilayer compression from behind toes to just below knee with santyl/adaptic/4x4 to R calf wound every 5 days Thank you for consult. Podiatry signing off. Re-consult if new issues arise. Zay Salinas DPM Feb 02, 2017 18:04
[2017-02-03] VITALS (29 sets, daily range): BP systolic 122–172; BP diastolic 8–86; PULSE 51–83; RESP 18–20; TEMP 96.7–98.7; O2SAT 93–100
[2017-02-03] MEDS: CHLORHEXIDINE GLUCONATE 2 % 1 PACK (2 CLOTHS) TOP SCH (04:00)
[2017-02-03 06:16] LABS: POTASSIUM 4.2 MEQ/L (3.5-5.1)
[2017-02-03 06:22] LABS: AUTOMATED NEUTROPHIL # 2.7 TH/MM3 (1.8-7.7); BASOPHIL % 0.9 % (0.0-2.0); EOSINOPHIL # 0.4 TH/MM3 (0-0.4); EOSINOPHIL % 10.1 % (0.0-4.0); HEMATOCRIT 23.1 % (39.0-51.0); HEMO FLAGS DIFF FINAL; LYMPH % 11.6 % (9.0-44.0); LYMPHOCYTE # 0.5 TH/MM3 (1.0-4.8); MEAN CELL VOLUME 87.9 FL (80.0-100.0); MEAN CORPUSCULAR HEMOGLOBIN 29.1 PG (27.0-34.0); MEAN CORPUSCULAR HGB CONC 33.2 % (32.0-36.0); MONO % 11.2 % (0.0-8.0); NEUT % 66.2 % (16.0-70.0); PLATELET COUNT 145 TH/MM3 (150-450); RED BLOOD COUNT 2.62 MIL/MM3 (4.50-5.90); RED CELL DISTRIBUTION WIDTH 17.8 % (11.6-17.2); WHITE BLOOD COUNT 4.1 TH/MM3 (4.0-11.0)
[2017-02-03] MEDS: INSULIN ASPART SUPPLEMENTAL SCALE SQ SCH ×4 (06:32→23:25)
[2017-02-03] MEDS: OXYBUTYNIN CHLORIDE 5 MG TAB PO SCH ×3 (07:04→21:26)
[2017-02-03] MEDS: COLLAGENASE OINT 30 GM TUBE TOPICAL SCH (09:00)
[2017-02-03] MEDS: SODIUM CHLORIDE 0.9% FLUSH 10 ML FLUSH SCH ×2 (09:00→21:27)
[2017-02-03] MEDS: ARTIFICIAL TEARS OPTH SOLN 15 ML BTL EACH EYE SCH ×3 (09:00→17:11)
[2017-02-03] MEDS: cloNIDine HCL 0.2 MG TAB PO SCH ×2 (09:35→21:27)
[2017-02-03] MEDS: DOCUSATE SODIUM 50 MG/SENNA 8.6 MG TAB PO SCH ×2 (09:35→21:27)
[2017-02-03] MEDS: BUMETANIDE 1 MG TAB PO SCH (09:35)
[2017-02-03] MEDS: PANTOPRAZOLE SODIUM 40 MG VIAL IV PUSH SCH ×2 (09:35→21:28)
[2017-02-03] MEDS: amLODIPine BESYLATE 5 MG TAB PO SCH ×2 (09:35→21:27)
[2017-02-03] MEDS: CARVEDILOL 12.5 MG TAB PO SCH ×2 (09:35→21:27)
--- NOTE | 2017-02-03 11:26 | HHI.NPPN ---
Subjective General Problems: Edema, Hypertension, Obesity Renal Failure: Chronic, Acute Interval History Moved out of [facility] [place]. No acute complaints. Renal function has improved. (Chetna Davis) Review of Systems General Constitutional: Fatigue (Chetna Davis) Cardiovascular Cardiac: Edema, ROWAN (Chetna Davis) Objective Data Data 02/02/17 02/03/17 19:00 07:00 Intake Total 613 ml 100 ml Output Total 1400 ml 2750 ml Balance -787 ml -2650 ml Intake Oral 560 ml 100 ml IV Total 53 ml Output Urine Total 1400 ml 2750 ml # Bowel Movements 3 Vital Signs Date Time Temp Pulse Resp B/P Pulse Ox O2 Delivery O2 Flow Rate FiO2 02/03/17 10:05 94 Nasal Cannula 4.00 02/03/17 08:00 96.7 83 20 149/70 98 02/03/17 06:00 55 02/03/17 05:00 64 02/03/17 04:00 61 20 122/75 99 02/03/17 04:00 61 02/03/17 03:00 56 02/03/17 02:00 60 02/03/17 01:56 96 45 02/03/17 01:00 68 02/03/17 00:12 96 45 02/03/17 00:12 96 BiPAP 45 02/03/17 00:00 97.6 66 18 128/74 95 02/03/17 00:00 65 02/02/17 23:00 72 02/02/17 22:00 72 02/02/17 21:00 82 02/02/17 20:00 98.3 81 18 132/77 97 02/02/17 20:00 97 Simple Mask 10.00 02/02/17 20:00 89 02/02/17 19:00 86 02/02/17 18:12 85 02/02/17 16:40 98.4 100 22 138/76 94 02/02/17 16:00 68 02/02/17 14:00 65 02/02/17 12:00 98.0 84 20 139/72 92 02/02/17 12:00 65 (Chetna Davis) -: 02/03/17 0500 02/03/17 0500 Physical Exam General Appearance: Well Developed, Comfortable, Obese (Chetna Davis) Throat Throat Exam: Oral Mucosa [place] & Moist (Chetna Davis) Neck Neck Exam: Neck Supple (Chetna Davis) Pulmonary Resp Exam: Clear Bilaterally, No Distress, Decreased Bases, Diminished Breath Sounds (Chetna Davis) Cardiology CV Exam: Regular (Chetna Dvais) Gastrointestinal/Abdomen GI Exam: Soft, Non-Tender, Bowel Sounds Present (Chetna Davis) Genitourinary Exam: Clear Urine (Chetna Davis) Extremeties Extremities Exam: Pitting Edema, Dependent Edema Extremeties Remarks upper extremity edema present lymphedema, chronic skin changes (Chetna Davis) Neurologic Neuro Exam: Alert, Awake, Oriented, Speech Clear, Moving All Extremities ( Chetna Davis) Psychiatric Psych Exam: Appropriate Responses (Chetna Davis) VTE Prophylaxis Device: SCDs (Chetna Davis) Assessment/Plan Discussed Condition With: Patient Assessment Summary: JOÃO/Acute Renal Failure, Fluid/Volume Overload, Hypertension, Diabetes Mellitus Problem List: (1) Acute renal failure Plan: Renal function has improved. he has underlying CKD IV, baseline creatinine from this past October of 2.1-2.9. Avoid IVF continue Bumex 2 mg po daily, monitor urine output, currently non oliguric Avoid nephrotoxic agents. (2) CHF exacerbation Plan: monitor fluid volume status, EF 55% on Echo On Coreg. Diuresis as above. Fluid gain may be related to multiple blood transfusions (3) Obesity hypoventilation syndrome Plan: on nasal cannula Oxygen Continue to monitor pulmonary status (4) DM (diabetes mellitus) Plan: Monitor blood glucose, continue insulin as needed goal 140-180 mg/dL (5) HTN (hypertension) Plan: continue present medications follow blood pressure (6) Anemia Plan: due to GI bleeding Hb low but stable he has received 10 units PRBC s/p cauterization of duodenal bleed 01/28, repeat EGD on 01/30. GI following. If he bleeds again, he may need IR consult for embolization of the bleeding artery. Protonix changed to PO Apixaban and ASA have been suspended. (Chetna Davis) Plan patient was seen and examined. Agree with above assessment and plan. He can be discharged from renal standpoint. (Lisandro Vicente MD) Problem Qualifiers (1) Acute renal failure: Qualified Code: N17.9 - Acute renal failure, unspecified acute renal failure type (2) CHF exacerbation: Qualified Code: I50.9 - Acute on chronic congestive heart failure, unspecified congestive heart failure type (3) DM (diabetes mellitus): Qualified Code: E08.22 - Diabetes mellitus due to underlying condition with diabetic chronic kidney disease, unspecified CKD stage, unspecified intermediate school teacher insulin use status (4) Anemia: Qualified Code: N18.9 - Anemia in chronic kidney disease, unspecified CKD stage Chetna Davis Feb 03, 2017 11:26 Lisandro Vicente MD Feb 04, 2017 09:46
--- NOTE | 2017-02-03 14:37 | HHI.GIFU ---
Subjective Remarks Resting in bed. Tolerating diet. No n/v. No active bleeding. Aide denies him having any black tarry stool today. Objective Vitals I&O Vital Signs Date Time Temp Pulse Resp B/P Pulse Ox O2 Delivery O2 Flow Rate FiO2 02/03/17 12:01 96 Nasal Cannula 5.00 02/03/17 12:00 74 02/03/17 11:50 98.6 80 18 157/80 96 02/03/17 11:00 64 02/03/17 10:05 94 Nasal Cannula 4.00 02/03/17 09:00 82 02/03/17 08:00 68 02/03/17 08:00 96.7 83 20 149/70 98 02/03/17 07:00 51 02/03/17 06:00 55 02/03/17 05:00 64 02/03/17 04:00 61 20 122/75 99 02/03/17 04:00 61 02/03/17 03:00 56 02/03/17 02:00 60 02/03/17 01:56 96 45 02/03/17 01:00 68 02/03/17 00:12 96 45 02/03/17 00:12 96 BiPAP 45 02/03/17 00:00 97.6 66 18 128/74 95 02/03/17 00:00 65 02/02/17 23:00 72 02/02/17 22:00 72 02/02/17 21:00 82 02/02/17 20:00 98.3 81 18 132/77 97 02/02/17 20:00 97 Simple Mask 10.00 02/02/17 20:00 89 02/02/17 19:00 86 02/02/17 18:12 85 02/02/17 16:40 98.4 100 22 138/76 94 02/02/17 16:00 68 I/O 02/02/17 02/02/17 02/02/17 02/03/17 02/03/17 02/03/17 07:00 15:00 23:00 07:00 15:00 23:00 Intake Total 189 ml 613 ml 100 ml Output Total 950 ml 1400 ml 2750 ml Balance -761 ml -787 ml -2650 ml Intake Oral 89 ml 560 ml 100 ml IV Total 100 ml 53 ml Output Urine Total 950 ml 1400 ml 2750 ml # Bowel Movements 0 3 Laboratory Laboratory Tests Test 02/03/17 05:00 White Blood Count 4.1 Red Blood Count 2.62 Hemoglobin 7.7 Hematocrit 23.1 Mean Corpuscular Volume 87.9 Mean Corpuscular Hemoglobin 29.1 Mean Corpuscular Hemoglobin 33.2 Concent Red Cell Distribution Width 17.8 Platelet Count 145 Mean Platelet Volume 10.3 Neutrophils (%) (Auto) 66.2 Lymphocytes (%) (Auto) 11.6 Monocytes (%) (Auto) 11.2 Eosinophils (%) (Auto) 10.1 Basophils (%) (Auto) 0.9 Neutrophils # (Auto) 2.7 Lymphocytes # (Auto) 0.5 Monocytes # (Auto) 0.5 Eosinophils # (Auto) 0.4 Basophils # (Auto) 0.0 CBC Comment DIFF FINAL Differential Comment Sodium Level 143 Potassium Level 4.2 Chloride Level 108 Carbon Dioxide Level 28.0 Anion Gap 7 Blood Urea Nitrogen 57 Creatinine 2.20 Estimat Glomerular Filtration 30 Rate Random Glucose 156 Calcium Level 8.2 Phosphorus Level 2.9 Albumin 2.2 Imaging Last Impressions Renal Ultrasound 01/29/17 0000 Signed Impressions: Service Date/Time: January 09:50 - CONCLUSION: No evidence of hydronephrosis. Gustavo Grider MD Chest X-Ray 01/29/17 0000 Signed Impressions: Service Date/Time: January 07:30 - CONCLUSION: Stable chest x-ray with airspace consolidation in the right lower lung zone and atelectasis versus mild consolidation at the left lung base. Navneet English MD Chest CT 01/24/17 0000 Signed Impressions: Service Date/Time: Tuesday, January 24, 2017 16:13 - CONCLUSION: 1. Small bilateral pleural effusions and dependent atelectasis and consolidation in both lungs. No pericardial effusion. No pneumothorax. Vishal Woodward MD Physical Exam HEENT: Normocephalic; atraumatic; no jaundice. CHEST: Resp even/unlabored Diminished breath sounds. CARDIAC: RRR ABDOMEN: Soft, morbidly obesity, nondistended, nontender; no hepatosplenomegaly ; bowel sounds are present in all four quadrants. EXTREMITIES: Generlized edema. SKIN: BLE volodymyr wrap drsg d/i ECD: No focal deficits; alert and oriented times three. Assessment and Plan Plan ASSESSMENT: - Upper GIB with melena. S/P EGD with control of bleeding (01/28/17)-----> GI bleeding from a lesion at the postbulbar duodenum in the posterior position, s/p injection with 5 cc epinephrine 1:10,000, bipolar cautery, single endoscopic clip placed, recheck 3 minutes showed that the bleeding has stopped, chronic gastritis, r/o h. pylori. Protonix gtt, s/p octreotide gtt. Plan was to hold Eliquis one week. 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 Two additional clips were placed with apparently good effect. This was located in the postbulbar duodenum posteriorly. No active bleeding was seen. H/H currently stable 7.7/23.1. No n/v. No abdominal pain. Aide denies any black tarry stools. Tolerating diet. Pt requesting diet be advanced. - Acute anemia secondary to blood loss. EGD as above. S/P 10 units PRBC. Protonix with BID dosing. - Acute on chronic kidney disease with electrolyte abnormalities. Renal Ultrasound (01/29/17)----> No evidence of hydronephrosis. Creat. 2.20 - Respiratory failure secondary to CHF, hyperventilation. Now on N/C. - Hyponatremia, DM, HTN, BLE chronic venous stasis dermatitis per primary. PLAN: - Heart healthy, diabetic soft diet - Protonix 40mg IV BID - Monitor H/H - Transfuse as necessary - GI will sign off, please reconsult as needed - Patient seen and examined by myself and Dr. Hale and this note was written on his behalf. Lexi Reddy Feb 03, 2017 14:37
--- NOTE | 2017-02-03 16:08 | HHI.PR ---
Subjective Interval History Alert, oriented, feels better, now down to nasal cannula, still not ambulating Review of Systems Constitutional Constitutional Remarks As detailed above, severe general weakness, , 10 systems reviewed and otherwise negative, Vitals/Results Intake & Output 02/02/17 02/02/17 02/03/17 15:00 23:00 07:00 Intake Total 613 ml 100 ml Output Total 1400 ml 2750 ml Balance -787 ml -2650 ml Intake Oral 560 ml 100 ml IV Total 53 ml Output Urine Total 1400 ml 2750 ml # Bowel Movements 3 Vital Signs Vital Signs Date Time Temp Pulse Resp B/P Pulse Ox O2 Delivery O2 Flow Rate FiO2 02/03/17 12:01 96 Nasal Cannula 5.00 02/03/17 12:00 74 02/03/17 11:50 98.6 80 18 157/80 96 02/03/17 11:00 64 02/03/17 10:05 94 Nasal Cannula 4.00 02/03/17 09:00 82 02/03/17 08:00 68 02/03/17 08:00 96.7 83 20 149/70 98 02/03/17 07:00 51 02/03/17 06:00 55 02/03/17 05:00 64 02/03/17 04:00 61 20 122/75 99 02/03/17 04:00 61 02/03/17 03:00 56 02/03/17 02:00 60 02/03/17 01:56 96 45 02/03/17 01:00 68 02/03/17 00:12 96 45 02/03/17 00:12 96 BiPAP 45 02/03/17 00:00 97.6 66 18 128/74 95 02/03/17 00:00 65 02/02/17 23:00 72 02/02/17 22:00 72 02/02/17 21:00 82 02/02/17 20:00 98.3 81 18 132/77 97 02/02/17 20:00 97 Simple Mask 10.00 02/02/17 20:00 89 02/02/17 19:00 86 02/02/17 18:12 85 02/02/17 16:40 98.4 100 22 138/76 94 CBC/BMP: 02/03/17 0500 02/03/17 0500 Lab Results Laboratory Tests Test 02/03/17 05:00 White Blood Count 4.1 TH/MM3 Red Blood Count 2.62 MIL/MM3 Hemoglobin 7.7 GM/DL Hematocrit 23.1 % Mean Corpuscular Volume 87.9 FL Mean Corpuscular Hemoglobin 29.1 PG Mean Corpuscular Hemoglobin 33.2 % Concent Red Cell Distribution Width 17.8 % Platelet Count 145 TH/MM3 Mean Platelet Volume 10.3 FL Neutrophils (%) (Auto) 66.2 % Lymphocytes (%) (Auto) 11.6 % Monocytes (%) (Auto) 11.2 % Eosinophils (%) (Auto) 10.1 % Basophils (%) (Auto) 0.9 % Neutrophils # (Auto) 2.7 TH/MM3 Lymphocytes # (Auto) 0.5 TH/MM3 Monocytes # (Auto) 0.5 TH/MM3 Eosinophils # (Auto) 0.4 TH/MM3 Basophils # (Auto) 0.0 TH/MM3 CBC Comment DIFF FINAL Differential Comment Sodium Level 143 MEQ/L Potassium Level 4.2 MEQ/L Chloride Level 108 MEQ/L Carbon Dioxide Level 28.0 MEQ/L Anion Gap 7 MEQ/L Blood Urea Nitrogen 57 MG/DL Creatinine 2.20 MG/DL Estimat Glomerular Filtration 30 ML/MIN Rate Random Glucose 156 MG/DL Calcium Level 8.2 MG/DL Phosphorus Level 2.9 MG/DL Albumin 2.2 GM/DL Physical Exam General General Appearance: Well Developed, Comfortable, Obese Throat Throat Exam: Oral Mucosa [place] & Moist Neck Neck Exam: Neck Supple Pulmonary Resp Exam: Clear Bilaterally, No Distress, Decreased Bases, Diminished Breath Sounds Cardiology CV Exam: Regular Gastrointestinal/Abdomen GI Exam: Soft, Non-Tender, Bowel Sounds Present Genitourinary Exam: Clear Urine Extremeties Extremities Exam: Pitting Edema, Dependent Edema Extremeties Remarks Massive lymphedema in both lower extremities Neurologic Neuro Exam: Alert, Awake, Oriented, Speech Clear, Moving All Extremities Psychiatric Psych Exam: Appropriate Responses VTE Prophylaxis VTE Prophylaxis Device: SCDs Assessment/Plan Assessment/Plan Assessment Respiratory failure, on nasal cannula oxygen, on BiPAP at night as needed Hypoxemia Acute on chronic kidney disease Morbid obesity Anemia of chronic disease Heart failure with preserved function Gastrointestinal bleeding, controlled at this time Status post upper endoscopy this admission, gastric ulcer clipped Status post transfusion this admission Bedridden status Deconditioning History of diabetes, hypertension, obesity Management Supplemental oxygen Diuresis as tolerated John wraps for the lower extremities, consult podiatry Advance diet Nephrology following Follow electrolyte levels and replace as needed Follow renal indices Follow hemoglobin DVT prophylaxis DNR CODE STATUS Palliative care following Discussed with patient Discussed with nurse 35 minutes spent Rosalina Sibley MD Feb 03, 2017 16:08
--- NOTE | 2017-02-03 18:12 | PD.WCN.NOT ---
Wound Consult Description: Application of multilayer compression to bilateral lower extremities Communicated with: RN Es and Doctor Brad Additional Information: Patient seen on [facility] for evaluation of wound to wound to R reynolds and application of multilayer compression to bilateral legs and Santyl /adaptic to R reynolds. Patient is noted with bordered gauze covering wounds to R reynolds and L calf. Removed dressings in place to reveal R reynolds ulcer measuring 1.9 cm x 1 cm x ~ 0.1 cm and L calf ulcer measuring 1.1 cm x 3 cm x~<0.1 cm. Both wounds present with 100% pink tissue. Santyl applied to wound earlier on R reynolds earlier today. Covered wound to R reynolds and L calf wound beds with Adaptic (oil emulsion gauze) in single layer just over wound bed and covered with dry 4x4 gauze.Secured dressing with rolled gauze and tape.Patient states,"I have used tubigrips before for compression and I am a size G." Applied size G Medigrip elastic tubular bandage from toes extending up to knees to bilateral lower extremities. Did not apply multilayer compression at this time.Only multilayer compression available is Unnas boots. Unnas boots are contraindicated for patient's with CHF. Will speak with Doctor Brad to clarify if she still wants Unnas boots or if patient can use double layer Medigrip tubular bandage instead. Coreen Tony CRN Feb 03, 2017 18:12
[2017-02-04] VITALS (18 sets, daily range): BP systolic 129–163; BP diastolic 53–82; PULSE 63–92; RESP 15–20; TEMP 97.9–99; O2SAT 94–97
[2017-02-04] MEDS: CHLORHEXIDINE GLUCONATE 2 % 1 PACK (2 CLOTHS) TOP SCH (04:00)
[2017-02-04] MEDS: OXYBUTYNIN CHLORIDE 5 MG TAB PO SCH ×3 (05:27→21:06)
[2017-02-04] MEDS: INSULIN ASPART SUPPLEMENTAL SCALE SQ SCH ×4 (05:30→21:30)
[2017-02-04] MEDS: COLLAGENASE OINT 30 GM TUBE TOPICAL SCH (09:00)
[2017-02-04] MEDS: ARTIFICIAL TEARS OPTH SOLN 15 ML BTL EACH EYE SCH ×3 (09:00→17:34)
[2017-02-04] MEDS: cloNIDine HCL 0.2 MG TAB PO SCH ×2 (09:28→21:10)
[2017-02-04] MEDS: SODIUM CHLORIDE 0.9% FLUSH 10 ML FLUSH SCH ×2 (09:28→21:11)
[2017-02-04] MEDS: CARVEDILOL 12.5 MG TAB PO SCH ×2 (09:28→21:09)
[2017-02-04] MEDS: amLODIPine BESYLATE 5 MG TAB PO SCH (09:28)
[2017-02-04] MEDS: DOCUSATE SODIUM 50 MG/SENNA 8.6 MG TAB PO SCH ×2 (09:28→21:10)
[2017-02-04] MEDS: BUMETANIDE 1 MG TAB PO SCH (09:29)
[2017-02-04] MEDS: PANTOPRAZOLE SODIUM 40 MG VIAL IV PUSH SCH ×2 (09:29→21:00)
--- NOTE | 2017-02-04 11:13 | HHI.NPPN ---
Subjective General Problems: Edema, Hypertension, Obesity Renal Failure: Chronic, Acute Interval History Sitting up in bed. No new acute issues. (Chetna Davis) Review of Systems General Constitutional: Fatigue (Chetna Davis) Cardiovascular Cardiac: Edema, ROWAN (Chetna Davis) Objective Data Data 02/03/17 02/04/17 19:00 07:00 Intake Total 480 ml Output Total 1250 ml Balance -770 ml Intake Oral 480 ml Output Urine Total 1250 ml Vital Signs Date Time Temp Pulse Resp B/P Pulse Ox O2 Delivery O2 Flow Rate FiO2 02/04/17 09:36 94 4.00 02/04/17 06:17 64 02/04/17 05:05 70 02/04/17 04:00 63 02/04/17 03:36 97.9 81 20 129/53 94 02/04/17 03:20 64 02/04/17 02:13 75 02/04/17 01:28 72 02/04/17 00:00 72 02/03/17 23:15 98.0 81 18 137/70 96 02/03/17 23:00 82 02/03/17 22:37 100 Nasal Cannula 4.00 02/03/17 22:00 72 02/03/17 21:03 98.2 75 20 172/86 99 02/03/17 21:03 99 Nasal Cannula 4.00 02/03/17 21:00 80 02/03/17 20:10 75 02/03/17 18:00 72 02/03/17 17:00 74 02/03/17 16:00 70 02/03/17 16:00 98.7 82 20 123/8 93 02/03/17 15:00 65 02/03/17 14:00 72 02/03/17 13:00 68 02/03/17 12:01 96 Nasal Cannula 5.00 02/03/17 12:00 74 02/03/17 11:50 98.6 80 18 157/80 96 (Chetna Davis) -: 02/03/17 0500 02/03/17 0500 Physical Exam General Appearance: Well Developed, No Acute Distress, Comfortable, Obese (Chetna Davis) Throat Throat Exam: Oral Mucosa [place] & Moist (Chetna Davis. ADDICTION PROFESSIONAL) Neck Neck Exam: Neck Supple (Chetna Davis. ADDICTION PROFESSIONAL) Pulmonary Resp Exam: Clear Bilaterally, No Distress, Decreased Bases, Diminished Breath Sounds (Chetna Davis ADDICTION PROFESSIONAL) Cardiology CV Exam: Regular, Normal Sinus Rhythm (Chetna Davis. ADDICTION PROFESSIONAL) Gastrointestinal/Abdomen GI Exam: Soft, Non-Tender, Bowel Sounds Present (Chetna Davis ADDICTION PROFESSIONAL) Genitourinary Exam: Clear Urine (Chetna Davis ADDICTION PROFESSIONAL) Musculoskeletal MS Exam: Joints Intact, Normal Tone (Chetna Davis. ADDICTION PROFESSIONAL) Integumentary Skin Exam: Warm, Dry (Chetna Davis ADDICTION PROFESSIONAL) Extremeties Extremities Exam: Pitting Edema, Dependent Edema Extremeties Remarks upper extremity edema present lymphedema, chronic skin changes (Chetna Davis. ADDICTION PROFESSIONAL) Neurologic Neuro Exam: Alert, Awake, Oriented, Speech Clear, Moving All Extremities ( Chetna DavisP) Psychiatric Psych Exam: Appropriate Responses (Chetna Davis) VTE Prophylaxis Device: SCDs (Chetna Davis B. ADDICTION PROFESSIONAL) Assessment/Plan Discussed Condition With: Patient Assessment Summary: JOÃO/Acute Renal Failure, Fluid/Volume Overload, Hypertension, Diabetes Mellitus Problem List: (1) Acute renal failure Plan: Renal function has been improving, repeat renal panel ordered he has underlying CKD IV, baseline creatinine from this past October of 2.1-2.9. Her has returned to baseline Avoid IVF continue Bumex 2 mg po daily, monitor urine output, currently non oliguric Avoid nephrotoxic agents. (2) CHF exacerbation Plan: monitor fluid volume status, EF 55% on Echo On Coreg. Diuresis as above. (3) Obesity hypoventilation syndrome Plan: on nasal cannula Oxygen Continue to monitor pulmonary status (4) DM (diabetes mellitus) Plan: Monitor blood glucose, continue insulin as needed goal 140-180 mg/dL (5) HTN (hypertension) Plan: continue present medications follow blood pressure (6) Anemia Plan: due to GI bleeding Hb low but stable he has received 10 units PRBC since admission s/p cauterization of duodenal bleed 01/28, repeat EGD on 01/30. GI following. On Protonix BID Apixaban and ASA have been suspended. Plan he is cleared for discharge from renal standpoint (Chetna Davis) Plan patient was seen and examined. Stable from renal standpoint. We will followup in the office. (Lisandro Vicente MD) Problem Qualifiers (1) Acute renal failure: Qualified Code: N17.9 - Acute renal failure, unspecified acute renal failure type (2) CHF exacerbation: Qualified Code: I50.9 - Acute on chronic congestive heart failure, unspecified congestive heart failure type (3) DM (diabetes mellitus): Qualified Code: E08.22 - Diabetes mellitus due to underlying condition with diabetic chronic kidney disease, unspecified CKD stage, unspecified retirement insulin use status (4) Anemia: Qualified Code: N18.9 - Anemia in chronic kidney disease, unspecified CKD stage Chetna Davis Feb 04, 2017 11:13 Lisandro Vicente MD Feb 04, 2017 16:54
[2017-02-04 12:23] LABS: BICARBONATE 28.6 MEQ/L (21.0-32.0); POTASSIUM 4.9 MEQ/L (3.5-5.1)
--- NOTE | 2017-02-04 14:28 | HHI.PR ---
Subjective Subjective Remarks Resting in bed Alert oriented cooperative Asking a lot of questions about dietary preferences and what he can expect at home Non-ambulatory (Racheal Wheeler) Review of Systems Constitutional Constitutional: Fatigue, Weakness (improving) Constitutional Remarks 10 point ROS done positives noted (Racheal Wheeler) GI/Abdomen GI/Abdominal Exam: Constipation (medical mag ordered today no BM in 3 days) ( Racheal Wheeler) Musculoskeletal MS: Weakness, Stiffness (lymphedema improving, with wound care, dressings, change today) (Racheal Wheeler) Integumentary Skin: Wounds (lower extremities) (Racheal Wheeler) Psychiatric Psychiatric: Normal Mood, Anxiety (mild) (Racheal Wheeler) Vitals/Results Intake & Output 02/03/17 02/03/17 02/04/17 15:00 23:00 07:00 Intake Total 480 ml Output Total 1250 ml Balance -770 ml Intake Oral 480 ml Output Urine Total 1250 ml Vital Signs Vital Signs Date Time Temp Pulse Resp B/P Pulse Ox O2 Delivery O2 Flow Rate FiO2 02/04/17 09:36 94 4.00 02/04/17 06:17 64 02/04/17 05:05 70 02/04/17 04:00 63 02/04/17 03:36 97.9 81 20 129/53 94 02/04/17 03:20 64 02/04/17 02:13 75 02/04/17 01:28 72 02/04/17 00:00 72 02/03/17 23:15 98.0 81 18 137/70 96 02/03/17 23:00 82 02/03/17 22:37 100 Nasal Cannula 4.00 02/03/17 22:00 72 02/03/17 21:03 98.2 75 20 172/86 99 02/03/17 21:03 99 Nasal Cannula 4.00 02/03/17 21:00 80 02/03/17 20:10 75 02/03/17 18:00 72 02/03/17 17:00 74 02/03/17 16:00 70 02/03/17 16:00 98.7 82 20 123/8 93 02/03/17 15:00 65 (Racheal Wheeler) CBC/BMP: 02/03/17 0500 02/04/17 1136 Lab Results Laboratory Tests Test 02/04/17 11:36 Sodium Level 141 MEQ/L Potassium Level 4.9 MEQ/L Chloride Level 105 MEQ/L Carbon Dioxide Level 28.6 MEQ/L Anion Gap 7 MEQ/L Blood Urea Nitrogen 44 MG/DL Creatinine 2.06 MG/DL Estimat Glomerular Filtration 32 ML/MIN Rate Random Glucose 173 MG/DL Calcium Level 8.1 MG/DL Phosphorus Level 2.8 MG/DL Albumin 2.3 GM/DL Current Medications Administered Medications Medications (Trade) Dose Ordered Sig/Darling Route PRN Reason Start Time Stop Time Status Last Admin Dose Admin Amlodipine Besylate (Norvasc) 5 mg BID PO 01/23/17 21:00 02/04/17 09:28 Apixaban (Eliquis) 2.5 mg BID PO 01/23/17 21:00 Hold 01/26/17 08:36 Aspirin (Aspirin) 325 mg DAILY PO 01/24/17 09:00 Hold 01/27/17 08:46 Carvedilol (Coreg) 25 mg BID PO 01/23/17 21:00 02/04/17 09:28 Clonidine (Catapres) 0.2 mg BID PO 01/23/17 21:00 02/04/17 09:28 Acetaminophen/ Hydrocodone Bitart ([place] 5-325 Mg) 1 tab Q6H PRN PO PAIN 1-5 01/23/17 21:00 02/02/17 17:27 Sodium Chloride (NS Flush) 2 ml BID .XX 01/24/17 09:00 02/04/17 09:28 Morphine Sulfate (Morphine Inj) 2 mg Q2H PRN IV PAIN SCALE 6 TO 10 01/23/17 21:15 01/27/17 20:43 Artificial Tears (Tears Naturale Opth Soln) 1 drop TID EACH EYE 01/24/17 09:00 02/01/17 14:11 Chlorhexidine Gluconate (Chlorhexidine 2% Cloth) Taper DAILY@04 TOP 01/24/17 04:00 01/20/18 03:59 02/01/17 04:00 Senna/Docusate Sodium ([place]-Colace) 1 tab BID PO 01/24/17 09:00 02/04/17 09:28 Oxybutynin Chloride (Ditropan) 5 mg Q8HR PO 01/26/17 22:00 02/04/17 05:27 Insulin Aspart (NovoLOG SUPPLEMENTAL SCALE) 1 Q6H SQ 01/29/17 11:00 02/04/17 11:00 Pantoprazole Sodium (Protonix Inj) 40 mg Q12HR IV PUSH 02/01/17 21:00 02/04/17 09:29 Bumetanide (Bumetanide) 2 mg DAILY PO 02/02/17 11:00 02/04/17 09:29 Collagenase (Santyl Oint) 1 applic DAILY TOPICAL 02/03/17 09:00 02/04/17 09:00 (Racheal Wheeler) Physical Exam General General Appearance: Well Developed, No Acute Distress, Comfortable, Obese ( Racheal Wheeler) Throat Throat Exam: Oral Mucosa [place] & Moist (Racheal Wheeler) Neck Neck Exam: Neck Supple (Racheal Wheeler) Pulmonary Resp Exam: Clear Bilaterally, No Distress, Decreased Bases, Diminished Breath Sounds (Racheal Wheeler) Cardiology CV Exam: Regular, Normal Sinus Rhythm (Racheal Wheeler) Gastrointestinal/Abdomen GI Exam: Soft, Non-Tender, Bowel Sounds Present (Racheal WheelerP) Genitourinary Exam: Clear Urine (Racheal WheelerP) Musculoskeletal MS Exam: Joints Intact, Normal Tone (Racheal Wheeler) Integumentary Skin Exam: Warm, Dry (Racheal Wheeler) Extremeties Extremities Exam: Pitting Edema, Dependent Edema (Racheal Wheeler) Neurologic Neuro Exam: Alert, Awake, Oriented, Speech Clear, Moving All Extremities ( Racheal Wheeler) Psychiatric Psych Exam: Appropriate Responses (Racheal Wheeler) VTE Prophylaxis VTE Prophylaxis Device: SCDs (Racheal Wheeler) Assessment/Plan Assessment/Plan Vital signs reviewed, normal trends Labs reviewed, monitor and replace electrolytes as needed Respiratory failure, on nasal cannula oxygen, on BiPAP at night as needed, monitor O2 sats and patient's symptoms of shortness of breath Hypoxemia Acute on chronic kidney disease, appreciate nephrology consult and expert opinion for his plan of care Morbid obesity, encourage diet mobility in bed as much as possible,Advance diet , multiple questionings about his diet and when he can have a not have, nutritional consult ordered for dietitian to see patient and discuss his needed diet Anemia of chronic disease, no acute blood loss monitor labs Heart failure with preserved function, medical management Constipation, patient has had some difficulty this admission, no BM today in 3 days, milk of magnesia to be given this afternoon, monitor results Gastrointestinal bleeding, controlled at this time Status post upper endoscopy this admission, gastric ulcer clipped, appreciate GI and their plan of care Status post transfusion this admission Bedridden status, Deconditioning palliative care has been following, patient is no code DO NOT RESUSCITATE per his request History of diabetes, hypertension, obesity Supplemental oxygen, uses O2 per nasal cannula most of the time Diuresis as tolerated John wraps for the lower extremities, consult podiatry, wound care team in for lower extremity dressing changes and evaluation, continues with gradual improvement Discussed with patient Discussed with nurse Discussed with wound care team Discussed with Dr. Sibley, seen on his behalf 30 min. (Racheal Wheeler) Assessment/Plan seen, examined by myself, Dr Sibley, today 02/04/17 Discussed with patient, improving Arrange for discharge to rehabilitation Case management consultation Discussed with mid level provider The exam, history, and the medical decision-making described in the above note were completed with the assistance of the mid-level provider. I reviewed the findings presented. I attest that I had a [id number] encounter with the patient on the same day, and personally performed and documented my assessment and findings in the medical record. (Rosalina Sibley MD) Racheal Wheeler Feb 04, 2017 14:28 Rosalina Sibley MD Feb 04, 2017 17:08
[2017-02-04] MEDS ORDERED: MAGNESIUM HYDROXIDE SUSP 30 ML CUP PO ONE (14:30)
--- NOTE | 2017-02-04 16:42 | PD.WCN.NOT ---
Wound Consult Description: Application of multilayer compression to bilateral lower extremities Communicated with: GINI Suggs and Doctor Salinas Recommendation: Continue orders as follows from Doctor Salinas: Every 5 days multilayer compression to bilateral legs, santyl/ adpatic to R reynolds Additional Information: Call placed to Doctor Salinas clarification of orders,Unnas boots are contraindicated for CHF patients. Doctor Salinas wants patient's legs wrapped with cast padding and volodymyr wrap. Removed medigrip tubular bandage applied yesterday and dressings to bilateral legs. Wound to r reynolds is noted with 50% yellow slough and 50% pink tissue. Cleansed wound to R reynolds with normal saline and applied Santyl ointment wade thick coverage and covered with single layer oil emulsion gauze just over wound bed. Secured dressing with dry 4x4 gauze pad, Cast padding and volodymyr wrap applied from behind the toes to 2 inches below knee. Cleansed small partial thickness wound to L calf with normal saline and applied oil emulsion gauze in single layer over wound bed and covered with dry 4x4 gauze. Secured dressing with cast padding and volodymyr wrap applied from behind toes to 2 inches below knees. Patient tolerated dressing change and application of wraps well. Next dressing change is due on Thursday. Coreen [facility] Feb 04, 2017 16:42
[2017-02-04] MEDS: NIFEdipine 60 MG SUSTAINED RELEASE TAB PO SCH (17:34)
[2017-02-04] MEDS: ACETAMINOPHEN/HYDROcodone 325 MG/5 MG TAB PO PRN (21:09)
[2017-02-05] VITALS (19 sets, daily range): BP systolic 101–142; BP diastolic 53–78; PULSE 60–85; RESP 16–20; TEMP 97.9–98.2; O2SAT 90–93
[2017-02-05] MEDS: CHLORHEXIDINE GLUCONATE 2 % 1 PACK (2 CLOTHS) TOP SCH (04:00)
[2017-02-05] MEDS: OXYBUTYNIN CHLORIDE 5 MG TAB PO SCH ×2 (04:41→14:00)
[2017-02-05] MEDS: INSULIN ASPART SUPPLEMENTAL SCALE SQ SCH ×3 (06:14→16:39)
[2017-02-05] MEDS: ARTIFICIAL TEARS OPTH SOLN 15 ML BTL EACH EYE SCH ×3 (09:00→16:40)
[2017-02-05] MEDS: cloNIDine HCL 0.2 MG TAB PO SCH (09:21)
[2017-02-05] MEDS: CARVEDILOL 12.5 MG TAB PO SCH (09:21)
[2017-02-05] MEDS: NIFEdipine 60 MG SUSTAINED RELEASE TAB PO SCH (09:21)
[2017-02-05] MEDS: PANTOPRAZOLE SODIUM 40 MG VIAL IV PUSH SCH (09:21)
[2017-02-05] MEDS: DOCUSATE SODIUM 50 MG/SENNA 8.6 MG TAB PO SCH (09:21)
[2017-02-05] MEDS: COLLAGENASE OINT 30 GM TUBE TOPICAL SCH (09:22)
[2017-02-05] MEDS: SODIUM CHLORIDE 0.9% FLUSH 10 ML FLUSH SCH (09:22)
[2017-02-05] MEDS: BUMETANIDE 1 MG TAB PO SCH (09:22)
--- NOTE | 2017-02-05 10:52 | HHI.NPPN ---
Subjective General Problems: Edema, Hypertension, Obesity Renal Failure: Chronic, Acute Interval History no new concerns. He has been working with therapy. (Chetna Davis) Review of Systems General Constitutional: Fatigue (Chetna Davis) Cardiovascular Cardiac: Edema, ROWAN (Chetna Davis) Objective Data Data 02/04/17 02/05/17 19:00 07:00 Intake Total 1102 ml Output Total 2000 ml Balance -898 ml Intake Oral 1102 ml Output Urine Total 2000 ml Vital Signs Date Time Temp Pulse Resp B/P Pulse Ox O2 Delivery O2 Flow Rate FiO2 02/05/17 08:00 98.1 84 20 120/66 90 02/05/17 08:00 70 02/05/17 07:35 Simple Mask 2.00 02/05/17 07:00 02/05/17 06:25 74 02/05/17 05:31 60 02/05/17 04:33 71 02/05/17 03:06 98.2 84 16 142/78 02/05/17 03:00 70 02/05/17 02:00 81 02/05/17 01:00 85 02/05/17 00:00 78 02/04/17 23:00 79 02/04/17 23:00 98.5 81 15 149/78 95 02/04/17 22:00 78 02/04/17 21:00 92 02/04/17 20:00 78 02/04/17 19:51 96 Nasal Cannula 2.00 02/04/17 19:47 98.8 84 150/80 97 02/04/17 19:00 82 02/04/17 15:00 98.8 80 20 142/82 96 02/04/17 12:00 98.5 84 20 163/82 94 (Chetna Davis) -: 02/03/17 0500 02/04/17 1136 Imaging Last Impressions Renal Ultrasound 01/29/17 0000 Signed Impressions: Service Date/Time: January 09:50 - CONCLUSION: No evidence of hydronephrosis. Gustavo Grider MD Chest X-Ray 01/29/17 0000 Signed Impressions: Service Date/Time: January 07:30 - CONCLUSION: Stable chest x-ray with airspace consolidation in the right lower lung zone and atelectasis versus mild consolidation at the left lung base. Navneet English MD Chest CT 01/24/17 0000 Signed Impressions: Service Date/Time: Thursday, January 24, 2017 16:13 - CONCLUSION: 1. Small bilateral pleural effusions and dependent atelectasis and consolidation in both lungs. No pericardial effusion. No pneumothorax. Vishal Woodward MD (Ryan,Chetna B. GLOBAL TECHNICAL WRITER) Physical Exam General Appearance: Well Developed, No Acute Distress, Comfortable, Obese (Ryan, Chetna B. GLOBAL TECHNICAL WRITER) Throat Throat Exam: Oral Mucosa [place] & Moist (RyanChetna B. GLOBAL TECHNICAL WRITER) Neck Neck Exam: Neck Supple (Ryan,Chetna B. GLOBAL TECHNICAL WRITER) Pulmonary Resp Exam: Clear Bilaterally, No Distress, Decreased Bases, Diminished Breath Sounds (Ryan,Chetna B. GLOBAL TECHNICAL WRITER) Cardiology CV Exam: Regular, Normal Sinus Rhythm (RyanChetna B. GLOBAL TECHNICAL WRITER) Gastrointestinal/Abdomen GI Exam: Soft, Non-Tender, Bowel Sounds Present (Ryan,Chetna B. GLOBAL TECHNICAL WRITER) Genitourinary Exam: Clear Urine (Ryan,Chetna B. GLOBAL TECHNICAL WRITER) Musculoskeletal MS Exam: Joints Intact, Normal Tone (Ryan,Chetna B. GLOBAL TECHNICAL WRITER) Integumentary Skin Exam: Warm, Dry (Ryan,Chetna B. GLOBAL TECHNICAL WRITER) Extremeties Extremities Exam: Pitting Edema, Dependent Edema Extremeties Remarks upper extremity edema present lymphedema, chronic skin changes (Ryan,Chetna B. GLOBAL TECHNICAL WRITER) Neurologic Neuro Exam: Alert, Awake, Oriented, Speech Clear, Moving All Extremities ( Ryan,Chetna B. GLOBAL TECHNICAL WRITER) Psychiatric Psych Exam: Appropriate Responses (Ryan,Chetna B. GLOBAL TECHNICAL WRITER) VTE Prophylaxis Device: SCDs (RyanChetna B. GLOBAL TECHNICAL WRITER) Assessment/Plan Discussed Condition With: Patient Assessment Summary: JOÃO/Acute Renal Failure, Fluid/Volume Overload, Hypertension, Diabetes Mellitus Problem List: (1) Acute renal failure Plan: Renal function has improved he has underlying CKD IV, baseline creatinine from this past October of 2.1-2.9. renal function has returned to baseline Avoid IVF continue Bumex 2 mg po daily, monitor urine output, currently non oliguric Avoid nephrotoxic agents. he is stable for discharge from out perspective, we will follow in CKD clinic (2) CHF exacerbation Plan: monitor fluid volume status, EF 55% on Echo On Coreg. Diuresis as above. (3) Obesity hypoventilation syndrome Plan: on nasal cannula Oxygen Continue to monitor pulmonary status (4) DM (diabetes mellitus) Plan: Monitor blood glucose, continue insulin as needed goal 140-180 mg/dL (5) HTN (hypertension) Plan: continue present medications follow blood pressure (6) Anemia Plan: due to GI bleeding, which has resolved s/p cauterization of duodenal bleed 01/28, repeat EGD on 01/30. Hb low but stable, he has received 10 units PRBC since admission On Protonix BID Apixaban and ASA have been suspended. (Chetna Davis) Plan patient was seen and examined. Renal function has improved. He can be discharged from renal standpoint. Agree with above assessment and plan. ( Lisandro Vicente MD) Problem Qualifiers (1) Acute renal failure: Qualified Code: N17.9 - Acute renal failure, unspecified acute renal failure type (2) CHF exacerbation: Qualified Code: I50.9 - Acute on chronic congestive heart failure, unspecified congestive heart failure type (3) DM (diabetes mellitus): Qualified Code: E08.22 - Diabetes mellitus due to underlying condition with diabetic chronic kidney disease, unspecified CKD stage, unspecified prison insulin use status (4) Anemia: Qualified Code: N18.9 - Anemia in chronic kidney disease, unspecified CKD stage Chetna Davis Feb 05, 2017 10:52 Lisandro Vicente MD Feb 06, 2017 14:03
[2017-02-05] MEDS ORDERED: SENN1TAB PO (13:05)
[2017-02-05] MEDS ORDERED: NOVOLOGSS SQ (13:05)
[2017-02-05] MEDS ORDERED: NIFE60TA8 PO (13:05)
[2017-02-05] MEDS ORDERED: HYDR-3516 PO (13:05)
[2017-02-05] MEDS ORDERED: IPRASOL NEB (13:05)
--- NOTE | 2017-02-05 16:01 | HHI.PR ---
Subjective Interval History Alert, oriented, denies complaints, concerned about his apartment rental Review of Systems Constitutional Constitutional: Fatigue, Weakness (improving) Constitutional Remarks As detailed above, general weakness, slowly improving , 10 systems reviewed and otherwise negative, GI/Abdomen GI/Abdominal Exam: Constipation (medical mag ordered today no BM in 3 days) Musculoskeletal MS: Weakness, Stiffness (lymphedema improving, with wound care, dressings, change today) Integumentary Skin: Wounds (lower extremities) Psychiatric Psychiatric: Normal Mood, Anxiety (mild) Vitals/Results Intake & Output 02/04/17 02/04/17 02/05/17 15:00 23:00 07:00 Intake Total 1102 ml Output Total 2000 ml Balance -898 ml Intake Oral 1102 ml Output Urine Total 2000 ml Vital Signs Vital Signs Date Time Temp Pulse Resp B/P Pulse Ox O2 Delivery O2 Flow Rate FiO2 02/05/17 15:10 93 Nasal Cannula 4.00 02/05/17 15:00 74 02/05/17 14:00 72 02/05/17 13:00 68 02/05/17 12:00 98.2 72 16 101/53 91 02/05/17 12:00 70 02/05/17 11:00 68 02/05/17 10:00 82 02/05/17 09:00 70 02/05/17 08:00 98.1 84 20 120/66 90 02/05/17 08:00 70 02/05/17 07:35 Simple Mask 2.00 02/05/17 07:00 68 02/05/17 07:00 02/05/17 06:25 74 02/05/17 05:31 60 02/05/17 04:33 71 02/05/17 03:06 98.2 84 16 142/78 02/05/17 03:00 70 02/05/17 02:00 81 02/05/17 01:00 85 02/05/17 00:00 78 02/04/17 23:00 79 02/04/17 23:00 98.5 81 15 149/78 95 02/04/17 22:00 78 02/04/17 21:00 92 02/04/17 20:00 78 02/04/17 19:51 96 Nasal Cannula 2.00 02/04/17 19:47 98.8 84 150/80 97 02/04/17 19:00 82 CBC/BMP: 02/03/17 0500 02/04/17 1136 Physical Exam General General Appearance: Well Developed, No Acute Distress, Comfortable, Obese Throat Throat Exam: Oral Mucosa [place] & Moist Neck Neck Exam: Neck Supple Pulmonary Resp Exam: Clear Bilaterally, No Distress, Decreased Bases, Diminished Breath Sounds Cardiology CV Exam: Regular, Normal Sinus Rhythm Gastrointestinal/Abdomen GI Exam: Soft, Non-Tender, Bowel Sounds Present Genitourinary Exam: Clear Urine Musculoskeletal MS Exam: Joints Intact, Normal Tone Integumentary Skin Exam: Warm, Dry Skin Remarks External urinary catheter in place Extremeties Extremities Exam: Pitting Edema, Dependent Edema Extremeties Remarks Massive lymphedema in both lower extremities Neurologic Neuro Exam: Alert, Awake, Oriented, Speech Clear, Moving All Extremities Psychiatric Psych Exam: Appropriate Responses VTE Prophylaxis VTE Prophylaxis Device: SCDs Assessment/Plan Assessment/Plan Assessment Respiratory failure, on nasal cannula oxygen, Hypoxemia Acute on chronic kidney disease Morbid obesity Anemia of chronic disease Heart failure with preserved function Gastrointestinal bleeding, controlled at this time Status post upper endoscopy this admission, gastric ulcer clipped Status post transfusion this admission Bedridden status Deconditioning History of diabetes, hypertension, obesity Management Discharge to rehabilitation today Supplemental oxygen Diuresis as tolerated John wraps for the lower extremities, DNR CODE STATUS Palliative care following Discussed with patient Discussed with nurse 35 minutes spent Discharge Minutes: 40 Rosalina Sibley MD Feb 05, 2017 16:01
== END 2017-02-05 18:00 | DRG 682 ==
LOC: NEPE 17:01 → NEDH 20:34 → HIMN 23:50 → HCIS 02-02 15:48
PROVIDERS: ADMIT Specialist; ATTEND Specialist
PROC: 0T9B70Z Drainage of Bladder with Drainage Device, Via Natural or Artificial Opening (ICD-10-PCS; principal; 2017-01-23)
PROC: 5A09357 Assistance with Respiratory Ventilation, Less than 24 Consecutive Hours, Continuous Positive Airway Pressure (ICD-10-PCS; 2017-01-23)
PROC: 30233N1 Transfusion of Nonautologous Red Blood Cells into Peripheral Vein, Percutaneous Approach (ICD-10-PCS; 2017-01-25)
PROC: 0DB68ZX Excision of Stomach, Via Natural or Artificial Opening Endoscopic, Diagnostic (ICD-10-PCS; 2017-01-28)
PROC: 0W3P8ZZ Control Bleeding in Gastrointestinal Tract, Via Natural or Artificial Opening Endoscopic (ICD-10-PCS; 2017-01-28)
PROC: 0W3P8ZZ Control Bleeding in Gastrointestinal Tract, Via Natural or Artificial Opening Endoscopic (ICD-10-PCS; 2017-01-30)
PROC: 0D568ZZ Destruction of Stomach, Via Natural or Artificial Opening Endoscopic (ICD-10-PCS; 2017-01-30)
DX: N17.9 Acute kidney failure, unspecified (principal); J96.02 Acute respiratory failure with hypercapnia; I50.33 Acute on chronic diastolic (congestive) heart failure; E87.2 Acidosis; E87.0 Hyperosmolality and hypernatremia; J96.01 Acute respiratory failure with hypoxia; E11.22 Type 2 diabetes mellitus with diabetic chronic kidney disease; K26.4 Chronic or unspecified duodenal ulcer with hemorrhage; D62 Acute posthemorrhagic anemia; I48.91 Unspecified atrial fibrillation; E86.9 Volume depletion, unspecified; E66.2 Morbid (severe) obesity with alveolar hypoventilation; I13.0 Hypertensive heart and chronic kidney disease with heart failure and stage 1 through stage 4 chronic kidney disease, or unspecified chronic kidney disease; L03.115 Cellulitis of right lower limb; L03.116 Cellulitis of left lower limb; Z68.44 Body mass index [BMI] 60.0-69.9, adult; L97.819 Non-pressure chronic ulcer of other part of right lower leg with unspecified severity; K29.50 Unspecified chronic gastritis without bleeding; E87.5 Hyperkalemia; N18.4 Chronic kidney disease, stage 4 (severe); F32.9 Major depressive disorder, single episode, unspecified; K21.9 Gastro-esophageal reflux disease without esophagitis; I89.0 Lymphedema, not elsewhere classified; I87.8 Other specified disorders of veins; Z51.5 Encounter for palliative care; I25.10 Atherosclerotic heart disease of native coronary artery without angina pectoris; J45.909 Unspecified asthma, uncomplicated; K44.9 Diaphragmatic hernia without obstruction or gangrene; Z66 Do not resuscitate; Z79.4 Long term (current) use of insulin; K59.00 Constipation, unspecified; D63.1 Anemia in chronic kidney disease; Q27.33 Arteriovenous malformation of digestive system vessel; E78.5 Hyperlipidemia, unspecified; E11.319 Type 2 diabetes mellitus with unspecified diabetic retinopathy without macular edema; G89.29 Other chronic pain; R00.0 Tachycardia, unspecified; K31.9 Disease of stomach and duodenum, unspecified; F41.0 Panic disorder [episodic paroxysmal anxiety]
CPT/HCPCS: 36430; 36600; 51703; 71010; 71250; 76775; 76937; 80048; 80053; 80069; 81001; 82272; 82550; 82805; 82948; 83735; 83880; 84100; 84484; 85014; 85018; 85025; 85027; 85610; 85730; 86850; 86900; 86901; 86920; 87641; 88305; 88312; 93005; 93306; 94002; 94003; 94640; 94664; 96374; C9113; J0171; J1815; J1940; J2060; J2270; J2405; J2543; J7030; J7050; J7070; J7613; P9016

== ENCOUNTER 2017-02-10 18:16 | Emergency (ER) | payer MEDICARE, MEDICAID ==
[~2017-02-10 18:16] MED LIST changes: -AMLO5TAB2 PO; -AMOX250T PO; -CLON0.2T PO; -DOXY100C PO; +FERR325C; +FLUO1TAB17; -FLUO20CA4 PO; -FURO1TAB60 PO; -GLIP10TA6 PO; -HEMO324T PO; +HYDR-3516 PO; +HYDR-3800; -HYDR50TA15 PO; +IPRASOL NEB; +LIDO5DIS5; -LISI-515 PO; +LORA-520; +NIFE60TA8 PO; +NOVOLOGSS SQ; +NYSTPOW TOPICAL; +SENN1TAB PO; +TYLE325T PO
[2017-02-10 19:57] VITALS: BP 122/68; PULSE 88; RESP 16; TEMP 98; O2SAT 94
[2017-02-10 20:23] LABS: HEMATOCRIT 25.5 % (39.0-51.0); MEAN CELL VOLUME 89.1 FL (80.0-100.0); MEAN CORPUSCULAR HEMOGLOBIN 29.3 PG (27.0-34.0); MEAN CORPUSCULAR HGB CONC 32.9 % (32.0-36.0); PLATELET COUNT 207 TH/MM3 (150-450); RED BLOOD COUNT 2.86 MIL/MM3 (4.50-5.90); RED CELL DISTRIBUTION WIDTH 18.6 % (11.6-17.2); REVIEW FLAG FINAL; WHITE BLOOD COUNT 9.3 TH/MM3 (4.0-11.0)
[2017-02-10 20:35] LABS: APTT (PATIENT) 32.2 SEC (24.3-30.1); INTERNATIONAL NORMALIZED RATIO 1.1 RATIO
[2017-02-10] MEDS ORDERED: BACTOIN EACH NARE (20:38)
[2017-02-10] MEDS ORDERED: GUAI600T11 PO (20:40)
[2017-02-10 21:03] LABS: BICARBONATE 28.2 MEQ/L (21.0-32.0)
[2017-02-10 21:27] LABS: POTASSIUM 4.5 MEQ/L (3.5-5.1)
--- NOTE | 2017-02-10 21:36 | RADRPT ---
EXAM DATE/TIME: 02/10/2017 21:10 [place] COMPARISON: No previous studies available for comparison. INDICATIONS : Fell out of wheelchair hitting head. RADIATION DOSE: 47.58 CTDIvol (mGy) MEDICAL HISTORY : Cardiovascular disease. Hypertension. SURGICAL HISTORY : None. ENCOUNTER: Initial ACUITY: 1 day PAIN SCALE: 10/10 LOCATION: cranial TECHNIQUE: Multiple contiguous axial images were obtained of the head. Using automated exposure control and adj ustment of the mA and/or kV according to patient size, radiation dose was kept as low as reasonably a chievable to obtain optimal diagnostic quality images. DICOM format image data is available electro nically for review and comparison. FINDINGS: CEREBRUM: The ventricles are normal for age. No evidence of midline shift, mass lesion, hemorrhage or acute in farction. No extra-axial fluid collections are seen. POSTERIOR FOSSA: The cerebellum and brainstem are intact. The 4th ventricle is midline. The cerebellopontine angle i s unremarkable. EXTRACRANIAL: The visualized portion of the orbits is intact. SKULL: The calvaria is intact. No evidence of skull fracture. CONCLUSION: No acute disease. Jay Robin MD on February 10, 2017 at 21:34 Board Certified Radiologist. This report was verified electronically.
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
== END 2017-02-11 10:09 ==
LOC: NEPE 18:16 → NEPD 02-11 10:09
DX: G89.29 Other chronic pain (principal); E11.22 Type 2 diabetes mellitus with diabetic chronic kidney disease; I12.9 Hypertensive chronic kidney disease with stage 1 through stage 4 chronic kidney disease, or unspecified chronic kidney disease; N18.4 Chronic kidney disease, stage 4 (severe); I48.91 Unspecified atrial fibrillation; I50.9 Heart failure, unspecified; K21.9 Gastro-esophageal reflux disease without esophagitis; V00.811A Fall from moving wheelchair (powered), initial encounter; Y92.811 Bus as the place of occurrence of the external cause
CPT/HCPCS: 70450; 80048; 85027; 85610; 85730; 99284

== ENCOUNTER 2017-03-11 05:44 | Emergency (ER) | payer MEDICARE, MEDICAID ==
[~2017-03-11] VITALS: Ht 175.3 cm; Wt 198.6 kg
[~2017-03-11 05:44] MED LIST changes: +BACTOIN EACH NARE; +GUAI600T11 PO; -HYDR-3800; +HYDR-3800 PO; -IPRASOL NEB; -LIDO5DIS5; +LIDO5DIS5 TOPICAL; -LORA-520; +LORA-520 PO; -NYSTPOW TOPICAL
[2017-03-11 05:46] VITALS: BP 128/60; PULSE 95; O2SAT 97
--- NOTE | 2017-03-11 05:53 | PD ---
HPI Chief Complaint: NOSEBLEED Time Seen by Provider: 05:46 Travel History International Travel<30 days: No Contact w/Intl Traveler<30days: No Traveled to known affect area: No History of Present Illness HPI PATIENT RESIDES AT [facility], ON ELIQUIS AND WITH LEFT SIDED NOSEBLEED, ONGOING INTERMITTENTLY SINCE 8PM PFSH Past Medical History Hx Anticoagulant Therapy: Yes (eliquis) Arthritis: No Asthma: No Atrial Fibrillation: Yes Autoimmune Disease: No Blood Disorders: No Anxiety: No Depression: Yes Heart Rhythm Problems: No Cancer: No Cardiovascular Problems: Yes High Cholesterol: No Chemotherapy: No Chest Pain: No Congestive Heart Failure: Yes COPD: No Cerebrovascular Accident: No Diabetes: Yes Diminished Hearing: No Endocrine: No Gastrointestinal Disorders: No GERD: Yes Glaucoma: No Genitourinary: No Headaches: No Hepatitis: No Hiatal Hernia: No Heparin Induced Thrombocytopen: No Hypertension: Yes Immune Disorder: No Implanted Vascular Access Dvce: No Kidney Stones: No Musculoskeletal: No Neurologic: No Psychiatric: No Reproductive: No Respiratory: No Integumentary: Yes (CELLULITIS LLE) Immunizations Current: Yes Migraines: No Myocardial Infarction: No Radiation Therapy: No Renal Failure: Yes (CHRONIC RENAL INSUFFICIENCY) Seizures: No Sickle Cell Disease: No Sleep Apnea: No Thyroid Disease: No Triglycerides - High: Yes Ulcer: No Past Surgical History Abdominal Surgery: No AICD: No Appendectomy: No Arteriovenous Shunt: No Cardiac Surgery: No Cholecystectomy: No Ear Surgery: No Endocrine Surgery: No Eye Surgery: No Genitourinary Surgery: No Gynecologic Surgery: No Insulin Pump: No Joint Replacement: No Neurologic Surgery: No Oral Surgery: No Pacemaker: No Thoracic Surgery: No Tonsillectomy: Yes Other Surgery: No Social History Alcohol Use: No Tobacco Use: No Substance Use: No Allergies-Medications (Allergen,Severity, Reaction): 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 - 11/19/16 Reported Meds & Prescriptions Reported Meds & Active Scripts Active Senna Plus 8.6-50 mg (Sennosides-Docusate Sodium) 1 Tab Tab 1 Tab PO BID PRN Novolog Inj (Insulin Aspart) 100 Unit/Ml Inj 1 Units SQ Q6H Low-dose sliding scale of NovoLog/Humalog insulin with Accu-Cheks before meals and at bedtime Nifedipine ER 24 HR (Nifedipine) 60 Mg Tab 60 Mg PO DAILY Hydrocodone-Acetaminophen 5-325 mg Tab 1 Tab PO Q6H PRN Eliquis (Apixaban) 2.5 Mg Tab 2.5 Mg PO BID Reported Mucus Relief ER (Guaifenesin) 600 Mg Tab 600 Mg PO BID PRN Bactroban Nasal Oint (Mupirocin Nasal Oint) 2% Oint 1 Applic EACH NARE BID For 5 days. Tylenol (Acetaminophen) 325 Mg Tab 650 Mg PO Q4H PRN Iron (Ferrous Sulfate) 325 Mg Capsule.er Lidoderm (Lidocaine) 5 % Adh..patch Allergy (Loratadine) 10 Mg Tab Hydralazine HCl 50 Mg Tablet BID Fluoxetine HCl (Fluoxetine HCl (Pmdd)) 20 Mg Tab Aspirin 325 Mg Tab 325 Mg PO DAILY Carvedilol 25 Mg Tab 25 Mg PO BID Review of Systems Except as stated in HPI: all other systems reviewed are Neg HENT: Positive: Nosebleed Physical Exam Narrative GENERAL: SKIN: Warm and dry. HEAD: Atraumatic. Normocephalic. EYES: Pupils equal and round. No scleral icterus. No injection or drainage. ENT: No nasal bleeding or discharge. Mucous membranes pink and moist. LEFT NARES WITH MINIMAL ANTERIOR BLEED NECK: Trachea midline. No JVD. CARDIOVASCULAR: Regular rate and rhythm. RESPIRATORY: No accessory muscle use. Clear to auscultation. Breath sounds equal bilaterally. GASTROINTESTINAL: Abdomen soft, non-tender, nondistended. MORBIDLY OBESE MUSCULOSKELETAL: Extremities without clubbing, cyanosis, or edema. No obvious deformities. BILATERAL LYMPHEDEMA 4+ NEUROLOGICAL: Awake and alert. No obvious cranial nerve deficits. Motor grossly within normal limits. Five out of 5 muscle strength in the arms and legs. Normal speech. PSYCHIATRIC: Appropriate mood and affect; insight and judgment normal. MDM Medical Decision Making Medical Screen Exam Complete: Yes Emergency Medical Condition: Yes Medical Record Reviewed: Yes Differential Diagnosis ANT V POST EPISTAXIS Narrative Course FOUND ANTERIOR SOURCE OF VERY SLOW BLEEDING, IF PATIENT WAS NOT ANTICOAGULATED ON ELIQUIS, HE WOULD NOT HAVE HAD RHINOROCKET PLACED. Procedures Procedure Narrative LEFT ANTERIOR NARES IRRIGATED, THEN PLACED LUBRICATING JELLY AND PLACED 5.5 CM RHINOROCKET ON LEFT NARES, INFLATED WITH 5CM OF AIR...PT TOLERATED PROCEDURE, EPISTAXIS RESOLVED Diagnosis Primary Impression: ANTERIOR EPISTAXIS S/P RHINOROCKET Disposition: 03 DISCHARGE TO SNF Condition: Stable Rubio Self MD Mar 11, 2017 05:53
--- NOTE | 2017-03-11 12:51 | PD ---
Physical Exam Date Seen by Provider: Mar 11, 2017 Time Seen by Provider: 12:49 Narrative 71-year-old male that presents to the ED for evaluation of epistaxis. I was asked by ED nurse evaluated the patient as he had some bleeding from the Rhino Rocket and/or concerned that he may need to be changed. I evaluated the patient and recommends changing it. Data Data Last Documented VS Vital Signs Date Time Temp Pulse Resp B/P Pulse Ox O2 Delivery O2 Flow Rate FiO2 03/11/17 05:46 95 128/60 97 Orders Diet Regular Basic (03/11/17 Breakfast) Diet Regular Basic (03/11/17 Lunch) MDM Medical Record Reviewed: Yes Supervised Visit with CHANTAL: No Procedures Procedure Narrative Rhino Rocket placement: After patient agreed to procedure Rhino Rocket was changed to a new one using lubricant jelly and sterile water. 5.5 cm rhinorocket was placed by me. Patient tolerated procedure well. No obvious sign of bleeding anymore. Diagnosis Primary Impression: ANTERIOR EPISTAXIS S/P RHINOROCKET Patient Instructions: General Instructions Departure Forms: Tests/Procedures Disposition: 03 DISCHARGE TO SNF Condition: Stable Bear Page Mar 11, 2017 12:51
== END 2017-03-11 16:14 ==
LOC: NEPC 05:44 → NEDAMB 16:14
DX: R04.0 Epistaxis (principal)
CPT/HCPCS: 30901

== ENCOUNTER 2017-03-18 11:21 | Inpatient (IN) | payer MEDICAID, MEDICARE, OTHER ==
[~2017-03-18] VITALS: Ht 175.3 cm; Wt 192.0 kg
[2017-03-18] VITALS (14 sets, daily range): BP systolic 125–146; BP diastolic 60–77; PULSE 71–88; RESP 18–22; TEMP 97.6–98.1; O2SAT 80–100
--- NOTE | 2017-03-18 11:40 | PD ---
HPI Chief Complaint: Respiratory Distress Time Seen by Provider: 11:37 Travel History International Travel<30 days: No Contact w/Intl Traveler<30days: No Traveled to known affect area: No History of Present Illness HPI 71-year-old male with CHF, A. fib, on ELIQUIS and aspirin, hypertension, GERD, diabetes, with multiple chronic ulcerations and wounds in various healing stages on his bilateral lower extremities, [facility] for evaluation of acute onset shortness of breath. Patient states that he is mostly bedbound. They were weighing him today and l once back in the bed, he developed shortness of breath. His oxygen saturation was 80% on room air. Patient states he feels that he cannot take a deep breath. He is having right sided chest pain associated with it. Denies any history of DVT or PE. Since he has no history of ND. Denies any recent illnesses, fever, or chills. No other symptoms to report. PFSH Past Medical History Hx Anticoagulant Therapy: Yes (ELIQUIS, ASPIRIN ) Arthritis: No Asthma: No Atrial Fibrillation: Yes Autoimmune Disease: No Blood Disorders: No Anxiety: No Depression: Yes Heart Rhythm Problems: No Cancer: No Cardiovascular Problems: Yes (CHF) High Cholesterol: Yes Chemotherapy: No Chest Pain: No Congestive Heart Failure: Yes COPD: No Cerebrovascular Accident: No Diabetes: Yes Diminished Hearing: No Endocrine: No Gastrointestinal Disorders: No GERD: Yes Glaucoma: No Genitourinary: No Headaches: No Hepatitis: No Hiatal Hernia: No Heparin Induced Thrombocytopen: No Hypertension: Yes Immune Disorder: No Implanted Vascular Access Dvce: No Kidney Stones: No Musculoskeletal: No Neurologic: No Psychiatric: No Reproductive: No Respiratory: Yes Integumentary: Yes (CELLULITIS LLE/RLE) Immunizations Current: Yes Migraines: No Myocardial Infarction: No Radiation Therapy: No Renal Failure: Yes (CHRONIC RENAL INSUFFICIENCY) Seizures: No Sickle Cell Disease: No Sleep Apnea: No Thyroid Disease: No Triglycerides - High: Yes Ulcer: No ?: Not Past Surgical History Abdominal Surgery: No AICD: No Appendectomy: No Arteriovenous Shunt: No Cardiac Surgery: No Cholecystectomy: No Ear Surgery: No Endocrine Surgery: No Eye Surgery: No Genitourinary Surgery: No Gynecologic Surgery: No Insulin Pump: No Joint Replacement: No Neurologic Surgery: No Oral Surgery: No Pacemaker: No Thoracic Surgery: No Tonsillectomy: Yes Other Surgery: No Social History Alcohol Use: No Tobacco Use: No Substance Use: No Allergies-Medications (Allergen,Severity, Reaction): 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 - 11/19/16 Reported Meds & Prescriptions Reported Meds & Active Scripts Active Novolog Inj (Insulin Aspart) 100 Unit/Ml Inj 1 Units SQ Q6H Low-dose sliding scale of NovoLog/Humalog insulin with Accu-Cheks before meals and at bedtime Nifedipine ER 24 HR (Nifedipine) 60 Mg Tab 60 Mg PO DAILY Eliquis (Apixaban) 2.5 Mg Tab 2.5 Mg PO BID Reported Senna-S 8.6-50 mg (Sennosides-Docusate Sodium) 1 Tab Tab 1 Tab PO BID PRN Prozac (Fluoxetine HCl) 40 Mg Cap 40 Mg PO DAILY Percocet (Oxycodone-Acetaminophen) 10-325 mg Tab 1 Tab PO Q6H PRN Nystatin Topical (Nystatin) 1 Powd 1 Appl TOPICAL Q12HR Iron (Ferrous Sulfate) 325 Mg Cap 325 Mg PO Q12HR Glucotrol (Glipizide) 5 Mg Tab 5 Mg PO DAILY Take 30 minutes before a meal Duoneb (Ipratropium-Albuterol Neb) 0.5-2.5 Mg/3 Ml Neb 3 Ml NEB Q2HR PRN Aldactone (Spironolactone) 25 Mg Tab 25 Mg PO DAILY Afrin Nasal Byers (Oxymetazoline HCl) 0.05% Byers 1 Byers EACH NARE DAILY PRN Tylenol (Acetaminophen) 325 Mg Tab 650 Mg PO Q4H PRN Lidoderm (Lidocaine) 5 % Adh..patch 1 Patch TOPICAL BID ApplY to lower back - on in AM, off at HS Allergy (Loratadine) 10 Mg Tab 10 Mg PO DAILY Hydralazine HCl 50 Mg Tablet 50 Mg PO BID Aspirin 325 Mg Tab 325 Mg PO DAILY Carvedilol 25 Mg Tab 25 Mg PO BID Review of Systems Except as stated in HPI: all other systems reviewed are Neg Physical Exam Narrative GENERAL: Morbidly obese male patient, sitting up in bed, mild distress. SKIN: Focused skin assessment warm/dry. Patient does have areas of ecchymosis of the abdomen. Dressing on right foot where patient states he has been followed by wound care for chronic foot ulcer.. HEAD: Atraumatic. Normocephalic. EYES: Pupils equal and round. No scleral icterus. No injection or drainage. ENT: No nasal bleeding or discharge. Mucous membranes pink and moist. NECK: Trachea midline. No JVD. CARDIOVASCULAR: Regular rate and irregular rhythm. RESPIRATORY: No accessory muscle use. Follow respirations, diminished bases, possibly due to girth. Faint fine crackles Breath sounds equal bilaterally. GASTROINTESTINAL: Abdomen soft, non-tender, nondistended. Hepatic and splenic margins not palpable. MUSCULOSKELETAL: No obvious deformities. No clubbing. No cyanosis. 2+ plus edema bilateral lower extremities with mild erythema and weeping. NEUROLOGICAL: Awake and alert. No obvious cranial nerve deficits. Motor grossly within normal limits. Normal speech. Data Data Last Documented VS Vital Signs Date Time Temp Pulse Resp B/P (MAP) Pulse Ox O2 Delivery O2 Flow Rate FiO2 03/18/17 14:23 73 18 131/60 (83) 100 BiPAP 70 03/18/17 13:30 15.00 03/18/17 11:37 98.1 Orders Orders Complete Blood Count With Diff (03/18/17 11:37) Comprehensive Metabolic Panel (03/18/17 11:37) B-Type Natriuretic Peptide (03/18/17 11:37) D-Dimer (03/18/17 11:37) Act Partial Throm Time (Ptt) (03/18/17 11:37) Prothrombin Time / Inr (Pt) (03/18/17 11:37) Magnesium (Mg) (03/18/17 11:37) Ckmb (Isoenzyme) Profile (03/18/17 11:37) Troponin I (03/18/17 11:37) Urinalysis - C+S If Indicated (03/18/17 11:37) Iv Access Insert/Monitor (03/18/17 11:37) Electrocardiogram (03/18/17 11:37) Ecg Monitoring (03/18/17 11:37) Oximetry (03/18/17 11:37) Oxygen Administration (03/18/17 11:37) Chest, Single Ap (03/18/17 11:37) Sodium Chloride 0.9% Flush (Ns Flush) (03/18/17 11:45) Albuterol-Ipratropium Neb (Duoneb Neb) (03/18/17 11:45) Arterial Blood Gas (Abg) (03/18/17 ) Furosemide Inj (Lasix Inj) (03/18/17 12:45) Urine Culture (03/18/17 11:50) Morphine Inj (Morphine Inj) (03/18/17 12:45) Ondansetron Inj (Zofran Inj) (03/18/17 12:45) Resp Bipap / Cpap Non Invas Vt (03/18/17 ) Ventilation & Perfusion Scan (03/18/17 ) Ceftriaxone Inj (Rocephin Inj) (03/18/17 13:30) Replace Downs (03/18/17 15:11) Admit Order (Ed Use Only) (03/18/17 15:11) Labs Laboratory Tests Test 03/18/17 11:50 03/18/17 12:48 White Blood Count 6.4 TH/MM3 Red Blood Count 2.80 MIL/MM3 Hemoglobin 8.4 GM/DL Hematocrit 26.8 % Mean Corpuscular Volume 95.7 FL Mean Corpuscular Hemoglobin 30.0 PG Mean Corpuscular Hemoglobin Concent 31.3 % Red Cell Distribution Width 17.1 % Platelet Count 177 TH/MM3 Mean Platelet Volume 9.0 FL Neutrophils (%) (Auto) 80.8 % Lymphocytes (%) (Auto) 4.1 % Monocytes (%) (Auto) 9.7 % Eosinophils (%) (Auto) 4.5 % Basophils (%) (Auto) 0.9 % Neutrophils # (Auto) 5.2 TH/MM3 Lymphocytes # (Auto) 0.3 TH/MM3 Monocytes # (Auto) 0.6 TH/MM3 Eosinophils # (Auto) 0.3 TH/MM3 Basophils # (Auto) 0.1 TH/MM3 CBC Comment DIFF FINAL Differential Comment Prothrombin Time 12.5 SEC Prothromb Time International Ratio 1.1 RATIO Activated Partial Thromboplast Time 32.2 SEC D-Dimer Quantitative (PE/DVT) 1.41 MG/L FEU Urine Color YELLOW Urine Turbidity HAZY Urine pH 7.0 Urine Specific [place] 1.015 Urine Protein TRACE mg/dL Urine Glucose (UA) NEG mg/dL Urine Ketones NEG mg/dL Urine Occult Blood TRACE Urine Nitrite POS Urine Bilirubin NEG Urine Urobilinogen LESS THAN 2.0 MG/DL Urine Leukocyte Esterase LARGE Urine RBC 12 /hpf Urine WBC 72 /hpf Urine Squamous Epithelial Cells <1 /hpf Urine Bacteria MOD /hpf Urine Mucus FEW /lpf Microscopic Urinalysis Comment CULTURE INDICATED Blood Urea Nitrogen 74 MG/DL Creatinine 2.88 MG/DL Random Glucose 135 MG/DL Total Protein 7.7 GM/DL Albumin 2.9 GM/DL Calcium Level 8.7 MG/DL Magnesium Level 2.3 MG/DL Alkaline Phosphatase 103 U/L Aspartate Amino Transf (AST/SGOT) 18 U/L Alanine Aminotransferase (ALT/SGPT) 16 U/L Total Bilirubin 0.5 MG/DL Sodium Level 141 MEQ/L Potassium Level 5.7 MEQ/L Chloride Level 113 MEQ/L Carbon Dioxide Level 18.8 MEQ/L Anion Gap 9 MEQ/L Estimat Glomerular Filtration Rate 22 ML/MIN Total Creatine Kinase 23 U/L Troponin I LESS THAN 0.02 NG/ML B-Type Natriuretic Peptide 361 PG/ML Blood Gas Puncture Site RT RADIAL Blood Gas Patient Temperature 98.6 Blood Gas HCO3 18 mmol/L Blood Gas Base Excess -7.2 mmol/L Blood Gas Oxygen Saturation 94 % Arterial Blood pH 7.31 Arterial Blood Partial Pressure CO2 37 mmHg Arterial Blood Partial Pressure O2 91 mmHG Arterial Blood Oxygen Content 11.5 Vol % Arterial Blood Carboxyhemoglobin 1.9 % Arterial Blood Methemoglobin 0.8 % Blood Gas Hemoglobin 8.5 G/DL Oxygen Delivery Device Non-Rebreathing Mask Blood Gas Liter Flow 15 L/M MDM Medical Decision Making Medical Screen Exam Complete: Yes Emergency Medical Condition: Yes Medical Record Reviewed: Yes Differential Diagnosis Hypoxia versus CHF exacerbation versus PE versus ACS versus elective abnormality Narrative Course 1145 Pt has diminished breath sounds and reporting shortness of breath. Duo Neb ordered and RT called. At this time there is one RT in the ED who is involved in a code with no available back up at this time. PT will be next. Pt is repositioned, oxygen via NC is increased to 6LNC. Lab work is ordered for evaluation. Chest x-ray is ordered. It is reviewed by myself and my attending prior to actual result. Patient will be given 20 mg IV Lasix. Last Impressions Chest X-Ray 03/18/17 1137 Signed Impressions: Service Date/Time: Saturday, March 18, 2017 11:48 - CONCLUSION: 1. Cardiomegaly with mild interstitial prominence. 2. Bibasilar airspace disease, right greater than left. This may be atelectatic in nature. No associated effusions. Armando Bustillo MD [id number] Respiratory is now at bedside. ABG is drawn and without acute concern. At this time, patient is being placed on BiPAP. Upon reassessment, patient is much more comfortable. He still reports right sided chest pain, more lateral at this point. Lab work still pending. Laboratory Tests Test 03/18/17 11:50 03/18/17 12:48 White Blood Count 6.4 TH/MM3 Red Blood Count 2.80 MIL/MM3 Hemoglobin 8.4 GM/DL Hematocrit 26.8 % Mean Corpuscular Volume 95.7 FL Mean Corpuscular Hemoglobin 30.0 PG Mean Corpuscular Hemoglobin Concent 31.3 % Red Cell Distribution Width 17.1 % Platelet Count 177 TH/MM3 Mean Platelet Volume 9.0 FL Neutrophils (%) (Auto) 80.8 % Lymphocytes (%) (Auto) 4.1 % Monocytes (%) (Auto) 9.7 % Eosinophils (%) (Auto) 4.5 % Basophils (%) (Auto) 0.9 % Neutrophils # (Auto) 5.2 TH/MM3 Lymphocytes # (Auto) 0.3 TH/MM3 Monocytes # (Auto) 0.6 TH/MM3 Eosinophils # (Auto) 0.3 TH/MM3 Basophils # (Auto) 0.1 TH/MM3 CBC Comment DIFF FINAL Differential Comment Prothrombin Time 12.5 SEC Prothromb Time International Ratio 1.1 RATIO Activated Partial Thromboplast Time 32.2 SEC D-Dimer Quantitative (PE/DVT) 1.41 MG/L FEU Urine Color YELLOW Urine Turbidity HAZY Urine pH 7.0 Urine Specific [place] 1.015 Urine Protein TRACE mg/dL Urine Glucose (UA) NEG mg/dL Urine Ketones NEG mg/dL Urine Occult Blood TRACE Urine Nitrite POS Urine Bilirubin NEG Urine Urobilinogen LESS THAN 2.0 MG/DL Urine Leukocyte Esterase LARGE Urine RBC 12 /hpf Urine WBC 72 /hpf Urine Squamous Epithelial Cells <1 /hpf Urine Bacteria MOD /hpf Urine Mucus FEW /lpf Microscopic Urinalysis Comment CULTURE INDICATED Blood Urea Nitrogen 74 MG/DL Creatinine 2.88 MG/DL Random Glucose 135 MG/DL Total Protein 7.7 GM/DL Albumin 2.9 GM/DL Calcium Level 8.7 MG/DL Magnesium Level 2.3 MG/DL Alkaline Phosphatase 103 U/L Aspartate Amino Transf (AST/SGOT) 18 U/L Alanine Aminotransferase (ALT/SGPT) 16 U/L Total Bilirubin 0.5 MG/DL Sodium Level 141 MEQ/L Potassium Level 5.7 MEQ/L Chloride Level 113 MEQ/L Carbon Dioxide Level 18.8 MEQ/L Anion Gap 9 MEQ/L Estimat Glomerular Filtration Rate 22 ML/MIN Total Creatine Kinase 23 U/L Troponin I LESS THAN 0.02 NG/ML B-Type Natriuretic Peptide 361 PG/ML Blood Gas Puncture Site RT RADIAL Blood Gas Patient Temperature 98.6 Blood Gas HCO3 18 mmol/L Blood Gas Base Excess -7.2 mmol/L Blood Gas Oxygen Saturation 94 % Arterial Blood pH 7.31 Arterial Blood Partial Pressure CO2 37 mmHg Arterial Blood Partial Pressure O2 91 mmHG Arterial Blood Oxygen Content 11.5 Vol % Arterial Blood Carboxyhemoglobin 1.9 % Arterial Blood Methemoglobin 0.8 % Blood Gas Hemoglobin 8.5 G/DL Oxygen Delivery Device Non-Rebreathing Mask Blood Gas Liter Flow 15 L/M I discussed the findings with my attending. VQ scan is ordered. Downs catheter is ordered to be changed. I discussed the patient with Dr. Cam. [facility] He is aware that the VQ scan is not yet resulted. Diagnosis Primary Impression: Acute dyspnea Additional Impressions: Chest pain Qualified Codes: R07.9 - Chest pain, unspecified CHF exacerbation Qualified Codes: I50.9 - Heart failure, unspecified Diabetic foot UTI (urinary tract infection) Qualified Codes: T83.511A - Infection and inflammatory reaction due to indwelling urethral catheter, initial encounter; N39.0 - Urinary tract infection , site not specified Indwelling catheter present on admission Admitting Information Admitting Physician Requests: Admit Condition: Stable Claudia Sosa Mar 18, 2017 11:40
[2017-03-18] MEDS ORDERED: RESP: ALBUTEROL 2.5 MG/IPRATROPIUM 0.5 MG NEB (SCH) INH ONE (11:45)
[2017-03-18] MEDS ORDERED: SODIUM CHLORIDE 0.9% FLUSH 10 ML FLUSH IVF PRN (11:45)
[2017-03-18 12:10] LABS: AUTOMATED NEUTROPHIL # 5.2 TH/MM3 (1.8-7.7); BASOPHIL # 0.1 TH/MM3 (0-0.2); BASOPHIL % 0.9 % (0.0-2.0); EOSINOPHIL # 0.3 TH/MM3 (0-0.4); EOSINOPHIL % 4.5 % (0.0-4.0); HEMATOCRIT 26.8 % (39.0-51.0); HEMO FLAGS DIFF FINAL; LYMPH % 4.1 % (9.0-44.0); LYMPHOCYTE # 0.3 TH/MM3 (1.0-4.8); MEAN CELL VOLUME 95.7 FL (80.0-100.0); MEAN CORPUSCULAR HGB CONC 31.3 % (32.0-36.0); MONO % 9.7 % (0.0-8.0); NEUT % 80.8 % (16.0-70.0); PLATELET COUNT 177 TH/MM3 (150-450); RED CELL DISTRIBUTION WIDTH 17.1 % (11.6-17.2); WHITE BLOOD COUNT 6.4 TH/MM3 (4.0-11.0)
[2017-03-18] MEDS ORDERED: AFRI0.052 EACH NARE (12:19)
[2017-03-18] MEDS ORDERED: IPRASOL NEB (12:19)
[2017-03-18] MEDS ORDERED: FERR325C PO (12:19)
[2017-03-18] MEDS ORDERED: GLIP5 PO (12:19)
[2017-03-18] MEDS ORDERED: SPIR25 PO (12:19)
[2017-03-18 12:24] LABS: ALT (GPT) 16 U/L (12-78); ANION GAP 9 MEQ/L (5-15); AST (GOT) 18 U/L (15-37); BICARBONATE 18.8 MEQ/L (21.0-32.0); BLOOD UREA NITROGEN 74 MG/DL (7-18); CHLORIDE 113 MEQ/L (98-107); GLOMERULAR FILTRATION RATE 22 ML/MIN (>89); MAGNESIUM 2.3 MG/DL (1.5-2.5); POTASSIUM 5.7 MEQ/L (3.5-5.1); SODIUM (NA) 141 MEQ/L (136-145)
[2017-03-18] MEDS ORDERED: NYSTPOW TOPICAL (12:24)
[2017-03-18] MEDS ORDERED: PERC10TA27 PO (12:24)
[2017-03-18] MEDS ORDERED: PROZ40CA PO (12:24)
[2017-03-18] MEDS ORDERED: SENN8.6T19 PO (12:25)
[2017-03-18 12:28] LABS: ALKALINE PHOSPHATASE 103 U/L (45-117); TOTAL BILIRUBIN ADULT 0.5 MG/DL (0.2-1.0)
[2017-03-18 12:29] LABS: BACTERIA, URINE MOD /hpf; BLOOD, URINE TRACE (NEG); COMMENT (UR) CULTURE INDICATED; CULTURE IF INDICATED CULTURE INDICATED; GLUCOSE,URINE NEG (NEG); KETONE, URINE NEG (NEG); MUCUS URINE FEW /lpf (OCC); NITRITE,URINE POS (NEG); SQUAMOUS EPITHELIAL CELL URINE <1 /hpf (0-5); URINE COLOR YELLOW (YELLW/STRAW)
[2017-03-18 12:36] LABS: CREATINE KINASE 23 U/L (39-308)
[2017-03-18] MEDS ORDERED: MORPHINE SULFATE 4 MG/ML INJ IV PUSH ONE (12:45)
[2017-03-18] MEDS ORDERED: ONDANSETRON HCL 4 MG/2 ML VIAL IV PUSH ONE (12:45)
[2017-03-18] MEDS ORDERED: FUROSEMIDE 20 MG/2 ML VIAL IV PUSH ONE (12:45)
--- NOTE | 2017-03-18 12:47 | RADRPT ---
EXAM DATE/TIME: 03/18/2017 11:48 [facility] COMPARISON: CHEST SINGLE AP, January 29, 2017, 7:30. INDICATIONS : Shortness of breath. MEDICAL HISTORY : Hypertension. Chronic obstructive pulmonary disease. SURGICAL HISTORY : None. ENCOUNTER: Initial ACUITY: 1 week PAIN SCORE: 0/10 LOCATION: Bilateral chest FINDINGS: A single view of the chest demonstrates stable cardiomegaly. Mild interstitial prominence suggests so me degree of interstitial edema. There are bibasilar areas of consolidation which are likely atelecta tic, right greater than left. No associated effusions. Osseous structures are intact. CONCLUSION: 1. Cardiomegaly with mild interstitial prominence. 2. Bibasilar airspace disease, right greater than left. This may be atelectatic in nature. No associa emily effusions. Armando Bustillo MD on March 18, 2017 at 12:44 Board Certified Radiologist. This report was verified electronically.
[2017-03-18 12:53] LABS: APTT (PATIENT) 32.2 SEC (24.3-30.1); INTERNATIONAL NORMALIZED RATIO 1.1 RATIO; PROTHROMBIN TIME - PATIENT 12.5 SEC (9.8-11.6)
--- NOTE | 2017-03-18 13:29 | PD ---
Physical Exam Date Seen by Provider: Mar 18, 2017 Time Seen by Provider: 13:00 Narrative This patient presents from a alf with a chief complaint of the acute onset of shortness of breath and right-sided chest pain. Sats were initially in the 80s. Please see Claudia Sosa's note for full details. This patient is tachypneic. Sats are 99% on a nonrebreather mask. His lungs are clear anteriorly. Data Data Last Documented VS Vital Signs Date Time Temp Pulse Resp B/P (MAP) Pulse Ox O2 Delivery O2 Flow Rate FiO2 03/18/17 14:23 73 18 131/60 (83) 100 BiPAP 70 03/18/17 13:30 15.00 03/18/17 11:37 98.1 Orders Orders Complete Blood Count With Diff (03/18/17 11:37) Comprehensive Metabolic Panel (03/18/17 11:37) B-Type Natriuretic Peptide (03/18/17 11:37) D-Dimer (03/18/17 11:37) Act Partial Throm Time (Ptt) (03/18/17 11:37) Prothrombin Time / Inr (Pt) (03/18/17 11:37) Magnesium (Mg) (03/18/17 11:37) Ckmb (Isoenzyme) Profile (03/18/17 11:37) Troponin I (03/18/17 11:37) Urinalysis - C+S If Indicated (03/18/17 11:37) Iv Access Insert/Monitor (03/18/17 11:37) Electrocardiogram (03/18/17 11:37) Ecg Monitoring (03/18/17 11:37) Oximetry (03/18/17 11:37) Oxygen Administration (03/18/17 11:37) Chest, Single Ap (03/18/17 11:37) Sodium Chloride 0.9% Flush (Ns Flush) (03/18/17 11:45) Albuterol-Ipratropium Neb (Duoneb Neb) (03/18/17 11:45) Arterial Blood Gas (Abg) (03/18/17 ) Furosemide Inj (Lasix Inj) (03/18/17 12:45) Urine Culture (03/18/17 11:50) Morphine Inj (Morphine Inj) (03/18/17 12:45) Ondansetron Inj (Zofran Inj) (03/18/17 12:45) Resp Bipap / Cpap Non Invas Vt (03/18/17 ) Ventilation & Perfusion Scan (03/18/17 ) Ceftriaxone Inj (Rocephin Inj) (03/18/17 13:30) Replace Downs (03/18/17 15:11) Admit Order (Ed Use Only) (03/18/17 15:11) Labs Laboratory Tests Test 03/18/17 11:50 03/18/17 12:48 White Blood Count 6.4 TH/MM3 Red Blood Count 2.80 MIL/MM3 Hemoglobin 8.4 GM/DL Hematocrit 26.8 % Mean Corpuscular Volume 95.7 FL Mean Corpuscular Hemoglobin 30.0 PG Mean Corpuscular Hemoglobin Concent 31.3 % Red Cell Distribution Width 17.1 % Platelet Count 177 TH/MM3 Mean Platelet Volume 9.0 FL Neutrophils (%) (Auto) 80.8 % Lymphocytes (%) (Auto) 4.1 % Monocytes (%) (Auto) 9.7 % Eosinophils (%) (Auto) 4.5 % Basophils (%) (Auto) 0.9 % Neutrophils # (Auto) 5.2 TH/MM3 Lymphocytes # (Auto) 0.3 TH/MM3 Monocytes # (Auto) 0.6 TH/MM3 Eosinophils # (Auto) 0.3 TH/MM3 Basophils # (Auto) 0.1 TH/MM3 CBC Comment DIFF FINAL Differential Comment Prothrombin Time 12.5 SEC Prothromb Time International Ratio 1.1 RATIO Activated Partial Thromboplast Time 32.2 SEC D-Dimer Quantitative (PE/DVT) 1.41 MG/L FEU Urine Color YELLOW Urine Turbidity HAZY Urine pH 7.0 Urine Specific [place] 1.015 Urine Protein TRACE mg/dL Urine Glucose (UA) NEG mg/dL Urine Ketones NEG mg/dL Urine Occult Blood TRACE Urine Nitrite POS Urine Bilirubin NEG Urine Urobilinogen LESS THAN 2.0 MG/DL Urine Leukocyte Esterase LARGE Urine RBC 12 /hpf Urine WBC 72 /hpf Urine Squamous Epithelial Cells <1 /hpf Urine Bacteria MOD /hpf Urine Mucus FEW /lpf Microscopic Urinalysis Comment CULTURE INDICATED Blood Urea Nitrogen 74 MG/DL Creatinine 2.88 MG/DL Random Glucose 135 MG/DL Total Protein 7.7 GM/DL Albumin 2.9 GM/DL Calcium Level 8.7 MG/DL Magnesium Level 2.3 MG/DL Alkaline Phosphatase 103 U/L Aspartate Amino Transf (AST/SGOT) 18 U/L Alanine Aminotransferase (ALT/SGPT) 16 U/L Total Bilirubin 0.5 MG/DL Sodium Level 141 MEQ/L Potassium Level 5.7 MEQ/L Chloride Level 113 MEQ/L Carbon Dioxide Level 18.8 MEQ/L Anion Gap 9 MEQ/L Estimat Glomerular Filtration Rate 22 ML/MIN Total Creatine Kinase 23 U/L Troponin I LESS THAN 0.02 NG/ML B-Type Natriuretic Peptide 361 PG/ML Blood Gas Puncture Site RT RADIAL Blood Gas Patient Temperature 98.6 Blood Gas HCO3 18 mmol/L Blood Gas Base Excess -7.2 mmol/L Blood Gas Oxygen Saturation 94 % Arterial Blood pH 7.31 Arterial Blood Partial Pressure CO2 37 mmHg Arterial Blood Partial Pressure O2 91 mmHG Arterial Blood Oxygen Content 11.5 Vol % Arterial Blood Carboxyhemoglobin 1.9 % Arterial Blood Methemoglobin 0.8 % Blood Gas Hemoglobin 8.5 G/DL Oxygen Delivery Device Non-Rebreathing Mask Blood Gas Liter Flow 15 L/M MDM Supervised Visit with CHANTAL: Yes Narrative Course I, Dr. Munoz, have reviewed the advance practice practitioner's documentation and am in agreement, met with the patient face to face, made the diagnosis, and the medical decision making was done by me. *My assessment and Findings: [facility] patient with acute dyspnea and right- sided chest pain. Lungs are clear. He needs to be ruled out for PE. Critical Care Narrative Aggregate critical care time was 30 minutes. Time to perform other separately billable procedures was not included in the critical care time. My time did not include minutes spent treating any other patients simultaneously or on activities that did not directly contribute to the patient's treatment. The services I provided to this patient were to treat and/or prevent clinically significant deterioration due to respiratory distress I provided critical care services requiring my management, as noted below: Chart data review, documentation time, medication orders and management, vital sign assessments/reviewing monitor data, ordering and reviewing lab tests, ordering and interpreting/reviewing x-rays and diagnostic studies, care of the patient and discussion of the patient with the admitting physicians Condition: Stable Yoko Munoz MD Mar 18, 2017 13:29
[2017-03-18 13:30] LABS: BLOOD GAS BASE EXCESS -7.2 mmol/L (-2-2); BLOOD GAS CARBOXYHEMOGLOBIN 1.9 % (0-4); BLOOD GAS HCO3 18 mmol/L (22-26); BLOOD GAS METHEMOGLOBIN 0.8 % (0-2); BLOOD GAS O2 HGB SATURATION 94 % (90-100); BLOOD GAS OXYGEN CONTENT 11.5 Vol % (12.0-20.0); BLOOD GAS PCO2 37 mmHg (38-42); BLOOD GAS PO2 91 mmHG (61-120); BLOOD GAS TOTAL HGB 8.5 G/DL (12.0-16.0); TEMP CORR TO 98.6
[2017-03-18] MEDS ORDERED: cefTRIAXone INJ 1,000 MG in SODIUM CHLORIDE 0.9% INJ 100 ML IV ONE (13:30)
[2017-03-18 13:31] LABS: CRITICAL VALUE NO; DRAW SITE RT RADIAL; LITER FLOW 15 L/M; NUMBER OF ARTERIAL PUNCTURES 1; STAT YES; ULNAR PULSE PRESENT
[2017-03-18] MEDS ORDERED: DOCUSATE SODIUM 50 MG/SENNA 8.6 MG TAB PO PRN (16:45)
--- NOTE | 2017-03-18 16:48 | HHI.HP ---
HPI Service [facility] Primary Care Physician Nilay Clarke MD Admission Diagnosis DYSPNEA; CHEST PAIN; UTI Diagnoses: Chief Complaint: sob (Ivan Dickensmaury [employer]) Travel History International Travel<30 Days: No Contact w/Intl Traveler <30 Da: No Traveled to Known Affected Are: No (Ivan Dickensmaury [employer]) History of Present Illness This is an unfortunate 71-year-old morbidly obese male with significant past medical history of CHF, A. fib, chronic lymphedema, chronic anticoagulation on Eliquis, hypertension, GERD, diabetes, chronic ulcerations to lower extremities. Patient was recently admitted December 2016 to the intensive care unit for the same as well as GI bleed that required EGD. Patient returns to the emergency room for evaluation of acute onset shortness of breath. Patient is mostly bedbound, he's not able to ambulate. Apparently patient was being weighed and when he got back in bed he developed sudden onset of shortness of breath. Indicates he had a cough, minimal sputum, no chest pain, no palpitations. Her recent fever, no chills. He did have some right-sided chest pain associated with it. He had an echocardiogram in January 2017 showing EF of 50 -55%. His purchasing analyst is Dr. Garsia. Patient was brought into the emergency room for further evaluation. Laboratory workup was completed in the emergency room, significant for acute on chronic kidney disease, creatinine 2.8, GFR 22. Potassium 5.7. B natruretic peptide 361. Troponin negative. Patient is noted anemic, hemoglobin 8.4, hematocrit 26.8. This is similar to most recent admission. Urinalysis positive for UTI, positive leukocyte esterase and bacteriuria. Patient has a chronic indwelling catheter that has been changed. ABG significant for pH of 7.31, PCO2 37, bicarbonate 18. Patient was initially put on BiPAP, currently he is on 100% nonrebreather. VQ scan was completed, negative for PE. Chest x-ray significant for cardiac megaly with mild interstitial prominence, by basilar airspace disease, right greater than left, this may be atelectatic in nature. No associated effusions. Patient received IV Lasix, DuoNeb's and ceftriaxone. Patient is evaluated in the emergency room , he is awake alert and oriented 3. Patient indicates he has no family, during last admission he was evaluated by palliative care team and decided on DO NOT RESUSCITATE. He has a community DNR on his paperwork. I reviewed advanced directives and patient would like to be a DO NOT RESUSCITATE with full active treatment. Patient will be admitted to the intensive care unit for further evaluation and treatment. (Patricia Dickens) Review of Systems Constitutional: DENIES: Diaphoretic episodes, Fatigue, Fever, Weight gain, Weight loss, Chills, Dizziness, Change in appetite, Night Sweats Endocrine: DENIES: Heat/cold intolerance, Polydipsia, Polyuria, Polyphagia Eyes: DENIES: Blurred vision, Diplopia, Eye inflammation, Eye pain, Vision loss , Photosensitivity, Double Vision Ears, nose, mouth, throat: DENIES: Tinnitus, Hearing loss, Vertigo, Nasal discharge, Oral lesions, Throat pain, Hoarseness, Ear Pain, Running Nose, Epistaxis, Sinus Pain, Toothache, Odynophagia Respiratory: COMPLAINS OF: Cough, Wheezing, Sputum production, Shortness of breath Cardiovascular: COMPLAINS OF: Dyspnea on Exertion, Lower Extremity Edema, Orthopnea, DENIES: Chest pain, Palpitations, Syncope, PND, Claudication Gastrointestinal: DENIES: Abdominal pain, Black stools, Bloody stools, Constipation, Diarrhea, Nausea, Vomiting, Difficulty Swallowing, Anorexia Genitourinary: DENIES: Sexual dysfunction, Urinary frequency, Urinary incontinence, Urgency, Hematuria, Dysuria, Nocturia, Penile Discharge, Testicular Pain, Testicular Swelling Musculoskeletal: DENIES: Joint pain, Muscle aches, Stiffness, Joint Swelling, Back pain, Neck pain Integumentary: COMPLAINS OF: Abnormal pigmentation (legs ), DENIES: Nail changes, Pruritus, Rash Hematologic/lymphatic: DENIES: Bruising, Lymphadenopathy Immunologic/allergic: DENIES: Eczema, Urticaria Neurologic: COMPLAINS OF: Poor Balance, DENIES: Abnormal gait, Headache, Localized weakness, Paresthesias, Seizures, Speech Problems, Tremor Psychiatric: DENIES: Anxiety, Confusion, Mood changes, Depression, Hallucinations, Agitation, Suicidal Ideation, Homicidal Ideation, Delusions Other non ambulatory has a guadalupe catheter (Patricia Dickens) Past Family Social History Past Medical History 1. atrial fibrillation. 2. Cardiovascular disease. 3. Hyperlipidemia. 4. Congestive heart failure. 5. Gastroesophageal reflux disease (GERD). 6. CKD 7. Lower extremity cellulitis with lymphedema. 8. Morbid obesity. 9. Dyspnea. 10. Generalized weakness and fatigue. 11. Hypoventilation syndrome. 12. Diabetes mellitus. 14. Hypertension with diabetic complications and diabetic retinopathy. 15. Chronic pain. 16. Frequent admissions for CHF exacerbation, last time he was admitted was December 2016. Require critical care management. 17. Recent GI bleed-s/p EGD 01/28 which showed chronic gastritis, duodenal ulcer s/p epi injection. clipped and cauterized. Past Surgical History Tonsillectomy. s/p EGD 01/28 which showed chronic gastritis, duodenal ulcer s/p epi injection. clipped and cauterized. Reported Medications Reported Meds & Active Scripts Active Novolog Inj (Insulin Aspart) 100 Unit/Ml Inj 1 Units SQ Q6H Low-dose sliding scale of NovoLog/Humalog insulin with Accu-Cheks before meals and at bedtime Nifedipine ER 24 HR (Nifedipine) 60 Mg Tab 60 Mg PO DAILY Eliquis (Apixaban) 2.5 Mg Tab 2.5 Mg PO BID Reported Senna-S 8.6-50 mg (Sennosides-Docusate Sodium) 1 Tab Tab 1 Tab PO BID PRN Prozac (Fluoxetine HCl) 40 Mg Cap 40 Mg PO DAILY Percocet (Oxycodone-Acetaminophen) 10-325 mg Tab 1 Tab PO Q6H PRN Nystatin Topical (Nystatin) 1 Powd 1 Appl TOPICAL Q12HR Iron (Ferrous Sulfate) 325 Mg Cap 325 Mg PO Q12HR Glucotrol (Glipizide) 5 Mg Tab 5 Mg PO DAILY Take 30 minutes before a meal Duoneb (Ipratropium-Albuterol Neb) 0.5-2.5 Mg/3 Ml Neb 3 Ml NEB Q2HR PRN Aldactone (Spironolactone) 25 Mg Tab 25 Mg PO DAILY Afrin Nasal [place] (Oxymetazoline HCl) 0.05% [place] 1 [place] EACH NARE DAILY PRN Tylenol (Acetaminophen) 325 Mg Tab 650 Mg PO Q4H PRN Lidoderm (Lidocaine) 5 % Adh..patch 1 Patch TOPICAL BID ApplY to lower back - on in AM, off at HS Allergy (Loratadine) 10 Mg Tab 10 Mg PO DAILY Hydralazine HCl 50 Mg Tablet 50 Mg PO BID Aspirin 325 Mg Tab 325 Mg PO DAILY Carvedilol 25 Mg Tab 25 Mg PO BID (Patricia Dickens) Allergies: 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 - 11/19/16 Active Ordered Medications Inpatient Medications Albuterol/ Ipratropium (Duoneb Neb) 1 ampule ONCE ONCE INH Last administered on 03/18/17 12:48; Start 03/18/17 at 11:45; Stop 03/18/17 at 11:46; Status DC Ceftriaxone Sodium 1000 mg/ Sodium Chloride 100 ml @ 200 mls/hr ONCE ONCE IV Last administered on 03/18/17 13:39; Start 03/18/17 at 13:30; Stop 03/18/17 at 13:59; Status DC Furosemide (Lasix Inj) 20 mg ONCE ONCE IV PUSH Last administered on 03/18/17 13:06; Start 03/18/17 at 12:45; Stop 03/18/17 at 12:46; Status DC Morphine Sulfate (Morphine Inj) 2 mg ONCE ONCE IV PUSH Last administered on 13:06; Start 03/18/17 at 12:45; Stop 03/18/17 at 12:46; Status DC Ondansetron HCl (Zofran Inj) 4 mg ONCE ONCE IV PUSH Last administered on 13:07; Start 03/18/17 at 12:45; Stop 03/18/17 at 12:46; Status DC Sodium Chloride (NS Flush) 2 ml UNSCH PRN IVF FLUSH AFTER USING IV ACCESS; Start 03/18/17 at 11:45 Family History Reviewed non contributory Social History Not , no family close by. No smoking, no ETOH, no substance abuse (Patricia Dickens) Physical Exam Vital Signs Vital Signs Date Time Temp Pulse Resp B/P (MAP) Pulse Ox O2 Delivery O2 Flow Rate FiO2 03/18/17 14:23 73 18 131/60 (83) 100 BiPAP 70 03/18/17 13:30 71 22 128/67 (87) 95 Non-Rebreather 15.00 03/18/17 13:20 98 BiPAP 70 03/18/17 13:11 18 03/18/17 13:10 99 80 03/18/17 12:48 96 Non-Rebreather 15.00 03/18/17 12:20 85 Nasal Cannula 2.00 03/18/17 11:46 90 Nasal Cannula 4.00 03/18/17 11:46 22 90 Nasal Cannula 4.00 03/18/17 11:37 77 22 80 Room Air 03/18/17 11:37 98.1 74 22 125/69 (87) 80 Room Air 03/18/17 11:31 98.1 79 18 125/69 (87) 90 Physical Exam GENERAL: This is a morbidly obese male. SKIN: Chronic venous discoloration and ulcerations to both legs. Lymphedema changes to both legs. HEAD: Atraumatic. Normocephalic. No temporal or scalp tenderness. EYES: Pupils equal round and reactive. Extraocular motions intact. No scleral icterus. No injection or drainage. ENT: Nose without bleeding, purulent drainage or septal hematoma. Throat without erythema, tonsillar hypertrophy or exudate. Uvula midline. Airway patent. NECK: Trachea midline. No JVD or lymphadenopathy. Supple, nontender, no meningeal signs. CARDIOVASCULAR: Irregularly irregular. RESPIRATORY: Diminished at bases. Poor inspiratory effort. GASTROINTESTINAL: Abdomen obese, soft, non-tender, nondistended. Mild erythema to pannus with some scratches. No hepato-splenomegaly, or palpable masses. No guarding. : Indwelling catheter, clovis urine. MUSCULOSKELETAL: No joint abnormalities. Chronic lymphedema both legs. Pedal pulses 1+ bilaterally. NEUROLOGICAL: Awake, alert oriented 3. Following commands. No focal deficits. Laboratory Laboratory Tests Test 03/18/17 11:50 03/18/17 12:48 White Blood Count 6.4 Red Blood Count 2.80 Hemoglobin 8.4 Hematocrit 26.8 Mean Corpuscular Volume 95.7 Mean Corpuscular Hemoglobin 30.0 Mean Corpuscular Hemoglobin Concent 31.3 Red Cell Distribution Width 17.1 Platelet Count 177 Mean Platelet Volume 9.0 Neutrophils (%) (Auto) 80.8 Lymphocytes (%) (Auto) 4.1 Monocytes (%) (Auto) 9.7 Eosinophils (%) (Auto) 4.5 Basophils (%) (Auto) 0.9 Neutrophils # (Auto) 5.2 Lymphocytes # (Auto) 0.3 Monocytes # (Auto) 0.6 Eosinophils # (Auto) 0.3 Basophils # (Auto) 0.1 CBC Comment DIFF FINAL Differential Comment Prothrombin Time 12.5 Prothromb Time International Ratio 1.1 Activated Partial Thromboplast Time 32.2 D-Dimer Quantitative (PE/DVT) 1.41 Urine Color YELLOW Urine Turbidity HAZY Urine pH 7.0 Urine Specific [place] 1.015 Urine Protein TRACE Urine Glucose (UA) NEG Urine Ketones NEG Urine Occult Blood TRACE Urine Nitrite POS Urine Bilirubin NEG Urine Urobilinogen LESS THAN 2.0 Urine Leukocyte Esterase LARGE Urine RBC 12 Urine WBC 72 Urine Squamous Epithelial Cells <1 Urine Bacteria MOD Urine Mucus FEW Microscopic Urinalysis Comment CULTURE INDICATED Blood Urea Nitrogen 74 Creatinine 2.88 Random Glucose 135 Total Protein 7.7 Albumin 2.9 Calcium Level 8.7 Magnesium Level 2.3 Alkaline Phosphatase 103 Aspartate Amino Transf (AST/SGOT) 18 Alanine Aminotransferase (ALT/SGPT) 16 Total Bilirubin 0.5 Sodium Level 141 Potassium Level 5.7 Chloride Level 113 Carbon Dioxide Level 18.8 Anion Gap 9 Estimat Glomerular Filtration Rate 22 Total Creatine Kinase 23 Troponin I LESS THAN 0.02 B-Type Natriuretic Peptide 361 Blood Gas Puncture Site RT RADIAL Blood Gas Patient Temperature 98.6 Blood Gas HCO3 18 Blood Gas Base Excess -7.2 Blood Gas Oxygen Saturation 94 Arterial Blood pH 7.31 Arterial Blood Partial Pressure CO2 37 Arterial Blood Partial Pressure O2 91 Arterial Blood Oxygen Content 11.5 Arterial Blood Carboxyhemoglobin 1.9 Arterial Blood Methemoglobin 0.8 Blood Gas Hemoglobin 8.5 Oxygen Delivery Device Non-Rebreathing Mask Blood Gas Liter Flow 15 Date/Time Source Procedure Growth Status 03/18/17 11:50 Urine Random Urine Urine Culture Pending Received (Patricia Dickens) Result Diagram: 03/18/17 1150 03/18/17 1150 Imaging Last Impressions Chest X-Ray 03/18/17 1137 Signed Impressions: Service Date/Time: Saturday, March 18, 2017 11:48 - CONCLUSION: 1. Cardiomegaly with mild interstitial prominence. 2. Bibasilar airspace disease, right greater than left. This may be atelectatic in nature. No associated effusions. Armando Bustillo MD (Patricia Dickens) Caprini VTE Risk Assessment Caprini VTE Risk Assessment: Mod/High Risk (score >= 2) VTE [facility] Contraindication: Severe LE edema Caprini Risk Assessment Model Point Value = 1 Point Value = 2 Point Value = 3 Point Value = 5 Age 41-60 Minor surgery BMI > 25 kg/m2 Swollen legs Varicose veins or History of unexplained or recurrent spontaneous Oral contraceptives or hormone replacement Sepsis (< 1 month) Serious lung disease, including pneumonia (< 1 month) Abnormal pulmonary function Acute myocardial infarction Congestive heart failure (< 1 month) History of inflammatory bowel disease Medical patient at bed rest Age 61-74 Arthroscopic surgery Major open surgery (> 45 min) Laparoscopic surgery (> 45 min) Malignancy Confined to bed (> 72 hours) Immobilizing plaster cast Central venous access Age >= 75 History of VTE Family history of VTE Factor V Leiden Prothrombin [id number] Lupus anticoagulant Anticardiolipin antibodies Elevated serum homocysteine Heparin-induced thrombocytopenia Other congenital or acquired thrombophilia Stroke (< 1 month) Elective arthroplasty Hip, pelvis, or leg fracture Acute spinal cord injury (< 1 month) Prophylaxis Regimen Total Risk Factor Score Risk Level Prophylaxis Regimen 0-1 Low Early ambulation 2 Moderate Order ONE of the following: *Sequential Compression Device (SCD) *Heparin 5000 units SQ BID 3-4 Higher Order ONE of the following medications: *Heparin 5000 units SQ TID *Enoxaparin/Lovenox 40 mg SQ daily (WT < 150 kg, CrCl > 30 mL/min) *Enoxaparin/Lovenox 30 mg SQ daily (WT < 150 kg, CrCl > 10-29 mL/min) *Enoxaparin/Lovenox 30 mg SQ BID (WT < 150 kg, CrCl > 30 mL/min) AND/OR *Sequential Compression Device (SCD) 5 or more Highest Order ONE of the following medications: *Heparin 5000 units SQ TID (Preferred with Epidurals) *Enoxaparin/Lovenox 40 mg SQ daily (WT < 150 kg, CrCl > 30 mL/min) *Enoxaparin/Lovenox 30 mg SQ daily (WT < 150 kg, CrCl > 10-29 mL/min) *Enoxaparin/Lovenox 30 mg SQ BID (WT < 150 kg, CrCl > 30 mL/min) AND *Sequential Compression Device (SCD) (Patricia Dickens) Assessment and Plan Problem List: (1) CHF exacerbation ICD Codes: I50.9 - Heart failure, unspecified Status: Acute (2) Acute dyspnea ICD Codes: R06.00 - Dyspnea, unspecified Status: Acute (3) Indwelling catheter present on admission ICD Codes: Z93.6 - Other artificial openings of urinary tract status Status: Acute (4) Inability to ambulate due to multiple joints ICD Codes: R26.2 - Difficulty in walking, not elsewhere classified Status: Acute (5) Morbid obesity ICD Codes: E66.01 - Morbid (severe) obesity due to excess calories Status: Chronic (6) Chronic acquired lymphedema ICD Codes: I89.0 - Lymphedema, not elsewhere classified Status: Chronic (7) Cellulitis ICD Codes: L03.90 - Cellulitis, unspecified Status: Chronic (8) Obesity hypoventilation syndrome ICD Codes: E66.2 - Morbid (severe) obesity with alveolar hypoventilation Status: Chronic (9) DM (diabetes mellitus) ICD Codes: E11.9 - Type 2 diabetes mellitus without complications Status: Chronic (10) HTN (hypertension) ICD Codes: I10 - Essential (primary) hypertension Status: Chronic (11) Anemia ICD Codes: D64.9 - Anemia, unspecified Status: Chronic (12) UTI (urinary tract infection) ICD Codes: N39.0 - Urinary tract infection, site not specified Status: Acute Assessment and Plan Admit to Dr. Adam 71-year-old male with multiple comorbidities presents to the emergency room with acute onset of shortness of breath. Negative for pulmonary emboli. History of CHF, hypertension, obesity Acute CHF, B natruretic peptide 361. -Continue with serial troponin -Cardiology has been consulted for evaluation -Patient had a recent echocardiogram, EF 50-55%. -Continue with Lasix 40 mg IV twice a day -Strict intake and output Respiratory failure, requiring BiPAP Obesity Hypoventilation syndrome -Pulmonology consultation -Continue DuoNeb's, BiPAP as needed UTI, secondary to chronic indwelling catheter -Guadalupe catheter will be changed -Continue Rocephin, follow cultures Acute on chronic kidney disease -Monitor renal function -BMP in the morning Atrial fibrillation, well-controlled -Continue with home medications -Continue with Eliquis Chronic lymphedema and ulcerations lower extremities -Wound care consultation -Continue diuretic Hypertension -Continue home medical Type 2 diabetes -Accu-Cheks before meals and at bedtime with insulin therapy as needed Home medications reviewed, initiated as indicated Continue with Eliquis for DVT prophylaxis End-of-life care issues have been discussed with patient, request DNR with full active treatment. Patient's condition is guarded, this is the third admission this year for the same problem. Plan of care has been discussed with the patient, attending and registered nurse. Further management of the patient will be dependent on the hospital course This patient was seen by myself and Dr. Adam, this H&P is written on his behalf (Patricia Dickens) Assessment and Plan pt is seen & examined d/w PT d/w Patricia xiong w above d./w Dr robison cont current tx see orders will f/u (Marie Adam MD) Physician Certification 2 Midnight Certification Type: Admission for Inpatient Services Order for Inpatient Services The services are ordered in accordance with Medicare regulations or non- Medicare payer requirements, as applicable. In the case of services not specified as inpatient-only, they are appropriately provided as inpatient services in accordance with the 2-midnight benchmark. Estimated LOS (days): 2 2 days is the estimated time the patient will need to remain in the hospital, assuming treatment plan goals are met and no additional complications. Post-Hospital Plan: SNF (Patricia Dickens) Problem Qualifiers (1) CHF exacerbation: Qualified Codes: I50.9 - Heart failure, unspecified (2) Cellulitis: (3) DM (diabetes mellitus): (4) HTN (hypertension): Qualified Codes: I10 - Essential (primary) hypertension (5) Anemia: Qualified Codes: N18.4 - Chronic kidney disease, stage 4 (severe); D63.1 - Anemia in chronic kidney disease (6) UTI (urinary tract infection): Qualified Codes: T83.511A - Infection and inflammatory reaction due to indwelling urethral catheter, initial encounter; N39.0 - Urinary tract infection , site not specified Patricia Dickens Mar 18, 2017 16:48 Marie Adam MD Mar 18, 2017 19:56
--- NOTE | 2017-03-18 16:49 | RADRPT ---
EXAM DATE/TIME: 03/18/2017 14:53 [facility] COMPARISON: CHEST SINGLE AP, March 18, 2017, 11:48. INDICATIONS : Dyspnea. DOSE: 1.6 mCi Tc99m DTPA 8.4 mCi Tc99m MAA MEDICAL HISTORY : Congestive heart failure. Hypercholesterolemia. Diabetes mellitus type 2. Hypertension. GERD. SURGICAL HISTORY : Tonsillectomy. ENCOUNTER: Initial ACUITY: 1 day PAIN SCALE: 0/10 LOCATION: chest TECHNIQUE: Following five minutes of tidal breathing of DTPA aerosol, planar images of the lungs were performed in eight projections. The patient was then injected with MAA, and eight-view perfusion scan was perf ormed. FINDINGS: There is a homogeneous pattern of aerosol delivery to the periphery of both lungs. No focal ventilat ory defects are seen. The perfusion lung scan demonstrates a homogenous pattern of uptake in both lungs. No segmental or s ubsegmental defects are seen. CONCLUSION: Normal examination. Jay Robin MD on March 18, 2017 at 16:47 Board Certified Radiologist. This report was verified electronically.
[2017-03-18] MEDS ORDERED: ACETAMINOPHEN 325 MG TAB PO PRN (17:00)
[2017-03-18] MEDS ORDERED: ONDANSETRON HCL 4 MG/2 ML VIAL IV PUSH PRN (17:00)
[2017-03-18] MEDS ORDERED: GLUCAGON 1 MG/ML VIAL OTHER PRN (17:15)
[2017-03-18] MEDS ORDERED: DEXTROSE 50% IN WATER 50 ML VIAL(D50) IV PRN (17:15)
[2017-03-18] MEDS: FUROSEMIDE 40 MG/4 ML VIAL IV PUSH SCH (18:00)
[2017-03-18] MEDS ORDERED: RESP: ALBUTEROL 2.5 MG/IPRATROPIUM 0.5 MG NEB (PRN) NEB (19:30)
[2017-03-18] MEDS ORDERED: POTASSIUM CHLORIDE 10 MEQ CONTROLLED RELEASE TAB PO SCH (21:00)
[2017-03-18] MEDS: CARVEDILOL 12.5 MG TAB PO SCH (21:00)
[2017-03-18] MEDS: hydrALAZINE HCL 50 MG TAB PO SCH (21:00)
[2017-03-18] MEDS: INSULIN ASPART SUPPLEMENTAL SCALE SQ SCH (21:00)
[2017-03-18] MEDS ORDERED: NON-FORMULARY DRUG (Ferrous Sulfate (Iron) 325 MG) PO SCH (21:00)
[2017-03-18] MEDS ORDERED: NYSTATIN APPL TOPICAL SCH (21:00)
[2017-03-18] MEDS ORDERED: LIDOCAINE HCL 5% PATCH T-DERMAL SCH (22:00)
[2017-03-18] MEDS ORDERED: APIXABAN 2.5 MG TABLET PO SCH (22:00)
[2017-03-18] MEDS ORDERED: APIXABAN 2.5 MG TABLET PO ONE (22:15)
[2017-03-18] MEDS: PRAVASTATIN SOD 20 MG TAB PO SCH (22:45)
[2017-03-18] MEDS: LIDOCAINE HCL 5% PATCH T-DERMAL SCH (23:00)
[2017-03-19] VITALS (18 sets, daily range): BP systolic 116–145; BP diastolic 63–86; PULSE 78–95; RESP 13–19; TEMP 97.7–98.5; O2SAT 88–96
[2017-03-19 05:21] LABS: MEAN CELL VOLUME 96.7 FL (80.0-100.0); MEAN CORPUSCULAR HEMOGLOBIN 30.6 PG (27.0-34.0); MEAN CORPUSCULAR HGB CONC 31.7 % (32.0-36.0); PLATELET COUNT 156 TH/MM3 (150-450); RED BLOOD COUNT 2.79 MIL/MM3 (4.50-5.90); RED CELL DISTRIBUTION WIDTH 16.8 % (11.6-17.2); REVIEW FLAG FINAL; WHITE BLOOD COUNT 6.6 TH/MM3 (4.0-11.0)
[2017-03-19 05:42] LABS: ANION GAP 5 MEQ/L (5-15); BICARBONATE 20.8 MEQ/L (21.0-32.0); BLOOD UREA NITROGEN 74 MG/DL (7-18); CHLORIDE 115 MEQ/L (98-107); GLOMERULAR FILTRATION RATE 22 ML/MIN (>89); POTASSIUM 5.8 MEQ/L (3.5-5.1); SODIUM (NA) 141 MEQ/L (136-145)
--- NOTE | 2017-03-19 07:49 | MB ---
cc: Mirlande AREVALO M.D. DATE OF CONSULTATION 03/18/2017 REASON FOR CONSULTATION Pulmonary consult HISTORY A 71-year-old morbidly obese white male [facility] in [facility] with shortness of breath. The patient presented tachypneic, hypoxic, was placed on BiPap almost immediately. He had been hospitalized here in December and January with similar problems, had a stay in the intensive care unit. The patient has had some right-sided chest discomfort as well and since his D-dimer was elevated, he had a nuclear lung scan which was actually normal. Chest x-ray revealed cardiomegaly with mild interstitial edema. This had come on rather suddenly. He really had no significant cough or congestion. No purulent sputum. There is no history of COPD known. The patient is on BiPAP, mildly sedated, cannot provide history. I am getting this from the medical record from previous admissions and current ER documentation. PAST MEDICAL HISTORY 1. Atrial fibrillation. 2. Congestive heart failure 3. Hyperlipidemia 4. Gastroesophageal reflux disease 5. Chronic renal insufficiency current BUN is 74 with a creatinine of 2.88 6. Chronic severe lower extremity edema with lymphedema 7. Chronic dyspnea 8. Obesity 9. Hypoventilation 10. Diabetes 11. Diabetic retinopathy 12. Chronic pain syndrome, probably from arthritis. ALLERGIES None MEDICATIONS Medications are reviewed in the EMR. He has been given antibiotics. Urine culture is pending. SOCIAL HISTORY As I understand it at this point, he is from a nursing facility. He does not smoke or drink alcohol. PAST SURGICAL HISTORY No prior surgical history. PHYSICAL EXAMINATION An extremely obese white male, comfortable on BiPAP, saturations of 95-100, pulse is 70-80, respirations are 22, blood pressure 130/60. NECK: Huge neck, but no palpable adenopathy. LUNGS: Breath sounds were distant, but actually clear. No wheezes or rales. CARDIAC: No harsh murmur is audible. ABDOMEN: Extremely large but soft. EXTREMITIES: Legs are actually wrapped with John bandages. Feet are visible, appear to have chronic cellulitis and chronic edema. Chest x-ray, cardiomegaly with interstitial edema. DISCUSSION Mr. Joyce presents with chronic problems including atrial fibrillation, chronic congestive heart failure, extreme obesity, probably with hypoventilation although he does not retain CO2. The pCO2 on presentation was 37. He does not appear to have pneumonia at this point, but probably does have mild heart failure and chronic renal insufficiency. From a pulmonary standpoint, the BiPap should be continued. He is being diuresed. Renal function will be monitored. He has been given Rocephin and nebulized aerosol. He is on Eliquis for DVT and thromboembolism prophylaxis. Mr. Joyce suffers from multiple comorbidities, pulmonary status and shortness of breath are related to these, but he does not appear to have significant pneumonia at present and he does not have thromboembolic disease. No history of underlying obstructive lung disease based on the history taken from the chart. Further diagnostic and/or therapeutic intervention will depend on his ongoing clinical course. When the patient is more alert and communicative, I will see if he has any other prior pulmonary history that has not been seen in this record. R. MD OPAL Gudino/JENS /5:56 PM /7:37 AM
[2017-03-19] MEDS: FERROUS SULFATE 325 MG (65 MG ELEMENTAL IRON) TAB PO SCH ×2 (07:53→20:18)
[2017-03-19] MEDS: FUROSEMIDE 40 MG/4 ML VIAL IV PUSH SCH (07:56)
[2017-03-19] MEDS: NIFEdipine 60 MG SUSTAINED RELEASE TAB PO SCH (07:56)
[2017-03-19] MEDS: hydrALAZINE HCL 50 MG TAB PO SCH ×2 (07:57→20:19)
[2017-03-19] MEDS: glipiZIDE 5 MG TAB PO SCH (07:57)
[2017-03-19] MEDS: CARVEDILOL 12.5 MG TAB PO SCH ×2 (07:57→20:18)
[2017-03-19] MEDS: ASPIRIN 325 MG TAB PO SCH (07:58)
--- NOTE | 2017-03-19 08:41 | EKG ---
Date Performed: 03/18/2017 Time Performed: 11:50:23 PTAGE: 71 years EKG: ATRIAL FIBRILLATION LOW QRS VOLTAGE IN PRECORDIAL LEADS POSSIBLE ANTERIOR MYOCARDIAL INFARC TION ABNORMAL ECG PREVIOUS TRACING : 01/23/2017 17.29 No significant change from previous tracing noted. DOCTOR: Abdirizak Martinez Interpretating Date/Time 03/19/2017 08:39:22
[2017-03-19] MEDS: FLUoxetine HCL 20 MG CAP PO SCH (09:00)
[2017-03-19] MEDS: NYSTATIN 100,000 U/GM PWD 15 GM BTL TOPICAL SCH ×2 (09:00→21:00)
[2017-03-19] MEDS ORDERED: FLUOXETINE 40 MG PO SCH (09:00)
[2017-03-19] MEDS ORDERED: REMOVE OLD PATCH T-DERMAL SCH (09:00)
--- NOTE | 2017-03-19 10:11 | MB ---
cc: KHUSHBU TRISTAN M.D. DATE OF CONSULTATION: 03/18/2017 REASON FOR CONSULTATION Atypical chest discomfort. HISTORY OF PRESENT ILLNESS Mr. Joyce is a 71-year-old gentleman who is morbidly obese, history of atrial fibrillation, chronic lymphedema, history of hypertension, GERD and diabetes. He was admitted because of an acute onset of shortness of breath and pleuritic type of right lower rib cage pain that is precipitated by deep palpation. He has no other chest discomfort. He has had right upper quadrant discomfort in the past. Denies palpitations, dizziness or syncope. He has chronic lower extremity edema and sleeps in a recliner. ALLERGIES NO KNOWN DRUG ALLERGIES. FAMILY HISTORY Family history is positive for cancer and diabetes. No family history of coronary artery disease. SOCIAL HISTORY He used to smoke but stopped in 1984. He has had 20 pack-year history of smoking. Denies ETOH abuse or recreational drug abuse. PAST MEDICAL AND SURGICAL HISTORY Includes as mentioned above. 1. History of diastolic heart failure in the past. He had an echocardiogram when he was admitted here in December 2016 that showed preserved LV systolic function, no significant valve pathology. 2. Morbid obesity. 3. Anxiety. 4. Hypertension. 5. Depression. 6. Hyperlipidemia. REVIEW OF SYSTEMS 12-point system review was unremarkable except for what is mentioned in the history of present illness. MEDICATIONS Medications at home includes: 1. Senna p.r.n. 2. Prozac 40 mg p.o. daily. 3. Percocet 10/325 q. 6 p.r.n. with pain. 4. Nystatin. 5. Iron supplements. 6. Glipizide 5 mg p.o. daily. 7. Aldactone 25 mg p.o. daily. 8. Hydralazine 50 mg p.o. b.i.d. 9. Carvedilol 25 mg p.o. b.i.d. 10. Ecotrin 325 mg p.o. daily. 11. Currently is on Nifedipine also 60 mg daily and 12. Eliquis 2.5 mg p.o. b.i.d. PAST SURGICAL HISTORY 1. Tonsillectomy. 2. He is status post EGD in January of this year with chronic gastritis, duodenal ulcers, status post epi injection, clipped and cauterized, I guess after that they stopped his Eliquis at home. PHYSICAL EXAMINATION GENERAL: 71-year-old gentleman lying in bed in no apparent distress, alert and oriented x 3, answers questions appropriately. He is morbidly obese. VITAL SIGNS: Shows blood pressure is 146/77, repeat was 137/64. Pulse of 86 beats per minute and regular, respirations 14 per minute, afebrile. HEENT: Shows head is normocephalic. Pupils equal and reactive. Throat is within normal limits. NECK: Supple and thick and difficult to evaluate for jugular venous distension. No carotid bruit. LUNGS: Few rhonchi at the left base otherwise clear to auscultation and percussion. CARDIOVASCULAR: S1, S2 normal with an S4 gallop and distant heartbeats. ABDOMEN: Obese but lax, nontender. Normoactive bowel sounds. No organomegaly or masses felt. EXTREMITIES: 3+ pitting edema and it is wrapped and there is ulcerations which is chronic. Pulses 2+ bilaterally and diminished distally. NEUROLOGIC: Grossly intact with no focal deficits. RECTAL: Exam deferred. EKG Showed sinus with poor R-wave progression, low QRS voltage and this has not significantly changed compared to prior tracing. His troponin x2 are normal. LABORATORY Shows elevated BUN and creatinine at 74 and 2.88, potassium 5.7 and Troponin I less than 0.02 twice and CPKs 23. He had a mildly elevated BNP at 361. D-dimer was high at 1.41 but he had a VQ scan that showed normal study. Chest x-ray was reported "mild interstitial prominence and cardiomegaly, bibasilar airspace disease may be atelectatic". White count of 6.4, hemoglobin 8.4 and platelet count 177. ASSESSMENT AND RECOMMENDATIONS 1. Atypical chest discomfort as stated on the right lower ribcage, precipitated by deep palpation, that is unlikely cardiac in origin. He is already ruled out by serial cardiac markers and his EKG does not show any ischemic changes and will continue medical therapy with aspirin and beta blockers. 2. Hypertension. Continue on his current therapy for now. He used to be on [place] inhibitor apparently. This was discontinued as an outpatient likely because of his renal insufficiency and his hyperkalemia. 3. Mildly elevated BNP. I doubt that this presentation is solely heart failure. If anything it might be a small acute component of acute on top of chronic diastolic failure. He is being diuresed and I would be cautious with that because of his kidney function and should consider renal consultation but I will leave this up to the primary physician. 4. History of hyperlipidemia. Resume back his lovastatin he is to be on at 20 mg daily. 5. Likely with hypercapnia syndrome and sleep apnea and he should continue on the BiPAP/C-PAP at home. 6. Because of his weight greater than 400 pounds, we currently cannot proceed with any ischemia evaluation because of the weight limit on the cardiac catheterization table as well as the nuclear table. This was discussed with him in the past and he was advised multiple times to consider aggressive weight reduction prior to any further ischemic evaluation. We will continue conservative medical management as above. I doubt that this pain is cardiac in nature and at this point I see no need for further cardiac intervention. Please feel free to contact me for any further cardiac questions and I will be available on as-needed basis. Follow up in the office in 2-3 weeks upon discharge. I thank you for the consultation. ADDENDUM Regarding his atrial fibrillation, his rate is controlled and would continue on his carvedilol. He is on anticoagulation with Eliquis at 2.5 b.i.d. Ideally he should be on 5 mg b.i.d. but apparently had a recent GI bleed and will continue with such dose for now and watch for any signs of bleeding. Thank you for the consultation. Please refer to the above. MD LUKASZ Rhoades/NALLELY /9:52 PM /12:03 PM
[2017-03-19] MEDS: REMOVE OLD LIDOCAINE PATCH T-DERMAL SCH (11:00)
[2017-03-19] MEDS: INSULIN ASPART SUPPLEMENTAL SCALE SQ SCH ×3 (11:00→20:19)
[2017-03-19] MEDS: oxyCODONE/ACETAMINOPHEN 10 MG/325 MG TAB PO PRN (11:06)
--- NOTE | 2017-03-19 11:58 | HHI.PR ---
Subjective Remarks awakes to voice, oriented x 3 had Percocet wants to eat breathing improved no cp oxygen at 5LNC now Objective Objective Results - Vital Signs Date Time Temp Pulse Resp B/P (MAP) Pulse Ox O2 Delivery O2 Flow Rate FiO2 03/19/17 10:00 95 03/19/17 08:25 95 Venturi Mask 50 03/19/17 08:00 97.7 95 16 143/73 (96) 96 03/19/17 08:00 95 03/19/17 07:00 93 Bi-Pap 40 03/19/17 06:00 81 03/19/17 04:01 95 50 03/19/17 04:00 97.8 80 19 132/65 (87) 96 03/19/17 04:00 80 03/19/17 02:00 89 03/19/17 00:00 78 03/19/17 00:00 97.7 78 16 132/67 (88) 95 03/18/17 23:30 96 50 03/18/17 22:00 88 03/18/17 21:08 95 50 03/18/17 20:00 97.6 82 19 137/64 (88) 98 03/18/17 20:00 82 03/18/17 20:00 98 Bi-Pap 50 03/18/17 19:51 97.6 80 20 146/77 (100) 93 03/18/17 18:30 03/18/17 17:55 94 03/18/17 17:17 94 70 03/18/17 14:23 73 18 131/60 (83) 100 BiPAP 70 03/18/17 13:30 71 22 128/67 (87) 95 Non-Rebreather 15.00 03/18/17 13:20 98 BiPAP 70 03/18/17 13:11 18 03/18/17 13:10 99 80 03/18/17 12:48 96 Non-Rebreather 15.00 03/18/17 12:20 85 Nasal Cannula 2.00 I/O 03/18/17 03/18/17 03/18/17 03/19/17 03/19/17 03/19/17 06:59 14:59 22:59 06:59 14:59 22:59 Intake Total 100 ml Output Total 800 ml Balance 100 ml -800 ml Intake IV Total 100 ml Output Urine Total 800 ml Result Diagram: 03/19/17 0426 03/19/17 0426 Imaging Last Impressions Chest X-Ray 03/18/17 1137 Signed Impressions: Service Date/Time: Saturday, March 18, 2017 11:48 - CONCLUSION: 1. Cardiomegaly with mild interstitial prominence. 2. Bibasilar airspace disease, right greater than left. This may be atelectatic in nature. No associated effusions. Armando Bustillo MD Other Results Laboratory Tests Test 03/18/17 12:48 03/18/17 18:51 03/18/17 19:29 03/19/17 04:26 Blood Gas Puncture Site RT RADIAL Blood Gas Patient Temperature 98.6 Blood Gas HCO3 18 Blood Gas Base Excess -7.2 Blood Gas Oxygen Saturation 94 Arterial Blood pH 7.31 Arterial Blood Partial Pressure CO2 37 Arterial Blood Partial Pressure O2 91 Arterial Blood Oxygen Content 11.5 Arterial Blood Carboxyhemoglobin 1.9 Arterial Blood Methemoglobin 0.8 Blood Gas Hemoglobin 8.5 Oxygen Delivery Device Non-Rebreathing Mask Blood Gas Liter Flow 15 Nasal Screen MRSA (PCR) MRSA DETECTED Troponin I LESS THAN 0.02 LESS THAN 0.02 White Blood Count 6.6 Red Blood Count 2.79 Hemoglobin 8.5 Hematocrit 27.0 Mean Corpuscular Volume 96.7 Mean Corpuscular Hemoglobin 30.6 Mean Corpuscular Hemoglobin Concent 31.7 Red Cell Distribution Width 16.8 Platelet Count 156 Mean Platelet Volume 9.4 Blood Urea Nitrogen 74 Creatinine 2.83 Random Glucose 110 Calcium Level 8.3 Sodium Level 141 Potassium Level 5.8 Chloride Level 115 Carbon Dioxide Level 20.8 Anion Gap 5 Estimat Glomerular Filtration Rate 22 Date/Time Source Procedure Growth Status 03/18/17 11:50 Urine Random Urine Urine Culture Pending Received ROS General: Weakness, No: Fatigue HEENT: No: Sore Throat, Dysphagia Cardiac: No: Chest Pain, Edema, Palpitations Pulmonary: SOB (improved ) GI: No: Abdominal Pain, BM, Diarrhea, N/V /[employer]: No: Dysuria, Urgency Neuro/MS: No: Lightheaded, Confusion Psych: No: Anxiety, Depression Skin: No: Itching, Rash Physical Exam Physical Exam GENERAL: This is a morbidly obese male. SKIN: Chronic venous discoloration and ulcerations to both legs. Lymphedema changes to both legs. HEAD: Atraumatic. Normocephalic. No temporal or scalp tenderness. EYES: Pupils equal round and reactive. Extraocular motions intact. No scleral icterus. No injection or drainage. ENT: Nose without bleeding, purulent drainage or septal hematoma. Throat without erythema, tonsillar hypertrophy or exudate. Uvula midline. Airway patent. NECK: Trachea midline. No JVD or lymphadenopathy. Supple, nontender, no meningeal signs. CARDIOVASCULAR: Irregularly irregular. RESPIRATORY: Diminished at bases. Poor inspiratory effort. GASTROINTESTINAL: Abdomen obese, soft, non-tender, nondistended. Mild erythema to pannus with some scratches. No hepato-splenomegaly, or palpable masses. No guarding. : Indwelling catheter, clovis urine. MUSCULOSKELETAL: No joint abnormalities. Chronic lymphedema both legs. Pedal pulses 1+ bilaterally. NEUROLOGICAL: Somnolent, awakes to voice, oriented 3. Following commands. No focal deficits. Urinary Catheter: Yes Assessment to: Continue Downs insert reason: Obstruction/Retention Vascular Central Line Catheter: No A/P Diagnosis: (1) CHF exacerbation ICD Codes: I50.9 - Heart failure, unspecified Status: Acute (2) Acute dyspnea ICD Codes: R06.00 - Dyspnea, unspecified Status: Acute (3) Indwelling catheter present on admission ICD Codes: Z93.6 - Other artificial openings of urinary tract status Status: Acute (4) Inability to ambulate due to multiple joints ICD Codes: R26.2 - Difficulty in walking, not elsewhere classified Status: Acute (5) Morbid obesity ICD Codes: E66.01 - Morbid (severe) obesity due to excess calories Status: Chronic (6) Chronic acquired lymphedema ICD Codes: I89.0 - Lymphedema, not elsewhere classified Status: Chronic (7) Cellulitis ICD Codes: L03.90 - Cellulitis, unspecified Status: Chronic (8) Obesity hypoventilation syndrome ICD Codes: E66.2 - Morbid (severe) obesity with alveolar hypoventilation Status: Chronic (9) DM (diabetes mellitus) ICD Codes: E11.9 - Type 2 diabetes mellitus without complications Status: Chronic (10) HTN (hypertension) ICD Codes: I10 - Essential (primary) hypertension Status: Chronic (11) Anemia ICD Codes: D64.9 - Anemia, unspecified Status: Chronic (12) UTI (urinary tract infection) ICD Codes: N39.0 - Urinary tract infection, site not specified Status: Acute Assessment and Plan 71-year-old male with multiple comorbidities presents to the emergency room with acute onset of shortness of breath. Negative for pulmonary emboli. History of CHF, hypertension, obesity Acute CHF, B natruretic peptide 361. Diastolic -neg serial trop -appreciate card input -Patient had a recent echocardiogram, EF 50-55%. -Strict intake and output -change to PO Lasix, creat inc. Respiratory failure, requiring BiPAP Obesity Hypoventilation syndrome -Pulmonology input appreciated -Continue DuoNeb's, BiPAP as needed UTI, secondary to chronic indwelling catheter GNR, sens pending -Downs catheter changed -Continue Rocephin, follow cultures Acute on chronic kidney disease Hyperkalemia -Monitor renal function -creat elevated, hyperkalemic -give Kayaxalate -consult nephrology Atrial fibrillation, well-controlled -Continue with home medications -Continue with Eliquis Chronic lymphedema and ulcerations lower extremities -Wound care consultation -Continue diuretic, change to PO Hypertension -Continue home medical Type 2 diabetes -Accu-Cheks before meals and at bedtime with insulin therapy as needed Continue with Eliquis for DVT prophylaxis Labs in am Condition guarded DNR status D/W RN D/W Dr. Adam D/W pt This patient was seen by myself and Dr. Adam, this note is written on his behalf Problem Qualifiers (1) CHF exacerbation: Qualified Codes: I50.9 - Heart failure, unspecified (2) Cellulitis: (3) DM (diabetes mellitus): (4) HTN (hypertension): Qualified Codes: I10 - Essential (primary) hypertension (5) Anemia: Qualified Codes: N18.4 - Chronic kidney disease, stage 4 (severe); D63.1 - Anemia in chronic kidney disease (6) UTI (urinary tract infection): Qualified Codes: T83.511A - Infection and inflammatory reaction due to indwelling urethral catheter, initial encounter; N39.0 - Urinary tract infection , site not specified Patricia Dickens Mar 19, 2017 11:58
[2017-03-19] MEDS ORDERED: SODIUM POLYSTYRENE SULFONATE SUSP 15 GM/60 ML CUP PO ONE (12:00)
[2017-03-19] MEDS: cefTRIAXone INJ 1,000 MG in SODIUM CHLORIDE 0.9% INJ 100 ML IV SCH (16:42)
[2017-03-19] MEDS: RESP: ALBUTEROL 2.5 MG/IPRATROPIUM 0.5 MG NEB (SCH) NEB (19:47)
[2017-03-19] MEDS: APIXABAN 2.5 MG TABLET PO SCH (20:19)
[2017-03-19] MEDS: PRAVASTATIN SOD 20 MG TAB PO SCH (20:19)
--- NOTE | 2017-03-19 21:31 | MB ---
cc: AYANNA CHAPA MD DATE OF CONSULTATION 03/19/17 REASON FOR CONSULTATION Elevated BUN and creatinine for evaluation. HISTORY OF PRESENT ILLNESS This is a 71-year-old male with past medical history of ischemic heart disease, congestive heart failure, atrial fibrillation, chronic kidney disease, diabetes mellitus, hypertension, history of GI bleeding who was admitted because of shortness of breath. I was called to see the patient because of elevated BUN and creatinine. The patient has known history of chronic kidney disease and his baseline creatinine has been fluctuating between 2.0 to 2.6 and off and on has acute kidney injury. The patient was recently admitted and the patient was seen at that point by Dr. Vicente and he was discharged on February 05 and then the patient had some ER visits and now came with worsening shortness of breath. The patient is currently with high flow oxygen and the saturation is 88-90%. The patient has been getting Furosemide 20 mg once a day and got one dose of Lasix IV. The patient denies any chest pain. He does not have any palpitation. The patient was also found to have a high potassium of 5.7 to 5.8 this admission and the bicarb in on the lower side and the creatinine is 2.8 which is close to his baseline. The patient is not able to give too much history. Most of the history was taken from the patient's chart. PAST MEDICAL HISTORY 1. Hypertension, 2. Diabetes mellitus, 3. Morbid obesity, 4. Ischemic heart disease, 5. Congestive heart failure, 6. Atrial fibrillation, 7. Chronic kidney disease, 8. Chronic lymphedema of the legs with cellulitis. PAST SURGICAL HISTORY 1. History of endoscopy 2. Tonsillectomy. REVIEW OF SYSTEMS The patient has generalized weakness, feeling tired, has shortness of breath. Denies any chest pain. No nausea, vomiting. No abdominal pain. No history of diarrhea, has cough with whitish sputum. SOCIAL HISTORY The patient is single. There is no history of smoking or alcoholism. FAMILY HISTORY Noncontributory. ALLERGIES NO KNOWN DRUG ALLERGIES. MEDICATIONS Currently 1. Carvedilol 25 mg b.i.d. 2. Hydralazine 50 mg b.i.d. 3. Eliquis 2.5 mg b.i.d. 4. Aspirin 325 mg once a day. 5. Glipizide 5 mg once a day. 6. Claritin 10 mg daily. 7. Nifedipine XL 60 mg once a day. 8. Prozac 40 mg daily. 9. Lasix 20 mg once a day. 10. Pravachol 20 mg q.h.s. 11. DuoNeb nebulizers. 12. Ferrous sulfate 325 mg q. 12 h 13. Ceftriaxone 1 gram IV q.24 h 14. Nystatin topical. q 12-hour. 15. Percocet as needed. 16. Zofran as needed. PHYSICAL EXAMINATION GENERAL: The patient is awake, alert. He is in moderate respiratory distress. VITAL SIGNS: His last blood pressure is 126/86, temperature 98.2, oxygen saturation is 88-90% on high-flow oxygen. HEENT: Pupils are mid constricted. Nonicteric sclerae, conjunctivae pale. NECK: Supple. JVD is slightly elevated. LUNGS: The patient has bilateral decreased air entry with basilar rales and scattered wheezing. HEART: S1, S2 regular rhythm. ABDOMEN: Obese, soft lax. There is no tenderness. EXTREMITIES: He has bilateral lymphedema with dressing in the right lower leg LABORATORY DATA WBC count is 6.6, hemoglobin 8.5, platelet of 156. Sodium 141, potassium 5.8, chloride 115, bicarb 20.8, BUN 74, creatinine 2.8, calcium is 8.3. Troponin I is less than 0.02, INR is 1.21. Urinalysis is showing trace blood, nitrite positive, leukocyte esterase large, RBC 12, WBC 72. Urine culture showing gram-negative rods. IMAGING STUDIES The patient has chest x-ray which shows cardiomegaly with interstitial prominence. VQ scan of the lung was done which was negative. ASSESSMENT/PLAN 1. Urinary tract infection. 2. Respiratory failure 3. Chronic kidney disease with some acute worsening. 4. Hyperkalemia and metabolic acidosis 5. Congestive heart failure exacerbation and fluid overload. 6. Atrial fibrillation 7. Cellulitis of the leg 8. Anemia The patient has multiple comorbid conditions and the creatinine is slightly elevated as compared to his baseline. The potassium is also on the higher side. The patient needs more diuresis. He is only on 20 mg of Lasix. I will change it and give him IV 40 mg b.i.d. and try to keep him in negative fluid balance. Continue the antibiotics and follow the culture result. For a high potassium, he received one dose of kayexalate today in the afternoon so we will follow the potassium level. Thank you for the consultation. I will follow the patient while he is in the hospital. MD JULIANN Khalil/ /6:46 PM /9:10 PM
[2017-03-19] MEDS: LIDOCAINE HCL 5% PATCH T-DERMAL SCH (22:25)
[2017-03-20] VITALS (19 sets, daily range): BP systolic 124–166; BP diastolic 58–101; PULSE 79–106; RESP 10–18; TEMP 97.6–98.8; O2SAT 91–97
[2017-03-20] MEDS: oxyCODONE/ACETAMINOPHEN 10 MG/325 MG TAB PO PRN ×3 (02:30→23:43)
[2017-03-20] MEDS: INSULIN ASPART SUPPLEMENTAL SCALE SQ SCH ×4 (06:32→21:00)
[2017-03-20 07:01] LABS: HEMATOCRIT 29.1 % (39.0-51.0); MEAN CELL VOLUME 98.4 FL (80.0-100.0); MEAN CORPUSCULAR HEMOGLOBIN 30.1 PG (27.0-34.0); MEAN CORPUSCULAR HGB CONC 30.5 % (32.0-36.0); PLATELET COUNT 167 TH/MM3 (150-450); RED BLOOD COUNT 2.96 MIL/MM3 (4.50-5.90); REVIEW FLAG FINAL; WHITE BLOOD COUNT 7.4 TH/MM3 (4.0-11.0)
[2017-03-20 07:02] LABS: BICARBONATE 19.6 MEQ/L (21.0-32.0); POTASSIUM 6.1 MEQ/L (3.5-5.1)
[2017-03-20] MEDS: RESP: ALBUTEROL 2.5 MG/IPRATROPIUM 0.5 MG NEB (SCH) NEB ×2 (07:49→20:22)
[2017-03-20] MEDS: ASPIRIN 325 MG TAB PO SCH (08:03)
[2017-03-20] MEDS: LORATADINE 10 MG TAB PO SCH ×2 (08:03→09:00)
[2017-03-20] MEDS: APIXABAN 2.5 MG TABLET PO SCH ×2 (08:03→23:31)
[2017-03-20] MEDS: CARVEDILOL 12.5 MG TAB PO SCH ×2 (08:04→23:32)
[2017-03-20] MEDS: FERROUS SULFATE 325 MG (65 MG ELEMENTAL IRON) TAB PO SCH ×2 (08:04→23:30)
[2017-03-20] MEDS: NYSTATIN 100,000 U/GM PWD 15 GM BTL TOPICAL SCH ×2 (08:04→23:36)
[2017-03-20] MEDS: hydrALAZINE HCL 50 MG TAB PO SCH ×2 (08:04→23:32)
[2017-03-20] MEDS: NIFEdipine 60 MG SUSTAINED RELEASE TAB PO SCH (08:04)
[2017-03-20] MEDS: FLUoxetine HCL 20 MG CAP PO SCH (09:00)
[2017-03-20] MEDS ORDERED: FUROSEMIDE 20 MG TAB PO SCH (09:00)
[2017-03-20] MEDS: glipiZIDE 5 MG TAB PO SCH (09:00)
[2017-03-20] MEDS: FUROSEMIDE 40 MG/4 ML VIAL IV PUSH SCH ×2 (09:00→18:52)
[2017-03-20] MEDS: REMOVE OLD LIDOCAINE PATCH T-DERMAL SCH (11:00)
--- NOTE | 2017-03-20 13:01 | PD.CONS ---
Consult Service Palliative Care . Consult Requested By Dr. Adam/ Patricia Dickens NP . Primary Care Physician Nilay Clarke MD Reason for Consultation a. To assist with evaluation and management of symptoms including: dyspnea, confusion, b. To assist medical decision maker(s) with: better understanding of current medical conditions; weighing benefits/burdens of medical treatment options; making medical treatment decisions. HPI History of Present Illness Mr. Joyce is a 71 year old male with past medical history of CHF, diabetes, chronic renal insufficiency, atrial fibrillation on chronic anticoagulation on Eliquis, chronic bilateral LE lymphedema and ulcers, GERD. Patient known to palliative care service from prior admissions. Previously admitted 11/18/16 - 11/25/16 for acute renal failure/inability to ambulate; 01/23/17 - 02/05/17 CHF exacerbation, renal failure, G.I. bleed discharge back to [facility]. Patient has also had to recent emergency room visits for fall from power chair and nosebleed. Patient is mostly bedbound, he's not able to ambulate. Patient presented to [facility] emergency department on 03/18/17 with respiratory distress. Apparently patient was being weighed and when he got back in bed he developed sudden onset of shortness of breath. He had a cough, minimal sputum, no chest pain, no palpitations, recent fever, no chills. He had right-sided chest pain. 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 Patient was brought into the emergency room for further evaluation. Laboratory workup was completed in the emergency room, significant for acute on chronic kidney disease, creatinine 2.8, GFR 22. Potassium 5.7. BNP 361. Troponin negative. Patient was anemic, hemoglobin 8.4 , hematocrit 26.8, stable from prior admission. Urinalysis positive for UTI, positive leukocyte esterase and bacteriuria, chronic indwelling catheter was changed. ABG: pH of 7.31, PCO2 37, bicarbonate 18. He was placed on BiPAP. VQ scan negative for PE. Chest x-ray significant for cardiomegaly with mild interstitial prominence, by basilar airspace disease, right greater than left, this may be atelectatic in nature, no effusions. Patient received IV Lasix, DuoNeb's and ceftriaxone. Patient elected NO CODE (DNR/DNI, has [place] DO NOT RESUSCITATE order on chart. Patient was admitted to ICU with congestive heart failure exacerbation, UTI, acute on chronic renal failure, hyperkalemia and respiratory failure. Patient remains in ICU. Hypoxic during my visit on high flow oxygen, oxygen saturation 75-80's, placed back on BiPAP. Patient is arousable, oriented to self, falls off to sleep easily, I am who is willing to serve as healthcare surrogate. Unable to keep him engaged in conversation. He does not seem to know where he is or why he is in the hospital. Was unable to answer the above questions regarding pain or shortness of breath. Also present Maritza Bailey LCSW. Discussed with nurse who indicates patient has been less responsive, unable to answer most questions today. Given patient's overall clinical condition he does not appear to have insider judgment to his health condition and therefore does not appear to incapacitated to make his own health care decisions. During previous admission patient completed a living will and designated his sister of care surrogate. Contacted patient's sister, Tania Joyce is willing to serve as healthcare surrogate. Lengthy discussion with sister to provide medical update, review prior hospitalizations, current medical conditions, prognosis, treatment options for continued aggressive care versus transition to comfort focused care. After lengthy conversation she indicates that patient would want comfort focused care and elects hospice consult. . Function/Cognitive Trajectory Patient was admitted to [facility] on 11/29/16 after he had frequent falls, prior to falls he was ambulating with walker. Recently bedridden. Incontinent. Requires assistance with all ADLs. . Review of Systems ROS Limitations: Altered Mental Status (confused, does not appear to have insight or judgment to his overall health condition/problems.) Constitutional: COMPLAINS OF: Fatigue, Change in appetite (decreased), Generalized weakness (bedbound) Respiratory: COMPLAINS OF: Cough, Sputum production, Shortness of breath Cardiovascular: COMPLAINS OF: Chest pain, Dyspnea on Exertion, Lower Extremity Edema, Orthopnea Musculoskeletal: COMPLAINS OF: Decreased range of motion Integumentary: COMPLAINS OF: Non-healing sores (bilateral lower extremity chronic venous stasis changes, cellulitis) Hematologic/Lymphatics: COMPLAINS OF: Bruising Neurologic: COMPLAINS OF: Poor Balance (frequent falls in the past year, currently bedbound) Psychiatric: COMPLAINS OF: Anxiety Other ROS: ROS per EMR review, patient confused, lethargic. Past Family Social History 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 - 11/19/16 Past Medical History Elevated BMI 70.4 CAD Lymphedema LEs Lower ext wounds Cellulitis CHF DM GERD HTN Chronic renal insufficiency Asthma Hiatal hernia Hepatitis . Past Surgical History Tonsillectomy . Reported Medications Reported Meds & Active Scripts Active Novolog Inj (Insulin Aspart) 100 Unit/Ml Inj 1 Units SQ Q6H Low-dose sliding scale of NovoLog/Humalog insulin with Accu-Cheks before meals and at bedtime Nifedipine ER 24 HR (Nifedipine) 60 Mg Tab 60 Mg PO DAILY Eliquis (Apixaban) 2.5 Mg Tab 2.5 Mg PO BID Reported Senna-S 8.6-50 mg (Sennosides-Docusate Sodium) 1 Tab Tab 1 Tab PO BID PRN Prozac (Fluoxetine HCl) 40 Mg Cap 40 Mg PO DAILY Percocet (Oxycodone-Acetaminophen) 10-325 mg Tab 1 Tab PO Q6H PRN Nystatin Topical (Nystatin) 1 Powd 1 Appl TOPICAL Q12HR Iron (Ferrous Sulfate) 325 Mg Cap 325 Mg PO Q12HR Glucotrol (Glipizide) 5 Mg Tab 5 Mg PO DAILY Take 30 minutes before a meal Duoneb (Ipratropium-Albuterol Neb) 0.5-2.5 Mg/3 Ml Neb 3 Ml NEB Q2HR PRN Aldactone (Spironolactone) 25 Mg Tab 25 Mg PO DAILY Afrin Nasal Bovey (Oxymetazoline HCl) 0.05% Bovey 1 Bovey EACH NARE DAILY PRN Tylenol (Acetaminophen) 325 Mg Tab 650 Mg PO Q4H PRN Lidoderm (Lidocaine) 5 % Adh..patch 1 Patch TOPICAL BID ApplY to lower back - on in AM, off at HS Allergy (Loratadine) 10 Mg Tab 10 Mg PO DAILY Hydralazine HCl 50 Mg Tablet 50 Mg PO BID Aspirin 325 Mg Tab 325 Mg PO DAILY Carvedilol 25 Mg Tab 25 Mg PO BID . Current Medications Medications (Trade) Dose Ordered Sig/Darling Route Start Time Stop Time Status Last Admin (NS Flush) 2 ml UNSCH PRN IVF 03/18/17 11:45 (Aspirin) 325 mg DAILY PO 03/19/17 09:00 03/20/17 08:03 (Coreg) 25 mg BID PO 03/18/17 21:00 03/20/17 08:04 (Glucotrol) 5 mg DAILY PO 03/19/17 09:00 03/19/17 07:57 (Apresoline) 50 mg BID PO 03/18/17 21:00 03/20/17 08:04 (Duoneb Neb) 1 ampule Q2HR NEB PRN NEB 03/18/17 19:30 (Claritin) 10 mg DAILY PO 03/19/17 09:00 03/20/17 09:00 (Procardia Xl) 60 mg DAILY PO 03/19/17 09:00 03/20/17 08:04 (Percocet 10-325 Mg) 1 tab Q6H PRN PO 03/18/17 16:45 03/20/17 11:45 (Audelia-Colace) 1 tab BID PRN PO 03/18/17 16:45 (Tylenol) 650 mg Q4H PRN PO 03/18/17 17:00 (Zofran Inj) 4 mg Q6HR PRN IV PUSH 03/18/17 17:00 Ceftriaxone Sodium 1000 mg/ Sodium Chloride 100 ml @ 200 mls/hr Q24H IV 03/19/17 16:00 03/19/17 16:42 (D50w (Vial) Inj) 50 ml UNSCH PRN IV 03/18/17 17:15 (Glucagon Inj) 1 mg UNSCH PRN OTHER 03/18/17 17:15 (NovoLOG SUPPLEMENTAL SCALE) 1 ACHS SLIDING SCALE SQ 03/18/17 21:00 (Ferrous Sulfate) 325 mg Q12HR PO 03/19/17 09:00 03/20/17 08:04 (PROzac) 40 mg DAILY PO 03/19/17 09:00 03/20/17 09:00 (Mycostatin Powder) 1 applic Q12HR TOPICAL 03/19/17 09:00 03/20/17 08:04 (Lidoderm 5% Patch.12 Hr) 1 patch Q24H T-DERMAL 03/18/17 23:00 03/19/17 22:25 Miscellaneous Information 1 Q24H T-DERMAL 03/19/17 11:00 03/19/17 11:00 (Pravachol) 20 mg HS PO 03/18/17 22:45 03/19/17 20:19 (Duoneb Neb) 1 ampule BID NEB NEB 03/19/17 20:00 03/20/17 07:49 (Eliquis) 2.5 mg BID PO 03/19/17 21:00 03/20/17 08:03 (Lasix Inj) 40 mg BID@09,18 IV PUSH 03/20/17 09:00 03/20/17 09:00 Family History Parents . 2 sisters, one with renal failure on HD for 13 years. Other sister suffers from depression after recent loss of her son. . Substance Use Tobacco: Alcohol: Prescription med abuse: Illicits: Psychosocial History Single. No children. Resident of [facility]. Has to local sisters, Tania and Orquidea. Tania indicates Orquidea has not been well recently after the recent loss of her son, Tania has been unable to reach Orquidea in the past few weeks. . Spiritual/Cultural Factors Worship [place]ez. . Living Will: Copy in medical record Health Care Surrogate: Never completed Durable Power of Staff Mechanical Engineer: Never completed Date completed: 11/19/16 . Health Care Surrogate(s): Designated HCS: Tania Joyce or clarke Owen. . Documented care wishes: Completed community DNR and living will on 11-19-16. Appointed either one of his sisters as HCS and that it is ok for them to be contacted should he become incapacitated and unable to make his own medical decisions. Standard Living will stating should his attending and a consulting physician agree he has a terminal condition, end-stage condition, or is in a persistent vegetative state , he wishes for life-prolonging measures to be withheld or withdrawn. . Today's verbally stated goals: Currently incapacitated to make his own health care decisions. Previously stated "he does not want to be just kept alive if in a vegetative state or if he will not improve. Doesn't want to be the "6 million dollar man."" . Family/friends goals: Elects comfort focused care with hospice support. . Ethical and Legal Issues Patient incapacitated. Living will names Tania bhakta OR Orquidea as HCS. Tania Bhakta is willing to serve as health care surrogate [phone]. Orquidea has not been well after her son's recent . . Physical Exam Vital Signs Date Time Temp Pulse Resp B/P (MAP) Pulse Ox O2 Delivery O2 Flow Rate FiO2 03/20/17 12:00 98.6 85 11 152/71 (98) 92 03/20/17 12:00 84 03/20/17 11:58 91 50 03/20/17 10:00 84 03/20/17 08:00 98.8 84 12 138/73 (94) 93 03/20/17 08:00 84 03/20/17 07:50 92 High Flow Nasal Cannula 25.00 50 03/20/17 07:00 Nasal Cannula 2.00 03/20/17 06:00 97 03/20/17 04:22 95 50 03/20/17 04:00 98.6 92 18 124/58 (80) 95 03/20/17 04:00 92 03/20/17 02:00 93 03/20/17 01:33 94 50 03/20/17 00:00 81 03/20/17 00:00 98.2 81 14 136/64 (88) 92 03/19/17 22:26 96 50 03/19/17 22:00 81 03/19/17 20:00 88 03/19/17 20:00 98.5 88 13 145/69 (94) 96 03/19/17 19:47 92 50 03/19/17 19:00 98 Nasal Cannula 2.00 03/19/17 18:00 95 03/19/17 17:15 90 high flow 25.00 60 03/19/17 16:00 98.2 82 13 126/86 (99) 88 03/19/17 16:00 95 03/19/17 14:00 95 Exam CONSTITUTIONAL/GENERAL: This is overweight, chronically, critically ill patient. Lethargic. TUBES/LINES/DRAINS: BiPAP, PIV, Downs. SKIN: No jaundice, rashes, or lesions. Ecchymoses on upper extremities. Bilateral LE venous changes. Not diaphoretic. HEAD: Atraumatic. Normocephalic. EYES: Pupils equal and round and reactive. ENT: Hearing grossly normal. Nose without bleeding or purulent drainage. Throat without visible erythema. NECK: Trachea midline. CARDIOVASCULAR: irregularly irregular. No JVD. RESPIRATORY/CHEST: Labored respirations on high flow oxygen, saturation 75- 82% . Diminished bilateral bases. Poor inspiratory effort. GASTROINTESTINAL: Abdomen protuberant, soft, non-tender, nondistended. Mild erythema to pannus. Abdominal scratch ko. Bowel sounds hypoactive. GENITOURINARY: Without palpable bladder distension. Downs catheter in place, clovis color urine. MUSCULOSKELETAL: Extremities with chronic venous stasis changes, edema and erythema. Lymphedema. LYMPHATICS: No palpable cervical or supraclavicular adenopathy. NEUROLOGICAL: Awakens briefly. Oriented to self. Answers no to pain. Difficult to keep awake, does not know why or where he is. Generalized weakness. PSYCHIATRIC: Lethargic. . Diagnostic Tests Laboratory Laboratory Tests Test 03/18/17 11:50 03/18/17 12:48 03/18/17 18:51 03/18/17 19:29 White Blood Count 6.4 TH/MM3 (4.0-11.0) Red Blood Count 2.80 MIL/MM3 (4.50-5.90) Hemoglobin 8.4 GM/DL (13.0-17.0) Hematocrit 26.8 % (39.0-51.0) Mean Corpuscular Volume 95.7 FL (80.0-100.0) Mean Corpuscular Hemoglobin 30.0 PG (27.0-34.0) Mean Corpuscular Hemoglobin Concent 31.3 % (32.0-36.0) Red Cell Distribution Width 17.1 % (11.6-17.2) Platelet Count 177 TH/MM3 (150-450) Mean Platelet Volume 9.0 FL (7.0-11.0) Neutrophils (%) (Auto) 80.8 % (16.0-70.0) Lymphocytes (%) (Auto) 4.1 % (9.0-44.0) Monocytes (%) (Auto) 9.7 % (0.0-8.0) Eosinophils (%) (Auto) 4.5 % (0.0-4.0) Basophils (%) (Auto) 0.9 % (0.0-2.0) Neutrophils # (Auto) 5.2 TH/MM3 (1.8-7.7) Lymphocytes # (Auto) 0.3 TH/MM3 (1.0-4.8) Monocytes # (Auto) 0.6 TH/MM3 (0-0.9) Eosinophils # (Auto) 0.3 TH/MM3 (0-0.4) Basophils # (Auto) 0.1 TH/MM3 (0-0.2) CBC Comment DIFF FINAL Differential Comment Prothrombin Time 12.5 SEC (9.8-11.6) Prothromb Time International Ratio 1.1 RATIO Activated Partial Thromboplast Time 32.2 SEC (24.3-30.1) D-Dimer Quantitative (PE/DVT) 1.41 MG/L FEU (0.00-0.50) Urine Color YELLOW (YELLW/STRAW) Urine Turbidity HAZY (CLEAR) Urine pH 7.0 (5.0-8.5) Urine Specific [place] 1.015 (1.002-1.035) Urine Protein TRACE mg/dL (NEG-TRACE) Urine Glucose (UA) NEG mg/dL (NEG) Urine Ketones NEG mg/dL (NEG) Urine Occult Blood TRACE (NEG) Urine Nitrite POS (NEG) Urine Bilirubin NEG (NEG) Urine Urobilinogen LESS THAN 2.0 MG/DL (LESS Urine Leukocyte Esterase LARGE (NEG) Urine RBC 12 /hpf (0-3) Urine WBC 72 /hpf (0-5) Urine Squamous Epithelial Cells <1 /hpf (0-5) Urine Bacteria MOD /hpf (NONE) Urine Mucus FEW /lpf (OCC) Microscopic Urinalysis Comment CULTURE INDICATED Blood Urea Nitrogen 74 MG/DL (7-18) Creatinine 2.88 MG/DL (0.60-1.30) Random Glucose 135 MG/DL (74-106) Total Protein 7.7 GM/DL (6.4-8.2) Albumin 2.9 GM/DL (3.4-5.0) Calcium Level 8.7 MG/DL (8.5-10.1) Magnesium Level 2.3 MG/DL (1.5-2.5) Alkaline Phosphatase 103 U/L (45-117) Aspartate Amino Transf (AST/SGOT) 18 U/L (15-37) Alanine Aminotransferase (ALT/SGPT) 16 U/L (12-78) Total Bilirubin 0.5 MG/DL (0.2-1.0) Sodium Level 141 MEQ/L (136-145) Potassium Level 5.7 MEQ/L (3.5-5.1) Chloride Level 113 MEQ/L (98-107) Carbon Dioxide Level 18.8 MEQ/L (21.0-32.0) Anion Gap 9 MEQ/L (5-15) Estimat Glomerular Filtration Rate 22 ML/MIN (>89) Total Creatine Kinase 23 U/L (39-308) Troponin I LESS THAN 0.02 NG/ML LESS THAN 0.02 NG/ML B-Type Natriuretic Peptide 361 PG/ML (0-100) Blood Gas Puncture Site RT RADIAL Blood Gas Patient Temperature 98.6 Blood Gas HCO3 18 mmol/L (22-26) Blood Gas Base Excess -7.2 mmol/L (-2-2) Blood Gas Oxygen Saturation 94 % (90-100) Arterial Blood pH 7.31 (7.380-7.420) Arterial Blood Partial Pressure CO2 37 mmHg (38-42) Arterial Blood Partial Pressure O2 91 mmHG (61-120) Arterial Blood Oxygen Content 11.5 Vol % (12.0-20.0) Arterial Blood Carboxyhemoglobin 1.9 % (0-4) Arterial Blood Methemoglobin 0.8 % (0-2) Blood Gas Hemoglobin 8.5 G/DL (12.0-16.0) Oxygen Delivery Device Non-Rebreathing Mask Blood Gas Liter Flow 15 L/M Nasal Screen MRSA (PCR) MRSA DETECTED (NOT DETECT) Test 03/19/17 04:26 03/20/17 06:25 White Blood Count 6.6 TH/MM3 (4.0-11.0) 7.4 TH/MM3 (4.0-11.0) Red Blood Count 2.79 MIL/MM3 (4.50-5.90) 2.96 MIL/MM3 (4.50-5.90) Hemoglobin 8.5 GM/DL (13.0-17.0) 8.9 GM/DL (13.0-17.0) Hematocrit 27.0 % (39.0-51.0) 29.1 % (39.0-51.0) Mean Corpuscular Volume 96.7 FL (80.0-100.0) 98.4 FL (80.0-100.0) Mean Corpuscular Hemoglobin 30.6 PG (27.0-34.0) 30.1 PG (27.0-34.0) Mean Corpuscular Hemoglobin Concent 31.7 % (32.0-36.0) 30.5 % (32.0-36.0) Red Cell Distribution Width 16.8 % (11.6-17.2) 17.0 % (11.6-17.2) Platelet Count 156 TH/MM3 (150-450) 167 TH/MM3 (150-450) Mean Platelet Volume 9.4 FL (7.0-11.0) 9.4 FL (7.0-11.0) Blood Urea Nitrogen 74 MG/DL (7-18) 74 MG/DL (7-18) Creatinine 2.83 MG/DL (0.60-1.30) 2.92 MG/DL (0.60-1.30) Random Glucose 110 MG/DL (74-106) 88 MG/DL (74-106) Calcium Level 8.3 MG/DL (8.5-10.1) 8.5 MG/DL (8.5-10.1) Sodium Level 141 MEQ/L (136-145) 142 MEQ/L (136-145) Potassium Level 5.8 MEQ/L (3.5-5.1) 6.1 MEQ/L (3.5-5.1) Chloride Level 115 MEQ/L (98-107) 114 MEQ/L (98-107) Carbon Dioxide Level 20.8 MEQ/L (21.0-32.0) 19.6 MEQ/L (21.0-32.0) Anion Gap 5 MEQ/L (5-15) 8 MEQ/L (5-15) Estimat Glomerular Filtration Rate 22 ML/MIN (>89) 22 ML/MIN (>89) Troponin I LESS THAN 0.02 NG/ML Result Diagram: 03/20/17 0625 03/20/17 0625 Microbiology Microbiology Date/Time Source Procedure Growth Status 03/18/17 11:50 Urine Random Urine Urine Culture - Preliminary Proteus Mirabilis Gram Negative Dave Resulted Imaging Last Impressions Chest X-Ray 03/18/17 4497 Signed Impressions: Service Date/Time: Saturday, March 18, 2017 11:48 - CONCLUSION: 1. Cardiomegaly with mild interstitial prominence. 2. Bibasilar airspace disease, right greater than left. This may be atelectatic in nature. No associated effusions. Armando Bustillo MD Lung Scan-VQ Nuclear Medicine 03/18/17 0000 Signed Impressions: Service Date/Time: Saturday, March 18, 2017 14:53 - CONCLUSION: Normal examination. Jay Robin MD Patient/Family Conference Present at Family Conference: Spoke with sister Tania via phone for 45 minutes. Attempted to call Orquidea bhakta no answer. Tania reports that her sister has not been answering the phone lately she has some depression over the recent loss of her son. She will continue to try to reach Orquidea to provide update. . Family Conference Time (mins): 45 Family Conference Location: Telephone Issues Discussed: * Palliative care role, purpose, approach * Additional medical, psychosocial, and spiritual history * Patients general health, functional status, and cognitive changes in the months leading up to the current hospitalization * Patient/family understanding of the current medical problems * Patient/family understanding of prognosis * Patients goals of care as best understood from advance directives and/or conversations and/or values * Current medical treatment options and benefits/burdens of those options * Likely scenarios comparing ongoing aggressive care with a transition to comfort measures only * Questions answered to the best of my ability * Palliative care contact information provided In summary, sister Tania is willing to serve as healthcare surrogate patient's previously written advance directives. Explained patient does not appear to have insight and judgment to his overall health condition, treatment options, prognosis. She indicates that the patient would want to focus on his quality of life as opposed to quantity of life. She is familiar with hemodialysis as she has been the patient for 13 years, she feels that her brother has multiple medical problems and ongoing functional decline, given the circumstances she does not feel that he would want hemodialysis. Reviewed patient's previously written living will and [place] do not resuscitate order signed by the patient. Reviewed by prior conversations with the patient on previous admissions. After a lengthy review of current medical problems, options including continued aggressive care that might include hemodialysis versus transition to comfort focused care, Tania elects hospice consult and transition to comfort focused care. She requests [facility] hospice as they have cared for her in the past when the doctors that she was going to . Palliative care number provided. Questions answered to her satisfaction. . Assessment and Plan Disease Oriented Problem List: (1) Acute on chronic renal failure (2) Hyperkalemia (3) Anemia (4) Obesity hypoventilation syndrome (5) DM (diabetes mellitus) (6) HTN (hypertension) (7) Inability to ambulate due to multiple joints (8) Morbid obesity (9) Chronic acquired lymphedema (10) Chest pain (11) Indwelling catheter present on admission (12) UTI (urinary tract infection) (13) CHF exacerbation (14) Acute dyspnea Symptom Scale: (1) Weakness 0-10 Scale: Unable to quantify Comment: Chronic bedbound status (2) Dyspnea 0-10 Scale: Unable to quantify Comment: Hypoxia on high flow oxygen, restarted on BiPAP. (3) Pain 0-10 Scale: 0 Comment: Potential sources include bedbound status, obesity, UTI, BiPAP, chronic pain. Patient denies pain during my visit, lethargic, unable to quantify or qualify pain Pertinent Non-Medical Issues Psychosocial: resident of [facility]. Has to living sisters Tania and Orquidea. Patient has not been in contact with his siblings recently. Spiritual: Worship [place]. Legal:Patient incapacitated. Living will names Tania bhakta OR Orquidea as HCS. Tania Bhakta is willing to serve as health care surrogate [phone]. Orquidea has not been well after her son's recent . Ethical issues impacting care: No known concerns at this time. . Important Contacts * Tania Joyce sister/HCS: [phone] . Prognosis Patient is a 71 year old male prison dependent with multiple comorbidities , declining functional status admitted with CHF exacerbation, respiratory failure, UTI, acute on chronic renal failure and overall general debility, his overall prognosis is poor. Hospice appropriate with limited life expectancy. . Code Status: No Code (patient has [place] DNR signed in the EMR) Plan * Patient incapacitated. Living will names Tania bhakta or Orquidea as HCS. Tania Bhakta is willing to serve as health care surrogate [phone]. Orquidea has not been well after her son's recent . * NO CODE (DNR/DNI) * Discussed with Patricia Dickens/ Dr. Adam feel patient is hospice appropriate. * Lengthy conversation with Tania bhakta to provide medical update, review of recent hospitalizations and my prior conversations with patient. Reviewed his Living Will and DNR wishes. She is certain patient would want to focus in his quality of life more than quantity of life given ongoing decline. She requests [facility] as they cared for her in the past. The admission nurse will need to go to [facility]'s home to get consent. She has dialysis T-Th-Sat. Patient was at [facility] prior to admission. * SYMPTOMS: Dyspnea: on BiPAP, oxygen saturations were in the low 80's on high flow oxygen, placed back on BiPAP. Will order PRN Lorazepam. Confusion: likely multi-factorial, hypoxia, renal failure,etc. * Palliative care number provided. * Palliative care will continue to follow. . Thank you for the opportunity to participate in the care of Mr. Joyce. Attestation To help prompt me to consider important information that might be impacting today's encounter and assessment, information from prior notes written by myself or my colleagues may have been "brought forward" into today's note. My signature on this note, however, is an attestation that I personally performed the exam, history, and/or decision-making noted today, and, unless otherwise indicated, the interactions with patient, family, and staff as well as the review of records all occurred today. I also attest that the listed assessment and stated plan reflect my best clinical judgment today based on the combination of historical information, prior notes, and today's exam/ interactions. When time spent is documented, it refers only to time spent today by the signer, or if indicated, combined time spent today by collaborating physician/nurse practitioner. Estela Diallo Mar 20, 2017 13:00
--- NOTE | 2017-03-20 14:28 | HHI.PR ---
Subjective Remarks lethargic on bipap desating earlier awakes to voice, oriented to self and place difficult to obtain ROS Objective Objective Results - Vital Signs Date Time Temp Pulse Resp B/P (MAP) Pulse Ox O2 Delivery O2 Flow Rate FiO2 03/20/17 12:45 18 03/20/17 12:00 98.6 85 11 152/71 (98) 92 03/20/17 12:00 84 03/20/17 11:58 91 50 03/20/17 10:00 84 03/20/17 08:00 98.8 84 12 138/73 (94) 93 03/20/17 08:00 84 03/20/17 07:50 92 High Flow Nasal Cannula 25.00 50 03/20/17 07:00 Nasal Cannula 2.00 03/20/17 06:00 97 03/20/17 04:22 95 50 03/20/17 04:00 98.6 92 18 124/58 (80) 95 03/20/17 04:00 92 03/20/17 02:00 93 03/20/17 01:33 94 50 03/20/17 00:00 81 03/20/17 00:00 98.2 81 14 136/64 (88) 92 03/19/17 22:26 96 50 03/19/17 22:00 81 03/19/17 20:00 88 03/19/17 20:00 98.5 88 13 145/69 (94) 96 03/19/17 19:47 92 50 03/19/17 19:00 98 Nasal Cannula 2.00 03/19/17 18:00 95 03/19/17 17:15 90 high flow 25.00 60 03/19/17 16:00 98.2 82 13 126/86 (99) 88 03/19/17 16:00 95 I/O 03/19/17 03/19/17 03/19/17 03/20/17 03/20/17 03/20/17 07:00 15:00 23:00 07:00 15:00 23:00 Intake Total 215 ml 100 ml Output Total 800 ml 900 ml 500 ml Balance -800 ml -685 ml -400 ml Intake Oral 120 ml 100 ml IV Total 95 ml 0 ml Output Urine Total 800 ml 900 ml 500 ml # Bowel Movements 0 Result Diagram: 03/20/1762403/20/17624 Imaging Last Impressions Chest X-Ray 03/18/17 1137 Signed Impressions: Service Date/Time: Saturday, March 18, 2017 11:48 - CONCLUSION: 1. Cardiomegaly with mild interstitial prominence. 2. Bibasilar airspace disease, right greater than left. This may be atelectatic in nature. No associated effusions. Armando Bustillo MD Other Results Laboratory Tests Test 03/20/17 06:25 White Blood Count 7.4 Red Blood Count 2.96 Hemoglobin 8.9 Hematocrit 29.1 Mean Corpuscular Volume 98.4 Mean Corpuscular Hemoglobin 30.1 Mean Corpuscular Hemoglobin Concent 30.5 Red Cell Distribution Width 17.0 Platelet Count 167 Mean Platelet Volume 9.4 Blood Urea Nitrogen 74 Creatinine 2.92 Random Glucose 88 Calcium Level 8.5 Sodium Level 142 Potassium Level 6.1 Chloride Level 114 Carbon Dioxide Level 19.6 Anion Gap 8 Estimat Glomerular Filtration Rate 22 Date/Time Source Procedure Growth Status 03/18/17 11:50 Urine Random Urine Urine Culture - Preliminary Proteus Mirabilis Gram Negative Dave Resulted ROS General: Other (12 point ros difficult to complete ) Physical Exam Physical Exam GENERAL: This is a morbidly obese male. SKIN: Chronic venous discoloration and ulcerations to both legs. Lymphedema changes to both legs. HEAD: Atraumatic. Normocephalic. No temporal or scalp tenderness. EYES: Pupils equal round and reactive. Extraocular motions intact. No scleral icterus. No injection or drainage. ENT: Nose without bleeding, purulent drainage or septal hematoma. Throat without erythema, tonsillar hypertrophy or exudate. Uvula midline. Airway patent. NECK: Trachea midline. No JVD or lymphadenopathy. Supple, nontender, no meningeal signs. CARDIOVASCULAR: Irregularly irregular. RESPIRATORY: Diminished at bases. Poor inspiratory effort. On BIPAP GASTROINTESTINAL: Abdomen obese, soft, non-tender, nondistended. Mild erythema to pannus with some scratches. No hepato-splenomegaly, or palpable masses. No guarding. : Indwelling catheter, clovis urine. MUSCULOSKELETAL: No joint abnormalities. Chronic lymphedema both legs. Pedal pulses 1+ bilaterally. NEUROLOGICAL: Somnolent, awakes to voice, oriented 3. Following commands. No focal deficits. Urinary Catheter: Yes Assessment to: Continue Donws insert reason: ICU Pt Getting Diuretics Vascular Central Line Catheter: No A/P Diagnosis: (1) CHF exacerbation ICD Codes: I50.9 - Heart failure, unspecified Status: Acute (2) Acute dyspnea ICD Codes: R06.00 - Dyspnea, unspecified Status: Acute (3) Indwelling catheter present on admission ICD Codes: Z93.6 - Other artificial openings of urinary tract status Status: Acute (4) Inability to ambulate due to multiple joints ICD Codes: R26.2 - Difficulty in walking, not elsewhere classified Status: Acute (5) Morbid obesity ICD Codes: E66.01 - Morbid (severe) obesity due to excess calories Status: Chronic (6) Chronic acquired lymphedema ICD Codes: I89.0 - Lymphedema, not elsewhere classified Status: Chronic (7) Cellulitis ICD Codes: L03.90 - Cellulitis, unspecified Status: Chronic (8) Obesity hypoventilation syndrome ICD Codes: E66.2 - Morbid (severe) obesity with alveolar hypoventilation Status: Chronic (9) DM (diabetes mellitus) ICD Codes: E11.9 - Type 2 diabetes mellitus without complications Status: Chronic (10) HTN (hypertension) ICD Codes: I10 - Essential (primary) hypertension Status: Chronic (11) Anemia ICD Codes: D64.9 - Anemia, unspecified Status: Chronic (12) UTI (urinary tract infection) ICD Codes: N39.0 - Urinary tract infection, site not specified Status: Acute Assessment and Plan 71-year-old male with multiple comorbidities presents to the emergency room with acute onset of shortness of breath. Negative for pulmonary emboli. History of CHF, hypertension, obesity Acute CHF, B natruretic peptide 361. Diastolic -neg serial trop -appreciate card input -Patient had a recent echocardiogram, EF 50-55%. -Strict intake and output -continue diuretics Respiratory failure, requiring BiPAP Obesity Hypoventilation syndrome -Pulmonology input appreciated -Continue DuoNeb's, BiPAP as needed UTI, secondary to chronic indwelling catheter GNR, proteus -Downs catheter changed -Continue Rocephin Acute on chronic kidney disease Hyperkalemia -appreciate renal input, restarted IV Lasix 40 mg -creat and K continue to increase Atrial fibrillation, well-controlled -Continue with home medications -Continue with Eliquis Chronic lymphedema and ulcerations lower extremities -Wound care consultation -Continue diuretic, change to PO Hypertension -Continue home medical Type 2 diabetes -Accu-Cheks before meals and at bedtime with insulin therapy as needed Continue with Eliquis for DVT prophylaxis Labs in am Condition guarded DNR status Palliative care input appreciated, D/W Karla NAVAS, she spoke to patient's sister. Hospice has been consulted. D/W RN D/W Dr. Adam This patient was seen by myself and Dr. Adam, this note is written on his behalf Problem Qualifiers (1) CHF exacerbation: Qualified Codes: I50.9 - Heart failure, unspecified (2) Cellulitis: (3) DM (diabetes mellitus): (4) HTN (hypertension): Qualified Codes: I10 - Essential (primary) hypertension (5) Anemia: Qualified Codes: N18.4 - Chronic kidney disease, stage 4 (severe); D63.1 - Anemia in chronic kidney disease (6) UTI (urinary tract infection): Qualified Codes: T83.511A - Infection and inflammatory reaction due to indwelling urethral catheter, initial encounter; N39.0 - Urinary tract infection , site not specified Patricia Dickens Mar 20, 2017 14:28
[2017-03-20] MEDS ORDERED: INSULIN HUMAN REGULAR 1,000 UNITS/10 ML VIAL IV PUSH ONE (14:45)
[2017-03-20] MEDS ORDERED: DEXTROSE 50% IN WATER 50 ML VIAL(D50) IV PUSH ONE (14:45)
[2017-03-20] MEDS ORDERED: DEXTROSE 50% IN WATER 50 ML SYRINGE ONE (15:52)
[2017-03-20] MEDS: cefTRIAXone INJ 1,000 MG in SODIUM CHLORIDE 0.9% INJ 100 ML IV SCH (15:58)
[2017-03-20] MEDS ORDERED: SODIUM BICARBONATE 8.4% INJ 50 MEQ/50 ML SYR IV PUSH ONE (17:45)
[2017-03-20] MEDS ORDERED: SODIUM POLYSTYRENE SULFONATE 30 GM/120 ML ENEMA RECTAL ONE (17:45)
--- NOTE | 2017-03-20 17:52 | HHI.NPPN ---
Subjective History of Present Illness 71-year-old male with past medical history of ischemic heart disease, congestive heart failure, atrial fibrillation, chronic kidney disease, diabetes mellitus, hypertension, history of GI bleeding who was admitted because of shortness of breath. I was called to see the patient because of elevated BUN and creatinine. The patient has known history of chronic kidney disease and his baseline creatinine has been fluctuating between 2.0 to 2.6 and off and on has acute kidney injury. Additional Remarks Patient is now on BIPAP, and moderate resp. distress. Review of Systems General Constitutional: Fatigue Cardiovascular Cardiac: ROWAN Objective Data Data Vital Signs Date Time Temp Pulse Resp B/P (MAP) Pulse Ox O2 Delivery O2 Flow Rate FiO2 03/20/17 16:00 84 03/20/17 16:00 79 10 160/79 (106) 93 03/20/17 14:00 84 03/20/17 12:45 18 03/20/17 12:00 98.6 85 11 152/71 (98) 92 03/20/17 12:00 84 03/20/17 11:58 91 50 03/20/17 10:00 84 03/20/17 08:00 98.8 84 12 138/73 (94) 93 03/20/17 08:00 84 03/20/17 07:50 92 High Flow Nasal Cannula 25.00 50 03/20/17 07:00 Nasal Cannula 2.00 03/20/17 06:00 97 03/20/17 04:22 95 50 03/20/17 04:00 98.6 92 18 124/58 (80) 95 03/20/17 04:00 92 03/20/17 02:00 93 03/20/17 01:33 94 50 03/20/17 00:00 81 03/20/17 00:00 98.2 81 14 136/64 (88) 92 03/19/17 22:26 96 50 03/19/17 22:00 81 03/19/17 20:00 88 03/19/17 20:00 98.5 88 13 145/69 (94) 96 03/19/17 19:47 92 50 03/19/17 19:00 98 Nasal Cannula 2.00 03/19/17 18:00 95 -: 03/20/17 0625 03/20/17 0625 Physical Exam General Appearance: Anxious, Obese Appearance Remarks Moderate distress, on BIPAP. Eyes Eye Exam: Pupils Equal Throat Throat Exam: Oral Mucosa [place] & Moist Neck Neck Exam: Neck Supple Pulmonary Resp Exam: Rhonchi, Sputum, Decreased Bases, Diminished Breath Sounds, Poor Inspiratory Effort Cardiology CV Exam: Regular, Normal Sinus Rhythm Gastrointestinal/Abdomen GI Exam: Non-Tender, Bowel Sounds Present, Distended Extremeties Extremities Exam: Moderate Edema, Pitting Edema, Dependent Edema Neurologic Neuro Exam: Alert Assessment/Plan Assessment Summary: JOÃO/Acute Renal Failure, CKD Stage III Electrolyte Assessment: Hyperkalemia Problem List: (1) Acidosis, metabolic ICD Codes: E87.2 - Acidosis Status: Acute (2) UTI (urinary tract infection) ICD Codes: N39.0 - Urinary tract infection, site not specified Status: Acute (3) HTN (hypertension) ICD Codes: I10 - Essential (primary) hypertension Status: Chronic (4) DM (diabetes mellitus) ICD Codes: E11.9 - Type 2 diabetes mellitus without complications Status: Chronic (5) Obesity hypoventilation syndrome ICD Codes: E66.2 - Morbid (severe) obesity with alveolar hypoventilation Status: Chronic (6) Anemia ICD Codes: D64.9 - Anemia, unspecified Status: Chronic (7) Hyperkalemia ICD Codes: E87.5 - Hyperkalemia (8) Acute on chronic renal failure ICD Codes: N17.9 - Acute kidney failure, unspecified; N18.9 - Chronic kidney disease, unspecified Plan Patient has worsening resp. status. Now on BIPAP. BP is stable. Has been non oliguric. Creatinine slightly increase. K is 6.1, and Hco3 is low. Patient is No Code. Hospice to see the patient. Kayexalate and NaHco3. Follow the urine out put and BMP. Possible HD if not better, will need to ask family about it if needed. Problem Qualifiers (1) UTI (urinary tract infection): Qualified Codes: T83.511A - Infection and inflammatory reaction due to indwelling urethral catheter, initial encounter; N39.0 - Urinary tract infection , site not specified (2) HTN (hypertension): Qualified Codes: I10 - Essential (primary) hypertension (3) DM (diabetes mellitus): (4) Anemia: Qualified Codes: N18.4 - Chronic kidney disease, stage 4 (severe); D63.1 - Anemia in chronic kidney disease Dagmar Peoples MD Mar 20, 2017 17:52
[2017-03-20 18:31] LABS: BICARBONATE 18.6 MEQ/L (21.0-32.0); POTASSIUM 5.9 MEQ/L (3.5-5.1)
[2017-03-20] MEDS: PRAVASTATIN SOD 20 MG TAB PO SCH (21:00)
[2017-03-20] MEDS: LIDOCAINE HCL 5% PATCH T-DERMAL SCH (23:35)
[2017-03-21] VITALS (18 sets, daily range): BP systolic 122–141; BP diastolic 60–76; PULSE 79–98; RESP 10–15; TEMP 96.5–97.5; O2SAT 84–97
[2017-03-21] MEDS: INSULIN ASPART SUPPLEMENTAL SCALE SQ SCH ×4 (05:23→20:33)
[2017-03-21] MEDS: oxyCODONE/ACETAMINOPHEN 10 MG/325 MG TAB PO PRN ×2 (06:30→15:32)
[2017-03-21] MEDS: RESP: ALBUTEROL 2.5 MG/IPRATROPIUM 0.5 MG NEB (SCH) NEB ×2 (07:24→21:22)
[2017-03-21] MEDS: NYSTATIN 100,000 U/GM PWD 15 GM BTL TOPICAL SCH ×2 (08:14→20:33)
[2017-03-21] MEDS: glipiZIDE 5 MG TAB PO SCH (09:00)
[2017-03-21] MEDS: LORATADINE 10 MG TAB PO SCH (09:04)
[2017-03-21] MEDS: FLUoxetine HCL 20 MG CAP PO SCH (09:04)
[2017-03-21] MEDS: FERROUS SULFATE 325 MG (65 MG ELEMENTAL IRON) TAB PO SCH ×2 (09:04→20:33)
[2017-03-21] MEDS: NIFEdipine 60 MG SUSTAINED RELEASE TAB PO SCH (09:04)
[2017-03-21] MEDS: hydrALAZINE HCL 50 MG TAB PO SCH ×2 (09:04→20:33)
[2017-03-21] MEDS: CARVEDILOL 12.5 MG TAB PO SCH ×2 (09:05→20:33)
[2017-03-21] MEDS: APIXABAN 2.5 MG TABLET PO SCH ×2 (09:07→20:33)
[2017-03-21] MEDS: ASPIRIN 325 MG TAB PO SCH (09:07)
[2017-03-21] MEDS: FUROSEMIDE 40 MG/4 ML VIAL IV PUSH SCH ×2 (09:07→18:21)
--- NOTE | 2017-03-21 10:48 | HHI.PR ---
Subjective History of Present Illness Resting in bed Remain on BiPAP,50% FiO2., Desaturates when taken off BiPAP Lethargic but arousable Poor by mouth intake Fever or chills Denies chest pain No Nausea or vomiting No diarrhea Vitals/Results Vital Signs Vital Signs Date Time Temp Pulse Resp B/P (MAP) Pulse Ox O2 Delivery O2 Flow Rate FiO2 03/21/17 10:07 95 50 03/21/17 10:00 82 03/21/17 08:00 94 03/21/17 08:00 97.2 94 10 127/76 (93) 96 03/21/17 07:22 97 50 03/21/17 07:00 96 Bi-Pap 50 03/21/17 06:00 98 03/21/17 04:13 94 50 03/21/17 04:00 81 03/21/17 04:00 96.7 81 12 128/60 (82) 95 03/21/17 02:00 81 03/21/17 00:00 97.5 94 15 141/63 (89) 89 03/21/17 00:00 94 03/20/17 23:49 96 50 03/20/17 22:00 106 03/20/17 20:37 94 50 03/20/17 20:22 97 BiPAP 50 03/20/17 20:00 96 03/20/17 20:00 97.6 96 16 166/101 (122) 94 03/20/17 19:00 91 Bi-Pap 50 03/20/17 18:00 84 03/20/17 16:00 84 03/20/17 16:00 79 10 160/79 (106) 93 03/20/17 14:00 84 03/20/17 12:45 18 03/20/17 12:00 98.6 85 11 152/71 (98) 92 03/20/17 12:00 84 03/20/17 11:58 91 50 CBC/BMP: 03/20/17 0625 03/20/17 1753 Lab Results Laboratory Tests Test 03/20/17 17:53 Blood Urea Nitrogen 80 MG/DL Creatinine 2.85 MG/DL Random Glucose 97 MG/DL Calcium Level 8.2 MG/DL Sodium Level 140 MEQ/L Potassium Level 5.9 MEQ/L Chloride Level 114 MEQ/L Carbon Dioxide Level 18.6 MEQ/L Anion Gap 7 MEQ/L Estimat Glomerular Filtration Rate 22 ML/MIN Physical Exam General General Appearance: Anxious, Obese Appearance Remarks Morbidly obese male lying in bed Eyes Eye Exam: Pupils Equal, Sclera White Ears & Nose Ears & Nose Exam: Nasal Mucosa [place] Neck Neck Exam: Neck Supple, Trachea Midline Pulmonary Resp Exam: Rhonchi, Sputum, Decreased Bases, Diminished Breath Sounds, Poor Inspiratory Effort Cardiology CV Exam: Regular, Normal Sinus Rhythm Gastrointestinal/Abdomen GI Exam: Soft, Non-Tender, Bowel Sounds Present GI Remarks Huge protuberant abdomin Extremeties Extremities Exam: Moderate Edema, Pitting Edema, Dependent Edema Neurologic Neuro Remarks Sleepy but arousable, no obvious facial asymmetry, moves all 4 extremities VTE Prophylaxis VTE Remarks Eliquis Assessment/Plan Assessment/Plan ssessment and Plan 71-year-old male with multiple comorbidities presents to the emergency room with acute onset of shortness of breath. Negative for pulmonary emboli. History of CHF, hypertension, obesity Acute CHF, B natruretic peptide 361. Diastolic -neg serial trop -appreciate card input -Patient had a recent echocardiogram, EF 50-55%. -Strict intake and output -continue diuretics Hypoxemic Respiratory failure, requiring BiPAP, multifactorial Obesity Hypoventilation syndrome -Pulmonology input appreciated -Continue DuoNeb's, BiPAP as needed UTI, secondary to chronic indwelling catheter GNR, proteus -Downs catheter changed -Continue Rocephin Acute on chronic kidney disease Hyperkalemia -appreciate renal input, restarted IV Lasix 40 mg -creat and K continue to increase Atrial fibrillation, well-controlled -Continue with home medications -Continue with Eliquis Chronic lymphedema and ulcerations lower extremities -Wound care consultation -Continue diuretic, change to PO Hypertension -Continue home medical Type 2 diabetes -Accu-Cheks before meals and at bedtime with insulin therapy as needed Continue with Eliquis for DVT prophylaxis Very poor overall prognosis due to Multiorgan dysfunction, morbid obesity and poor performance status. Hospice is meeting the patient's sister this afternoon Discussed with Dr. Adam robison he agreed with hospice also Continue supportive care Possible transfer to hospice care center when arrangements are made Discussed with RN Will follow Marie Adam MD Mar 21, 2017 10:48
[2017-03-21] MEDS: REMOVE OLD LIDOCAINE PATCH T-DERMAL SCH (11:00)
--- NOTE | 2017-03-21 11:11 | HHI.NPPN ---
Subjective History of Present Illness 71-year-old male with past medical history of ischemic heart disease, congestive heart failure, atrial fibrillation, chronic kidney disease, diabetes mellitus, hypertension, history of GI bleeding who was admitted because of shortness of breath. I was called to see the patient because of elevated BUN and creatinine. The patient has known history of chronic kidney disease and his baseline creatinine has been fluctuating between 2.0 to 2.6 and off and on has acute kidney injury. Additional Remarks Patient is now on BIPAP, and moderate resp. distress. Review of Systems General Constitutional: Fatigue Cardiovascular Cardiac: ROWAN Objective Data Data Vital Signs Date Time Temp Pulse Resp B/P (MAP) Pulse Ox O2 Delivery O2 Flow Rate FiO2 03/21/17 10:07 95 50 03/21/17 10:00 82 03/21/17 08:00 94 03/21/17 08:00 97.2 94 10 127/76 (93) 96 03/21/17 07:22 97 50 03/21/17 07:00 96 Bi-Pap 50 03/21/17 06:00 98 03/21/17 04:13 94 50 03/21/17 04:00 81 03/21/17 04:00 96.7 81 12 128/60 (82) 95 03/21/17 02:00 81 03/21/17 00:00 97.5 94 15 141/63 (89) 89 03/21/17 00:00 94 03/20/17 23:49 96 50 03/20/17 22:00 106 03/20/17 20:37 94 50 03/20/17 20:22 97 BiPAP 50 03/20/17 20:00 96 03/20/17 20:00 97.6 96 16 166/101 (122) 94 03/20/17 19:00 91 Bi-Pap 50 03/20/17 18:00 84 03/20/17 16:00 84 03/20/17 16:00 79 10 160/79 (106) 93 03/20/17 14:00 84 03/20/17 12:45 18 03/20/17 12:00 98.6 85 11 152/71 (98) 92 03/20/17 12:00 84 03/20/17 11:58 91 50 -: 03/20/17 0625 03/20/17 1753 Physical Exam General Appearance: Anxious, Obese Eyes Eye Exam: Pupils Equal Throat Throat Exam: Oral Mucosa [place] & Moist Neck Neck Exam: Neck Supple Pulmonary Resp Exam: Rhonchi, Sputum, Decreased Bases, Diminished Breath Sounds, Poor Inspiratory Effort Cardiology CV Exam: Regular, Normal Sinus Rhythm Gastrointestinal/Abdomen GI Exam: Non-Tender, Bowel Sounds Present, Distended Extremeties Extremities Exam: Moderate Edema, Pitting Edema, Dependent Edema Neurologic Neuro Exam: Alert Assessment/Plan Assessment Summary: JOÃO/Acute Renal Failure, CKD Stage III Electrolyte Assessment: Hyperkalemia Problem List: (1) Acidosis, metabolic ICD Codes: E87.2 - Acidosis Status: Acute (2) UTI (urinary tract infection) ICD Codes: N39.0 - Urinary tract infection, site not specified Status: Acute (3) HTN (hypertension) ICD Codes: I10 - Essential (primary) hypertension Status: Chronic (4) DM (diabetes mellitus) ICD Codes: E11.9 - Type 2 diabetes mellitus without complications Status: Chronic (5) Obesity hypoventilation syndrome ICD Codes: E66.2 - Morbid (severe) obesity with alveolar hypoventilation Status: Chronic (6) Anemia ICD Codes: D64.9 - Anemia, unspecified Status: Chronic (7) Hyperkalemia ICD Codes: E87.5 - Hyperkalemia (8) Acute on chronic renal failure ICD Codes: N17.9 - Acute kidney failure, unspecified; N18.9 - Chronic kidney disease, unspecified Plan Patient has worsening resp. status. Now on BIPAP. BP is stable. Has been non oliguric. Creatinine slightly increase. K is 5.9 continue with bicarbonate and IV fluids Patient is No Code. Hospice saw the patient Follow the urine out put and BMP. Morbid obesity possible palliative care to take over Problem Qualifiers (1) UTI (urinary tract infection): Qualified Codes: T83.511A - Infection and inflammatory reaction due to indwelling urethral catheter, initial encounter; N39.0 - Urinary tract infection , site not specified (2) HTN (hypertension): Qualified Codes: I10 - Essential (primary) hypertension (3) DM (diabetes mellitus): (4) Anemia: Qualified Codes: N18.4 - Chronic kidney disease, stage 4 (severe); D63.1 - Anemia in chronic kidney disease Tara Jones MD Mar 21, 2017 11:11
[2017-03-21] MEDS ORDERED: SODIUM BICARBONATE 8.4% INJ 100 MEQ in SODIUM CHLOR 0.45% 1000 ML INJ 1,000 ML IV SCH (11:15)
[2017-03-21] MEDS: cefTRIAXone INJ 1,000 MG in SODIUM CHLORIDE 0.9% INJ 100 ML IV SCH (15:32)
[2017-03-21] MEDS: PRAVASTATIN SOD 20 MG TAB PO SCH (20:33)
[2017-03-21] MEDS: LIDOCAINE HCL 5% PATCH T-DERMAL SCH (22:47)
--- NOTE | 2017-03-21 23:35 | HHI.DCPOC ---
Discharge Care Plan Diagnosis: (1) Acute on chronic renal failure (2) Acidosis, metabolic (3) CHF exacerbation Your Health Problems Are: Fluid/Lung Overload Shortness of Breath Goals to Promote Your Health * To prevent worsening of your condition and complications * To maintain your health at the optimal level Directions to Meet Your Goals Take your medications as prescribed Follow your dietary instruction Follow activity as directed Keep your appointments as scheduled Take your immunizations and boosters as scheduled If your symptoms worsen call your PCP, if no PCP go to Urgent Care Center or Emergency Room Smoking is Dangerous to Your Health. Avoid second hand smoke Call the 24-hour hour crisis hotline for domestic abuse at Patricia Dickens. [facility] Mar 21, 2017 23:35
[2017-03-21] MEDS ORDERED: LORA-474 PO (23:37)
[2017-03-21] MEDS ORDERED: MORP1SOL3 PO (23:37)
--- NOTE | 2017-03-21 23:39 | HHI.DS ---
Discharge Summary Admission Date Mar 18, 2017 at 15:13 Discharge Date: Mar 21, 2017 Admitting Diagnosis DYSPNEA; CHEST PAIN; UTI (1) CHF exacerbation ICD Codes: I50.9 - Heart failure, unspecified Status: Acute (2) Acute dyspnea ICD Codes: R06.00 - Dyspnea, unspecified Status: Acute (3) Indwelling catheter present on admission ICD Codes: Z93.6 - Other artificial openings of urinary tract status Status: Acute (4) Inability to ambulate due to multiple joints ICD Codes: R26.2 - Difficulty in walking, not elsewhere classified Status: Acute (5) Morbid obesity ICD Codes: E66.01 - Morbid (severe) obesity due to excess calories Status: Chronic (6) Chronic acquired lymphedema ICD Codes: I89.0 - Lymphedema, not elsewhere classified Status: Chronic (7) Cellulitis ICD Codes: L03.90 - Cellulitis, unspecified Status: Chronic (8) Obesity hypoventilation syndrome ICD Codes: E66.2 - Morbid (severe) obesity with alveolar hypoventilation Status: Chronic (9) DM (diabetes mellitus) ICD Codes: E11.9 - Type 2 diabetes mellitus without complications Status: Chronic (10) HTN (hypertension) ICD Codes: I10 - Essential (primary) hypertension Status: Chronic (11) Anemia ICD Codes: D64.9 - Anemia, unspecified Status: Chronic (12) UTI (urinary tract infection) ICD Codes: N39.0 - Urinary tract infection, site not specified Status: Acute CBC/BMP: 03/20/17 0625 03/20/17 1753 Significant Findings Laboratory Tests Test 03/19/17 04:26 03/20/17 06:25 03/20/17 17:53 Red Blood Count 2.79 MIL/MM3 (4.50-5.90) 2.96 MIL/MM3 (4.50-5.90) Hemoglobin 8.5 GM/DL (13.0-17.0) 8.9 GM/DL (13.0-17.0) Hematocrit 27.0 % (39.0-51.0) 29.1 % (39.0-51.0) Mean Corpuscular Hemoglobin Concent 31.7 % (32.0-36.0) 30.5 % (32.0-36.0) Blood Urea Nitrogen 74 MG/DL (7-18) 74 MG/DL (7-18) 80 MG/DL (7-18) Creatinine 2.83 MG/DL (0.60-1.30) 2.92 MG/DL (0.60-1.30) 2.85 MG/DL (0.60-1.30) Random Glucose 110 MG/DL (74-106) Calcium Level 8.3 MG/DL (8.5-10.1) 8.2 MG/DL (8.5-10.1) Potassium Level 5.8 MEQ/L (3.5-5.1) 6.1 MEQ/L (3.5-5.1) 5.9 MEQ/L (3.5-5.1) Chloride Level 115 MEQ/L (98-107) 114 MEQ/L (98-107) 114 MEQ/L (98-107) Carbon Dioxide Level 20.8 MEQ/L (21.0-32.0) 19.6 MEQ/L (21.0-32.0) 18.6 MEQ/L (21.0-32.0) Estimat Glomerular Filtration Rate 22 ML/MIN (>89) 22 ML/MIN (>89) 22 ML/MIN (>89) Troponin I LESS THAN 0.02 NG/ML Imaging Last Impressions Chest X-Ray 03/18/17 1137 Signed Impressions: Service Date/Time: Saturday, March 18, 2017 11:48 - CONCLUSION: 1. Cardiomegaly with mild interstitial prominence. 2. Bibasilar airspace disease, right greater than left. This may be atelectatic in nature. No associated effusions. Armando Bustillo MD Lung Scan-V Nuclear Medicine 03/18/17 0000 Signed Impressions: Service Date/Time: Saturday, March 18, 2017 14:53 - CONCLUSION: Normal examination. Jay Robin MD Hospital Course This is an unfortunate 71-year-old morbidly obese male with significant past medical history of CHF, A. fib, chronic lymphedema, chronic anticoagulation on Eliquis, hypertension, GERD, diabetes, chronic ulcerations to lower extremities. Patient was recently admitted December 2016 to the intensive care unit for the same as well as GI bleed that required EGD. Patient returned to the emergency room for evaluation of acute onset shortness of breath. Patient is mostly bedbound, he's not able to ambulate. Apparently patient was being weighed and when he got back in bed he developed sudden onset of shortness of breath. Indicated he had a cough, minimal sputum, no chest pain, no palpitations. No recent fever, no chills. He did have some right-sided chest pain associated with it. He had an echocardiogram in January 2017 showing EF of 50 -55%. 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 Patient was brought into the emergency room for further evaluation. Laboratory workup was completed in the emergency room, significant for acute on chronic kidney disease, creatinine 2.8, GFR 22. Potassium 5.7. B natruretic peptide 361. Troponin negative. Patient is noted anemic, hemoglobin 8.4, hematocrit 26.8. This is similar to most recent admission. Urinalysis positive for UTI, positive leukocyte esterase and bacteriuria. Patient has a chronic indwelling catheter that has been changed. ABG significant for pH of 7.31, PCO2 37, bicarbonate 18. Patient was initially put on BiPAP, during evaluation, he was on 100% nonrebreather. VQ scan was completed, negative for PE. Chest x-ray significant for cardiomegaly with mild interstitial prominence, by basilar airspace disease, right greater than left, this may be atelectatic in nature. No associated effusions. Patient received IV Lasix, DuoNeb's and ceftriaxone. Patient was evaluated in the emergency room , he was awake alert and oriented 3. Patient indicated he had no family, during last admission he was evaluated by palliative care team and decided on DO NOT RESUSCITATE. He has a community DNR on his paperwork. Attending reviewed advanced directives and patient wanted DO NOT RESUSCITATE with full active treatment. Patient was admitted to the intensive care unit for further evaluation and treatment. Hospital Course: 71-year-old male with multiple comorbidities presents to the emergency room with acute onset of shortness of breath. Negative for pulmonary emboli. History of CHF, hypertension, obesity Acute CHF, B natruretic peptide 361. Diastolic -neg serial trop -appreciated card input -Patient had a recent echocardiogram, EF 50-55%. -Strict intake and output -continued diuretics -some diuresis. Hypoxemic Respiratory failure, requiring BiPAP, multifactorial Obesity Hypoventilation syndrome -Pulmonology input appreciated -Continue DuoNeb's, BiPAP as needed -Patient desatted rapidly, remain on BiPAP. Very little improvement. UTI, secondary to chronic indwelling catheter GNR, proteus -Downs catheter changed -Continued Rocephin Acute on chronic kidney disease Hyperkalemia -appreciate renal input, restarted IV Lasix 40 mg -Renal function continued to deteriorate, he required dextrose and insulin to bring down potassium. He was given Kayexalate. Atrial fibrillation, well-controlled -Continued with home medications -Continued with Eliquis-adjusted for renal function. Chronic lymphedema and ulcerations lower extremities -Wound care consultation-recommendations noted Hypertension -Continued home medical Type 2 diabetes -Accu-Cheks before meals and at bedtime with insulin therapy as needed Continued with Eliquis for DVT prophylaxis Very poor overall prognosis due to Multiorgan dysfunction, morbid obesity and poor performance status. Palliative care services were consulted, they spoke to patient's family, he had a sister. Hospice was consulted, they met with sister. She agreed with transitioning patient to hospice services. Discussed with Dr. Adam robison he agreed with hospice also Continued supportive care Patient was transferred to hospice care center. Pt Condition on Discharge: Fair Discharge Disposition: Hospice/Med Facility Discharge Instructions DIET: Follow Instructions for: Heart Healthy Diet Activities you can perform: Weight Bearing as Sergey New Medications: Lorazepam (Ativan) 1 Mg Tab 1 MG PO Q4H PRN for for severe anxiety or dyspnea for 7 Days, TAB 0 Refills Morphine Liq (Morphine Liq) 10 Mg/5 Ml Liq 5 MG PO Q4H for Pain Management for 7 Days, ML 0 Refills Continued Medications: Ipratropium-Albuterol Neb (Duoneb) 0.5-2.5 Mg/3 Ml Neb 3 ML NEB Q2HR PRN for SHORTNESS OF BREATH, #30 NEBULE 0 Refills Discontinued Medications: Acetaminophen (Tylenol) 325 Mg Tab 650 MG PO Q4H PRN for PAIN SCALE 1 TO 10, TAB 0 Refills Apixaban (Eliquis) 2.5 Mg Tab 2.5 MG PO BID for blood thinner, #60 TAB Aspirin (Aspirin) 325 Mg Tab 325 MG PO DAILY, #30 TAB 0 Refills Carvedilol (Carvedilol) 25 Mg Tab 25 MG PO BID, #60 TAB 0 Refills Ferrous Sulfate (Iron) 325 Mg Cap 325 MG PO Q12HR for ANEMIA, #60 TAB 0 Refills Fluoxetine (Prozac) 40 Mg Cap 40 MG PO DAILY for Depression Control, #30 CAP 0 Refills Glipizide (Glucotrol) 5 Mg Tab 5 MG PO DAILY for Blood Sugar Management, #30 TAB 0 Refills Take 30 minutes before a meal Hydralazine HCl (Hydralazine HCl) 50 Mg Tablet 50 MG PO BID for HTN Insulin Aspart Inj (Novolog Inj) 100 Unit/Ml Inj 1 UNITS SQ Q6H for diabetes, #30 INJECTION Low-dose sliding scale of NovoLog/Humalog insulin with Accu-Cheks before meals and at bedtime Lidocaine (Lidoderm) 5 % Adh..patch 1 PATCH TOPICAL BID ApplY to lower back - on in AM, off at HS Loratadine (Allergy) 10 Mg Tab 10 MG PO DAILY for Allergies Nifedipine ER 24 HR (Nifedipine ER 24 HR) 60 Mg Tab 60 MG PO DAILY for Blood Pressure Management, #30 TAB Nystatin Topical (Nystatin Topical) 1 Powd 1 APPL TOPICAL Q12HR for Fungal Rash, CONTAINER Oxycodone-Acetaminophen (Percocet) 10-325 mg Tab 1 TAB PO Q6H PRN for PAIN, TAB 0 Refills Oxymetazoline Nasal (Afrin Nasal [place]) 0.05% [place] 1 SPRAY EACH NARE DAILY PRN for NOSEBLEED, #1 BOTTLE 0 Refills Sennosides-Docusate Sodium (Senna-S 8.6-50 mg) 1 Tab Tab 1 TAB PO BID PRN for CONSTIPATION Spironolactone (Aldactone) 25 Mg Tab 25 MG PO DAILY, #30 TAB 0 Refills Patricia Dickens Mar 21, 2017 23:39
[2017-03-22] VITALS: BP 155/70; PULSE 95; RESP 10; TEMP 97.9; O2SAT 93
== END 2017-03-22 01:40 | disposition hospice, inpatient (51) | DRG 291 ==
LOC: NEPC 11:21 → NEDA 15:13 → HIME 18:10
PROVIDERS: ADMIT Specialist; ATTEND Specialist
PROC: 5A09457 Assistance with Respiratory Ventilation, 24-96 Consecutive Hours, Continuous Positive Airway Pressure (ICD-10-PCS; principal; 2017-03-18)
DX: I50.33 Acute on chronic diastolic (congestive) heart failure (principal); J96.91 Respiratory failure, unspecified with hypoxia; E87.2 Acidosis; E66.2 Morbid (severe) obesity with alveolar hypoventilation; Z68.44 Body mass index [BMI] 60.0-69.9, adult; L03.115 Cellulitis of right lower limb; L03.116 Cellulitis of left lower limb; L97.909 Non-pressure chronic ulcer of unspecified part of unspecified lower leg with unspecified severity; T83.518A Infection and inflammatory reaction due to other urinary catheter, initial encounter; N39.0 Urinary tract infection, site not specified; N18.3 Chronic kidney disease, stage 3 (moderate); I12.9 Hypertensive chronic kidney disease with stage 1 through stage 4 chronic kidney disease, or unspecified chronic kidney disease; Y84.6 Urinary catheterization as the cause of abnormal reaction of the patient, or of later complication, without mention of misadventure at the time of the procedure; B96.4 Proteus (mirabilis) (morganii) as the cause of diseases classified elsewhere; B96.89 Other specified bacterial agents as the cause of diseases classified elsewhere; R26.2 Difficulty in walking, not elsewhere classified; I89.0 Lymphedema, not elsewhere classified; Z79.02 Long term (current) use of antithrombotics/antiplatelets; K21.9 Gastro-esophageal reflux disease without esophagitis; Z74.01 Bed confinement status; E87.5 Hyperkalemia; Z66 Do not resuscitate; Z51.5 Encounter for palliative care; I48.91 Unspecified atrial fibrillation; E78.5 Hyperlipidemia, unspecified; E11.319 Type 2 diabetes mellitus with unspecified diabetic retinopathy without macular edema; Z79.4 Long term (current) use of insulin; G89.29 Other chronic pain; F41.9 Anxiety disorder, unspecified; F32.9 Major depressive disorder, single episode, unspecified; Z87.891 Personal history of nicotine dependence
CPT/HCPCS: 36600; 71010; 76937; 78582; 80048; 80053; 81001; 82550; 82805; 82948; 83735; 83880; 84484; 85025; 85027; 85379; 85610; 85730; 87086; 87641; 93005; 94002; 94003; 94640; 94664; 96365; 96375; A9540; A9567; J0696; J1815; J1940; J2270; J2405